=== PATIENT | male | born 1935 | race Caucasian/White ===

== ENCOUNTER 2021-03-11 19:52 | Inpatient (IN) ==
[2021-03-11] MEDS ORDERED: PANTOprazole 40 MG in SYRINGE 0 ML IV ONE (20:22)
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
[2021-03-11] MEDS ORDERED: FAMOTIDINE 20 MG in SYRINGE 3 ML IV SCH (20:30)
[2021-03-11] MEDS ORDERED: SODIUM CHLORIDE 0.9% 1000ML 500 ML IV ONE (20:49)
[2021-03-11] MEDS ORDERED: SODIUM CHLORIDE 0.9% 250 ML IV PRN (20:49)
[2021-03-11 20:50] LABS: iSTAT Creatinine 1.9 mg/dl (0.6-1.3); iSTAT Hemoglobin 7.8 g/dl (14.0-18.0); iSTAT Ionized Calcium 1.19 mmol/l (1.12-1.32)
[2021-03-11 21:02] LABS: Basophils # (auto) 0.02 K/uL (0-0.2); Basophils % (auto) 0.1 %; Eosinophils # (auto) 0.01 K/uL (0-0.5); Eosinophils % (auto) 0.1 %; Hematocrit (blood only) 25.6 % (42-52); Hemoglobin 8.1 g/dL (14.0-18.0); Immature Granulocytes # (auto) 0.07 K/uL (0.00-0.02); Immature Granulocytes % (auto) 0.4 %; Lymphocytes # (auto) 0.71 K/uL (1.2-3.4); Lymphocytes % (auto) 3.6 %; Mean Corpuscular Hemoglobin 28.3 pg (25-34); Mean Corpuscular Hgb Conc 31.6 g/dL (32-36); Mean Corpuscular Volume 89.5 fL (80-100); Mean Platelet Volume 10.4 fL (7.4-10.4); Monocytes # (auto) 1.06 K/uL (0.11-0.59); Monocytes % (auto) 5.4 %; Neutrophils # (auto) 17.73 K/uL (1.4-6.5); Neutrophils % (auto) 90.4 %; Platelet Count 233 K/uL (130-400); RDW Coefficient of Variation 15.3 % (11.5-14.5); RDW Standard Deviation 49.6 fL (36.4-46.3); Red Blood Count 2.86 M/uL (4.7-6.1)
[2021-03-11 21:09] LABS: Partial Thromboplastin Ratio 0.9; Prothrombin Time 9.9 Seconds (9.0-12.0)
[2021-03-11 21:17] LABS: Alanine Aminotransferase 19 (12-78); Albumin Level 2.9 gm/dl (3.4-5.0); Aspartate Aminotransferase 19 U/L (15-37); Blood Urea Nitrogen 63 mg/dl (7-18); Calcium 8.6 mg/dl (8.5-10.1); Carbon Dioxide 24 mmol/L (21-32); Chloride 106 mmol/L (98-107); Creatinine Clr Calc Pharmacy 51.8 ml/min; Est GFR (African American) 35.1 ml/min; Est GFR (Non-African American) 30.3 ml/min; Glucose 189 mg/dl (70-99); Lipase 238 U/L (73-393); Sodium 137 mmol/L (136-145)
[2021-03-11] MEDS ORDERED: FAMOTIDINE 20MG/5ML IV PUSH IV ONE (21:17)
[2021-03-11 21:32] LABS: Albumin Globulin Ratio 0.8 (0.9-2); Alkaline Phosphatase 71 U/L (45-117); Globulin 3.5 gm/dl (2.5-4.0); Total Protein 6.4 gm/dl (6.4-8.2); Troponin I < 0.015 ng/ml (0-0.045)
--- NOTE | 2021-03-11 21:32 | XRay Report ---
XR chest 1V portable CLINICAL HISTORY: Chest Pain. COMPARISON STUDY: 03/08/2021 TECHNIQUE: 1 view of the chest FINDINGS: Single frontal view of the chest demonstrates the cardiomediastinal silhouette to be within normal li mits. There is again a decreased inspiratory effort with elevation of the hemidiaphragms and crowding of the bronchovascular markings at the lung bases and centrally. The lungs are clear of alveolar opa cities. There is no evidence for pleural effusion. There is no evidence for vascular congestion. Ther e is no acute osseous pathology. A mechanical device is now superimposed over the left lateral rib ca ge IMPRESSION: There is again a decreased inspiratory effort with otherwise no acute chest disease. ACT 112: Negative or not required by law. Electronically signed by: Eugene Wolf M.D. 03/11/2021 9:30 PM
[2021-03-11 22:21] LABS: Bilirubin,Total 0.3 mg/dl (0.2-1)
[2021-03-12] MEDS ORDERED: ONDANSETRON INJ 2 MG/ML 2 ML VIAL IV PRN (00:04)
[2021-03-12] MEDS ORDERED: ACETAMINOPHEN 325 MG TAB PO PRN (00:04)
[2021-03-12] MEDS ORDERED: NITROGLYCERIN SL 0.4 MG/TAB TAB SL PRN (00:04)
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
[2021-03-12] MEDS: PANTOprazole 40 MG in DEXTROSE 5% 100 ML IV SCH ×3 (01:28→11:15)
[2021-03-12] MEDS: SODIUM CHLORIDE 0.9% 1000ML 1,000 ML IV SCH ×2 (03:04→16:03)
[2021-03-12] MEDS: LEVOTHYROXINE SODIUM 137 MCG TABLET PO SCH (05:50)
[2021-03-12 07:58] LABS: Basophils # (auto) 0.01 K/uL (0-0.2); Basophils % (auto) 0.1 %; Eosinophils # (auto) 0.01 K/uL (0-0.5); Eosinophils % (auto) 0.1 %; Hematocrit (blood only) 25.5 % (42-52); Hemoglobin 8.6 g/dL (14.0-18.0); Immature Granulocytes # (auto) 0.04 K/uL (0.00-0.02); Immature Granulocytes % (auto) 0.3 %; Lymphocytes # (auto) 1.15 K/uL (1.2-3.4); Mean Corpuscular Hemoglobin 29.4 pg (25-34); Mean Corpuscular Hgb Conc 33.7 g/dL (32-36); Mean Platelet Volume 9.9 fL (7.4-10.4); Monocytes # (auto) 1.16 K/uL (0.11-0.59); Monocytes % (auto) 9.1 %; Neutrophils % (auto) 81.4 %; Platelet Count 174 K/uL (130-400); RDW Coefficient of Variation 15.2 % (11.5-14.5); RDW Standard Deviation 47.5 fL (36.4-46.3); Red Blood Count 2.93 M/uL (4.7-6.1); White Blood Count 12.77 K/uL (4.8-10.8)
[2021-03-12] MEDS ORDERED: PNEUMOCOCCAL Polysaccharide Vaccine 25mcg/0.5mL vial/Syr IM ONE (08:00)
[2021-03-12 08:33] LABS: BUN Creatinine Ratio 40.8 (10-20); Est GFR (African American) 46.2 ml/min; Est GFR (Non-African American) 39.9 ml/min; Magnesium 2.1 mg/dl (1.8-2.4); Potassium 4.6 mmol/L (3.5-5.1)
[2021-03-12] MEDS: lisinopril 10 MG TAB PO SCH (08:35)
[2021-03-12] MEDS: MULTIVITAMIN TAB PO SCH (08:38)
[2021-03-12] MEDS ORDERED: PANTOprazole 40 MG TAB PO SCH (09:00)
[2021-03-12 11:50] LABS: Hematocrit (blood only) 24.8 % (42-52); Hemoglobin 8.3 g/dL (14.0-18.0)
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
[2021-03-12] MEDS ORDERED: PROPOFOL IV EMULSION 10 MG/ML 20 ML VIAL IV ONE (14:35)
[2021-03-12] MEDS ORDERED: LIDOCAINE 2% 2 ML VIAL/AMP(20MG/ML) INFIL ONE (14:35)
[2021-03-12] MEDS ORDERED: PHENYLEPHRINE 100MCG/ML 5ML SYR ONE (14:35)
--- NOTE | 2021-03-12 15:26 | Anesthesiology Progress Note ---
Date of Service March 12, 2021 Anesthesia Post Procedure Vital Signs Vital Signs: Temp Pulse Pulse Pulse Resp BP BP 03/12/21 15:24 94 H 18 101/60 03/12/21 15:09 96 H 18 111/60 03/12/21 14:13 83 16 130/55 L 03/12/21 11:19 37.0 C 76 19 130/54 L 03/12/21 07:45 36.9 C 88 20 127/56 L 03/12/21 06:53 37.1 C 72 15 130/53 L 03/12/21 06:30 72 03/12/21 05:44 36.2 C L 73 15 116/52 L 03/12/21 04:37 36.8 C 69 14 115/52 L 03/12/21 04:06 36.7 C 71 14 112/47 L 03/12/21 03:51 36.8 C 73 18 117/49 L 03/12/21 02:45 36.7 C 78 15 120/47 L 03/12/21 01:45 36.7 C 81 15 117/45 L 03/12/21 01:15 36.8 C 75 15 115/53 L 03/12/21 01:00 36.8 C 72 15 119/53 L 03/12/21 00:52 36.6 C 72 15 109/47 L 03/12/21 00:44 36.8 C 72 18 109/47 L 03/12/21 00:04 36.8 C 72 15 119/53 L 03/11/21 21:46 83 18 139/54 L 03/11/21 20:21 81 18 03/11/21 20:20 81 18 115/52 L 03/11/21 19:55 36.7 C 81 20 115/52 L Pulse Ox 03/12/21 15:24 97 03/12/21 15:09 100 03/12/21 14:13 97 03/12/21 11:19 97 03/12/21 07:45 98 03/12/21 06:53 98 03/12/21 06:30 03/12/21 05:44 93 03/12/21 04:37 95 03/12/21 04:06 95 03/12/21 03:51 97 03/12/21 02:45 95 03/12/21 01:45 98 03/12/21 01:15 98 03/12/21 01:00 97 03/12/21 00:52 97 03/12/21 00:44 97 03/12/21 00:04 98 03/11/21 21:46 97 03/11/21 20:21 99 03/11/21 20:20 99 03/11/21 19:55 98 Transfer of Care Handoff Completed per policy Notes Mental Status: alert / awake / arousable and participated in evaluation Patient Amnestic to Procedure: Yes Nausea / Vomiting: adequately controlled Pain: adequately controlled Airway Patency, RR, SpO2: stable & adequate BP & HR: stable & adequate Hydration State: stable & adequate Anesthetic Complications: no major complications apparent and Pt Satisfied with anesthetic care
--- NOTE | 2021-03-12 15:36 | GI REPORT ---
Patient Name: Lamberto Chandler Procedure Date: 03/12/2021 2:29 PM Date of : 1935 Admit Type: Inpatient Age: 85 Gender: Male Attending MD: Buffy Infante MD Procedure: Upper GI endoscopy/small bowel enteroscopy Providers: Buffy Infante MD Referring MD: Referred Self Indications: Melena Medicines: See the Anesthesia note for documentation of the administered medications Complications: No immediate complications. Estimated Blood Loss: Estimated blood loss: none. Procedure: Pre-Anesthesia Assessment: - ASA Grade Assessment: III - A patient with severe systemic disease. After obtaining informed consent, the endoscope was passed under direct vision. Throughout the procedure, the patient's blood pressure, pulse, and oxygen saturations were monitored continuously. The Endoscope was introduced through the mouth, and advanced to the proximal jejunum. The upper GI endoscopy was accomplished without difficulty. The patient tolerated the procedure well. Findings: The examined esophagus was normal. Two small erosions in the pre-pyloric antrum. The stomach was otherwise normal. There was mild patchy erythema in the duodenal bulb. A single erosion was seen. The remainder of the duodenum, as well as the jejunum were normal. There was bilious fluid throughout the small intestine, and no evidence of ongoing active bleeding. Impression: Mild gastritis and duodenitis. No source of UGIB or small bowel bleeding. 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 Recommendation: - Discharge patient to floor. - Begin clear liquids. - Follow hgb q 12 hours and transfuse for hgb < 7. - D/c PPI gtt. - If pt has gross hematochezia, would consider CTA. Buffy Infante M.D. Buffy Infante MD 03/12/2021 3:35:58 PM This report has been signed electronically. Note Initiated On: 03/12/2021 2:29 PM Number of Addenda: 0 I attest to the content of the Intraoperative Record and orders documented therein, exceptions below {[id number]}
--- NOTE | 2021-03-12 16:09 | Hospitalist Progress Note ---
Date of Service March 12, 2021 Assessment & Plan (1) Acute blood loss anemia: Plan: Patient presented with acute melena and a 3.5 g hemoglobin drop over the last 3 days. He received 2 units of blood overnight and H&H stayed approximately the same, 8.1/25 and after 2 units 8.3/25. Underwent EGD with enteroscopy today showing gastritis but no evidence of acute bleed. 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 Has no history of colonoscopy. We will continue to trend H&H every 12, stop Protonix drip at this time and continue him on a clear diet. With persistent melenotic BM this evening and persistent orthostasis, will cont with Protonix IV BID for now. If he rebleeds will consider CTA of the abdomen. Appreciate GI following his progress. (2) Melena: Plan: Persistent, Plan as above. (3) Syncope: Plan: Syncope likely secondary to acute blood loss anemia. (4) COVID-19 virus infection: Plan: No acute chest disease seen and patient is not hypoxic. No Covid directed therapies are recommended. Likely caught this from his son at home. Continue Covid isolation. (5) HTN (hypertension): Plan: Chronic, stable, hold lisinopril out of concern for active bleeding given ongoing melena and orthostasis without a clear source. (6) Hypothyroidism: Plan: Chronic, stable, continue Synthroid per home dosing (7) DVT prophylaxis: Plan: SCDs, chemoprophylaxis contraindicated in setting of acute blood loss anemia Full code Disposition-pending rebleed and future stabilization of H&H. Continue to monitor in PCU setting. At the patient's request I contacted . Ami Linares and updated her on the situation. All questions were answered for her. She is pushing for him to have a colonoscopy, which I explained will be up to the GI provider. She verbalized understanding of this. Zina Richter DO [facility] Hospitalist Admission and Anticipated Discharge Date Admission Date: March 11, 2021 Subjective 85-year-old man with a history of aortic stenosis status post TAVR presented with syncope. Patient is very active walking 3 to 4 miles a day and reports 2 syncopal episodes prior to arrival. He reports having black stools for 3 to 4 days including 1 episode of dark tarry stool this morning. He reports feeling dizzy and weak and hemoglobin was notably 3 g lower than 1 week ago on work-up. He was admitted to the hospital service and today has undergone an EGD. This revealed 2 small erosions in the prepyloric antrum and mild patchy erythema in the duodenal bulb with a single erosion seen. There was no evidence of ongoing active bleeding. He was returned to the floor and started back on clear liquids. Protonix drip was discontinued per GI recommendations if patient has gross hematochezia will consider a CTA. We will continue to trend hemoglobin. Orthostatics checked this evening were positive: (lying) 114/51 (sit) 125/49 110 (stand-had to sit down 2/2 lightheadedness) 82/54 110 Pt was served clears tray but has no appetite. Had another blackish stool this evening. Denies abdominal pain, nausea. Reports never having a colonoscopy and is interested in pursuing this to further ID the source of bleeding. Review of Systems Review of Systems: All systems were reviewed and negative except as indicated above. Physical Exam Physical Exam: CONSTITUTIONAL: WNWD, vitals as above, generally ill- appearing, NAD EYES: normal conjunctivae, no scleral icterus ENT: external ear and nose normal, MMM NECK: trachea midline RESPIRATORY: clear to auscultation bilaterally, no crackles, rales or wheezes, normal respiratory effort CARDIOVASCULAR: regular rate and rhythm, S1 and 2 heard without murmurs, gallops or rubs, no JVD, no peripheral edema GASTROINTESTINAL: soft, nontender, ND, no guarding. MUSCULOSKELETAL: strength 5/5 throughout, head is normocephalic and atraumatic SKIN: warm and dry NEUROLOGIC: CN 2-12 grossly intact, no sensory deficit, normal cognition, normal speech, no tremor. No gross focal deficits. PSYCHIATRIC: alert cooperative and oriented to person, place and time. Euthymic mood, makes good eye contact, language grossly intact, recent and remote memory grossly intact. Results & Data Results & Data ([facility]) Vital Signs (Past 12 Hours) Vital Signs Temp Pulse Pulse Pulse Resp BP BP 03/12/21 15:40 85 18 115/58 L 03/12/21 15:24 94 H 18 101/60 03/12/21 15:09 96 H 18 111/60 03/12/21 14:13 83 16 130/55 L 03/12/21 11:19 37.0 C 76 19 130/54 L 03/12/21 07:45 36.9 C 88 20 127/56 L 03/12/21 06:53 37.1 C 72 15 130/53 L 03/12/21 06:30 72 03/12/21 05:44 36.2 C L 73 15 116/52 L 03/12/21 04:37 36.8 C 69 14 115/52 L 03/12/21 04:06 36.7 C 71 14 112/47 L Pulse Ox 03/12/21 15:40 98 03/12/21 15:24 97 03/12/21 15:09 100 03/12/21 14:13 97 03/12/21 11:19 97 03/12/21 07:45 98 03/12/21 06:53 98 03/12/21 06:30 03/12/21 05:44 93 03/12/21 04:37 95 03/12/21 04:06 95 Laboratory Results Short CBC 03/11/21 03/12/21 03/12/21 Range/Units 20:53 07:12 10:58 WBC 19.60 H 12.77 H (4.8-10.8) K/uL Hgb 8.1 L 8.6 L 8.3 L (14.0-18.0) g/dL Hct 25.6 L 25.5 L 24.8 L (42-52) % Plt Count 233 174 (130-400) K/uL BMP 03/11/21 03/12/21 20:32 07:12 Sodium 137 139 Potassium 5.0 4.6 Chloride 106 109 H Carbon Dioxide 24 26 BUN 63 H 64 H Creatinine 1.97 H 1.57 H D Glucose 189 H 118 H Calcium 8.6 8.0 L Cardiac Enzymes 03/11/21 Range/Units 20:32 Troponin I < 0.015 (0-0.045) ng/ml Liver Function 03/11/21 Range/Units 20:32 Total Bilirubin 0.3 (0.2-1) mg/dl AST 19 (15-37) U/L ALT 19 (12-78) Alkaline Phosphatase 71 (45-117) U/L Albumin 2.9 L (3.4-5.0) gm/dl Medications Administered Current Inpatient Medications Acetaminophen (Acetaminophen 325 Mg Tab) 650 mg PO Q4H PRN PRN Reason: Pain or Fever Stop: 04/11/21 00:03 Sodium Chloride (Nss 1000ml) 1,000 mls @ 80 mls/hr IV .[id number] [facility] Stop: 04/11/21 00:03 Last Infusion: 03/12/21 15:34 Dose: Infused Documented by: Pantoprazole Sodium 40 mg/ (Dextrose) 100 mls @ 20 mls/hr IV Q5H [facility] Stop: 04/11/21 00:59 Last Admin: 03/12/21 11:15 Dose: 8 mg/hr, 20 mls/hr Documented by: Levothyroxine Sodium (Levothyroxine Sodium 137 Mcg Tablet) 137 mcg PO DAILYBB [facility] Stop: 04/11/21 06:29 Last Admin: 03/12/21 05:50 Dose: 137 mcg Documented by: Lisinopril (Lisinopril 10 Mg Tab) 10 mg PO DAILY [facility] Stop: 04/11/21 08:59 Last Admin: 03/12/21 08:35 Dose: 10 mg Documented by: Multivitamins (Multivitamin Tab) 1 tab PO QAM [facility] Stop: 04/11/21 08:59 Last Admin: 03/12/21 08:38 Dose: 1 tab Documented by: Nitroglycerin (Nitroglycerin Sl 0.4 Mg/Tab Tab) 0.4 mg SL UD PRN PRN Reason: Chest Pain Stop: 04/11/21 00:03 Ondansetron HCl (Ondansetron Inj 2 Mg/Ml 2 Ml Vial) 4 mg IV Q6H PRN PRN Reason: Nausea Stop: 04/11/21 00:03
--- NOTE | 2021-03-12 18:16 | Electrocardiogram Report ---
Test Reason : Blood Pressure : / mmHG Vent. Rate : 074 BPM Atrial Rate : 074 BPM P-R Int : 182 ms QRS Dur : 088 ms QT Int : 366 ms P-R-T Axes : 066 044 038 degrees QTc Int : 406 ms Normal sinus rhythm Normal ECG When compared with ECG of 08-MAR-2021 13:20, No significant change was found Confirmed by Alvaro Foster ([id number]) on 03/12/2021 6:15:57 PM Referred By: REFERRED SELF Confirmed By:Roly Foster
--- NOTE | 2021-03-12 18:18 | Electrocardiogram Report ---
Test Reason : Blood Pressure : / mmHG Vent. Rate : 073 BPM Atrial Rate : 073 BPM P-R Int : 188 ms QRS Dur : 094 ms QT Int : 376 ms P-R-T Axes : 065 041 025 degrees QTc Int : 414 ms Normal sinus rhythm Normal ECG When compared with ECG of 11-MAR-2021 20:03, (unconfirmed) No significant change was found Confirmed by Alvaro Foster ([id number]) on 03/12/2021 6:18:13 PM Referred By: REFERRED SELF Confirmed By:Roly Foster
[2021-03-12] MEDS ORDERED: SODIUM CHLORIDE 0.9% 1000ML 500 ML IV ONE (18:46)
[2021-03-12 19:20] LABS: Hematocrit (blood only) 24.9 % (42-52); Hemoglobin 8.2 g/dL (14.0-18.0)
[2021-03-12] MEDS: PANTOprazole 40 MG in SYRINGE 0 ML IV SCH (20:45)
[2021-03-13] MEDS: SODIUM CHLORIDE 0.9% 1000ML 1,000 ML IV SCH ×2 (04:36→16:17)
[2021-03-13] MEDS: LEVOTHYROXINE SODIUM 137 MCG TABLET PO SCH (06:08)
[2021-03-13] MEDS: PANTOprazole 40 MG in DEXTROSE 5% 100 ML IV SCH (07:04)
--- NOTE | 2021-03-13 07:31 | Hospitalist Progress Note ---
Date of Service March 13, 2021 Assessment & Plan (1) Acute blood loss anemia: Plan: Patient presented with acute melena and a 3.5 g hemoglobin drop over the last 3 days. He received 2 units of blood overnight and H&H stayed approximately the same, 8.1/25 and after 2 units 8.3/25. Underwent EGD (03/12/2021) with enteroscopy showing gastritis but no evidence of acute bleed. 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 Has no history of colonoscopy. This AM (03/13) pt had a bloody stool. Also later episode of vasovagal syncope. Hemoglobin 7.2 this morning (03/13), 2 units of PRBCs ordered. CT abdomen pelvis obtained, does not show active bleeding. GI aware, recommend continue to monitor IMPRESSION: 1. No CTA evidence for active bleeding. 2. Diverticulosis without evidence for diverticulitis. 3. Cholelithiasis with no CT evidence for acute cholecystitis. 4. Additional nonacute findings are delineated above. Continue to trend H&H q6h (2) Melena: Plan: and BRBPR Persistent, Plan as above. (3) Syncope: Plan: Syncope likely secondary to acute blood loss anemia. Patient had a vasovagal episode again at the bedside commode (03/13) (4) COVID-19 virus infection: Plan: No acute chest disease seen and patient is not hypoxic. No Covid directed therapies are recommended. Likely caught this from his son at home. Continue Covid isolation. (5) HTN (hypertension): Plan: Chronic, stable, hold lisinopril out of concern for active bleeding given ongoing melena and orthostasis without a clear source. (6) Hypothyroidism: Plan: Chronic, stable, continue Synthroid per home dosing (7) DVT prophylaxis: Plan: SCDs, chemoprophylaxis contraindicated in setting of acute blood loss anemia Full code Disposition-pending rebleed and future stabilization of H&H. Continue to monitor in PCU setting. Ms. Ami Linares updated yesterday by Dr. Richter. Per previous note - she would like for him to have a colonoscopy, it was explained that it will be up to the GI provider. She verbalized understanding of this. Admission and Anticipated Discharge Date Admission Date: March 11, 2021 Subjective Patient had another bloody bowel movement this morning around 630. Hgb 7.2. 2 units of pRBC ordered CT abdomen pelvis with contrast ordered -does not show any active bleeding Discussed with Dr. Steele (GI) this morning, recommends to observe Patient also had vasovagal episode on bedside commode (code purple was called). Denies abdominal pain, nausea vomiting, chest pain or shortness of breath. Feels weak. Underwent EGD yesterday. This revealed 2 small erosions in the prepyloric an trum and mild patchy erythema in the duodenal bulb with a single erosion seen. There was no evidence of ongoing active bleeding. He was returned to the floor and started back on clear liquids. Protonix drip was discontinued per GI recommendations. 85 yo M w/ hx of s/p TAVR presented with syncope. Patient is very active walking 3 to 4 miles a day and reports 2 syncopal episodes prior to arrival. He reports having black stools for 3 to 4 days including 1 episode of dark tarry stool this morning. He reports feeling dizzy and weak and hemoglobin was notably 3 g lower than 1 week ago on work-up. Orthostatics checked last evening were positive: (lying) 114/51 (sit) 125/49 110 (stand-had to sit down 2/2 lightheadedness) 82/54 110 Pt had another blackish stool last evening. Denies abdominal pain, nausea. Reports never having a colonoscopy and is interested in pursuing this to further ID the source of bleeding. Review of Systems Review of Systems: All systems reviewed & are unremarkable except as noted in Subjective Physical Exam Physical Exam: CONSTITUTIONAL: WN/WD, vitals as above, generally ill-appearing, NAD EYES: EOMI, PERRL, normal conjunctivae, no scleral icterus ENT: external ear and nose normal, MMM NECK: supple RESPIRATORY: clear to auscultation bilaterally, no crackles, rales or wheezes, normal respiratory effort CARDIOVASCULAR: regular rate and rhythm, S1 and 2 heard without murmurs, gallops or rubs, no JVD, no peripheral edema GASTROINTESTINAL: soft, nontender, ND, no guarding. MUSCULOSKELETAL: strength 5/5 throughout, head is normocephalic and atraumatic SKIN: warm and dry NEUROLOGIC:Awake and alert, able to answer questions appropriately. Previously had vasovagal episode. Currently moving extremities, no facial symmetry, speech fluent PSYCHIATRIC: Euthymic mood Results & Data Results & Data ([facility]) Vital Signs (Past 12 Hours) Vital Signs Temp Pulse Pulse Pulse Resp BP BP 03/13/21 07:16 83 03/13/21 07:14 36.9 C 84 18 116/53 L 03/13/21 04:20 37.0 C 88 20 118/57 L 03/13/21 01:00 82 03/13/21 00:52 85 03/13/21 00:26 102 H 101/55 L 03/13/21 00:22 36.9 C 89 18 111/52 L 03/13/21 00:04 03/12/21 19:59 85 121/56 L Pulse Ox 03/13/21 07:16 03/13/21 07:14 95 03/13/21 04:20 96 03/13/21 01:00 03/13/21 00:52 03/13/21 00:26 95 03/13/21 00:22 94 03/13/21 00:04 95 03/12/21 19:59 95 Laboratory Results 03/13/21 03/13/21 03/12/21 Range/Units 07:15 07:15 19:06 WBC 10.93 H (4.8-10.8) K/uL RBC 2.46 L (4.7-6.1) M/uL Hgb 7.2 L 8.2 L (14.0-18.0) g/dL Hct 21.9 L 24.9 L (42-52) % MCV 89.0 (80-100) fL MCH 29.3 (25-34) pg MCHC 32.9 (32-36) g/dL RDW Std Deviation 51.1 H (36.4-46.3) fL RDW Coeff of Suzie 16.1 H (11.5-14.5) % Plt Count 160 (130-400) K/uL MPV 10.2 (7.4-10.4) fL Sodium 140 (136-145) mmol/L Potassium 4.0 (3.5-5.1) mmol/L Chloride 112 H (98-107) mmol/L Carbon Dioxide 23 (21-32) mmol/L Anion Gap 6.0 (3-11) BUN 46 H (7-18) mg/dl Creatinine 1.44 H (0.6-1.4) mg/dl Est Cr Clr Drug Dosing 41.4 ml/min Est GFR ( Amer) 51.3 ml/min Est GFR (Non-Af Amer) 44.3 ml/min BUN/Creatinine Ratio 31.9 H (10-20) Glucose 117 H (70-99) mg/dl Calcium 7.8 L (8.5-10.1) mg/dl Phosphorus 2.7 (2.5-4.9) mg/dl Magnesium 2.0 (1.8-2.4) mg/dl Blood Type Antibody Screen Crossmatch 03/11/21 Range/Units 20:53 WBC (4.8-10.8) K/uL RBC (4.7-6.1) M/uL Hgb (14.0-18.0) g/dL Hct (42-52) % MCV (80-100) fL MCH (25-34) pg MCHC (32-36) g/dL RDW Std Deviation (36.4-46.3) fL RDW Coeff of Suzie (11.5-14.5) % Plt Count (130-400) K/uL MPV (7.4-10.4) fL Sodium (136-145) mmol/L Potassium (3.5-5.1) mmol/L Chloride (98-107) mmol/L Carbon Dioxide (21-32) mmol/L Anion Gap (3-11) BUN (7-18) mg/dl Creatinine (0.6-1.4) mg/dl Est Cr Clr Drug Dosing ml/min Est GFR ( Amer) ml/min Est GFR (Non-Af Amer) ml/min BUN/Creatinine Ratio (10-20) Glucose (70-99) mg/dl Calcium (8.5-10.1) mg/dl Phosphorus (2.5-4.9) mg/dl Magnesium (1.8-2.4) mg/dl Blood Type B Negative Antibody Screen NEGATIVE Crossmatch See Detail Medications Administered Current Inpatient Medications Acetaminophen (Acetaminophen 325 Mg Tab) 650 mg PO Q4H PRN PRN Reason: Pain or Fever Stop: 04/11/21 00:03 Sodium Chloride (Nss 1000ml) 1,000 mls @ 80 mls/hr IV .[id number] [facility] Stop: 04/11/21 00:03 Last Admin: 03/13/21 04:36 Dose: 80 mls/hr Documented by: Pantoprazole Sodium 40 mg/ (Syringe) 10 mls @ 5 mls/min IV BID [facility] Stop: 04/11/21 20:59 Last Admin: 03/13/21 08:00 Dose: 5 mls/min Documented by: Sodium Chloride (Nss) 250 mls @ 15 mls/hr IV .[id number] PRN PRN Reason: For Transfusion Stop: 03/13/21 18:34 Sodium Chloride (Nss) 250 mls @ 15 mls/hr IV .[id number] PRN PRN Reason: For Transfusion Stop: 03/13/21 19:45 Levothyroxine Sodium (Levothyroxine Sodium 137 Mcg Tablet) 137 mcg PO DAILYBB [facility] Stop: 04/11/21 06:29 Last Admin: 03/13/21 06:08 Dose: 137 mcg Documented by: Lisinopril (Lisinopril 10 Mg Tab) 10 mg PO DAILY [facility] Stop: 04/11/21 08:59 Last Admin: 03/13/21 08:00 Dose: 10 mg Documented by: Multivitamins (Multivitamin Tab) 1 tab PO QAM [facility] Stop: 04/11/21 08:59 Last Admin: 03/13/21 08:00 Dose: 1 tab Documented by: Nitroglycerin (Nitroglycerin Sl 0.4 Mg/Tab Tab) 0.4 mg SL UD PRN PRN Reason: Chest Pain Stop: 04/11/21 00:03 Ondansetron HCl (Ondansetron Inj 2 Mg/Ml 2 Ml Vial) 4 mg IV Q6H PRN PRN Reason: Nausea Stop: 04/11/21 00:03
[2021-03-13] MEDS: MULTIVITAMIN TAB PO SCH (08:00)
[2021-03-13] MEDS: lisinopril 10 MG TAB PO SCH (08:00)
[2021-03-13] MEDS: PANTOprazole 40 MG in SYRINGE 0 ML IV SCH ×2 (08:00→19:57)
[2021-03-13 08:28] LABS: Hematocrit (blood only) 21.9 % (42-52); Hemoglobin 7.2 g/dL (14.0-18.0); Mean Corpuscular Hemoglobin 29.3 pg (25-34); Mean Corpuscular Hgb Conc 32.9 g/dL (32-36); Mean Platelet Volume 10.2 fL (7.4-10.4); Platelet Count 160 K/uL (130-400); RDW Coefficient of Variation 16.1 % (11.5-14.5); RDW Standard Deviation 51.1 fL (36.4-46.3); Red Blood Count 2.46 M/uL (4.7-6.1); White Blood Count 10.93 K/uL (4.8-10.8)
[2021-03-13] MEDS ORDERED: SODIUM CHLORIDE 0.9% 250 ML IV PRN ×3 (08:34→18:37)
[2021-03-13 08:54] LABS: BUN Creatinine Ratio 31.9 (10-20); Calcium 7.8 mg/dl (8.5-10.1); Creatinine Clr Calc Pharmacy 41.4 ml/min; Est GFR (African American) 51.3 ml/min; Est GFR (Non-African American) 44.3 ml/min
[2021-03-13 08:55] LABS: Phosphorus 2.7 mg/dl (2.5-4.9)
[2021-03-13] MEDS ORDERED: OPTIRAY 320 125ml IV ONE (09:37)
--- NOTE | 2021-03-13 10:00 | CT Scan Report ---
CT angio abdomen pelvis w con CLINICAL HISTORY: GI bleed COMPARISON STUDY: 05/29/2010 CT DOSE: 1000.08 mGycm TECHNIQUE: Standard CT Angiogram of the aorta was performed with IV contrast followed by image post processing with coronal, and sagittal MIP reformats... This CT exam was performed using one or more of the following dose reduction techniques: Automated ex posure control, adjustment of the mA and/or kV according to patient size, or use of iterative reconst ruction technique. CONTRAST: Optiray 320, 120 mL nonionic intravenous contrast. VASCULAR FINDINGS: There is no evidence for a contrast blush within the bowel with no CTA evidence fo r active bleeding. Abdominal aorta: patent without aneurysm or dissection. Minimal atherosclerotic calcification is pres ent. Celiac trunk: patent without stenosis. Mild atherosclerotic plaque is seen involving its branches. Superior mesenteric artery: patent without stenosis. Right renal artery: patent without stenosis. Left renal artery: patent without stenosis. Inferior mesenteric artery: patent without stenosis. Right common iliac artery: patent without stenosis. Mild atherosclerotic calcification is present. Right internal iliac artery: patent without stenosis. Mild atherosclerotic calcification is present. Right external iliac artery: patent without stenosis. Left common iliac artery: patent without stenosis. Mild atherosclerotic calcification is present. Left internal iliac artery: patent without stenosis. Mild atherosclerotic calcification is present. Left external iliac artery: patent without stenosis NONVASCULAR FINDINGS: Lung base: The lung bases are clear. There is evidence for an aortic graft in place. Abdominal cavity: There is no evidence for abdominal mass, adenopathy or ascites. There are small jose ateral inguinal hernias with peritoneal fat. No bowel loop herniation is seen. Liver: There is homogeneous in fatty attenuation of the liver parenchyma. There is no evidence for en hancing mass lesion. Spleen: There is homogeneous attenuation of the splenic parenchyma. There is no enhancing mass lesion . Pancreas: There is homogeneous attenuation of the pancreatic parenchyma. There is no evidence for mas s lesion or peripancreatic fluid collection. Gall Bladder: The gallbladder is well distended with cholelithiasis. There is no CT evidence for acut e cholecystitis. Adrenal glands: The adrenal glands are normal in size and attenuation. There is no evidence for enhan cing mass lesion. Kidneys: There is homogeneous attenuation of the renal parenchyma bilaterally. However, there is bila teral renal cortical atrophy. There is no evidence for renal calculus or hydronephrosis. There is no evidence for enhancing mass. Bowel: There is small hiatal hernia. The bowel loops are normally placed within the abdomen and pelvi s without evidence for dilatation or obstruction. There is diverticulosis of the distal descending an d sigmoid colon without evidence for diverticulitis. There are no inflammatory changes present. There is no evidence for free air. Surgical clips are present previous appendectomy. Bladder: The bladder is within normal limits with no evidence for focal mass, calculus or diverticulu m. : There is no evidence for pelvic mass or adenopathy. There is no evidence for pelvic ascites. The prostate is mildly enlarged. Osseous structures: There is no acute osseous pathology. Degenerative changes are present involving t he lumbar spine and right hip. There are also degenerative changes of the SI joints. IMPRESSION: 1. No CTA evidence for active bleeding. 2. Diverticulosis without evidence for diverticulitis. 3. Cholelithiasis with no CT evidence for acute cholecystitis. 4. Additional nonacute findings are delineated above. ACT 112: Negative or not required by law. Electronically signed by: Eugene Wolf M.D. 03/13/2021 9:59 AM
[2021-03-13 17:45] LABS: Hemoglobin 7.8 g/dL (14.0-18.0)
--- NOTE | 2021-03-13 19:42 | Communication Note ---
Date of Service: March 13, 2021 Called urgently to re-evaluate patient. He has had 2 episodes of stool with red blood. Had a vasovagal episode while on the commode. Hgb is 7.8. Received 2 units of blood earlier today. EGD was negative for a source of bleeding yesterday. CTA did not show active bleeding this AM. BUN 46 (down from 63). Advised to get a bleeding scan. Transfuse another unit of blood given the 2 episodes and vasovagal event. Pending the result of the bleeding scan, will decide whether to proceed with prep for colonoscopy tomorrow vs repeating an upper endoscopy vs transfer to tertiary care institution with IR capability. This was discussed with patient's POA, his ex- over the phone as well. The primary service will contact me with the bleeding scan results when available.
[2021-03-14 04:02] LABS: Hematocrit (blood only) 26.8 % (42-52); Hemoglobin 8.8 g/dL (14.0-18.0); Mean Corpuscular Hemoglobin 30.2 pg (25-34); Mean Corpuscular Hgb Conc 32.8 g/dL (32-36); Mean Corpuscular Volume 92.1 fL (80-100); Mean Platelet Volume 10.2 fL (7.4-10.4); Platelet Count 124 K/uL (130-400); RDW Coefficient of Variation 14.8 % (11.5-14.5); RDW Standard Deviation 49.6 fL (36.4-46.3); Red Blood Count 2.91 M/uL (4.7-6.1); White Blood Count 12.62 K/uL (4.8-10.8)
[2021-03-14 04:20] LABS: BUN Creatinine Ratio 32.7 (10-20); Calcium 7.2 mg/dl (8.5-10.1); Creatinine Clr Calc Pharmacy 47.7 ml/min; Est GFR (African American) 60.9 ml/min; Est GFR (Non-African American) 52.5 ml/min; Phosphorus 2.9 mg/dl (2.5-4.9)
[2021-03-14] MEDS: LEVOTHYROXINE SODIUM 137 MCG TABLET PO SCH (05:00)
--- NOTE | 2021-03-14 06:59 | Hospitalist Progress Note ---
Date of Service March 14, 2021 Assessment & Plan (1) Acute blood loss anemia: Plan: Patient presented with acute melena and a 3.5 g hemoglobin drop over the last 3 days. He received 2 units of blood on admission and H&H stayed approximately the same, 8.1/25 and after 2 units 8.3/25. Underwent EGD (03/12/2021) with enteroscopy showing gastritis but no evidence of acute bleed. 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 Has no history of colonoscopy. On (03/13) pt had a bloody stool. Also later episode of vasovagal syncope. Hemoglobin 7.2 in the morning (03/13), [address] units of PRBCs ordered. CT abdomen pelvis obtained, does not show active bleeding. GI aware, recommend continue to monitor IMPRESSION: 1. No CTA evidence for active bleeding. 2. Diverticulosis without evidence for diverticulitis. 3. Cholelithiasis with no CT evidence for acute cholecystitis. 4. Additional nonacute findings are delineated above. Patient then had more episodes of red bloody stools, and bleeding scan was recommended. Unfortunately contacted by radiology that we cannot obtain bleeding scan over the weekend, and the earliest would be Tuesday Therefore contacted tertiary care center, [facility], which accepted patient for further evaluation and treatment. However no beds available at the time. Patient's ex- Ami updated over the phone. 03/14/2020 -contacted by radiology that bleeding scan can actually be obtained today. Bleeding scan negative for active GI bleed. Patient feeling better today, and hemoglobin stable. He did have several bloody bowel movements, however per nursing staff this was dark blood/likely old blood. GI aware of negative bleeding scan, and plans for colonoscopy for Tuesday. Contacted by [facility], that bed is actually available now, and therefore discussed further plan with the patient and his family. They understand that we plan further evaluation as currently we do not have a source of bleed identified. They wish to proceed with the transfer to tertiary center for further evaluation and treatment. They are aware, that patient possibly may need more specialized care, and they wish no further delay. (2) Melena: Plan: and BRBPR Plan as above. (3) Syncope: Plan: Syncope likely secondary to acute blood loss anemia. Patient had a vasovagal episode again at the bedside commode (03/13) (4) COVID-19 virus infection: Plan: No acute chest disease seen and patient is not hypoxic. No Covid directed therapies are recommended. Continue Covid isolation. (5) HTN (hypertension): Plan: Chronic, stable, hold lisinopril for now. (6) Hypothyroidism: Plan: Chronic, stable, continue Synthroid per home dosing (7) DVT prophylaxis: Plan: SCDs, chemoprophylaxis contraindicated in setting of acute blood loss anemia Full code Disposition- plan to transfer to [facility] Admission and Anticipated Discharge Date Admission Date: March 11, 2021 Subjective Yesterday patient had multiple bloody bowel movements. In the morning his Hgb was 7.2. 2 units of pRBC ordered. CT abdomen pelvis with contrast obtained in the morning-did not show any active bleeding Patient also had vasovagal episode on bedside commode (code purple was called). Discussed further with GI, and bleeding scan was recommended. Unfortunately I was told by radiology that we would not be able to obtain the scan until Tuesday. Therefore contacted tertiary care center, [facility], which accepted patient for further evaluation and treatment. Patient's ex- Ami updated over the phone. Contacted by radiology this morning (03/14/2020), that they would be able to per form bleeding scan. This was done earlier today, and was negative for active GI bleed. Today patient is feeling much better, hemoglobin stable. He had several stools today, with dark red blood, per nursing staff looks like old blood. Patient hemodynamically stable. GI aware of negative bleeding scan, and plans for colonoscopy on Tuesday. Also contacted by [facility], that now bed is available for the patient. Discussed this in detail with patient and family, they understand that we plan further evaluation as currently we do not have a source of bleed identified. They wish to proceed with the transfer to tertiary center for further evaluation and treatment. They are aware, that patient possibly may need more specialized care, and they wish no further delay. Pt currently denies any abdominal pain, nausea vomiting, chest pain or shortness of breath. Review of Systems Review of Systems: All systems reviewed & are unremarkable except as noted in Subjective Physical Exam Physical Exam: CONSTITUTIONAL: WN/WD, M in NAD EYES: EOMI, PERRL, normal conjunctivae, no scleral icterus ENT: external ear and nose normal, MMM NECK: supple RESPIRATORY: clear to auscultation bilaterally, no crackles, rales or wheezes, normal respiratory effort CARDIOVASCULAR: regular rate and rhythm, S1 and 2 heard without murmurs, gallops or rubs, no JVD, no peripheral edema GASTROINTESTINAL: soft, nontender, ND, no guarding. MUSCULOSKELETAL: strength 5/5 throughout, head is normocephalic and atraumatic SKIN: warm and dry NEUROLOGIC:Awake and alert, able to answer questions appropriately. Speech fluent, no facial asymmetry. Moving extremities. PSYCHIATRIC: Euthymic mood Results & Data Results & Data ([facility]) Vital Signs (Past 12 Hours) Vital Signs Temp Pulse Pulse Resp BP BP BP 03/14/21 06:44 37.1 C 94 H 18 104/51 L 03/14/21 03:44 37.0 C 77 17 105/52 L 03/14/21 03:21 37.1 C 71 16 105/52 L 03/14/21 02:48 82 17 130/45 L 03/14/21 01:48 37.1 C 85 17 95/67 L 03/14/21 00:48 37.2 C 80 17 120/55 L 03/14/21 00:18 37.2 C 78 16 114/58 L 03/14/21 00:03 37.2 C 71 16 116/48 L 03/13/21 23:46 37.3 C 83 122/49 L 03/13/21 23:16 37.3 C 86 18 99/57 L 03/13/21 21:56 37.6 C H 73 17 111/52 L 03/13/21 20:56 37.2 C 67 18 113/52 L 03/13/21 20:26 37.2 C 77 17 110/50 L 03/13/21 20:11 37.1 C 75 18 108/46 L 03/13/21 19:46 37.2 C 79 18 114/42 L Pulse Ox 03/14/21 06:44 100 03/14/21 03:44 99 03/14/21 03:21 99 03/14/21 02:48 98 03/14/21 01:48 98 03/14/21 00:48 99 03/14/21 00:18 99 03/14/21 00:03 99 03/13/21 23:46 99 03/13/21 23:16 99 03/13/21 21:56 100 03/13/21 20:56 95 03/13/21 20:26 100 03/13/21 20:11 93 03/13/21 19:46 94 Laboratory Results 03/14/21 03/14/21 03/14/21 Range/Units 04:00 04:00 01:55 WBC 12.62 H (4.8-10.8) K/uL RBC 2.91 L (4.7-6.1) M/uL Hgb 8.8 L Cancelled (14.0-18.0) g/dL Hct 26.8 L Cancelled (42-52) % MCV 92.1 (80-100) fL MCH 30.2 (25-34) pg MCHC 32.8 (32-36) g/dL RDW Std Deviation 49.6 H (36.4-46.3) fL RDW Coeff of Suzie 14.8 H (11.5-14.5) % Plt Count 124 L (130-400) K/uL MPV 10.2 (7.4-10.4) fL Sodium 141 (136-145) mmol/L Potassium 4.0 (3.5-5.1) mmol/L Chloride 113 H (98-107) mmol/L Carbon Dioxide 24 (21-32) mmol/L Anion Gap 4.0 (3-11) BUN 41 H (7-18) mg/dl Creatinine 1.25 (0.6-1.4) mg/dl Est Cr Clr Drug Dosing 47.7 ml/min Est GFR ( Amer) 60.9 ml/min Est GFR (Non-Af Amer) 52.5 ml/min BUN/Creatinine Ratio 32.7 H (10-20) Glucose 123 H (70-99) mg/dl Calcium 7.2 L (8.5-10.1) mg/dl Phosphorus 2.9 (2.5-4.9) mg/dl Magnesium 2.0 (1.8-2.4) mg/dl Blood Type Antibody Screen Crossmatch 03/13/21 03/13/21 03/13/21 Range/Units 17:19 13:18 07:15 WBC (4.8-10.8) K/uL RBC (4.7-6.1) M/uL Hgb 7.8 L Cancelled (14.0-18.0) g/dL Hct 24.0 L Cancelled (42-52) % MCV (80-100) fL MCH (25-34) pg MCHC (32-36) g/dL RDW Std Deviation (36.4-46.3) fL RDW Coeff of Suzie (11.5-14.5) % Plt Count (130-400) K/uL MPV (7.4-10.4) fL Sodium 140 (136-145) mmol/L Potassium 4.0 (3.5-5.1) mmol/L Chloride 112 H (98-107) mmol/L Carbon Dioxide 23 (21-32) mmol/L Anion Gap 6.0 (3-11) BUN 46 H (7-18) mg/dl Creatinine 1.44 H (0.6-1.4) mg/dl Est Cr Clr Drug Dosing 41.4 ml/min Est GFR ( Amer) 51.3 ml/min Est GFR (Non-Af Amer) 44.3 ml/min BUN/Creatinine Ratio 31.9 H (10-20) Glucose 117 H (70-99) mg/dl Calcium 7.8 L (8.5-10.1) mg/dl Phosphorus 2.7 (2.5-4.9) mg/dl Magnesium 2.0 (1.8-2.4) mg/dl Blood Type Antibody Screen Crossmatch 03/13/21 03/11/21 Range/Units 07:15 20:53 WBC 10.93 H (4.8-10.8) K/uL RBC 2.46 L (4.7-6.1) M/uL Hgb 7.2 L (14.0-18.0) g/dL Hct 21.9 L (42-52) % MCV 89.0 (80-100) fL MCH 29.3 (25-34) pg MCHC 32.9 (32-36) g/dL RDW Std Deviation 51.1 H (36.4-46.3) fL RDW Coeff of Suzie 16.1 H (11.5-14.5) % Plt Count 160 (130-400) K/uL MPV 10.2 (7.4-10.4) fL Sodium (136-145) mmol/L Potassium (3.5-5.1) mmol/L Chloride (98-107) mmol/L Carbon Dioxide (21-32) mmol/L Anion Gap (3-11) BUN (7-18) mg/dl Creatinine (0.6-1.4) mg/dl Est Cr Clr Drug Dosing ml/min Est GFR ( Amer) ml/min Est GFR (Non-Af Amer) ml/min BUN/Creatinine Ratio (10-20) Glucose (70-99) mg/dl Calcium (8.5-10.1) mg/dl Phosphorus (2.5-4.9) mg/dl Magnesium (1.8-2.4) mg/dl Blood Type B Negative Antibody Screen NEGATIVE Crossmatch See Detail Medications Administered Current Inpatient Medications Acetaminophen (Acetaminophen 325 Mg Tab) 650 mg PO Q4H PRN PRN Reason: Pain or Fever Stop: 04/11/21 00:03 Sodium Chloride (Nss 1000ml) 1,000 mls @ 80 mls/hr IV .[id number] [facility] Stop: 04/11/21 00:03 Last Infusion: 03/14/21 03:23 Dose: 80 mls/hr Documented by: Pantoprazole Sodium 40 mg/ (Syringe) 10 mls @ 5 mls/min IV BID [facility] Stop: 04/11/21 20:59 Last Admin: 03/13/21 19:57 Dose: 5 mls/min Documented by: Levothyroxine Sodium (Levothyroxine Sodium 137 Mcg Tablet) 137 mcg PO DAILYBB [facility] Stop: 04/11/21 06:29 Last Admin: 03/14/21 05:00 Dose: 137 mcg Documented by: Lisinopril (Lisinopril 10 Mg Tab) 10 mg PO DAILY ROXANN Stop: 04/11/21 08:59 Last Admin: 03/13/21 08:00 Dose: 10 mg Documented by: Multivitamins (Multivitamin Tab) 1 tab PO QAM [facility] Stop: 04/11/21 08:59 Last Admin: 03/13/21 08:00 Dose: 1 tab Documented by: Nitroglycerin (Nitroglycerin Sl 0.4 Mg/Tab Tab) 0.4 mg SL UD PRN PRN Reason: Chest Pain Stop: 04/11/21 00:03 Ondansetron HCl (Ondansetron Inj 2 Mg/Ml 2 Ml Vial) 4 mg IV Q6H PRN PRN Reason: Nausea Stop: 04/11/21 00:03
[2021-03-14] MEDS: SODIUM CHLORIDE 0.9% 1000ML 1,000 ML IV SCH ×2 (07:18→14:05)
[2021-03-14] MEDS: PANTOprazole 40 MG in SYRINGE 0 ML IV SCH (09:09)
[2021-03-14] MEDS: MULTIVITAMIN TAB PO SCH (09:09)
[2021-03-14] MEDS ORDERED: SODIUM CHLORIDE 0.9% 250 ML IV PRN (12:03)
--- NOTE | 2021-03-14 12:46 | Nuclear Medicine Report ---
NM GI bleeding CLINICAL HISTORY: 85 years-old Male with GI bleed. Acute GI bleed TECHNIQUE: Following the intravenous administration of red cells labeled with 27.0 mCi of technetium -99m Ultratag, sequential abdominal images were obtained for minutes. COMPARISON: CTA had pelvis 03/13/2021 FINDINGS: There is no abnormal focus of labeled red cell accumulation or extravasation. Linear tracer uptake wi thin the mid pelvis is likely penile rather than rectal. A lateral view was obtained for confirmation which showed no abnormal uptake within the rectum. There is expected activity in the blood pool. IMPRESSION: No scintigraphic evidence for active gastro intestinal bleeding. ACT 112: Negative or not required by law. The above report was generated using voice recognition software. It may contain grammatical, syntax o r spelling errors. Electronically signed by: Adams Ro M.D. 03/14/2021 12:44 PM
[2021-03-14 13:25] LABS: Hematocrit (blood only) 28.3 % (42-52); Hemoglobin 9.4 g/dL (14.0-18.0)
--- NOTE | 2021-03-14 15:51 | Discharge Summary ---
Date of Service March 14, 2021 Admission HPI Per Admitting Provider This is an 85-year-old male with past medical history significant for hyperlipidemia, hypothyroidism, prediabetes, chronic rhinitis, hypertension, left ventricular hypertrophy, severe aortic valve stenosis, status post TAVR, left bundle-branch block, chronic kidney disease stage III, history of prostate cancer, who lives at his home, comes because of syncope. . The patient says he is walking 3-4 miles a day. Last Tuesday, he had a syncopal episode for a short period of time. His was behind holding him, so he just fell on the knees and slightly bumped his head. He came to the ER. At that time, workup wa s negative. His hemoglobin was 11.8. He was discharged home to follow up with PCP. He just saw cardiology yesterday when he was placed on Zio patch, but at that time it was thought mostly dehydration and was ordered labs, and Protonix. Having black stools for 3-4 days.Aspirin was not started, but today again he had another episode of near syncope, but noticed that when he would stand up, he was feeling dizzy and weak, so he came to the ER and his hemoglobin is 8.1, dropped from 11.8 on 03/08/2021, so we were called for admission. Currently, resting comfortably, hemodynamically stable. Denies any headache. No blurred visions. Has chronic runny nose and chronic cough from it, no sore throat, no earaches, no chest pain, no shortness of breath, no nausea, no abdominal pain. Normal bladder movements. No hematuria. Ambulating okay as mentioned above. Admission Exam Per Admitting Provider GENERAL: The patient is of moderate build, not in acute distress. VITAL SIGNS: Temperature 36.7, pulse 83, respiratory rate 18, blood pressure 139/54, oxygen 97% on room air. HEENT: Pupils equal, round and reactive to light. Oral mucosa moist. NECK: No JVD, no neck masses. CARDIOVASCULAR: S1 and S2 heard. Regular rate and rhythm. No murmur, no gallop. RESPIRATORY SYSTEM: Normal AP diameter. No accessory muscle use. No wheezing, no crackles. ABDOMEN: Soft. Bowel sounds present, nontender, no distention. CENTRAL NERVOUS SYSTEM: Cranial nerves II through XII are grossly intact, nonfocal. EXTREMITIES: Mild pedal edema present, no erythema seen. Principal Diagnosis Syncope GI bleed Acute blood loss anemia Positive for COVID-19 Discharge Exam CONSTITUTIONAL: WN/WD, M in NAD EYES: EOMI, PERRL, normal conjunctivae, no scleral icterus ENT: external ear and nose normal, MMM NECK: supple RESPIRATORY: clear to auscultation bilaterally, no crackles, rales or wheezes, normal respiratory effort CARDIOVASCULAR: regular rate and rhythm, S1 and 2 heard without murmurs, gallops or rubs, no JVD, no peripheral edema GASTROINTESTINAL: soft, nontender, ND, no guarding. MUSCULOSKELETAL: strength 5/5 throughout, head is normocephalic and atraumatic SKIN: warm and dry NEUROLOGIC:Awake and alert, able to answer questions appropriately. Speech fluent, no facial asymmetry. Moving extremities. PSYCHIATRIC: Euthymic mood Discharge Data Allergies Allergy/AdvReac Type Severity Reaction Status Date / Time No Known Allergies Allergy Mild Unverified 03/11/21 19:57 Consultations 03/12/21 08:00 Consult Cardiology Routine Consult Gastroenterology Routine 03/14/21 15:22 Burn CD for patient Stat Procedures Performed Operation Date: 03/12/21 11:00 Actual Procedures p Esophagogastroduodenoscopy - Buffy Infante MD Findings: The examined esophagus was normal. Two small erosions in the pre-pyloric antrum. The stomach was otherwise normal. There was mild patchy erythema in the duodenal bulb. A single erosion was seen. The remainder of the duodenum, as well as the jejunum were normal. There was bilious fluid throughout the small intestine, and no evidence of ongoing active bleeding. Impression: Mild gastritis and duodenitis. No source of UGIB or small bowel bleeding. 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 Recommendation: - Discharge patient to floor. - Begin clear liquids. - Follow hgb q 12 hours and transfuse for hgb < 7. - D/c PPI gtt. - If pt has gross hematochezia, would consider CTA. Ordered Studies 03/13/21 07:25 CT angio abdomen pelvis w con Urgent VASCULAR FINDINGS: There is no evidence for a contrast blush within the bowel with no CTA evidence for active bleeding. Abdominal aorta: patent without aneurysm or dissection. Minimal atherosclerotic calcification is present. Celiac trunk: patent without stenosis. Mild atherosclerotic plaque is seen involving its branches. Superior mesenteric artery: patent without stenosis. Right renal artery: patent without stenosis. Left renal artery: patent without stenosis. Inferior mesenteric artery: patent without stenosis. Right common iliac artery: patent without stenosis. Mild atherosclerotic calcification is present. Right internal iliac artery: patent without stenosis. Mild atherosclerotic calcification is present. Right external iliac artery: patent without stenosis. Left common iliac artery: patent without stenosis. Mild atherosclerotic calcification is present. Left internal iliac artery: patent without stenosis. Mild atherosclerotic ca lcification is present. Left external iliac artery: patent without stenosis NONVASCULAR FINDINGS: Lung base: The lung bases are clear. There is evidence for an aortic graft in place. Abdominal cavity: There is no evidence for abdominal mass, adenopathy or ascites. There are small bilateral inguinal hernias with peritoneal fat. No bowel loop herniation is seen. Liver: There is homogeneous in fatty attenuation of the liver parenchyma. There is no evidence for enhancing mass lesion. Spleen: There is homogeneous attenuation of the splenic parenchyma. There is no enhancing mass lesion. Pancreas: There is homogeneous attenuation of the pancreatic parenchyma. There is no evidence for mass lesion or peripancreatic fluid collection. Gall Bladder: The gallbladder is well distended with cholelithiasis. There is no CT evidence for acute cholecystitis. Adrenal glands: The adrenal glands are normal in size and attenuation. There is no evidence for enhancing mass lesion. Kidneys: There is homogeneous attenuation of the renal parenchyma bilaterally. However, there is bilateral renal cortical atrophy. There is no evidence for renal calculus or hydronephrosis. There is no evidence for enhancing mass. Bowel: There is small hiatal hernia. The bowel loops are normally placed within the abdomen and pelvis without evidence for dilatation or obstruction. There is diverticulosis of the distal descending and sigmoid colon without evidence for diverticulitis. There are no inflammatory changes present. There is no evidence for free air. Surgical clips are present previous appendectomy. Bladder: The bladder is within normal limits with no evidence for focal mass, calculus or diverticulum. : There is no evidence for pelvic mass or adenopathy. There is no evidence for pelvic ascites. The prostate is mildly enlarged. Osseous structures: There is no acute osseous pathology. Degenerative changes are present involving the lumbar spine and right hip. There are also degenerative changes of the SI joints. IMPRESSION: 1. No CTA evidence for active bleeding. 2. Diverticulosis without evidence for diverticulitis. 3. Cholelithiasis with no CT evidence for acute cholecystitis. 4. Additional nonacute findings are delineated above. NM GI bleeding FINDINGS: There is no abnormal focus of labeled red cell accumulation or extravasation. Linear tracer uptake within the mid pelvis is likely penile rather than rectal. A lateral view was obtained for confirmation which showed no abnormal uptake within the rectum. There is expected activity in the blood pool. IMPRESSION: No scintigraphic evidence for active gastro intestinal bleeding. Hospital Course (1) Acute blood loss anemia: Patient presented with acute melena and a 3.5 g hemoglobin drop over the last 3 days. He received 2 units of blood on admission and H&H stayed approximately the same, 8.1/ and after 2 units 8.3/. Underwent EGD (03/12/2021) with enteroscopy showing gastritis but no evidence of acute bleed. 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 Has no history of colonoscopy. On (03/13) pt had a bloody stool. Also later episode of vasovagal syncope. Hemoglobin 7.2 in the morning (03/13), 2 units of PRBCs ordered. CT abdomen pelvis obtained, does not show active bleeding. GI aware, recommend continue to monitor IMPRESSION: 1. No CTA evidence for active bleeding. 2. Diverticulosis without evidence for diverticulitis. 3. Cholelithiasis with no CT evidence for acute cholecystitis. 4. Additional nonacute findings are delineated above. Patient then had more episodes of red bloody stools, and bleeding scan was recommended. Unfortunately contacted by radiology that we cannot obtain bleeding scan over the weekend, and the earliest would be Tuesday Therefore contacted tertiary care center, [facility], which accepted patient for further evaluation and treatment. However no beds available at the time. Patient's ex- Ami updated over the phone. 03/14/2020 -contacted by radiology that bleeding scan can actually be obtained today. Bleeding scan negative for active GI bleed. Patient feeling better today, and hemoglobin stable. He did have several bloody bowel movements, however per nursing staff this was dark blood/likely old blood. GI aware of negative bleeding scan, and plans for colonoscopy for Tuesday. Contacted by [facility], that bed is actually available now, and therefore discussed further plan with the patient and his family. They understand that we plan further evaluation as currently we do not have a source of bleed identifi ed. They wish to proceed with the transfer to tertiary center for further evaluation and treatment. They are aware, that patient possibly may need more specialized care, and they wish no further delay. (2) Melena: and BRBPR Plan as above. (3) Syncope: Syncope likely secondary to acute blood loss anemia. Patient had a vasovagal episode again at the bedside commode (03/13) (4) COVID-19 virus infection: No acute chest disease seen and patient is not hypoxic. No Covid directed therapies are recommended. Continue Covid isolation. (5) HTN (hypertension): Chronic, stable, hold lisinopril for now. (6) Hypothyroidism: Chronic, stable, continue Synthroid per home dosing (7) DVT prophylaxis: SCDs, chemoprophylaxis contraindicated in setting of acute blood loss anemia Full code Disposition- plan to transfer to [facility] Total Time Total Time Spent Total Time Spent (In Minutes): 40 Discharge Plan Discharge Items Patient Disposition: Transfer Acute Care Hospital Reason For Visit: SYNCOPE Discharge Diagnosis: Syncope GI bleed Acute blood loss anemia Positive for COVID-19 Activity: Per Instructions section Non-emergency contact: Hospitalist Call non-emergency contact if: you have any medication questions Follow-up/Referrals: Nazario Altamirano MD [Primary Care Provider] - Diet: Nothing by Mouth Addtl Attending Provider Instructions: Patient presents with acute blood loss anemia, and ongoing GI bleed. Bleeding scan recommended however not able to obtain over the weekend. Discussed case with GI, and patient's family, and recommended transfer to tertiary center for further evaluation and treatment. Contacted [facility] (03/13/2021) and discussed with Dr. Jeong, who accepted the patient to their care. Pending Studies at Discharge: No Stand-Alone Forms: My [facility] Skilled Items Patient informed of condition?: Yes DNR: No Discharge Level of Care: Other Communicable Disease: Yes Discharge Prognosis: Other Lines: Peripheral IV Urinary Catheter: No Medications and DC Order Prescriptions: Continued lisinopril 10 mg Tablet 10 mg PO DAILY Qty: 0 RF: 0 multivitamin [Multi-Vitamins] Tablet 1 tab PO DAILY Qty: 0 RF: 0 levothyroxine 137 mcg Tablet 137 mcg PO DAILY Qty: 0 RF: 0 pantoprazole 40 mg tablet,delayed release (DR/EC) 40 mg PO DAILY RF: 0 Discharge Orders: Discharge Order (Routine); Ordered 03/14/21 Ordered By: Harlan Will Admission Data Admit Date/Time: 03/11/21 22:18 Attending Provider: Harlan Will Admit Provider: Massimo Damon Primary Care Provider: Nazario Altamirano Other Providers: Camilo Cole ; Juarez White ; Mata Mancera ; Renard Macias ; Bruce Arellano ; Kt Rivera ; Margaret Mcclain ; Divine Horton ; Estephania Lucio ; Jasbir Hernandez ; Buffy Infante ; Zina Richter Other Interventions: Discharge Summary Assessment (RN) Last Done: 03/12/21 15:41
--- NOTE | 2021-03-14 19:55 | Electrocardiogram Report ---
Test Reason : Blood Pressure : / mmHG Vent. Rate : 082 BPM Atrial Rate : 082 BPM P-R Int : 182 ms QRS Dur : 108 ms QT Int : 370 ms P-R-T Axes : 073 048 025 degrees QTc Int : 432 ms Sinus rhythm with occasional Premature ventricular complexes Otherwise normal ECG When compared with ECG of 12-MAR-2021 05:06, Premature ventricular complexes are now Present Confirmed by Afshin Jackson ([id number]) on 03/14/2021 7:55:15 PM Referred By: REFERRED SELF Confirmed By:Afshin Jackson
--- NOTE | 2021-04-01 11:46 | Coding Query ---
CODING QUERY To promote full compliance with coding requirements relating to patient care, provider participation is requested in all cases of medical librarian uncertainty. Please assist us with the question(s) below: Please clarify the meaning of BEBE. BEBE is not a valid abbreviation. Thank you. ( x ) Acute Kidney Injury ( ) Acute Kidney Insufficiency ( ) Other (Specify): Principal Diagnosis: "that condition established after study, to be chiefly responsible for occasioning the admission of the patient to the hospital for care." Co-Existing Principal Diagnosis: "when two or more diagnoses equally meet the criteria for principal diagnosis as determined by the circumstances of admission, diagnostic work up, and/or therapy provided, and the Alphabetic Index, Tabular List, or another coding guideline does not provide sequencing direction, any one of the diagnoses may be sequenced first." "When the physician has documented what appears to be a current diagnosis in the body of the record, but has not included the diagnosis in the final diagnostic statement, the physician should be asked whether the diagnosis should be added." (Source Coding [facility] 2 QTR90. p3-4) ZAIN
== END 2021-03-14 19:45 | disposition short-term general hospital (02) | DRG 377 ==
LOC: ED 19:52 → 2S 22:18 → SUATTDRO 22:18 → 2S 23:07
DX: N17.9 Acute kidney failure, unspecified; U07.1 COVID-19; Z85.46 Personal history of malignant neoplasm of prostate; R55 Syncope and collapse; E86.0 Dehydration; D62 Acute posthemorrhagic anemia; Z95.2 Presence of prosthetic heart valve; Z87.442 Personal history of urinary calculi; Z79.890 Hormone replacement therapy; D72.829 Elevated white blood cell count, unspecified; I12.9 Hypertensive chronic kidney disease with stage 1 through stage 4 chronic kidney disease, or unspecified chronic kidney disease; R73.03 Prediabetes; E03.9 Hypothyroidism, unspecified; K31.811 Angiodysplasia of stomach and duodenum with bleeding; Z90.79 Acquired absence of other genital organ(s); Z79.899 Other long term (current) drug therapy; Z87.891 Personal history of nicotine dependence; N18.30 Chronic kidney disease, stage 3 unspecified; Z86.79 Personal history of other diseases of the circulatory system; Z87.448 Personal history of other diseases of urinary system

== ENCOUNTER 2023-08-06 15:23 | Inpatient (IN) ==
[2023-08-06] MEDS ORDERED: VANCOMYCIN CONSULT ACTIVE PRN (16:05)
[2023-08-06 16:32] LABS: Base Excess VBG 4.3 mEq/L; HCO3 VBG 30 mmol/L; Oxygen Saturation VBG < 60.0 %; PCO2 VBG 47 mmHg (38-50); PO2 VBG 24 mmHg; pH VBG 7.41 (7.36-7.41)
[2023-08-06] MEDS: cefTRIAXone SODIUM 2,000 MG/50 ML BAG IV STA (16:38)
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
[2023-08-06 17:13] LABS: Basophils # (auto) 0.05 K/uL (0.00-0.20); Basophils % (auto) 0.4 %; Eosinophils # (auto) 0.05 K/uL (0.00-0.50); Eosinophils % (auto) 0.4 %; Hematocrit (blood only) 36.4 % (42.0-52.0); Hemoglobin 11.7 g/dl (14.0-18.0); Immature Granulocytes # (auto) 0.12 K/uL (0.01-0.20); Immature Granulocytes % (auto) 0.9 %; Lymphocytes # (auto) 1.77 K/uL (1.20-3.40); Mean Corpuscular Hemoglobin 26.8 pg (25.0-34.0); Mean Corpuscular Hgb Conc 32.1 g/dL (32.0-36.0); Mean Corpuscular Volume 83.3 fL (80.0-100.0); Mean Platelet Volume 10.2 fL (9.4-12.4); Monocytes # (auto) 0.85 K/uL (0.11-0.59); Monocytes % (auto) 6.2 %; Neutrophils % (auto) 79.1 %; Platelet Count 436 K/uL (130-400); RDW Coefficient of Variation 16.1 % (11.5-14.5); RDW Standard Deviation 48.4 fL (36.4-46.3); Red Blood Count 4.37 M/uL (4.70-6.10); White Blood Count 13.64 K/ul (4.8-10.8)
[2023-08-06] MEDS: VANCOMYCIN HCL 1,750 MG in SODIUM CHLORIDE 0.9% 500 ML IV ONE (17:14)
[2023-08-06 17:15] LABS: Albumin Level 3.5 gm/dl (3.4-5.0); BUN Creatinine Ratio 14.8 (10-20); Bilirubin,Total 0.5 mg/dl (0.2-1.0); Calcium 9.1 mg/dl (8.6-10.3); Creatinine Clr Calc Pharmacy 47.9 ml/min; Est GFR (African American) 61.4 ml/min; Total Protein 7.3 gm/dl (6.0-8.3)
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
[2023-08-06 17:22] LABS: Troponin I High Sensitivity 11.7 pg/ml (0-20)
[2023-08-06 17:25] LABS: Partial Thromboplastin Ratio 1.1; Partial Thromboplastin Time 29 Seconds (21-31); Prothrombin Time 11.3 Seconds (9.0-12.0)
[2023-08-06 17:27] LABS: Appearance Urine Clear (Clear); Bacteria Urine Automated None Seen (None Seen); Bilirubin Urine Negative (Negative); Blood Urine 1+ (Negative); Cast Urine Automated 0-2 /lpf (0-2); Color Urine Yellow; Epithelial Cell Urine Auto 0-2 /hpf (0-2); Glucose Urine UA Negative (Negative); Ketones Urine Negative (Negative); Leukocyte Esterase Urine Negative (Negative); Nitrite Urine Negative (Negative); Protein Urine 1+ (Negative); Specific Gravity Urine 1.014 (1.000-1.030); Urobilinogen Urine Negative (Negative); WBC Urine Automated 0-5 /hpf (0-5)
[2023-08-06 17:30] LABS: Bilirubin Direct 0.1 mg/dl (0-0.2); Potassium 4.4 mmol/L (3.5-5.1)
--- NOTE | 2023-08-06 17:49 | XRay Report ---
XR chest 1V portable HISTORY: Sepsis COMPARISON: Chest 03/11/2021. FINDINGS: No pneumothorax. No pleural effusions. No focal lung consolidations to suggest pneumonia. N o evidence for pulmonary edema. The cardiac silhouette remains borderline enlarged. Aortic valve pros thesis is noted. No acute fractures. IMPRESSION: No significant change compared to the prior study. No acute process. ACT 112: Negative or not required by law. Electronically signed by: Jae Hurtado M.D. 08/06/2023 5:48 PM
[2023-08-06] MEDS ORDERED: POLYETHYLENE (MIRALAX) 17 GM PACK PO PRN (19:01)
[2023-08-06] MEDS ORDERED: ACETAMINOPHEN 325 MG TAB PO PRN (19:01)
--- OUTSIDE RECORDS SUMMARY | 2023-08-06 23:47 | External Medical Summary ---
Author Name Unknown Address Unknown Organization [id number]:[facility] - [address] [place] [id number] Laboratory Report Ordering Provider Test Date Status BILLY MERRITTMICAH 08/04/2023 11:30:52 Final Observation Date Value Abnormality Reference (Units) Status Bacteria identified in Specimen by Culture 08/04/2023 11:30:52 No significant growth Final Test: Culture, Urine, Quant itative
Specimen Source: Urine, Clean Catch
Specimen Type: Urine
Specimen Date: 08/04/2023 1130
Result Date: 08/05/2023 1634
Result Status: Final result
Resulting Lab: [facility]
[address]
[place] [id number]

CULTURE

No significant growth

null Performing Location [facility] - [address] [place] [address]
--- OUTSIDE RECORDS SUMMARY | 2023-08-06 23:47 | External Medical Summary | Summary of Care ---
Author Name Unknown Organization [facility] [address] [facility] [address] Phone [phone] Care Team Providers Care Database Designer Name Role Phone Maria Alejandra Mcginnis PA-C Primary Care Provider [phone] Encounter Details Date Type Department Care Team (Late st Contact Info) Description 07/12/2023 Orders Only PATIENT PORTAL DO NOT DELETE THIS DEPT USED BY [place] [id number] Allergies Active Allergy Reactions Criticality Noted Date Comments Pollen Other (Please comment) 09/03/2019 sneezing documented as of this encounter (statuses as of 07/12/2023) Medications Medication Sig Dispensed Refills Start Date End Date Status MULTI-VITAMIN/MINERAL S PO TABS ONE EACH DAY 0 10/05/2013 Active Amoxicillin 500 MG Oral Capsule (Amoxil) Take 4 tablets by mouth one hour prior to any dental procedure or cleaning 12 Capsule 3 09/02/2021 Active Zoster Vac Recomb Adjuvanted 50 MCG/0.5ML Intramuscular Suspension Reconstituted (Shingrix)Indications :Need for shingles vaccine Inject 0.5 mL into a large muscle now and repeat dose in 60 to 180 days 1 Each 1 12/27/2022 Active Levothyroxine Sodium 137 MCG Oral TabletIndications:Acq uired hypothyroidism TAKE 1 TABLET BY MOUTH ONCE DAILY AT LEAST 30 MINUTES PRIOR TO BREAKFAST OR OTHER MEDS 90 Tablet 3 02/10/2023 Active Tamsulosin HCl 0.4 MG Oral Capsule (Flomax) Take 1 Capsule by mouth in the morning. 90 Capsule 3 04/12/2023 Active Aspirin 81 MG Oral Tablet Delayed Release Take 1 Tablet by mouth in the morning. 0 06/07/2023 Active Metoprolol Succinate ER 25 MG Oral Tablet Extended Release 24 Hour (toPROL XL)Indications:PVC (premature ventricular contraction) TAKE 1/2 (ONE-HALF) TABLET BY MOUTH IN THE MORNING 45 Tablet 3 06/21/2023 Active predniSONE 10 MG Oral Tablet (Deltasone)Indication s:Night sweats,Elevated sed rate Take 5 tabs for 2 days, 4 tabs for 2 days, 3 tabs for 2 days, 2 tabs for 2 days 1 tab for 2 days 30 Tablet 0 07/07/2023 Active documented as of this encounter (statuses as of 07/12/2023) Active Problems Problem Noted Date Diagnosed Date Hx of nonmelanoma skin cancer 08/11/2022 Overview: squamous cell carcinoma (L dorsomedial hand 08/03, L medial cheek 08/03) PVC (premature ventricular contraction) 06/20/19 Ascending aortic aneurysm 06/19/2021 Sinus bradycardia 03/23/2021 Syncope 03/22/2021 History of renal calculi 03/22/2021 Heart murmur 03/22/2021 Anemia 03/22/2021 Chronic kidney disease, stage 3a 07/22/2020 Overview: Per CKD protocol LBBB (left bundle branch block) 07/11/2020 Severe aortic valve stenosis 07/10/2020 S/P TAVR (transcatheter aortic valve replacement ) 07/10/2020 Nonrheumatic aortic valve stenosis 06/30/2020 Hypertensive kidney disease with stage 3a chronic kidney disease 01/21/2020 Overview: Per CKD protocol Prediabetes 08/02/2017 Overview: Per Prediabetes protocol #1 Personal history of malignant neoplasm of prosta te 06/10/2016 Hypothyroidism 07/29/2011 LVH (left ventricular hypertrophy) 07/29/2011 Chronic rhinitis 07/29/2011 Dyslipidemia, goal LDL below 100 HTN, goal below 140/90 documented as of this encounter (statuses as of 07/12/2023) Resolved Problems Problem Noted Date Diagnosed Date Resolved Date Melena 03/22/2021 01/27/2022 Acute GI bleeding 03/15/2021 01/27/2022 Acute blood loss anemia 03/15/202101/12 COVID-19 virus infection 03/15/2021 Overview: Tested positive for COVID-19 on admission 03/11/2021. Has not required oxygen and did not receive any COVID-19 directed therapy. Hypertensive kidney disease with stage 3 chronic kidney disease 10/18/2018 01/24/2020 Overview: Per CKD protocol Body mass index (BMI) of 40. 0 to 44.9 in adult 12/13/2016 07/01/2017 Overview: Per Obesity protocol #1 Routine medical exam 06/10/2016 017 Adult BMI 40.0-44.9 kg/sq m 12/03/2014 06/10/2016 Overview: bmi= 40.51 12/03/14 Screen for colon cancer 10/05/201305/14 Prostate cancer 09/12/2012 06/10/2016 Severe obesity with body mas s index (BMI) of 35.0 to 39.9 with serious comorbidity 03/20/2012 Overview: bmi= 39.15 03/20/12 ICD-10 update of inactive diagnosis Cataract 03/20/2012 06/10/2016 Overview: right Preop examination 03/20/2012 06/10/2016 Screen for colon cancer 01/27/201205/14 Severe obesity with body mas s index (BMI) of 35.0 to 39.9 with serious comorbidity 07/29/2011 Overview: bmi= 38.47 07/29/11 ICD-10 update of inactive diagnosis Acute URI 07/29/2011 12/03/2014 Acute URI 12/24/2010 07/29/2011 OPEN WOUND, LOWER LEG 09/04/20102014 Cellulitis of leg 09/04/2010 07/29/2011 Elevated prostate specific antigen (PSA) 05/08/2010 09/12/2012 OBESITY, BMI= 39.14 02/03/10 02/03/2010 12/03/2014 Special screening for malign ant neoplasms, colon 02/03/2010 12/03/2014 OVERWEIGHT 10/02/2009 02/03/2010 Obesity, Class II, BMI 35-39 .9, isolated (see actual BMI) 06/09/2009 02/03/2010 Overview: Per Obesity Taxonomy Special screening for malign ant neoplasms, colon 01/23/2009 03/04/2009 Overview: Modified by Screening Dx Protocol #6. LVH (LEFT VENTRICULAR HYPERTROPHY) 12/15/2007 07/29/2011 HYPERGLYCEMIA 12/15/2007 01/27/2012 Elevated blood pressure, situational 12/15/2007 02/03/2010 Routine medical exam 12/15/2007 015 OBESITY, BMI= 35.72 12/15/07 12/15/2007 06/10/2016 Need for pneumococcal vaccination 12/15/2007 12/03/2014 Need for prophylactic vaccin ation with tetanus-diphtheria (Td) 12/15/2007 12/03/2014 Need for influenza vaccination 12/15/2007 12/03/2014 Need for prophylactic vaccin ation and inoculation against other viral diseases(V04.89) 12/15/2007 12/03/2014 SCLEROSIS AORTIC VALVE 12/15/200712/03 Hypothyroidism 11/07/2007 07/29/2011 Obesity, BMI not known 11/07/200706/09 Overview: Per Obesity Taxonomy 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/07/2007 12/03/2014 Allergic rhinitis 12/03/2014 Overview: goldenrod Calculus of gallbladder with out mention of cholecystitis or obstruction 12/03/2014 Unilateral inguinal hernia 0 06/10/2016 Overview: RIGHT Kidney disease, chronic, sta ge III (GFR 30-59 ml/min) 10/26/2018 documented as of this encounter (statuses as of 07/12/2023) Immunizations Name Administration Dates Next Due COVID-19 mRNA, LNP-s, No Pre serve, 2-Dose Series (Pfizer) 11/13/2020,06/03/2020,05/08/2020 Pneumococcal Polysaccharide PPV23 (Pneumovax) 12/15/2007 Season Influenza, Quad, PF, Adjuvanted, 65+ Yrs, IM (FLUAD) 01/02/2020 Seasonal Influenza, Quadriva lent Hd (Fluzone Hd) 12/27/2022,01/27/2022 Seasonal Influenza, Split, I IV3, With Preserve, Inj 11/13/2011,01/06/2010,01/10/2009,12/14 TD, Preservative Free 12/15/2007 TDAP (age 10 and older)(Boostrix) 07/06/2021 documented as of this encounter Social History Tobacco Use Types Packs/Day Years Used Date Smoking Tobacco: Former Passive Smoke Exposure: Past Smokeless Tobacco: Never 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 Never true 07/01/19 23 Within the past 12 months, t he food you bought just didn't last and you didn't have money to get more. Never true 06/30/2022 Sex and Gender Information Value Date Recorded Sex Assigned at Male 10/18/2018 2:43 PM EDT Gender Identity Male 10/18/2018 2:43 PM EDT Sexual Orientation Straight 10/18/2018 2: 43 PM EDT Job Start Date Occupation Industry Not on file Not on file Not on file documented as of this encounter Functional Status Functional Status Response Date of Assess ment Are you deaf or do you have serious difficulty h earing? No 07/10/2020 Are you blind or do you have serious difficulty seeing, even when wearing glasses? No 07/10/2020 Do you have serious difficul ty walking or climbing stairs? (5 years old or older) No 07/10/2020 Do you have difficulty dress ing or bathing? (5 years old or older) No 07/10/2020 Because of a physical, menta l, or emotional condition, do you have difficulty doing errands alone such as visiting a doctor s office or shopping? (15 years old or older) No 07/11/19 21 Cognitive Status Response Date of Assessm ent Because of a physical, menta l, or emotional condition, do you have serious difficulty concentrating, remembering, or making decisions? (5 years old or older) No 07/10/2020 documented as of this encounter Plan of Treatment Upcoming Encounters Date Type Department Care Team (Late st Contact Info) Description 08/29/2023 1:00 PM EDT Cardiac Studies Cardiac Studies, [facility] [address] [facility] [place] [address] 08/31/2023 11:40 AM EDT [facility] [place] [address] [facility] [address] Maria Alejandra Mcginnis PA-C [address] [facility] [place] [address] 10/10/2023 1:30 PM EDT Office Visit Cardiology, [facility] [address] [facility] [place] [address] Margaret Mcclain PA-C [address] [facility] [place] [address] 01/04/2024 11:00 AM EDT [facility] [place] [address] [facility] [address] Maria Alejandra Mcginnis PA-C [address] [facility] [place] [address] 01/10/2024 11:40 AM EDT Office Visit Dermatology, [place] [address] [address] [facility] [address] Toña Parra PA-C [address] [place] [address] [place] [id number] Health Maintenance Due Date Last Done Comments Zoster Vaccines (1 of 2) 1986 Pneumococcal Vaccine: 65+ Years (2 of 2 - PCV) 12/14/2008 12/15/2007 COVID-19 Vaccine ( season) 2022 11/13/2020, 06/03/2020, 05/08/2020 Depression Screening 07/01/2023 06/30/2022, 06/10/2016 (Discussed) Albumin/Creatinine Ratio 12/28/2023 023, 01/25/2022, 06/07/2016, Additional history exists CKD PHOS USE SMARTSET 41301 12/28/202312/12, 03/26/2021, 03/25/2021, Additional history exists HbA1c 12/28/2023 12/27/2022, 01/12, 01/16/2020, Additional history exists TSH 06/06/2024 06/07/2023, 12/12, 03/23/2021, Additional history exists CKD HGB USE SMARTSET 48550 06/28/202406/28, 06/29/2023, 06/07/2023, Additional history exists DTaP,Tdap,and Td Vaccines (2 - Td or Tdap) 07/07/2031 07/06/2021, 12/15/2007 Influenza Vaccine (FLU shot) Completed , 01/27/2022, 01/02/2020, Additional history exists GARDASIL-HPV IMMUNIZATION SERIES Aged Out No longer eligible based on patient's age to complete this topic Hepatitis B Aged Out No longer eligi ble based on patient's age to complete this topic MENINGOCOCCAL (MENACTRA/MENVEO) Aged Out No longer eligible based on patient's age to complete this topic documented as of this encounter Medical Devices Implanted Type Area Sales Coordinator Device Identifier Shelf Expiration Date Model / Serial / Lot Proglide Perclose 18363-25 X10 - [id number] Implanted:Qty: 1 on 07/10/2020 by Renard Galan DO at [facility] [id number] 12/11/2021 25980-02 / / [id number] Proglide Perclose 64685-79 X10 - [id number] Implanted:Qty: 1 on 07/10/2020 by Renard Galan, DO at [facility] [id number] 12/11/2021 32697-21 / / [id number] Balloon Cath Pacing [id number] - [id number] Implanted:Qty: 1 on 07/10/2020 by Renard Galan, DO at [facility] : MEDICAL [id number] 05/11/2022 520 007P / / [id number] Valve Aort Evolut Proplus 29mm - [id number] Implanted:Qty: 1 on 07/10/2020 by Renard Galan, DO at [facility] [employer] : CARDIAC SURGERY 11/08/2021 EVPROPLUS- 29US / [id number] / [id number] Balloon Cath Pacing [id number] - [id number] Implanted:Qty: 1 on 07/10/2020 by Renard Galan, DO at [facility] : MEDICAL [id number] 05/11/2022 520 007P / / [id number] Coil Fibered 2 10mm [id number] - [id number] Implanted:Qty: 1 on 03/18/2021 at [facility] : NEURO INTR [id number] 06/18/2023 [id number] Coil Fibered 2 10mm [id number] - [id number] Implanted:Qty: 1 on 03/18/2021 at [facility] : NEURO INTR [id number] 06/18/2023 [id number] Coil Emboli Tornado 3x2 - [id number] Implanted:Qty: 1 on 03/18/2021 at [facility] [employer] [id number] 09/04/2025 [id number] / / [id number] Coil Emboli Tornado 3x2 - [id number] Implanted:Qty: 1 on 03/18/2021 at [facility] [id number] 12/25/2025 [id number] / / [id number] Sureclip 16mm 235cm - [id number] Implanted:Qty: 1 on 07/31/2021 by Reji Milian MD at [facility] Colon MICRO TECH ENDOSCOPY 09/22/2023 [id number] / / [id number] documented as of this encounter Advance Directives Documents on File Type Date Recorded Patient Custom Seamstress Expl anation Advance Directives and Living Will 02/24/2023 ADVANCE DIRECTIVE / LIVING WILL Power of Cake Former 02/24/2023 POWER OF A TTORNEY Latest Code Status on File Code Status Date Activated Date Inactivated Comments Full Code 03/15/2021 12:36 AM 03/26/2021 8:36 PM This order reflects the patients wishes and were consensually agreed upon. Question Answer Comments Discussion of Advance Directives occurred with: Patient Does the patient have a Living Will? No Does the patient have Health Care Power of Cake Former? No Code Status History Code Status Date Activated Date Inactivated Comments Full Code 07/10/2020 3:27 PM 07/12/2020 3:38 PM This o rder reflects the patients wishes and were consensually agreed upon. Question Answer Comments Discussion of Advance Directives occurred with: Patient Does the patient have a Living Will? No Does the patient have Health Care Power of Cake Former? No Care Teams Database Designer Relationship Specialty Start Date End Date Maria Alejandra Mcginnis PA-C [address] [facility] [address] PCP - General Physician Behavioral Health Director 07/31/21 documented as of this encounter
--- OUTSIDE RECORDS SUMMARY | 2023-08-06 23:47 | External Medical Summary | Summary of Care ---
Author Name Unknown Organization [facility] Address [address] [place] [address] Phone [phone] Care Team Providers Care Jd Edwards Name Role Phone Elba Macias DO Primary Care Provider + [phone] Reason for Visit * Reason Onset Date Comments Encounter Created in Error 08/06/2023 Encounter Details Date Type Department Care Team (Late st Contact Info) Description 08/06/2023 Telephone [facility] [address] [place] [address] Elba Macias DO [address] [place] [address] Encounter Created in Error Allergies Active Allergy Reactions Criticality Noted Date Comments Pollen Other (Please comment) 09/03/2019 sneezing documented as of this encounter (statuses as of 08/06/2023) Medications Medication Sig Dispensed Refills Start Date End Date Status MULTI-VITAMIN/MINERAL S PO TABS ONE EACH DAY 0 10/05/2013 Active Amoxicillin 500 MG Oral Capsule (Amoxil) Take 4 tablets by mouth one hour prior to any dental procedure or cleaning 12 Capsule 03 09/02/2021 Active Zoster Vac Recomb Adjuvanted 50 [...] 1 Tablet by mouth in the morning. 06/07/2023 Active Metoprolol Succinate ER 25 MG [...] 1 tab for 2 days 30 Tablet 07/07/2023 Active Doxycycline Hyclate 100 MG Oral CapsuleIndications:El evated platelet count Take 1 Capsule by mouth in the morning and 1 Capsule before bedtime. Do all this for 10 days. Until gone.. 20 Capsule 08/01/2023 08/11/2023 Active documented as of this encounter (statuses as of 08/06/2023) Active Problems Problem Noted Date Diagnosed Date Hx of nonmelanoma skin cancer 08/11/2022 Overview: squamous cell carcinoma (L dorsomedial hand 08/03, L medial cheek 08/03) PVC (premature ventricular contraction) 06/20/19 22 Ascending aortic aneurysm 06/19/2021 Sinus bradycardia 03/23/2021 [...] as of this encounter (statuses as of 08/06/2023) Resolved Problems Problem Noted Date Diagnosed Date [...] as of this encounter (statuses as of 08/06/2023) Immunizations Name Administration Dates Next Due COVID-19 [...] the money to buy more. Never true 08/01/19 24 Within the past 12 months, t he food you bought just didn't last and you didn't have money to get more. Never true 08/01/2023 Sex and Gender Information Value Date Recorded [...] (15 years old or older) No 07/11/19 Cognitive Status Response Date of Assessm ent Because of a physical, menta l, or emotional condition, do you have serious difficulty concentrating, remembering, or making decisions? (5 years old or older) No 07/10/2020 documented as of this encounter Miscellaneous Notes * Telephone Encounter - Julita Hunter OSA - 08/06/2023 12:06 PM EDT erre documented in this encounter Plan of Treatment Upcoming Encounters Date Type Department Care Team (Late st Contact Info) Description 08/10/2023 12:15 PM EDT Imaging Radiology [address] [place] [address] 08/25/2023 11:15 AM EDT Imaging Radiology [address] [place] [address] 08/29/2023 1:00 PM EDT Cardiac Studies Cardiac Studies, [facility] [address] [place] [address] 08/30/2023 9:45 AM EDT Office Visit [facility]ology[facility] [address] [facility] [address] [place] [phone] Arias Sanchez MD [address] [facility] [place] [address] 08/31/2023 11:40 AM EDT Office Visit Family [facility], [place] [address] [facility], [place] [phone] Maria Alejandra Mcginnis PA-C [address] [facility] [place] [address] 10/10/2023 1:30 PM EDT Office Visit Cardiology, [facility] [address] [place] [address] Margaret Mcclain PA-C [address] [place] [address] 01/04/2024 11:00 AM EDT Office Visit Family [facility], [place] [address] [facility], [place] [phone] Maria Alejandra Mcginnis PA-C [address] [facility] [place] [address] 01/10/2024 11:40 AM EDT Office Visit Dermatology, [place] [address] [facility], [place] [address] Toña Parra PA-C [address] [place] [address] [place] [address] Health Maintenance Due Date Last Done Comments Zoster Vaccines (1 of 2) 1986 Pneumococcal Vaccine: 65+ Years (2 of 2 - PCV) 12/14/2008 12/15/2007 COVID-19 Vaccine (2022- season) 2022 11/13/2020, 06/03/2020, 05/08/2020 Depression Screening 07/01/2023 06/30/2022, 06/10/2016 (Discussed) Albumin/Creatinine Ratio 12/28/2023 023, 01/25/2022, 06/07/2016, Additional history exists CKD PHOS USE SMARTSET 92171 12/28/202312/12, 03/26/2021, 03/25/2021, Additional history exists HbA1c 12/28/2023 12/27/2022, 01/12, 01/16/2020, Additional history exists TSH 06/06/2024 06/07/2023, 12/12, 03/23/2021, Additional history exists CKD HGB USE SMARTSET 62476 07/31/202407/31, 08/01/2023, 06/29/2023, Additional history exists DTaP,Tdap,and Td Vaccines (2 [...] this encounter Medical Devices Implanted Type Area Laborer Shipyard Device Identifier Shelf Expiration Date Model / Serial / Lot Proglide Perclose 69127-82 X10 - [id number] Implanted:Qty: 1 on 07/10/2020 by Renard Galan, DO at [facility] [id number] 12/11/2021 14470-55 / / [id number] Proglide Perclose 69945-91 X10 - [id number] Implanted:Qty: 1 on 07/10/2020 by Renard Galan, DO at [facility] [id number] 12/11/2021 39815-47 / / [id number] Balloon Cath Pacing [id number] - [id number] Implanted:Qty: 1 on 07/10/2020 by Renard Galan, DO at [facility] : MEDICAL [id number] 05/11/2022 520 007P / / [id number] Valve Aort Evolut Proplus 29mm - [id number] Implanted:Qty: 1 on 07/10/2020 by Renard Galan DO at [facility] [employer] : CARDIAC SURGERY 11/08/2021 EVPROPLUS- 29US / [id number] / [id number] Balloon Cath Pacing [id number] - [id number] Implanted:Qty: 1 on 07/10/2020 by Renard Galan DO at [facility] [place] : MEDICAL [id number] 05/11/2022 520 007P / / [id number] Coil Fibered 2 10mm [id number] - [id number] Implanted:Qty: 1 on 03/18/2021 at [facility] [employer] : NEURO INTR [id number] 06/18/2023 [id number] / [id number] Coil Fibered 2 10mm 092365 - [id number] Implanted:Qty: 1 on 03/18/2021 at [facility] [employer] : NEURO INTR [id number] 06/18/2023 [id number] Coil Emboli Tornado 3x2 - [id number] Implanted:Qty: 1 on 03/18/2021 at [facility] [employer] [id number] 09/04/2025 [id number] / / [id number] Coil Emboli Tornado 3x2 - [id number] Implanted:Qty: 1 on 03/18/2021 at [facility] [id number] 12/25/2025 [id number] / / [id number] Sureclip 16mm 235cm - [id number] Implanted:Qty: 1 on 07/31/2021 by Reji Milian MD at [facility] Colon MICRO TECH ENDOSCOPY 09/22/2023 [id number] / / [id number] documented as of this encounter Advance Directives Documents on File Type Date Recorded Patient Case Filler Expl anation Advance Directives and Living Will 02/24/2023 ADVANCE DIRECTIVE / LIVING WILL Power of Rand Butter 02/24/2023 POWER OF A TTORNEY * Full Code (Latest Code Status on File) Date Activated Date Inactivated Comments 03/15/2021 12:36 AM 03/26/2021 8:36 PM This order r eflects the patients wishes and were consensually agreed upon. Question Answer Comments Discussion of Advance Directives occurred with: Patient Does the patient have a Living Will? No Does the patient have Health Care Power of Attor reba? No * Full Code Date Activated Date Inactivated Comments 07/10/2020 3:27 PM 07/12/2020 3:38 PM This order re flects the patients wishes and were consensually agreed upon. Question Answer Comments Discussion of Advance Directives occurred with: Patient Does the patient have a Living Will? No Does the patient have Health Care Power of Attor reba? No Care Teams Jd Edwards Relationship Specialty Start Date End Date Elba Macias DO [address] [place] [address] PCP - General Family Medicine 08/03/23 documented as of this encounter
--- OUTSIDE RECORDS SUMMARY | 2023-08-06 23:47 | External Medical Summary | Summary of Care ---
Author Name Unknown Organization [facility] Address [address] [place] [address] Phone [phone] Care Team Providers Care First Assistant Manager Name Role Phone Elba Macias DO Primary Care Provider + [phone] Reason for Visit * Reason Comments Outpatient Testing Encounter Details Date Type Department Care Team (Late st Contact Info) Description 08/04/2023 11:20 AM EDT Laboratory Laboratory, [place] [address] [place] [phone] [place], Laboratory [address], [place] [phone] Eosinophilia, unspecified type Allergies Active Allergy Reactions Criticality Noted Date Comments Pollen Other (Please comment) 09/03/2019 sneezing documented as of this encounter (statuses as of 08/04/2023) Medications Medication Sig Dispensed Refills Start Date [...] as of this encounter (statuses as of 08/04/2023) Active Problems Problem Noted Date Diagnosed Date [...] as of this encounter (statuses as of 08/04/2023) Resolved Problems Problem Noted Date Diagnosed Date [...] as of this encounter (statuses as of 08/04/2023) Immunizations Name Administration Dates Next Due COVID-19 [...] Description 08/10/2023 12:15 PM EDT Imaging Radiology [address] [place] [address] 08/25/2023 11:15 AM EDT Imaging Radiology [address] [place] [address] 08/29/2023 1:00 PM EDT Cardiac Studies Cardiac Studies, [facility] [place] [address] 08/30/2023 9:45 AM EDT Office Visit Hematology/Oncology [address] [place] [address] [place] [phone] Arias Sanchez MD [address] [place] [address] 08/31/2023 11:40 AM EDT [address] [phone] Maria Alejandra Mcginnis PA-C [address] [facility] [place] [address] 10/10/2023 1:30 PM EDT Office Visit Cardiology, [facility] [address] [place] [address] Margaret Mcclain PA-C [address] [place] [address] 01/04/2024 11:00 AM EDT Office Visit [facility] [place] [address] [facility] [phone] Maria Alejandra [facility]innis [facility] [address] [facility] [address] 01/10/2024 11:40 AM EDT Office [facility] Dermat[facility], [place] [address] [facility] [address] Toña Parra PA-C [address] [place] [address] [place] [address] Pending Results Name Type Priority Associated Diagnoses Date /Time CULTURE, BLOOD Lab Routine Eosinophilia, unspecified type 08/04/2023 11:27 AM EDT Health Maintenance Due Date Last Done Comments Zoster Vaccines (1 of 2) 1985 Pneumococcal Vaccine: 65+ Years (2 of 2 - PCV) 12/14/2008 12/15/2007 COVID-19 Vaccine ( season) 2022 11/13/2020, 06/03/2020, 05/08/2020 Depression Screening 07/01/2023 06/30/2022, 06/10/2016 (Discussed) Albumin/Creatinine Ratio 12/28/2023 023, 01/25/2022, 06/07/2016, Additional history exists CKD PHOS USE SMARTSET 58345 12/28/202312/12, 03/26/2021, 03/25/2021, Additional history exists HbA1c 12/28/2023 12/27/2022, 01/12, 01/16/2020, Additional history exists TSH 06/06/2024 06/07/2023, 12/12, 03/23/2021, Additional history exists CKD HGB USE SMARTSET 02046 07/31/202407/31, 08/01/2023, 06/29/2023, Additional history exists DTaP,Tdap,and [...] this encounter Medical Devices Implanted Type Area Guide Visitor Device Identifier Shelf Expiration Date Model / Serial / Lot Proglide Perclose 47185-94 X10 - [id number] Implanted:Qty: 1 on 07/10/2020 by Renard Galan, DO at [facility] VASCULAR DEVICES [id number] 12/11/2021 10121-63 / / [id number] Proglide Perclose 82220-20 X10 - [id number] Implanted:Qty: 1 on 07/10/2020 by Renard Galan, DO at [facility] VASCULAR DEVICES [id number] 12/11/2021 90739-07 / / [id number] Balloon Cath Pacing [id number] - [id number] Implanted:Qty: 1 on 07/10/2020 by Renard Galan, DO at [facility] : MEDICAL [id number] 05/11/2022 520 007P / / [id number] Valve Aort Evolut Proplus 29mm - [id number] Implanted:Qty: 1 on 07/10/2020 by Renard Galan, DO at [facility] [employer] : CARDIAC SURGERY 11/08/2021 EVPROPLUS- 29US / [id number] / [id number] Balloon Cath Pacing [id number] - [id number] Implanted:Qty: 1 on 07/10/2020 by Renard Galan, DO at [facility] : MEDICAL [id number] 05/11/2022 520 007P / / [id number] Coil Fibered 2 10mm [id number] - [id number] Implanted:Qty: 1 on 03/18/2021 at [facility] : NEURO INTR [id number] 06/18/2023 [id number] Coil Fibered 2 10mm [id number] - [id number] Implanted:Qty: 1 on 03/18/2021 at [facility] : NEURO INTR [id number] 06/18/2023 [id number] Coil Emboli Tornado 3x2 - [id number] Implanted:Qty: 1 on 03/18/2021 at [facility] [employer] [id number] 09/04/2025 [id number] / / [id number] Coil Emboli Tornado 3x2 - [id number] Implanted:Qty: 1 on 03/18/2021 at [facility] [employer] [id number] 12/25/2025 [id number] / / [id number] Sureclip 16mm 235cm - [id number] Implanted:Qty: 1 on 07/31/2021 by Reji Milian MD at [facility] Colon MICRO TECH ENDOSCOPY 09/22/2023 [id number] / / [id number] documented as of this encounter Visit Diagnoses Diagnosis Eosinophilia, unspecified type documented in this encounter Advance Directives Documents on File Type Date Recorded Patient Mobility Specialist Expl anation Advance Directives and Living Will 02/24/2023 ADVANCE DIRECTIVE / LIVING WILL Power of Reel Cart Operator 02/24/2023 POWER OF A TTORNEY * Full [...] Power of Attor reba? No Care Teams First Assistant Manager Relationship Specialty Start Date End Date Elba Macias DO [address] [place] [address] PCP - General Family Medicine 08/03/23 documented as of this encounter
--- OUTSIDE RECORDS SUMMARY | 2023-08-06 23:47 | External Medical Summary ---
Author Name Unknown Address Unknown Organization [id number]:LABORATORY [facility] - [address] [place] [address] Laboratory Report Ordering Provider Test Date Status SHAINADIDIER 08/01/2023 13:13:09 Final Observation Date Value Abnormality Reference (Units ) Status Borrelia burgdorferi IgG and IgM [Interpretation] in Serum by Immunoassay 08/01/2023 13:13:09 Positive Abnormal Negative Final Result is preliminary and no t diagnostic. Second-tier testing will be reflexively performed to confirm preliminary antibody screen result and reported separately.

Test result reported to [facility]. Performing Location LABORATORY [facility] - [address] [place] [address]
--- OUTSIDE RECORDS SUMMARY | 2023-08-06 23:47 | External Medical Summary ---
Author Name Unknown Address Unknown Organization [id number]:[facility]ATORY [facility] - [address] [facility] [address] [place] [address] Laboratory Report Ordering Provider Test Date Status VINAY AG 08/01/2023 12:05:17 Final Observation Date Value Abnormality Reference (Units ) Status BUN 08/01/2023 12:05:17 18 6-20 (mg/dL) Final Creatinine 08/01/2023 12:05:17 1.3 Above high normal 0.6-1.2 (mg/dL) Final Glomerular filtration rate/1.73 sq M.predicted [Volume Rate/Area] in Serum, Plasma or Blood by Creatinine-based formula (CKD-EPI) 08/01/2023 12:05:17 51 Below low normal >=60 (mL/min) Final eGFR is calculated based on the CKD-EPI 2020 equation Sodium 08/01/2023 12:05:17 131 Below low normal 135 -146 (mmol/L) Final Potassium 08/01/2023 12:05:17 4.5 3.5-5.1 (m mol/L) Final Cl 08/01/2023 12:05:17 95 Below low normal 98- 107 (mmol/L) Final CO2 08/01/2023 12:05:17 25 22-32 (mmo l/L) Final Anion gap 08/01/2023 12:05:17 11 7-15 (mmol /L) Final Glucose 08/01/2023 12:05:17 159 Above high normal 70 -120 (mg/dL) Final Albumin 08/01/2023 12:05:17 3.5 Below low normal 3.8 -5.0 (g/dL) Final AST (Aspartate aminotransferase) 08/01/2023 12:05:17 22 10-50 (U/L) Fin al Alk Phos 08/01/2023 12:05:17 108 35-130 (U/ L) Final Bilirubin, Total 08/01/2023 12:05:17 0.5 <=1 .2 (mg/dL) Final Calcium 08/01/2023 12:05:17 8.6 8.4-10.2 ( mg/dL) Final Protein 08/01/2023 12:05:17 6.5 6.0-8.3 (g /dL) Final ALT (Alanine aminotransferase) 08/01/2023 12:05:17 15 10-50 (U/L) Armond rodarte Performing Location LABORATORY [facility] - [address] [facility] [address]
--- OUTSIDE RECORDS SUMMARY | 2023-08-06 23:47 | External Medical Summary ---
Author Name Unknown Address Unknown Organization [id number]:LABORATORY [facility] - [address] 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 IgG-class antibodies may remain detectable for months to years following resolution of infection. Results should NOT be used to monitor or establish adequate response to therapy. Response to therapy is confirmed through resolution of clinical symptoms; additional laboratory testing should not be performed.

Test results reported to [facility]. Performing Location LABORATORY [facility] - [address] [facility] [address]
--- OUTSIDE RECORDS SUMMARY | 2023-08-06 23:47 | External Medical Summary ---
Author Name Unknown Address Unknown Organization K01:[facility]ATORY [facility] - [address] [place] [address] Laboratory Report Ordering Provider Test Date Status VINAY AG 08/01/2023 12:05:17 Final Observation Date Value Abnormality Reference (Units ) Status CRP, low-sensitivity 08/01/2023 12:05:17 79 Above high normal <=5 (mg/L) Final Performing Location LABORATORY [facility] - [address] [place] [address]
--- OUTSIDE RECORDS SUMMARY | 2023-08-06 23:47 | External Medical Summary | Summary of Care ---
Author Name Unknown Organization [facility] Address [address] [place] [address] Phone [phone] Care Team Providers Care Outside Machinist Helper Name Role Phone Maria Alejandra Mcginnis PA-C Primary Care Provider [phone] Reason for Referral * Precert (Within 10 days (routine)) - Authorized Specialty Diagnoses / Procedures Referred By Contac t Referred To Contact Radiology Diagnoses Loss of weight Procedures CT ABD/PELVIS W IV AND W ORAL CONTRAST Elba Macias DO [address] [place] [address] Referral ID Status Reason Start Date Expiration Date V isits Requested Visits Authorized [id number] Authorized 08/01/2023 999 999 * Precert (Within 10 days (routine)) - Authorized Specialty Diagnoses / Procedures Referred By Contac t Referred To Contact Radiology Diagnoses Dizziness Procedures MRI BRAIN W WO CONTRAST Elba Macias DO [address] [place] [address] Referral ID Status Reason Start Date Expiration Date V isits Requested Visits Authorized [id number] Authorized 08/01/2023 999 999 Reason for Visit * Reason Comments Acute Lightheaded, poor ap petite; did have blood work done as wellAffects his vision L and R eye will have black spot on the bottom of his eye and is not drinking fluids Was walking moreSciatica and is in therapy for itDid loss a brother recentlyWhen he stopped taking Advil would get hot flashes Encounter Details Date Type Department Care Team (Late st Contact Info) Description 08/01/2023 12:30 PM EDT [facility] [address] [facility] [address] Elba Macias, DO [address] [facility] [place] [id number] Dyslipidemia, goal LDL below 100*; Aneurysm of ascending aorta without rupture (HCC); HTN, goal below 140/90; Other specified hypothyroidism; Chronic kidney disease, stage 3a (HCC); Dizziness; Loss of weight; Elevated platelet count Allergies Active Allergy Reactions Criticality Noted Date Comments Pollen Other (Please comment) 09/03/2019 sneezing documented as of this encounter (statuses as of 08/01/2023) Medications Medication Sig Dispensed Refills Start Date [...] as of this encounter (statuses as of 08/01/2023) Active Problems Problem Noted Date Diagnosed Date [...] as of this encounter (statuses as of 08/01/2023) Resolved Problems Problem Noted Date Diagnosed Date [...] as of this encounter (statuses as of 08/01/2023) Immunizations Name Administration Dates Next Due COVID-19 [...] Passive Smoke Exposure: Past Smokeless Tobacco: Never Tobacco Cessation:Counseling Given: Not Answered Comments:1-2 years in college Alcohol Use Standard Drinks/Week Comments Yes 0 [...] on file documented as of this encounter Last Filed Vital Signs Vital Sign Reading Time Taken Comments Blood Pressure 120/66 08/01/2023 12:19 PM EDT Pulse 92 08/01/2023 12:19 PM EDT Temperature 36.6 C (97.8 F) 08/01/2023 12:19 PM E DT Respiratory Rate 17 08/01/2023 12:19 PM EDT Oxygen Saturation 99% 08/01/2023 12:19 PM EDT Inhaled Oxygen Concentration - - Weight 89 kg (196 lb 4.8 oz) 08/01/2023 12:19 PM EDT Height 172.7 cm (5' 8") 08/01/2023 12:19 PM EDT Body Mass Index 29.85 08/01/2023 12:19 PM EDT documented in this encounter Functional Status Functional Status Response [...] No 07/10/2020 documented as of this encounter Progress Notes * Elba Macias, - 08/01/2023 12:39 PM EDT Subjective: Lamberto Chandler is a 88 year old male. Chief Complaint Patient presents with Acute Lightheaded, poor appetite; did have blood work done as well Affects his vision L and R eye will have black spot on the bottom of his eye and is not drinking fluids Was walking more Sciatica and is in therapy for it Did loss a brother recently When he stopped taking Advil would get hot flashes HPI: 88 year old male presents for ongoing illness since Mar , presents with his ex . Main complaint is dizziness, vertigo, generalized weakness and unable to be as active as he was. Has seen Maria Alejandra and Dr Bernabe and their notes were reviewed. Lab were reviewed. He did see cardiology for the dizziness. And any cardiac arrthymias were ruled out. He had a ZIO, and they suggested metoprolol on going 1/2 per day. He had seen gisele for same thing the dizziness and his platelets were elevated and wbc ct was elevated , in fact they were repeat again today + visual changes, as well. He carries extensive cardiac hx to include bicuspid aortic valve and had TAVR in June of 2020. Hx of aortic aneursym, and has repeat echo arranged for next month. Last September he was 245 lbs and today his weight down to 196 lbs No appetite. + night sweats. Feels feverish at times. He has no burning with urination. ' TSH is up to date. PHM: Patient Active Problem List Diagnosis Dyslipidemia, goal LDL below 100 HTN, goal below 140/90 Hypothyroidism LVH (left ventricular hypertrophy) Chronic rhinitis Personal history of malignant neoplasm of prostate Prediabetes Hypertensive kidney disease with stage 3a chronic kidney disease (HCC) Nonrheumatic aortic valve stenosis Severe aortic valve stenosis S/P TAVR (transcatheter aortic valve replacement) LBBB (left bundle branch block) Chronic kidney disease, stage 3a (HCC) Syncope History of renal calculi Heart murmur Anemia Sinus bradycardia PVC (premature ventricular contraction) Ascending aortic aneurysm (HCC) Hx of nonmelanoma skin cancer Current Outpatient Medications Medication Sig Dispense Refill MULTI-VITAMIN/MINERALS PO TABS ONE EACH DAY 0 Amoxicillin 500 MG Oral Capsule (Amoxil) Take 4 tablets by mouth one hour prior to any dental procedure or cleaning 12 Capsule 03 Levothyroxine Sodium 137 MCG Oral Tablet TAKE 1 TABLET BY MOUTH ONCE DAILY AT LEAST 30 MINUTES PRIOR TO BREAKFAST OR OTHER MEDS 90 Tablet 3 Tamsulosin HCl 0.4 MG Oral Capsule (Flomax) Take 1 Capsule by mouth in the morning. 90 Capsule 3 Aspirin 81 MG Oral Tablet Delayed Release Take 1 Tablet by mouth in the morning. Metoprolol Succinate ER 25 MG Oral Tablet Extended Release 24 Hour (toPROL XL) TAKE 1/2 (ONE-HALF) TABLET BY MOUTH IN THE MORNING 45 Tablet 3 predniSONE 10 MG Oral Tablet (Deltasone) Take 5 tabs for 2 days, 4 tabs for 2 days, 3 tabs for 2 days, 2 tabs for 2 days 1 tab for 2 days 30 Tablet 0 Zoster Vac Recomb Adjuvanted 50 MCG/0.5ML Intramuscular Suspension Reconstituted (Shingrix) Inject 0.5 mL into a large muscle now and repeat dose in 60 to 180 days 1 Each 1 No current facility-administered medications for this visit. Review of patient's allergies indicates: Allergen Reactions Pollen Other (Please comment) sneezing Objective: BP 120/66 | Pulse 92 | Temp 36.6 C (97.8 F) | Resp 17 | Ht 1.727 m (5' 8") | Wt 89 kg (196 lb 4.8 oz) | SpO2 99% | BMI 29.85 kg/m | BSA 2.07 m Physical Exam: General: alert, healthy, and no distress Neck: supple, no adenopathy Heart: regular rate & rhythm, no murmur, and no gallops Lungs: chest symmetric with normal AP diameter, no chest deformities noted, no chest wall tenderness, lungs clear to auscultation Abdomen: abdomen soft, non-tender, normal bowel sounds, and left lower quadrant, palpable enlargement in that area. I did not feel a mass, but this could be an abdominal wall weakness too. Extremities: no edema ASSESSMENT/PLAN: Concern for his CBC one 1 month ago. This repeat is pending. Could be tick borne illness with high white count and platelet count. LFTs were not checked. These are pending. Will check for anaplasmosis and lyme. To start doxy. He was placed on prednisone taper last month. Due to elevated inflammatory markers. This made him feel worse. Given the dizziness and visual changes will check MRI of his brain. For his weight loss and abnormality in the LLQ will check CT scan. If above is non diagnostic and still with elevated WBC ct should see Hematology. Follow-up pending results. Dyslipidemia, goal LDL below 100 (Primary) Aneurysm of ascending aorta without rupture (HCC) HTN, goal below 140/90 Other specified hypothyroidism Chronic kidney disease, stage 3a (HCC) Dizziness - ANAPLASMA PHAGOCYTOPHILUM DNA, QL REAL-TIME PCR; Future; Expected date: 08/01/2023 - LYME DISEASE ANTIBODY SCREEN WITH REFLEX TO CONFIRMATION; Future; Expected date: 08/01/2023 - MRI BRAIN W WO CONTRAST; Future; Expected date: 08/01/2023 Loss of weight - CT ABD/PELVIS W IV AND W ORAL CONTRAST Elevated platelet count - Doxycycline Hyclate 100 MG Oral Capsule; Take 1 Capsule by mouth in the morning and 1 Capsule before bedtime. Do all this for 10 days. Until gone.. Elba Macias DO documented in this encounter Nursing Notes * Laurel Sauceda LPN - 08/01/2023 12:27 PM EDT The patient has been properly identified by confirmation of name and date of . Chief Complaint Patient presents with Acute Lightheaded, poor appetite; did have blood work done as well Affects his vision L and R eye will have black spot on the bottom of his eye and is not drinking fluids Was walking more Sciatica and is in therapy for it Did loss a brother recently When he stopped taking Advil would get hot flashes documented in this encounter Plan of Treatment Upcoming Encounters Date Type Department Care Team (Late st Contact Info) Description 08/10/2023 12:15 PM EDT Imaging Radiology [address] [place] [address] 08/25/2023 11:15 AM EDT Imaging Radiology [address] [facility] [place] [address] 08/29/2023 1:00 PM EDT Cardiac Studies Cardiac Studies, [facility] [address] [facility] [place] [address] 08/31/2023 11:40 AM EDT Office Visit [facility] [address] [place] [phone] Maria Alejandra Mcginnis PA-C [address] [place] [address] 10/10/2023 1:30 PM EDT Office Visit Cardiology, [facility] [address] [facility] [place] [address] Margaret Mcclain PA-C [address] [facility] [place] [address] 01/04/2024 11:00 AM EDT Office Visit [facility], [place] [address] [facility], [place] [phone] Maria Alejandra Mcginnis PA-C [address] [place] [address] 01/10/2024 11:40 AM EDT Office Visit Dermatology, [place] [address] [place] [facility] [place] [address] Toña aPrra PA-C [address] [place] [address] [place] [address] Pending Results Name Type Priority Associated Diagnoses Date /Time ANAPLASMA PHAGOCYTOPHILUM DNA, QL REAL-TIME PCR Lab Routine Dizziness 08/01/2023 1:13 PM EDT LYME DISEASE ANTIBODY SCREEN WITH REFLEX TO CONFIRMATION Lab Routine Dizziness 08/01/2023 1:13 PM EDT Scheduled Orders Name Type Priority Associated Diagnoses Order Schedule ANAPLASMA PHAGOCYTOPHILUM DNA, QL REAL-TIME PCR Lab Routine Dizziness Expected: 08/01/2023, Expires: 07/31/2024 LYME DISEASE ANTIBODY SCREEN WITH REFLEX TO CONFIRMATION Lab Routine Dizziness Expected: 08/01/2023, Expires: 07/31/2024 MRI BRAIN W WO CONTRAST Medical Imaging Routine Dizziness Expected: 08/01/2023, Expires: 08/31/2024 CT ABD/PELVIS W IV AND W ORAL CONTRAST Medical Imaging Routine Loss of weight Ordered: 08/01/2023 Health Maintenance Due Date Last Done Comments Zoster Vaccines (1 of 2) 1985 Pneumococcal Vaccine: 65+ Years (2 of 2 - PCV) 12/14/2008 12/15/2007 COVID-19 Vaccine ( season) 2022 11/13/2020, 06/03/2020, 05/08/2020 Depression Screening 07/01/2023 06/30/2022, 06/10/2016 (Discussed) Albumin/Creatinine Ratio 12/28/202312/27/2 023, 01/25/2022, 06/07/2016, Additional history exists CKD PHOS USE SMARTSET 92110 12/28/202312/12, 03/26/2021, 03/25/2021, Additional history exists HbA1c 12/28/2023 12/27/2022, 01/12, 01/16/2020, Additional history exists TSH 06/06/2024 06/07/2023, 12/12, 03/23/2021, Additional history exists CKD HGB USE SMARTSET 42726 06/28/202406/28, 06/29/2023, 06/07/2023, Additional history exists DTaP,Tdap,and [...] this encounter Medical Devices Implanted Type Area Fish Conservationist Device Identifier Shelf Expiration Date Model / Serial / Lot Proglide Perclose 11457-16 X10 - [id number] Implanted:Qty: 1 on 07/10/2020 by Renard Galan DO at [facility] : VASCULAR DEVICES [id number] 12/11/2021 01723-14 / / [id number] Proglide Perclose 19187-15 X10 - [id number] Implanted:Qty: 1 on 07/10/2020 by Renard Galan DO at [facility] : VASCULAR DEVICES [id number] 12/11/2021 00800-23 / / [id number] Balloon Cath Pacing [id number] - [id number] Implanted:Qty: 1 on 07/10/2020 by Renard Galan DO at [facility] : MEDICAL [id number] 05/11/2022 520 007P / / [id number] Valve Aort Evolut Proplus 29mm - [id number] Implanted:Qty: 1 on 07/10/2020 by Adama, Renard D, DO at [facility] [employer] : CARDIAC SURGERY 11/08/2021 EVPROPLUS- 29US / [id number] / [id number] Balloon Cath Pacing [id number] - [id number] Implanted:Qty: 1 on 07/10/2020 by Renard Galan, DO at [facility] : MEDICAL [id number] 05/11/2022 520 007P / / [id number] Coil Fibered 2 10mm [id number] - [id number] Implanted:Qty: 1 on 03/18/2021 at [facility] [employer] : NEURO INTR [id number] 06/18/2023 [id number] Coil Fibered 2 10mm [id number] - [id number] Implanted:Qty: 1 on 03/18/2021 at [facility] [employer] : NEURO INTR [id number] 06/18/2023 [id number] Coil Emboli Tornado 3x2 - [id number] Implanted:Qty: 1 on 03/18/2021 at [facility] [employer] [id number] 09/04/2025 [id number] / / [id number] Coil Emboli Tornado 3x2 - [id number] Implanted:Qty: 1 on 03/18/2021 at [facility] [employer] [id number] 12/25/2025 [id number] / / [id number] Sureclip 16mm 235cm - [id number] Implanted:Qty: 1 on 07/31/2021 by Reji Milian MD at [facility]OSCOPY [facility] Colon MICRO TECH ENDOSCOPY 09/22/2023 [id number] / / [id number] documented as of this encounter Visit Diagnoses Diagnosis Dyslipidemia, goal LDL below 100- Primary Other and unspecified hyperlipidemia Aneurysm of ascending aorta without rupture (HCC) HTN, goal below 140/90 Unspecified essential hypertension Other specified hypothyroidism Chronic kidney disease, stage 3a (HCC) Dizziness Dizziness and giddiness Loss of weight Elevated platelet count Essential thrombocythemia documented in this encounter Advance Directives Documents on File Type Date Recorded Patient Front Desk Admin Expl anation Advance Directives and Living Will 02/24/2023 ADVANCE DIRECTIVE / LIVING WILL Power of Loom Fixer Apprentice 02/24/2023 POWER OF A TTORNEY * Full [...] Power of Attor reba? No Care Teams Outside Machinist Helper Relationship Specialty Start Date End Date Maria Alejandra Mcginnis PA-C [address] [facility] [place] [address] PCP - General Physician Slag Motor Operator 07/31/21 documented as of this encounter
--- OUTSIDE RECORDS SUMMARY | 2023-08-06 23:47 | External Medical Summary ---
Author Name Unknown Address Unknown Organization : Laboratory Report Ordering Provider Test Date Status DIDIER MERRITT 08/01/2023 13:13:09 Final Observation Date Value Abnormality Reference (Units ) Status Anaplasma phagocytophilum DNA [Presence] in Blood by LUIS M with probe detection 08/01/2023 13:13:09 Not Detected Not Detected Final This test was developed and its analytical performance
characteristics have been determined by [employer]
[place] It has
not been cleared or approved by the U.S. Food and Drug
Administration. This assay has been validated pursuant
to the CLIA regulations and is used for clinical
purposes.

Test Performed at:
[facility]
[address] [facility] [place] [address]
Jae Puckett M.D., Ph.D.,Director of Laboratories Performing Location
--- OUTSIDE RECORDS SUMMARY | 2023-08-06 23:47 | External Medical Summary ---
Author Name Unknown Address Unknown Organization [id number]:LABORATORY [facility] - [facility] [place] [address] [facility] [address] [facility] [address] Laboratory Report Ordering Provider Test Date Status DIDIER MERRITT 08/04/2023 11:27:33 Final Observation Date Value Abnormality Reference (Units) Status Streptococcus sp DNA [Presence] by LUIS M with probe detection in Positive blood culture 08/04/2023 11:27:33 Positive Very abnormal Negative Final Blood pathogens panel by LUIS M with non-probe detection in Positive blood culture 08/04/2023 11:27:33 Negative for all other bacterial targets and resistance genes. Final This assay detects: Enteroco ccus faecalis,Enterococcus faecium, Listeria monocytogenes,Staphylococcus,Staphylococcus aureus,Staphylococcus epidermidis,Staphylococcus lugdunensis, Streptococcus,Streptococcus agalactiae, Streptococcus pneumoniae,Streptococcus pyogenes, Acinetobacter calcoaceticus-baumannii complex,Bacteriodes fragilis,Stenotrophomonas maltophilia,Enterobacterales,Enterobacter cloacae complex,Escherichia coli, Klebsiella oxytoca,Klebsiella pneumoniae,Klebsiella aerogenes,Proteus, Serratia marcescens,Salmonella spp.,Haemophilus influenzae, Neisseria meningitidis, Pseudomonas aeruginosa,Alesia albicans,Alesia auris,Alesia glabrata,Alesia krusei,Alesia parapsilosis,Alesia tropicalis,Cryptococcus neoformans/emily, KPC carbapenem resistance gene, mecA/C resistance gene,mecA/C MREJ (MRSA)resistance gene,Linn/B vancomycin resistance gene,VIM resistance gene, OXA-48-like resistance gene, NDM resistance gene,MCR-1 resistance gene, IMP resistance gene and CTX-M resistance gene. Performing Location LABORATORY [facility] - [facility] [place] [address] [facility] [address] [facility] [address]
--- OUTSIDE RECORDS SUMMARY | 2023-08-06 23:47 | External Medical Summary | Summary of Care ---
Author Name Unknown Organization [facility] Address [address] [place] [address] Phone [phone] Care Team Providers Care County Sheriff Name Role Phone Elba Macias DO Primary Care Provider + [phone] Reason for Visit * Reason Onset Date Comments Test Results 08/06/2023 Encounter Details Date Type Department Care Team (Late st Contact Info) Description 08/06/[address] [facility] [address] [facility] [place] [address] Fátima Barcenas MD [address] [place] [address] Test Results Allergies Active Allergy Reactions Criticality Noted Date [...] encounter Miscellaneous Notes * Telephone Encounter - Ema Garay LPN - 08/06/2023 1:56 PM EDT Patient is aware and will comply. Thank you * Telephone Encounter - Fátima Barcenas MD - 08/06/2023 12:33 PM EDT Time of call : 08/06/2023 at 12:20 via TT Person calling : lab Reason for call : blood culture +ve of Aerobic bottle Gram +ve bottle in chains [facility], medication office note reviewed Since he has elevated WBC count and not doing well from previous messages, age and h/o valve replacement suggest to go to ER for further evaluation of course of infection fay to r/o infective endocarditis and treatment documented in this encounter Plan of Treatment Upcoming Encounters Date Type Department Care Team (Late st Contact Info) Description 08/10/2023 12:15 PM EDT Imaging Radiology [address] [place] [address] 08/25/2023 11:15 AM EDT Imaging Radiology [facility] [address] [facility] [address] [facility] [address] [address] 08/29/2023 1:00 PM EDT Cardiac Studies Cardiac Studies, [facility] [address] [facility] [place] [address] 08/30/2023 9:45 AM EDT Office Visit Hematology/Oncology [facility] [address] [place] [address] Arias Sanchez MD [address] [facility] [place] [address] 08/31/2023 11:40 AM EDT Office Visit [facility] [place] [address] [address] [facility] [phone] Maria Alejandra Mcginnis PA-C [address] [facility] [place] [address] 10/10/2023 1:30 PM EDT Office Visit Cardiology, [facility] 132 [facility] [place] [address] Margaret Mcclain PA-C 132 [facility] [place] [address] 01/04/2024 11:00 AM EDT Office Visit [facility] [place] [address] [address] [facility] [phone] Maria Alejandra Mcginnis PA-C [address] [facility] [place] [address] 01/10/2024 11:40 AM EDT Office Visit Dermatology, [place] [address] [address] [facility], [place] [address] Toña Parra PA-C [address] [place] [address] [place] [address] Health Maintenance Due Date Last Done Comments Zoster Vaccines (1 of 2) 1986 Pneumococcal Vaccine: 65+ Years (2 of 2 - PCV) 12/14/2008 12/15/2007 COVID-19 Vaccine ( season) 2022 11/13/2020, 06/03/2020, 05/08/2020 Depression Screening 07/01/2023 06/30/2022, 06/10/2016 (Discussed) Albumin/Creatinine Ratio 12/28/2023 023, 01/25/2022, 06/07/2016, Additional history exists CKD PHOS USE SMARTSET 95949 12/28/202312/12, 03/26/2021, 03/25/2021, Additional history exists HbA1c 12/28/2023 12/27/2022, 01/12, 01/16/2020, Additional history exists TSH 06/06/2024 06/07/2023, 12/12, 03/23/2021, Additional history exists CKD HGB USE SMARTSET 48303 07/31/202407/31, 08/01/2023, 06/29/2023, Additional history exists DTaP,Tdap,and [...] this encounter Medical Devices Implanted Type Area Golf Ball Winder Device Identifier Shelf Expiration Date Model / Serial / Lot Proglide Chrissylose 95194-29 X10 - [id number] Implanted:Qty: 1 on 07/10/2020 by Renard Galan DO at [facility] : VASCULAR DEVICES [id number] 12/11/2021 82030-18 / / [id number] Proglide Perclose 54041-59 X10 - [id number] Implanted:Qty: 1 on 07/10/2020 by Renard Galan, DO at [facility] : VASCULAR DEVICES [id number] 12/11/2021 90956-21 / / [id number] Balloon Cath Pacing [id number] - [id number] Implanted:Qty: 1 on 07/10/2020 by Renard Galan, DO at [facility] : MEDICAL [id number] 05/11/2022 520 007P / / [id number] Valve Aort Evolut Proplus 29mm - [id number] Implanted:Qty: 1 on 07/10/2020 by Renard Galan, DO at [facility] [employer] : CARDIAC SURGERY 11/08/2021 EVPROPLUS- 29US / [id number] / [id number] Balloon Cath Pacing [id number] - [id number] Implanted:Qty: 1 on 07/10/2020 by Renard Galan, DO at [facility] : MEDICAL [id number] 05/11/2022 520 007P / / [id number] Coil Fibered 2 10mm [id number] - [id number] Implanted:Qty: 1 on 03/18/2021 at [facility] [employer] : NEURO INTR [id number] 06/18/2023 [id number] Coil Fibered 2 10mm 640393 - [id number] Implanted:Qty: 1 on 03/18/2021 at [facility] [employer] : NEURO INTR [id number] 06/18/2023 [id number] Coil Emboli Tornado 3x2 - [id number] Implanted:Qty: 1 on 03/18/2021 at [facility] [id number] 09/04/2025 [id number] / / [id number] Coil Emboli Tornado 3x2 - [id number] Implanted:Qty: 1 on 03/18/2021 at [facility] [id number] 12/25/2025 [id number] / / [id number] Sureclip 16mm 235cm - [id number] Implanted:Qty: 1 on 07/31/2021 by Reji Milian MD at ENDOSCOPY [facility] Colon MICRO TECH ENDOSCOPY 09/22/2023 [id number] / / [id number] documented as of this encounter Advance Directives Documents on File Type Date Recorded Patient Filter Tank Tender Helper Expl anation Advance Directives and Living Will 02/24/2023 ADVANCE DIRECTIVE / LIVING WILL Power of Telecommunications Field Engineer 02/24/2023 POWER OF A TTORNEY * Full [...] Power of Attor reba? No Care Teams County Sheriff Relationship Specialty Start Date End Date Elba Macias DO [address] [place] [address] PCP - General Family Medicine 08/03/23 documented as of this encounter
--- OUTSIDE RECORDS SUMMARY | 2023-08-06 23:47 | External Medical Summary | Summary of Care ---
Author Name Unknown Organization [facility] Address [address] [place] [address] Phone [phone] Care Team Providers Care Director Card Name Role Phone Maria Alejandra Mcginnsi PA-C Primary Care Provider [phone] Reason for Visit * Reason Comments Outpatient Testing Encounter Details Date Type Department Care Team (Late st Contact Info) Description 08/01/2023 12:00 PM EDT Laboratory Laboratory, [place] [address] [place] [phone] [place], Laboratory [address], [place] [phone] Night sweats; Elevated sed rate; Dizziness Allergies Active Allergy Reactions Criticality Noted Date [...] for 2 days 30 Tablet 07/07/2023 Active documented as of this encounter [...] PM EDT Cardiac Studies Cardiac Studies, [facility] [address] [facility] [place] [address] 08/31/2023 11:40 AM EDT [address] [phone] Maria Alejandra Mcginnis PA-C [address] [place] [address] 10/10/2023 1:30 PM EDT Office Visit Cardiology, [facility] [address] [facility] [place] [address] Margaret Mcclain PA-C [address] [facility] [place] [address] 01/04/2024 11:00 AM EDT [address] [phone] Maria Alejandra [facility]innis [facility] [address] [facility] [address] 01/10/2024 11:40 AM EDT [place] [address] [facility] [place] [address] Toña Parra PA-C [address] [place] [address] [place] [address] Pending Results Name Type Priority Associated Diagnoses Date /Time CBC WITH WBC DIFFERENTIAL Lab Routine Night sweats Elevated sed rate 08/01/2023 12:05 PM EDT ERYTHROCYTE SEDIMENTATION RATE (ESR) Lab Routine Night sweats Elevated sed rate 08/01/2023 12:05 PM EDT CRP (INFLAMMATORY MARKER) Lab Routine Night sweats Elevated sed rate 08/01/2023 12:05 PM EDT COMPREHENSIVE METABOLIC PANEL Lab Routine Night sweats Elevated sed rate 08/01/2023 12:05 PM EDT CBC Lab Routine Night sweats Elevated sed rate 08/01/2023 12:05 PM EDT DIFFERENTIAL, AUTOMATED Lab Routine Night sweats Elevated sed rate 08/01/2023 12:05 PM EDT ANAPLASMA PHAGOCYTOPHILUM DNA, QL REAL-TIME PCR Lab Routine Dizziness 08/01/2023 1:13 PM EDT LYME DISEASE ANTIBODY SCREEN WITH REFLEX TO CONFIRMATION Lab Routine Dizziness 08/01/2023 1:13 PM EDT LYME DISEASE ANTIBODY SCREEN Lab Routine Dizziness 08/01/2023 1:13 PM EDT Health Maintenance Due Date Last Done Comments Zoster Vaccines (1 of 2) 1986 Pneumococcal Vaccine: 65+ Years (2 of 2 - PCV) 12/14/2008 12/15/2007 COVID-19 Vaccine ( season) 2022 11/13/2020, 06/03/2020, 05/08/2020 Depression Screening 07/01/2023 06/30/2022, 06/10/2016 (Discussed) Albumin/Creatinine Ratio 12/28/202312/27/2 023, 01/25/2022, 06/07/2016, Additional history exists CKD PHOS USE SMARTSET 71249 12/28/202312/12, 03/26/2021, 03/25/2021, Additional history exists HbA1c 12/28/2023 12/27/2022, 01/12, 01/16/2020, Additional history exists TSH 06/06/2024 06/07/2023, 12/12, 03/23/2021, Additional history exists CKD HGB USE SMARTSET 09721 06/28/202406/28, 06/29/2023, 06/07/2023, Additional history exists DTaP,Tdap,and [...] this encounter Medical Devices Implanted Type Area Solder Leveler Printed Circuit Boards Device Identifier Shelf Expiration Date Model / Serial / Lot Proglide Perclose 10124-88 X10 - [id number] Implanted:Qty: 1 on 07/10/2020 by Renard Galan, DO at [facility] VASCULAR DEVICES [id number] 12/11/2021 57525-58 / / [id number] Proglide Perclose 67731-80 X10 - [id number] Implanted:Qty: 1 on 07/10/2020 by Renard Galan, DO at [facility]ASCULAR DEVICES [id number] 12/11/2021 76953-34 / / [id number] Balloon Cath Pacing [id number] - [id number] Implanted:Qty: 1 on 07/10/2020 by Renard Galan, DO at [facility] : MEDICAL [id number] 05/11/2022 520 007P / / [id number] Valve Aort Evolut Proplus 29mm - [id number] Implanted:Qty: 1 on 07/10/2020 by Renard Galan, DO at [facility] [employer] : CARDIAC SURGERY 11/08/2021 EVPROPLUS- 29US / [id number] / [id number] Balloon Cath Pacing [id number] - [id number] Implanted:Qty: 1 on 07/10/2020 by Renard Galan DO at [facility] : MEDICAL [id number] 05/11/2022 520 007P / / [id number] Coil Fibered 2 10mm 022487 - [id number] Implanted:Qty: 1 on 03/18/2021 at [facility] [employer] : NEURO INTR [id number] 06/18/2023 [id number] Coil Fibered 2 10mm 063045 - [id number] Implanted:Qty: 1 on 03/18/2021 at [facility] [employer] : NEURO INTR [id number] 06/18/2023 [id number] Coil Emboli Tornado 3x2 - [id number] Implanted:Qty: 1 on 03/18/2021 at [facility] [employer] [id number] 09/04/2025 [id number] / / [id number] Coil Emboli Tornado 3x2 - [id number] Implanted:Qty: 1 on 03/18/2021 at [facility] [employer] [id number] 12/25/2025 [id number] / / [id number] Sureclip 16mm 235cm - [id number] Implanted:Qty: 1 on 07/31/2021 by Reji Milian MD at [facility] Colon MICRO TECH ENDOSCOPY 09/22/2023 [id number] / / [id number] documented as of this encounter Visit Diagnoses Diagnosis Night sweats Generalized hyperhidrosis Elevated sed rate Elevated sedimentation rate Dizziness Dizziness and giddiness documented in this encounter Advance Directives Documents on File Type Date Recorded Patient Tactical Air Control Party Manager Expl anation Advance Directives and Living Will 02/24/2023 ADVANCE DIRECTIVE / LIVING WILL Power of Insurance Manager 02/24/2023 POWER OF A TTORNEY * Full [...] Power of Attor reba? No Care Teams Director Card Relationship Specialty Start Date End Date Maria Alejandra Mcginnis PA-C [address] [facility] [place] [address] PCP - General Physician Data Analysis Assistant 07/31/21 documented as of this encounter
--- OUTSIDE RECORDS SUMMARY | 2023-08-06 23:47 | External Medical Summary | Summary of Care ---
Author Name Unknown Organization [facility] Address [address] [place] [address] Phone [phone] Care Team Providers Care Residential Sales Consultant Name Role Phone Maria Alejandra Mcginnis PA-C Primary Care Provider [phone] Reason for Visit * Reason Comments Outpatient Testing Encounter Details Date Type Department Care Team (Late st Contact Info) Description 08/01/2023 12:00 PM EDT Laboratory Laboratory, [place] [address] [place] [phone] [place] [address] [place], [place] [phone] Night sweats; Elevated sed rate Allergies Active Allergy Reactions Criticality Noted Date [...] 2:43 PM EDT Sexual Orientation Straight 10/18/2018 2 :43 PM EDT Job Start Date Occupation Industry [...] Description 08/01/2023 12:30 PM EDT Office Visit [facility] [address] [place] [facility] [place] [phone] Elba Macias DO [address] [place] [address] Arrived 08/29/2023 1:00 PM EDT Cardiac Studies [facility] [address] [facility] [address] 08/31/2023 11:40 AM EDT Office Visit [facility] [address] [place] [facility] [place] [phone] Maria Alejandra Mcginnis PA-C [address] [place] [address] 10/10/2023 1:30 PM EDT Office Visit [facility]iology, [facility] [address] [facility] [address] Margaret Mcclain PA-C [address] [facility] [place] [address] 01/04/2024 11:00 AM EDT Office Visit [facility], [place] [address] [facility], [place] [phone] Maria Alej[facility]innis [facility] [address] [facility] [address] 01/10/2024 11:40 AM EDT Office Visit Dermatology, [place] [address] [facility], [place] [address] Toña Parra PA-C [address] [place] [address] [place] [address] Pending Results Name Type Priority Associated Diagnoses [...] Elevated sed rate 08/01/2023 12:05 PM EDT Health Maintenance Due Date Last Done Comments Zoster Vaccines (1 of 2) 1985 Pneumococcal Vaccine: 65+ Years (2 of 2 - PCV) 12/14/2008 12/15/2007 COVID-19 Vaccine ( season) 2022 11/13/2020, 06/03/2020, 05/08/2020 Depression Screening 07/01/2023 06/30/2022, 06/10/2016 (Discussed) Albumin/Creatinine Ratio 12/28/202312/27/ 023, 01/25/2022, 06/07/2016, Additional history exists CKD PHOS USE SMARTSET 71515 12/28/202312/12, 03/26/2021, 03/25/2021, Additional history exists HbA1c 12/28/2023 12/27/2022, 01/12, 01/16/2020, Additional history exists TSH 06/06/2024 06/07/2023, 12/12, 03/23/2021, Additional history exists CKD HGB USE SMARTSET 27987 06/28/202406/28, 06/29/2023, 06/07/2023, Additional history exists DTaP,Tdap,and [...] this encounter Medical Devices Implanted Type Area Lead Python Developer Device Identifier Shelf Expiration Date Model / Serial / Lot Proglide Perclose 36696-21 X10 - [id number] Implanted:Qty: 1 on 07/10/2020 by Renard Galan, DO at [facility] DEVICES [id number] 12/11/2021 70621-52 / / [id number] Proglide Perclose 22121-76 X10 - [id number] Implanted:Qty: 1 on 07/10/2020 by Renard Galan, DO at [facility] [id number] 12/11/2021 52536-77 / / [id number] Balloon Cath Pacing [id number] - [id number] Implanted:Qty: 1 on 07/10/2020 by Renard Galan, DO at [facility] : MEDICAL [id number] 05/11/2022 520 007P / / [id number] Valve Aort Evolut Proplus 29mm - [id number] Implanted:Qty: 1 on 07/10/2020 by Renard Galan, DO at [facility] [employer] : CARDIAC SURGERY 11/08/2021 EVPROPLUS- 29US / [id number] / [id number] Balloon Cath Pacing [id number] - [id number] Implanted:Qty: 1 on 07/10/2020 by Renard Galan DO at [facility] : MEDICAL [id number] 05/11/2022 520 007P / / [id number] Coil Fibered 2 10mm [id number] - [id number] Implanted:Qty: 1 on 03/18/2021 at [facility] [employer] : NEURO INTR [id number] 06/18/2023 [id number] Coil Fibered 2 10mm [id number] - [id number] Implanted:Qty: 1 on 03/18/2021 at [facility] [employer] : NEURO INTR [id number] 06/18/2023 [id number] Coil Emboli Tornado 3x2 - [id number] Implanted:Qty: 1 on 03/18/2021 at [facility] [employer] [id number] 09/04/2025 [id number] / / [id number] Coil Emboli Tornado 3x2 - [id number] Implanted:Qty: 1 on 03/18/2021 at [facility] [id number] 12/25/2025 [id number] / / [id number] Sureclip 16mm 235cm - [id number] Implanted:Qty: 1 on 07/31/2021 by Reji Milian MD at [facility] Colon MICRO TECH ENDOSCOPY 09/22/2023 [id number] / / [id number] documented as of this encounter Visit Diagnoses Diagnosis Night sweats Generalized hyperhidrosis Elevated sed rate Elevated sedimentation rate documented in this encounter Advance Directives Documents on File Type Date Recorded Patient Senior Project Leader/Team Lead Expl anation Advance Directives and Living Will 02/24/2023 ADVANCE DIRECTIVE / LIVING WILL Power of Snow Technician 02/24/2023 POWER OF A TTORNEY * Full [...] Power of Attor reba? No Care Teams Residential Sales Consultant Relationship Specialty Start Date End Date Maria Alejandra Mcginnis PA-C [address] [facility] [place] [address] PCP - General Physician Floor Clerk 07/31/21 documented as of this encounter
--- OUTSIDE RECORDS SUMMARY | 2023-08-06 23:47 | External Medical Summary | Summary of Care ---
Author Name Unknown Organization [facility] Address [address] [place] [address] Phone [phone] Care Team Providers Care Quality Specialist Name Role Phone Maria Alejandra Mcginnis PA-C Primary Care Provider [phone] Reason for Visit * Reason Comments Outpatient Testing Encounter Details Date Type Department Care Team (Late st Contact Info) Description 08/01/2023 12:00 PM EDT Laboratory Laboratory, [place] [address] [place] [phone] [place], Laboratory [address] [place], [place] [phone] Night sweats; Elevated sed rate; Dizziness Allergies [...] Description 08/10/2023 12:15 PM EDT Imaging Radiology [address] [address] 08/25/2023 11:15 AM EDT Imaging Radiology [address] [place] [address] 08/29/2023 1:00 PM EDT Cardiac Studies Cardiac Studies [address] [place] [address] 08/30/2023 9:45 AM EDT Office Visit Hematology/Oncology [facility] [address] [place] [phone] Arias Sanchez MD [address] [facility] [place] [address] 08/31/2023 11:40 AM EDT Office [facility] [address] [facility] [phone] Maria Alejandra Mcginnis PA-C [address] [place] [address] 10/10/2023 1:30 PM EDT Office Visit Cardiology, [facility] [address] [place] [address] Margaret Mcclain PA-C [address] [place] [address] 01/04/2024 11:00 AM EDT Office Visit Family Practice, [place] [address] [facility], [place] [phone] Maria Alejandra Mcginnis PA-C [address] [facility] [place] [address] 01/10/2024 11:40 AM EDT Office Visit Dermatology, [place] [address] [facility], [place] [address] Toña Parra PA-C [address] [place] [address] [place] [address] Health Maintenance Due Date Last Done Comments Zoster Vaccines (1 of 2) 1985 Pneumococcal Vaccine: 65+ Years (2 of 2 - PCV) 12/14/2008 12/15/2007 COVID-19 Vaccine ( season) 2022 11/13/2020, 06/03/2020, 05/08/2020 Depression Screening 07/01/2023 06/30/2022, 06/10/2016 (Discussed) Albumin/Creatinine Ratio 12/28/202312/27/2 023, 01/25/2022, 06/07/2016, Additional history exists CKD PHOS USE SMARTSET 10725 12/28/202312/12, 03/26/2021, 03/25/2021, Additional history exists HbA1c 12/28/2023 12/27/2022, 01/12, 01/16/2020, Additional history exists TSH 06/06/2024 06/07/2023, 12/12, 03/23/2021, Additional history exists CKD HGB USE SMARTSET 91192 07/31/202407/31, 08/01/2023, 06/29/2023, Additional history exists DTaP,Tdap,and [...] this encounter Medical Devices Implanted Type Area Mangle Catcher Device Identifier Shelf Expiration Date Model / Serial / Lot Proglide Perclose 53363-02 X10 - [id number] Implanted:Qty: 1 on 07/10/2020 by Renard Galan, DO at [facility] : VASCULAR DEVICES [id number] 12/11/2021 61847-83 / / [id number] Proglide Perclose 24600-74 X10 - [id number] Implanted:Qty: 1 on 07/10/2020 by Renard Galan, DO at [facility] : VASCULAR DEVICES [id number] 12/11/2021 53578-86 / / [id number] Balloon Cath Pacing [id number] - [id number] Implanted:Qty: 1 on 07/10/2020 by Renard Galan, DO at [facility] : MEDICAL [id number] 05/11/2022 520 007P / / [id number] Valve Aort Evolut Proplus 29mm - [id number] Implanted:Qty: 1 on 07/10/2020 by Renard Galan, DO at [facility] [employer] : CARDIAC SURGERY 11/08/2021 EVPROPLUS- 29US / [id number] / [id number] Balloon Cath Pacing [id number] - [id number] Implanted:Qty: 1 on 07/10/2020 by Renard Galan, DO at [facility] : MEDICAL [id number] 05/11/2022 520 007P / / [id number] Coil Fibered 2 10mm [id number] - [id number] Implanted:Qty: 1 on 03/18/2021 at [facility] [employer] : NEURO INTR [id number] 06/18/2023 [id number] Coil Fibered 2 10mm [id number] - [id number] Implanted:Qty: 1 on 03/18/2021 at [facility] [employer] : NEURO INTR [id number] 06/18/2023 [id number] Coil Emboli Tornado 3x2 - [id number] Implanted:Qty: 1 on 03/18/2021 at [facility] [id number] 09/04/2025 [id number] / / [id number] Coil Emboli Tornado 3x2 - [id number] Implanted:Qty: 1 on 03/18/2021 at [facility] [id number] 12/25/2025 [id number] / / [id number] Sureclip 16mm 235cm - [id number] Implanted:Qty: 1 on 07/31/2021 by Reji Milian MD at [facility] Colon MICRO TECH ENDOSCOPY 09/22/2023 [id number] / / [id number] documented as of this encounter Procedures Procedure Name Priority Date/Time Associated Diagnosis Comments LYME DISEASE IGM/IGG CONFIRMATION Routine 08/01/2023 1:13 PM EDT Dizziness LYME DISEASE ANTIBODY SCREEN Routine 08/01/2023 1:13 PM EDT Dizziness ANAPLASMA PHAGOCYTOPHILUM DNA, QL REAL-TIME PCR Routine 08/01/2023 1:13 PM EDT Dizziness LYME DISEASE ANTIBODY SCREEN WITH REFLEX TO CONFIRMATION Routine 08/01/2023 1:13 PM EDT Dizziness DIFFERENTIAL, AUTOMATED Routine 08/01/19 12:05 PM EDT Night sweats Elevated sed rate CRP (INFLAMMATORY MARKER) Routine 08/01/2023 12:05 PM EDT Night sweats Elevated sed rate COMPREHENSIVE METABOLIC PANEL Routine 08/01/2023 12:05 PM EDT Night sweats Elevated sed rate CBC Routine 08/01/2023 12:05 PM EDT Night sweats Elevated sed rate ERYTHROCYTE SEDIMENTATION RATE (ESR) Routine 08/01/2023 12:05 PM EDT Night sweats Elevated sed rate CBC Routine 08/01/2023 12:05 PM EDT Night sweats Elevated sed rate documented in this encounter Results * (ABNORMAL) LYME DISEASE IGM/IGG CONFIRMATION (08/01/2023 1:13 PM EDT) Pathologist [facility] Lyme IgM Confirmation Negative Negative 08/02/2023 10:22 AM EDT LABORATORY [facility] Lyme IgG Confirmation Positive(A) Negative 08/02/2023 10:22 AM EDT LABORATORY [facility] Interpretation 08/02/2023 10:22 AM EDT LABORATORY [facility] Comment: 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 IgG-class antibodies may remain detectable for months to years following resolution of infection. Results should NOT be used to monitor or establish adequate response to therapy. Response to therapy is confirmed through resolution of clinical symptoms; additional laboratory testing should not be performed. Test results reported to [facility]. Blood Venous blood specimen / Unknown Venipuncture / Unknown 08/01/2023 1:13 PM EDT 08/01/2023 1:13 PM EDT Elba Macias DO LAB BLOOD ORDERABLES LABORATORY [facility] [address] [place] [address] * (ABNORMAL) LYME DISEASE ANTIBODY SCREEN (08/01/2023 1:13 PM EDT) Pathologist [facility] Lyme Disease Antibody Screen Positive( A) Negative 08/02/2023 8:55 AM EDT LABORATORY [facility] Comment: Result is preliminary and not diagnostic. Second-tier testing will be reflexively performed to confirm preliminary antibody screen result and reported separately. Test result reported to [facility]. Blood Venous blood specimen / Unknown Venipuncture / Unknown 08/01/2023 1:13 PM EDT 08/01/2023 1:13 PM EDT Elba Macias DO LAB BLOOD ORDERABLES LAB[facility]ATORY [facility] [address] [place] [address] * ANAPLASMA PHAGOCYTOPHILUM DNA, QL REAL-TIME PCR (08/01/2023 1:13 PM EDT) A.Phagocytophil um, DNA, PCR Not Detected Not Detected 08/04/2023 9:50 AM EDT [facility] Comment: This test was developed and its analytical performance characteristics have been determined by boarding pass [place], [place]. It has not been cleared or approved by the U.S. Food and Drug Administration. This assay has been validated pursuant to the CLIA regulations and is used for clinical purposes. Test Performed at: boarding pass [address] [phone] Jae Puckett M.D., Ph.D.,Director of Laboratories Blood Venous blood specimen / Unknown Venipuncture / Unknown 08/01/2023 1:13 PM EDT 08/01/2023 1:13 PM EDT [facility] BLOOD ORDERABLES Performing Organization Address City/[facility]/ZIP Co de Phone Number [facility] [address] [place] [address] * (ABNORMAL) DIFFERENTIAL, AUTOMATED (08/01/2023 12:05 PM EDT) WBC 16.07(H) 4.00 - 10.80 K/uL 08/01/2023 11:18 PM EDT LABORATORY [facility] Neutrophils % 86.8(H) 40.0 - 75.0 % 08/01/2023 11:18 PM EDT LAB[facility]ATORY [facility] Lymphocytes % 6.9(L) 18.0 - 42.0 % 08/01/2023 11:18 PM EDT LAB[facility]ORY [facility] Monocytes % 5.2 1.0 - 11.0 % 08/01/2023 11:18 PM EDT LAB[facility] Eosinophils % 0.1 0.0 - 6.0 % 08/01/2023 11:18 PM EDT LAB[facility] Basophils % 0.3 0.0 - 2.0 % 08/01/2023 11:18 PM EDT [facility] Immature Granulocytes % 0.7 0.0 - 2.0 % 08/01/2023 11:18 PM EDT LAB[facility] Absolute Neutrophils 13.96(H) 1.80 - 7.70 K/uL 08/01/2023 11:18 PM EDT LAB[facility] Absolute Lymphocytes 1.11 1.00 - 4.80 K/ul 08/01/2023 11:18 PM EDT LAB[facility] Absolute Monocytes 0.83 0.00 - 1.10 K/uL 08/01/2023 11:18 PM EDT LAB[facility] Absolute Eosinophils 0.01 0.00 - 0.70 K/uL 08/01/2023 11:18 PM EDT LAB[facility] Absolute Basophils 0.05 0.00 - 0.20 K/uL 08/01/2023 11:18 PM EDT LAB[facility] Absolute Immature Granulocytes 0.11 0.00 - 0.20 K/uL 08/01/2023 11:18 PM EDT LAB[facility] Blood Venous blood specimen / Unknown Venipuncture / Unknown 08/01/2023 12:05 PM EDT 08/01/2023 12:05 PM EDT Maria Alejandra Mcginnis PA-C LAB BLOOD ORDERAB LES [facility] [address] [facility] [address] * (ABNORMAL) CBC (08/01/2023 12:05 PM EDT) WBC 16.07(H) 4.00 - 10.80 K/uL 08/01/2023 11:18 PM EDT [facility] RBC 4.23 4.50 - 5.25 M/uL 08/01/2023 11:18 PM EDT LAB[facility]ORY [facility] HGB 11.6(L) 14.0 - 16.8 g/dL 08/01/2023 11:18 PM EDT LAB[facility] HCT 37.7(L) 40.0 - 48.4 % 08/01/2023 11:18 PM EDT LAB[facility]ORY [facility] MCV 89.1 82.0 - 99.5 fL 08/01/2023 11:18 PM EDT LAB[facility] MCH 27.4 27.0 - 34.0 pg 08/01/2023 11:18 PM EDT LAB[facility] MCHC 30.8 32.0 - 36.0 g/dL 08/01/2023 11:18 PM EDT LAB[facility] RDW 16.3 11.5 - 15.5 % 08/01/2023 11:18 PM EDT LAB[facility] PLT 393 140 - 400 K/uL 08/01/2023 11:18 PM EDT LAB[facility] MPV 10.4 6.6 - 11.1 fL 08/01/2023 11:18 PM EDT LAB[facility] nRBCs 0 <=0 /100 WBCs 08/01/2023 11:18 PM EDT LABORATORY [facility] Blood Venous blood specimen / Unknown Venipuncture / Unknown 08/01/2023 12:05 PM EDT 08/01/2023 12:05 PM EDT Maria Alejandra Mcginnis PA-C LAB BLOOD ORDERAB LES Performing Organization Address City/State/[facility] Co de Phone Number LABORATORY [facility] [address] [place] [address] * (ABNORMAL) COMPREHENSIVE METABOLIC PANEL (08/01/2023 12:05 PM EDT) BUN 18 6 - 20 mg/dL 08/02/2023 12:29 AM EDT [facility] Creatinine 1.3(H) 0.6 - 1.2 mg/dL 08/02/2023 12:29 AM EDT LAB[facility]ORY [facility] Estimated Glomerular Filtration Rate 51(L) >=60 mL/min 08/02/2023 12:29 AM EDT LAB[facility]ATORY [facility] Comment:eGFR is calculated b ased on the CKD-EPI 2020 equation Sodium 131(L) 135 - 146 mmol/L 08/02/2023 12:29 AM EDT [facility] Potassium 4.5 3.5 - 5.1 mmol/L 08/02/2023 12:29 AM EDT LAB[facility] Chloride 95(L) 98 - 107 mmol/L 08/02/2023 12:29 AM EDT [facility] CO2 25 22 - 32 mmol/L 08/02/2023 12:29 AM EDT [facility] Anion Gap 11 7 - 15 mmol/L 08/02/2023 12:29 AM EDT [facility] Glucose 159(H) 70 - 120 mg/dL 08/02/2023 12:29 AM EDT LAB[facility] Albumin 3.5(L) 3.8 - 5.0 g/dL 08/02/2023 12:29 AM EDT LAB[facility] AST 22 10 - 50 U/L 08/02/2023 12:29 AM EDT LAB[facility] Alkaline Phosphatase 108 35 - 130 U/L 08/02/2023 12:29 AM EDT LAB[facility] Bilirubin, Total 0.5 <=1.2 mg/dL 08/02/2023 12:29 AM EDT [facility] Calcium 8.6 8.4 - 10.2 mg/dL 08/02/2023 12:29 AM EDT [facility] Protein 6.5 6.0 - 8.3 g/dL 08/02/2023 12:29 AM EDT [facility] ALT 15 10 - 50 U/L 08/02/2023 12:29 AM EDT LAB[facility]ORY [facility] Blood Venous blood specimen / Unknown Venipuncture / Unknown 08/01/2023 12:05 PM EDT 08/01/2023 12:05 PM EDT Maria Alejandra Mcginnis PA-C LAB BLOOD ORDERAB LES [facility] [address], [place] [phone] * (ABNORMAL) CRP (INFLAMMATORY MARKER) (08/01/2023 12:05 PM EDT) Pathologist [facility] CRP (Inflammatory Marker) 79(H) <=5 mg/L 08/02/2023 12:29 AM EDT LAB[facility]ATORY [facility] Blood Venous blood specimen / Unknown Venipuncture / Unknown 08/01/2023 12:05 PM EDT 08/01/2023 12:05 PM EDT Maria Alejandra A Mingear PA-C LAB BLOOD ORDERAB LES Performing Organization Address [facility] Co de Phone Number LABORATORY [facility] [address] [place] [address] * (ABNORMAL) ERYTHROCYTE SEDIMENTATION RATE (ESR) (08/01/2023 12:05 PM EDT) [facility] ESR 54(H) <20 mm/hour 08/01/2023 11:18 PM EDT LABORATORY [facility] Blood Venous blood specimen / Unknown Venipuncture / Unknown 08/01/2023 12:05 PM EDT 08/01/2023 12:05 PM EDT Maria Alejandra A Atterocorgear PA-C LAB BLOOD ORDERAB LES Performing Organization Address [facility] de Phone Number LABORATORY [address] [address] documented in this encounter Visit Diagnoses Diagnosis Night sweats Generalized hyperhidrosis Elevated sed rate Elevated sedimentation rate Dizziness Dizziness and giddiness documented in this encounter Advance Directives Documents on File Type Date Recorded Patient Auto Specialty Services Manager Expl anation Advance Directives and Living Will 02/24/2023 ADVANCE DIRECTIVE / LIVING WILL Power of Dental Assistant Teacher 02/24/2023 POWER OF A TTORNEY * Full [...] Power of Attor reba? No Care Teams Quality Specialist Relationship Specialty Start Date End Date Maria Alejandra Mcginnis PA-C [address] [place] [address] PCP - General Physician Psychologists 07/31/21 08/02/23 documented as of this encounter
--- OUTSIDE RECORDS SUMMARY | 2023-08-06 23:47 | External Medical Summary ---
Author Name Unknown Address Unknown Organization [id number]:LABORATORY [facility] - [address] [place] [address] Laboratory Report Ordering Provider Test Date Status DIDIER MERRITT 08/04/2023 11:27:33 Preliminary Observation Date Value Abnormality Reference (Units) Status Bacteria identified in Specimen by Culture 08/04/2023 11:27:33 Pending Preliminary Gram Stain 08/04/2023 11:27:33 Aerobic bottle Gram positive cocci in chains Very abnormal Preliminary This is an appended report. These results have been appended to a previously preliminary verified report.
Test: Culture, Blood
Specimen Source: Blood, Venous
Specimen Type: Blood
Specimen Date: 08/04/20231126
Result Date: 08/06/2023 115
Result Status: Preliminary result
Abnormal: Yes
Resulting Lab: LABORATORY [facility]
[address]
[facility] [address]

CULTURE

Pending

STAIN

Aerobic bottle Gram positive cocci in chains

This is an appended report. These results have been appended to a
previously preliminary verified report.

null Performing Location LABORATORY [facility] - [address] [facility] [place] [phone]
--- OUTSIDE RECORDS SUMMARY | 2023-08-06 23:47 | External Medical Summary ---
Author Name Unknown Address Unknown Organization [id number]:LABORATORY [facility] - [facility] [address] [facility] [address] Laboratory Report Ordering Provider Test Date Status VINAY AG 08/01/2023 12:05:17 Final Observation Date Value Abnormality Reference (Units ) Status WBC, Total 08/01/2023 12:05:17 16.07 Above high normal 4.00-10.80 (K/uL) Final RBC 08/01/2023 12:05:17 4.23 4.50-5.25 (M/uL) Final Hemoglobin 08/01/2023 12:05:17 11.6 Below low normal 14.0-16.8 (g/dL) Final HCT 08/01/2023 12:05:17 37.7 Below low normal 40.0-48.4 (%) Final MCV 08/01/2023 12:05:17 89.1 82.0-99.5 (fL) Final MCH 08/01/2023 12:05:17 27.4 27.0-34.0 (pg) Final MCHC 08/01/2023 12:05:17 30.8 32.0-36.0 (g/dL) Final RDW 08/01/2023 12:05:17 16.3 11.5-15.5 (%) Final Platelets 08/01/2023 12:05:17 393 140-400 (K/uL) Final MPV 08/01/2023 12:05:17 10.4 6.6-11.1 (fL) Final Nucleated erythrocytes/100 leukocytes [Ratio] in Blood by Automated count 08/01/2023 12:05:17 0 <=0 (/100 WBCs) Final Performing Location LABORATORY [facility] - [address] [place] [address]
--- OUTSIDE RECORDS SUMMARY | 2023-08-06 23:47 | External Medical Summary ---
Author Name Unknown Address Unknown Organization [id number]:LABORATORY [facility] - [address] [place] [address] Laboratory Report Ordering Provider Test Date Status VINAY AG 08/01/2023 12:05:17 Final Observation Date Value Abnormality Reference (Units ) Status Erythrocyte sedimentation rate by Photometric method 08/01/2023 12:05:17 54 Above high normal <20 (mm/hour) Final Performing Location LABORATORY [facility] - [address] [place] [address]
--- OUTSIDE RECORDS SUMMARY | 2023-08-06 23:48 | External Medical Summary | Summary of Care ---
Author Name Unknown Organization [facility] Address [address] [place] [address] Phone [phone] Care Team Providers Care Supply Chain Generalist Name Role Phone Maria Alejandra Mcginnis PA-C Primary Care Provider [phone] Reason for Visit * Reason Comments Follow Up 6 months for AKs, di d not use Efudex- no concerns Encounter Details Date Type Department Care Team (Late st Contact Info) Description 06/23/2023 1:20 PM EDT Office Visit Dermatology[address] [address] Toña Parra PA-C [address] [place] [address] [place] [address] Actinic keratosis* Allergies Active Allergy Reactions Criticality Noted Date Comments Pollen Other (Please comment) 09/03/2019 sneezing documented as of this encounter (statuses as of 06/24/2023) Medications Medication Sig Dispensed Refills Start Date End Date Status MULTI-VITAMIN/MINERA LS PO TABS ONE EACH DAY 0 10/05/2013 Active Amoxicillin 500 MG Oral Capsule (Amoxil) Take 4 tablets by mouth one hour prior to any dental procedure or cleaning 12 Capsule 3 09/02/2021 Active Zoster Vac Recomb Adjuvanted 50 MCG/0.5ML Intramuscular Suspension Reconstituted (Shingrix)Indication s:Need for shingles vaccine Inject 0.5 mL into a large muscle now and repeat dose in 60 to 180 days 1 Each 1 12/27/2022 Active Levothyroxine Sodium 137 MCG Oral TabletIndications:Ac quired hypothyroidism TAKE 1 TABLET BY MOUTH ONCE DAILY AT LEAST 30 MINUTES PRIOR TO BREAKFAST OR OTHER MEDS 90 Tablet 3 02/10/2023 Active Fluticasone Propionate 50 MCG/ACT Nasal Suspension (Flonase) Administer 2 Sprays into each nostril in the morning. 16 g 5 04/12/2023 Active Additional Information Patient not taking.Reported on 06/07/2023 Tamsulosin HCl 0.4 MG Oral Capsule (Flomax) [...] THE MORNING 45 Tablet 3 06/21/2023 Active documented as of this encounter (statuses as of 06/24/2023) Active Problems Problem Noted Date Diagnosed Date [...] as of this encounter (statuses as of 06/24/2023) Resolved Problems Problem Noted Date Diagnosed Date [...] as of this encounter (statuses as of 06/24/2023) Immunizations Name Administration Dates Next Due COVID-19 [...] No 07/10/2020 documented as of this encounter Patient Instructions * Patient Instructions* Toña Parra PA-C - 06/23/2023 1:23 PM EDT Skin Cryosurgery (FREEZING) Instructions Most areas treated by freezing will need very little care. You may wash normally with soap and water and leave any small crusts in place. Vaseline to treated areas 2-3 times per day is a good idea, you do not need to keep them covered with bandages. If a large blister forms and breaks, you will want to apply a light dressing to the area. CHANGE DRESSING ONCE DAILY 1. Wash hands and remove the original dressing(s) in 12-24 hours. 2. Gently clean wound(s) with soap and water. Rinse with water and pat the wound dry. 3. Apply a thin layer of Vaseline ointment with a Q-tip. 4. Cover with a bandage if area(s) is not on the face or scalp. A dressing is not required on the face or scalp. Use non-adherent dressing and paper tape if you are sensitive to band-aid adhesive sensitive. 5. If you have any concerns about the healing wound, please either or our main Dermatology office in [place] at [phone]. If an emergency, please go to your nearest Emergency Department. ----- SUNSCREEN USE AND SUN PROTECTION: 1. The best protection is sun avoidance. Seek shade if you can, especially between 10am to 4pm (peak sun hours). 2. Use sunscreen with an SPF (Sun Protection Factor - the number on most sunscreen bottles) of 30 or more that protects from Ultraviolet A (UVA) and Ultraviolet B (UVB) wavelength light (strongly recommend SPF 50). This is referred to as broad spectrum sun protection because it protects from most wa velengths in both spectrums of UVA and UVB light. Unfortunately, even though the protection is broad it is not complete, therefore making sun avoidance the best protection. UVB and UVA have both beenimplicated in causing skin cancers. Older sunscreens only protected from UVB and sunscreens with added UVA protection should contain Titanium dioxide, Zinc oxide, or Avobenzone. Other oil free, non-comedogenic lotion with SPF 30 or greater is fine. 3. Use sun protection if outside for 15 minutes or more. Apply 20-30 minutes before going out and reapply every 1-2 hours. No sunscreen is truly water ''proof'' and it will wash away with sweat, swimming and rubbing. 4. Wear tightly woven, loose fitting (cooler) long sleeved clothing, UV-blocking sun glasses (eyes need protection as well) and wide-brimmed hatwear (no straw hats with holes because light still getsthrough). Strongly recommended *Neutrogena Pure and Free Baby SPF 60 (have separate face and body lotions) orCeraVe AM facial lotion (with SPF 30). If looking for non toxic alternatives-look for non-johnny particle zinc. Product examples; Think sport, Think baby, [employer]el, [employer], inEarth, [place] baby. "Baby" products can be used for all ages. documented in this encounter Progress Notes * Guzman Seals MD - 06/24/2023 7:59 AM EDT I have seen and examined the patient via teledermatology review of chart note and photos with Toña Parra PA-C. I have reviewed and agree with the assessment and plan. * Toña Parra PA-C - 06/23/2023 1:19 PM EDT SUBJECTIVE: History of Present Illness: Lamberto Chandler is a 88 year old male seen today for follow up of AKs. Previous appointment date: 12/21/2022 Last attempted treatments include: did not use Efudex medication Full skin exam 01/03 No new or changing lesions, per pt. REVIEW OF SYSTEMS: SKIN: No other new or changing moles. HEME/LYMPH: No new or enlarging lumps or bumps. CONSTITUTIONAL: No nausea, vomiting, fevers, chills, diarrhea. No recent unintended weight loss, night sweats, appetite or malaise. 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 MEDICA TIONS: Current Outpatient Medications Medication Sig Dispense Refill MULTI-VITAMIN/MINERALS PO TABS ONE EACH DAY 0 Amoxicillin 500 MG Oral Capsule (Amoxil) Take 4 tablets by mouth one hour prior to any dental procedure or cleaning 12 Capsule 03 Zoster Vac Recomb Adjuvanted 50 MCG/0.5ML Intramuscular Suspension Reconstituted (Shingrix) Inject 0.5 mL into a large muscle now and repeat dose in 60 to 180 days 1 Each 1 Levothyroxine Sodium 137 MCG Oral Tablet TAKE 1 TABLET BY MOUTH ONCE DAILY AT LEAST 30 MINUTES PRIOR TO BREAKFAST OR OTHER MEDS 90 Tablet 3 Fluticasone Propionate 50 MCG/ACT Nasal Suspension (Flonase) Administer 2 Sprays into each nostril in the morning. (Patient not taking: Reported on 06/07/2023) 16 g 5 Tamsulosin HCl 0.4 MG Oral Capsule (Flomax) Take 1 Capsule by mouth in the morning. 90 Capsule 3 Aspirin 81 MG Oral Tablet Delayed Release Take 1 Tablet by mouth in the morning. Metoprolol Succinate ER 25 MG Oral Tablet Extended Release 24 Hour (toPROL XL) TAKE 1/2 (ONE-HALF) TABLET BY MOUTH IN THE MORNING 45 Tablet 3 No current facility-administered medications for this visit. ALLERG IES: Pollen OBJECT GARRISON: GEN: alert, no distress, appears oriented, pleasant, and cooperative. SKIN: Detailed exam of hair, face including lids and lips, neck, bilateral upper ext. (arm, hand, fingers), palpation of scalp, and fingernails completed: 1. Vertex of scalp/face/forearms/dorsal hands-Many (x26 treated) ill defined pink and hyperkeratotic scaly papules and plaques. ASSESS MENT/PLAN: 1. Actinic keratoses on vertex of scalp/face/forearms/dorsal hands-Cryosurgery (x26) explained to the patient. Discussed risk of blistering, crusting, infection, scarring, reoccurrence of lesions, hypopigmentation, post inflammatory hyperpigmentation with pt prior to procedure. Verbal consent obtain ed. Time out called immediately prior to procedure and patient identification and site verified. Cryo therapy performed with Liquid Nitrogen via cryo spray unit to lesion (s) noted above. Location noted in physical exam. Post op course explained. Patient alone today. Photo(s) of #1 taken, pt verbally consented to having photo(s) taken. Follow-up: 01/03 for full skin exam/AKs Applicable photos (if any) and chart reviewed by Dr. Guzman Seals. Presumed diagnoses, expected natural histories, and management options discussed with the patient at length. Questions were addressed and anticipatory guidance provided. They were instructed to contact me if additional questions, concerns, or problems develop in the interim. -There were no barriers to learning and no other pain was related to today's visit. The patient and/or person accompanying patient demonstrates understanding of the visit and treatment. Toña Parra PA-C 06/23/2023 1:20 PM Ref: SELF[[id number]] NO STREET ADDRESS AVAILABLE None (office) None (fax) PCP: MARIA ALEJANDRA MCGINNIS [address] [facility] [facility] [address] [phone] documented in this encounter Nursing Notes * Valery Linares LPN - 06/23/2023 1:07 PM EDT Patient identified by full name and date of . Chief Complaint Patient presents with Follow Up 6 months for AKs, did not use Efudex- no concerns documented in this encounter Plan of Treatment Upcoming Encounters Date Type Department Care Team (Late st Contact Info) Description 06/29/2023 11:00 AM EDT [facility] [place] [address] [facility] [id number] Maria Alejandra Mcginnis PA-C [address] [facility] [address] 07/13/2023 1:00 PM EDT Nurse Only Ancillary Department, [place] [address] [facility] [address] [place], Nurse Annual Wellness [address] [facility] [address] 08/29/2023 1:00 PM EDT Cardiac Studies [facility] [address] [facility] [place] [address] 10/10/2023 1:30 PM EDT Office Visit Cardiology, [facility] [address] [place] [address] Margaret Mcclain PA-C [address] [place] [address] Health Maintenance Due Date Last Done Comments Zoster Vaccines (1 of 2) 1986 Pneumococcal Vaccine: 65+ Years (2 of 2 - PCV) 12/14/2008 12/15/2007 COVID-19 Vaccine ( season) 2022 11/13/2020, 06/03/2020, 05/08/2020 Depression Screening 07/01/2023 06/30/2022, 06/10/2016 (Discussed) Albumin/Creatinine Ratio 12/28/2023 023, 01/25/2022, 06/07/2016, Additional history exists CKD PHOS USE SMARTSET 50207 12/28/202312/12, 03/26/2021, 03/25/2021, Additional history exists HbA1c 12/28/2023 12/27/2022, 01/12, 01/16/2020, Additional history exists CKD HGB USE SMARTSET 66565 06/06/202406/06, 06/07/2023, 12/27/2022, Additional history exists TSH 06/06/2024 06/07/2023, 12/12, 03/23/2021, Additional history exists DTaP,Tdap,and Td Vaccines (2 [...] this encounter Medical Devices Implanted Type Area Machine Tank Operator Device Identifier Shelf Expiration Date Model / Serial / Lot Proglide Perclose 24685-90 X10 - [id number] Implanted:Qty: 1 on 07/10/2020 by Renard Galan DO at [facility] : VASCULAR DEVICES [id number] 12/11/2021 48096-20 / / [id number] Proglide Perclose 62492-78 X10 - [id number] Implanted:Qty: 1 on 07/10/2020 by Renard Galan, DO at [facility] : VASCULAR DEVICES [id number] 12/11/2021 43940-01 / / [id number] Balloon Cath Pacing [id number] - [id number] Implanted:Qty: 1 on 07/10/2020 by Renard Galan, DO at [facility] : MEDICAL [id number] 05/11/2022 520 007P / / [id number] Valve Aort Evolut Proplus 29mm - [id number] Implanted:Qty: 1 on 07/10/2020 by Renard Galan, DO at [facility] [employer] : CARDIAC SURGERY 11/08/2021 EVPROPLUS- 29US / [id number] / [id number] Balloon Cath Pacing [id number] - [id number] Implanted:Qty: 1 on 07/10/2020 by Renard Galan, DO at [facility] : MEDICAL [id number] 05/11/2022 520 007P / / [id number] Coil Fibered 2 10mm [id number] - [id number] Implanted:Qty: 1 on 03/18/2021 at [facility] : NEURO INTR [id number] 06/18/2023 [id number] Coil Fibered 2 10mm [id number] - [id number] Implanted:Qty: 1 on 03/18/2021 at [facility] : NEURO INTR [id number] 06/18/2023 [id number] Coil Emboli Tornado 3x2 - [id number] Implanted:Qty: 1 on 03/18/2021 at [facility] [id number] 09/04/2025 [id number] / / [id number] Coil Emboli Tornado 3x2 - [id number] Implanted:Qty: 1 on 03/18/2021 at [facility] [id number] 12/25/2025 [id number] / / [id number] Sureclip 16mm 235cm - [id number] Implanted:Qty: 1 on 07/31/2021 by Reji Milian MD at [facility] Colon MICRO TECH ENDOSCOPY 09/22/2023 [id number] / / [id number] documented as of this encounter Procedures Procedure Name Priority Date/Time Associated Diagnosis Comments DERM EXAM - DERM (IMAGES ONLY, NO REPORT) Routine 06/23/2023 1:22 PM EDT Actinic keratosis DERM IMAGE (SITE) Routine 06/23/2023 Actinic keratosis documented in this encounter Results * DERM EXAM - DERM (IMAGES ONLY, NO REPORT) (06/23/2023 1:22 PM EDT) Narrative Scheduling, Silent - 06/23/2023 1:22 PM EDT This is an imaging study not interpreted or resulted by a [facility] radiologist. 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 Question Answer Comments Discussion of Advance Directives occurred with: Patient Does the patient have a Living Will? No Does the patient have Health Care Power of Leadite Man? No Code Status History Code Status Date Activated Date Inactivated Comments Full Code 07/10/2020 3:27 PM 07/12/2020 3:38 PM This o rder reflects the patients wishes and were consensually agreed upon. Question Answer Comments Discussion of Advance Directives occurred with: Patient Does the patient have a Living Will? No Does the patient have Health Care Power of Leadite Man? No Care Teams Supply Chain Generalist Relationship Specialty Start Date End Date Maria Alejnadra Mcginnis PA-C [address] [place] [address] PCP - General Physician Senior Staff Consultant 07/31/21 documented as of this encounter
--- OUTSIDE RECORDS SUMMARY | 2023-08-06 23:48 | External Medical Summary | Summary of Care ---
Author Name Unknown Organization [facility] Address [address] [place] [address] Phone [phone] Care Team Providers Care Cone Winder Name Role Phone Maria Alejandra Mcginnis PA-C Primary Care Provider [phone] Reason for Visit * Reason Comments Outpatient Testing Encounter Details Date Type Department Care Team (Late st Contact Info) Description 06/30/2023 11:50 AM EDT Laboratory Laboratory, [address] [address] [address], Specimen Drop Off [address] [address] Abnormal CBC measurement; Night sweats; Early satiety Allergies Active Allergy Reactions Criticality Noted Date Comments Pollen Other (Please comment) 09/03/2019 sneezing documented as of this encounter (statuses as of 06/30/2023) Medications Medication Sig Dispensed Refills Start Date [...] as of this encounter (statuses as of 06/30/2023) Active Problems Problem Noted Date Diagnosed Date [...] as of this encounter (statuses as of 06/30/2023) Resolved Problems Problem Noted Date Diagnosed Date [...] as of this encounter (statuses as of 06/30/2023) Immunizations Name Administration Dates Next Due COVID-19 [...] Care Team (Late st Contact Info) Description 07/13/2023 1:00 PM EDT Nurse Only Ancillary Department, [place] [address] [address] [place], Nurse Annual Wellness [address] [address] 08/29/2023 1:00 PM EDT Cardiac Studies Cardiac Studies, [facility] [address] [facility] [place] [address] 08/31/2023 11:40 AM EDT [address] [address] Maria Alejandra Mcginnis PA-C [address] [facility] [address] 10/10/2023 1:30 PM EDT Office Visit Cardiology, [facility] [address] [facility] [place] [address] Margaret Mcclain PA-C [address] [facility] [place] [address] 01/04/2024 11:00 AM EDT Office Visit [facility], [place] [address] [address] Maria Alejandra Mcginnis PA-C [address] [facility] [address] 01/10/2024 11:40 AM EDT Office Visit Dermatology, [place] [address] [facility] [place] [place] [address] Toña Parra PA-C [address] [place] [address] [place] [address] Pending Results Name Type Priority Associated Diagnoses Date /Time CULTURE, URINE, QUANTITATIVE Lab Routine Abnormal CBC measurement Night sweats Early satiety 06/30/2023 11:49 AM EDT Health Maintenance Due Date Last Done Comments Zoster Vaccines (1 of 2) 1985 Pneumococcal Vaccine: 65+ Years (2 of 2 - PCV) 12/14/2008 12/15/2007 COVID-19 Vaccine ( season) 2022 11/13/2020, 06/03/2020, 05/08/2020 Depression Screening 07/01/2023 06/30/2022, 06/10/2016 (Discussed) Albumin/Creatinine Ratio 12/28/202312/27/ 023, 01/25/2022, 06/07/2016, Additional history exists CKD PHOS USE SMARTSET 31786 12/28/202312/12, 03/26/2021, 03/25/2021, Additional history exists HbA1c 12/28/2023 12/27/2022, 01/12, 01/16/2020, Additional history exists TSH 06/06/2024 06/07/2023, 12/12, 03/23/2021, Additional history exists CKD HGB USE SMARTSET 36340 06/28/202406/28, 06/29/2023, 06/07/2023, Additional history exists DTaP,Tdap,and [...] this encounter Medical Devices Implanted Type Area Telesales Advisor Device Identifier Shelf Expiration Date Model / Serial / Lot Proglide Perclose 96985-19 X10 - [id number] Implanted:Qty: 1 on 07/10/2020 by Renard Galan, DO at [facility] : VASCULAR DEVICES [id number] 12/11/2021 17615-61 / / [id number] Proglide Perclose 78241-65 X10 - [id number] Implanted:Qty: 1 on 07/10/2020 by Renard Galan, DO at [facility] : VASCULAR DEVICES [id number] 12/11/2021 86397-33 / / [id number] Balloon Cath Pacing [id number] - [id number] Implanted:Qty: 1 on 07/10/2020 by Renard Galan, DO at [facility] : MEDICAL [id number] 05/11/2022 520 007P / / [id number] Valve Aort Evolut Proplus 29mm - [id number] Implanted:Qty: 1 on 07/10/2020 by Renard Galan, DO at [facility] [employer] : CARDIAC SURGERY 11/08/2021 EVPROPLUS- 29US / [id number] / [id number] Balloon Cath Pacing [id number] - [id number] Implanted:Qty: 1 on 07/10/2020 by Renard Galan, DO at [facility] : MEDICAL [id number] 05/11/2022 520 007P / / [id number] Coil Fibered 2 10mm [id number] - [id number] Implanted:Qty: 1 on 03/18/2021 at [facility] [employer] : NEURO INTR [id number] 06/18/2023 [id number] Coil Fibered 2 10mm [id number] - [id number] Implanted:Qty: 1 on 03/18/2021 [facility] : NEURO INTR [id number] 06/18/2023 [id number] Coil Emboli Tornado 3x2 - [id number] Implanted:Qty: 1 on 03/18/2021 at [facility] [id number] 09/04/2025 [id number] / / [id number] Coil Emboli Tornado 3x2 - [id number] Implanted:Qty: 1 on 03/18/2021 at [facility] [id number] 12/25/2025 [id number] / / [id number] Sureclip 16mm 235cm - [id number] Implanted:Qty: 1 on 07/31/2021 by Reji Milian MD at [facility] Colon MICRO TECH ENDOSCOPY 09/22/2023 [id number] / / [id number] documented as of this encounter Visit Diagnoses Diagnosis Abnormal CBC measurement Other abnormal blood chemistry Night sweats Generalized hyperhidrosis Early satiety documented in this encounter Advance Directives Documents on File Type Date Recorded Patient Printing Machine Mechanic Expl anation Advance Directives and Living Will 02/24/2023 ADVANCE DIRECTIVE / LIVING WILL Power of Area Operations Manager 02/24/2023 POWER OF A TTORNEY Latest Code Status on File Code Status Date Activated Date Inactivated Comments Full Code 03/15/2021 12:36 AM 03/26/2021 8:36 PM This order reflects the patients wishes and were consensually agreed upon. Question Answer Comments Discussion of Advance Directives occurred with: Patient Does the patient have a Living Will? No Does the patient have Health Care Power of Area Operations Manager? No Code Status History Code Status Date Activated Date Inactivated Comments Full Code 07/10/2020 3:27 PM 07/12/2020 3:38 PM This o rder reflects the patients wishes and were consensually agreed upon. Question Answer Comments Discussion of Advance Directives occurred with: Patient Does the patient have a Living Will? No Does the patient have Health Care Power of Area Operations Manager? No Care Teams Cone Winder Relationship Specialty Start Date End Date Maria Alejandra Mcginnis PA-C [address] [facility] [place] [place] [address] PCP - General Physician Wildlife Conservationist 07/31/21 documented as of this encounter
--- OUTSIDE RECORDS SUMMARY | 2023-08-06 23:48 | External Medical Summary ---
Author Name Unknown Address Unknown Organization K01:LABORATORY [facility] - [address] [place] [place] [id number] Laboratory Report Ordering Provider Test Date Status VINAY AG 06/30/2023 11:49:52 Final Observation Date Value Abnormality Reference (Units) Status Bacteria identified in Specimen by Culture 06/30/2023 11:49:52 No significant growth Final Test: Culture, Urine, Quant itative
Specimen Source: Urine, Clean Catch
Specimen Type: Urine
Specimen Date: 06/30/2023 11:49 AM
Result Date: 07/01/2023 5:31 PM
Result Status: Final result
Resulting Lab: LAB[facility]ATORY [facility]
[address]
[place] [address]

CULTURE

No significant growth

null Performing Location LABORATORY [facility] - [address] [facility] [address]
--- OUTSIDE RECORDS SUMMARY | 2023-08-06 23:48 | External Medical Summary ---
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70 (K/uL) Final Lymphs, absolute 06/29/2023 12:01:54 1.14 1.00-4.80 (K/ul) Final Monos, Abs 06/29/2023 12:01:54 0.97 0.00-1.10 (K/uL) Final Eos, Abs 06/29/2023 12:01:54 0.14 0.00-0.70 (K/uL) Final Basos, Abs 06/29/2023 12:01:54 0.05 0.00-0.20 (K/uL) Final Immature Granulocytes, Number 06/29/2023 12:01:54 0.10 0.00-0.20 (K/uL) Final Performing Location [facility]ATORY [facility] - [facility] [address] [facility] [address]
--- OUTSIDE RECORDS SUMMARY | 2023-08-06 23:48 | External Medical Summary | Summary of Care ---
Author Name Unknown Organization [facility] Address [address] [address] Phone [phone] Care Team Providers Care Sales Development Coordinator Name Role Phone Maria Alejandra Mcginnis PA-C Primary Care Provider [phone] Reason for Visit * Reason Comments eRx-Medication Refill Encounter Details Date Type Department Care Team (Late st Contact Info) Description 06/21/2023 Refill Cardiology, [facility] [address] [place] [address] Cynthia Erwin PA-C [address] [place] [address] PVC (premature ventricular contraction) Allergies Active Allergy Reactions Criticality Noted Date Comments Pollen Other (Please comment) 09/03/2019 sneezing documented as of this encounter (statuses as of 06/21/2023) Medications Medication Sig Dispensed Refills Start Date End Date Status 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 PO TABS ONE EACH DAY 0 4 Active Amoxicillin 500 MG Oral Capsule (Amoxil) Take 4 tablets by mouth one hour prior to any dental procedure or cleaning 12 Capsule 3 2 Active Zoster Vac Recomb Adjuvanted 50 MCG/0.5ML Intramuscular Suspension Reconstituted (Shingrix)Indicatio ns:Need for shingles vaccine Inject 0.5 mL into a large muscle now and repeat dose in 60 to 180 days 1 Each 1 3 Active Levothyroxine Sodium 137 MCG Oral TabletIndications:A cquired hypothyroidism TAKE 1 TABLET BY MOUTH ONCE DAILY AT LEAST 30 MINUTES PRIOR TO BREAKFAST OR OTHER MEDS 90 Tablet 3 3 Active Fluticasone Propionate 50 MCG/ACT Nasal Suspension (Flonase) Administer 2 Sprays into each nostril in the morning. 16 g 5 4 Active Additional Information Patient not taking.Reported on 06/07/2023 Tamsulosin HCl 0.4 MG Oral Capsule (Flomax) Take 1 Capsule by mouth in the morning. 90 Capsule 3 4 Active Aspirin 81 MG Oral Tablet Delayed Release Take 1 Tablet by mouth in the morning. 0 4 Active Metoprolol Succinate ER 25 MG Oral Tablet Extended Release 24 Hour (toPROL XL)Indications:PVC (premature ventricular contraction) TAKE 1/2 (ONE-HALF) TABLET BY MOUTH IN THE MORNING 45 Tablet 3 4 Active Metoprolol Succinate ER 25 MG Oral Tablet Extended Release 24 Hour (toPROL XL)Indications:PVC (premature ventricular contraction) take 1/2 tablet by mouth every morning 45 Tablet 3 3 06/21/19 24 Discontinued documented as of this encounter (statuses as of 06/21/2023) Active Problems Problem Noted Date Diagnosed Date [...] as of this encounter (statuses as of 06/21/2023) Resolved Problems Problem Noted Date Diagnosed Date [...] as of this encounter (statuses as of 06/21/2023) Immunizations Name Administration Dates Next Due COVID-19 [...] encounter Miscellaneous Notes * Telephone Encounter - Cynthia Erwin PA-C - 06/21/2023 2:27 PM EDT Signed Prescriptions: Disp Refills Metoprolol Succinate ER 25 MG Oral Tablet *45 Tab*3 Sig: TAKE 1/2 (ONE-HALF) TABLET BY MOUTH IN THE MORNING Authorizing Provider: CYNTHIA ERWIN * Telephone Encounter - April Hanna CMA - 06/21/2023 12:54 PM EDTPending Prescriptions: Disp Refills Metoprolol Succinate ER 25 MG Oral Tablet *45 Tab*3 Sig: TAKE 1/2 (ONE-HALF) TABLET BY MOUTH IN THE MORNING * Telephone Encounter - April Hanna CMA - 06/21/2023 12:54 PM EDT Did you pend patient's preferred pharmacy and medication before forwarding?yes Pharmacy: [facility] [id number] [address] [place] Pending Prescriptions: Disp Refills Metoprolol Succinate ER 25 MG Oral Tablet*45 Tab*3 Sig: TAKE 1/2 (ONE-HALF) TABLET BY MOUTH IN THE MORNING Last Visit: 06/07/2023 (in office), Visit date not found (telemedicine) Next Visit: 10/10/2023 If no future appointments scheduled, and last appointment is greater than a year ago, please schedule patient for a follow-up appointment Last date the medication was ordered: 04-30-2022 Is this request for a controlled substance?No Urine Drug Screen:No results found for this or any previous visit. Patient Phone Numbers Labs: Lab Results Component Value Date/Time CREAT 1.3 (H) 06/07/2023 02:22 PM CREAT 1.25 03/14/2021 12:00 AM CREAT 1.2 01/16/2020 08:56 AM POTASSIUM 4.8 06/07/2023 02:22 PM POTASSIUM 4.0 03/14/2021 12:00 AM POTASSIUM 4.7 01/16/2020 08:56 AM TSH 0.79 06/07/2023 02:22 PM TSH 0.69 01/16/2020 08:56 AM LDLCALC 91 12/27/2022 09:46 AM LDLCALC 122 01/16/2020 08:56 AM LDLDIRECT 81 06/07/2023 02:22 PM LDLDIRECT NOT APPLICABLE 01/16/2020 08:56 AM ALT 13 06/07/2023 02:22 PM ALT 23 10/18/2018 03:14 PM HGBA1C 5.8 (H) 12/27/2022 09:46 AM HGBA1C 5.5 01/16/2020 08:56 AM documented in this encounter Plan of Treatment Upcoming Encounters Date Type Department Care Team (Late st Contact Info) Description 06/23/2023 1:20 PM EDT Office Visit Dermatology, [place] [address] [address] [facility], [place] [address] Toña Parra PA-C [address] [place] [address] [place] [address] 06/29/2023 11:00 AM EDT Office Visit Family Practice, [place] [address] [address] [facility], [place] [phone] Maria Alejandra Mcginnis PA-C [address] [place] [address] 07/13/2023 1:00 PM EDT Nurse Only Ancillary Department, [place] [address] [address] [facility], [place] [address] [place], Nurse Annual Wellness [address] [place] [address] 08/29/2023 1:00 PM EDT Cardiac Studies Cardiac Studies, [facility] [address] [place] [address] 10/10/2023 1:30 PM EDT Office Visit Cardiology, [facility] [address] [facility] [place] [address] Cynthia Erwin PA-C [address] [place] [address] Health Maintenance Due Date Last Done Comments Zoster Vaccines (1 of 2) 1986 Pneumococcal Vaccine: 65+ Years (2 of 2 - PCV) 12/14/2008 12/15/2007 COVID-19 Vaccine (2022-24 season) 2022 11/13/2020, 06/03/2020, 05/08/2020 Depression Screening 07/01/2023 06/30/2022, 06/10/2016 (Discussed) Albumin/Creatinine Ratio 12/28/2023 023, 01/25/2022, 06/07/2016, Additional history exists CKD PHOS USE SMARTSET 02456 12/28/202312/12, 03/26/2021, 03/25/2021, Additional history exists HbA1c 12/28/2023 12/27/2022, 01/12, 01/16/2020, Additional history exists CKD HGB USE SMARTSET 56332 06/06/202406/06, 06/07/2023, 12/27/2022, Additional history exists TSH [...] this encounter Medical Devices Implanted Type Area Otolaryngology Teacher Device Identifier Shelf Expiration Date Model / Serial / Lot Proglide Perclose 77956-07 X10 - [id number] Implanted:Qty: 1 on 07/10/2020 by Renard Galan, DO at [facility] VASCULAR DEVICES [id number] 12/11/2021 75724-66 / / [id number] Proglide Perclose 90307-84 X10 - [id number] Implanted:Qty: 1 on 07/10/2020 by Renard Galan, DO at [facility] : VASCULAR DEVICES [id number] 12/11/2021 88695-00 / / [id number] Balloon Cath Pacing [id number] - [id number] Implanted:Qty: 1 on 07/10/2020 by Renard Galan, DO at [facility] [employer] : MEDICAL [id number] 05/11/2022 520 007P / / [id number] Valve Aort Evolut Proplus 29mm - [id number] Implanted:Qty: 1 on 07/10/2020 by Renard Galan, DO at [facility] [employer] : CARDIAC SURGERY 11/08/2021 EVPROPLUS- 29US / [id number] / [id number] Balloon Cath Pacing [id number] - [id number] Implanted:Qty: 1 on 07/10/2020 by Renard Galan, DO at [facility] [employer] : MEDICAL [id number] 05/11/2022 520 007P / / [id number] Coil Fibered 2 10mm [id number] - [id number] Implanted:Qty: 1 on 03/18/2021 at [facility] [employer] : NEURO INTR [id number] 06/18/2023 [id number] Coil Fibered 2 10mm [id number] - [id number] Implanted:Qty: 1 on 03/18/2021 at [facility] [employer] : NEURO INTR [id number] 06/18/2023 [id number] Coil Emboli Tornado 3x2 - [id number] Implanted:Qty: 1 on 03/18/2021 at [facility] [employer] [id number] 09/04/2025 [id number] / / [id number] Coil Emboli Tornado 3x2 - [id number] Implanted:Qty: 1 on 03/18/2021 at [facility] [employer] [id number] 12/25/2025 [id number] / / [id number] Sureclip 16mm 235cm - [id number] Implanted:Qty: 1 on 07/31/2021 by Reji Milian MD at [facility] Colon MICRO TECH ENDOSCOPY 09/22/2023 [id number] / / [id number] documented as of this encounter Visit Diagnoses Diagnosis PVC (premature ventricular contraction) Other premature beats documented in this encounter Advance Directives Documents on File Type Date Recorded Patient Silk Spooler Expl anation Advance Directives and Living Will 02/24/2023 ADVANCE DIRECTIVE / LIVING WILL Power of Marketing Database Consultant 02/24/2023 POWER OF A TTORNEY Latest Code Status on File Code Status Date Activated Date Inactivated Comments Full Code 03/15/2021 12:36 AM 03/26/2021 8:36 PM This order reflects the patients wishes and were consensually agreed upon. Question Answer Comments Discussion of Advance Directives occurred with: Patient Does the patient have a Living Will? No Does the patient have Health Care Power of Marketing Database Consultant? No Code Status History Code Status Date Activated Date Inactivated Comments Full Code 07/10/2020 3:27 PM 07/12/2020 3:38 PM This o rder reflects the patients wishes and were consensually agreed upon. Question Answer Comments Discussion of Advance Directives occurred with: Patient Does the patient have a Living Will? No Does the patient have Health Care Power of Marketing Database Consultant? No Care Teams Sales Development Coordinator Relationship Specialty Start Date End Date Maria Alejandra Mcginnis PA-C [address] [facility] [place] [address] PCP - General Physician Business Banking Sales Assistant 07/31/21 documented as of this encounter
--- OUTSIDE RECORDS SUMMARY | 2023-08-06 23:48 | External Medical Summary | Summary of Care ---
Author Name Unknown Organization [facility] Address [address] [place] [address] Phone [phone] Care Team Providers Care Adjunct Faculty Instructor Name Role Phone Maria Alejandra Mcginnis PA-C Primary Care Provider [phone] Reason for Visit * Reason Comments Outpatient Testing Encounter Details Date Type Department Care Team (Late st Contact Info) Description 06/07/2023 2:40 PM EDT Laboratory Laboratory, [facility] [address] [facility] [place] [phone] [facility] [address] [facility] [address] HTN, goal below 140/90; S/P TAVR (transcatheter aortic valve replacement); Dizziness; Visual changes; Bilateral carotid bruits Allergies Active Allergy Reactions Criticality Noted Date Comments Pollen Other (Please comment) 09/03/2019 sneezing documented as of this encounter (statuses as of 06/07/2023) Medications Medication Sig Dispensed Refills Start Date End Date Status MULTI-VITAMIN/MINERA LS PO TABS ONE EACH DAY 0 10/05/2013 Active Amoxicillin 500 MG Oral Capsule (Amoxil) Take 4 tablets by mouth one hour prior to any dental procedure or cleaning 12 Capsule 3 09/02/2021 Active Metoprolol Succinate ER 25 MG Oral Tablet Extended Release 24 Hour (toPROL XL)Indications:PVC (premature ventricular contraction) take 1/2 tablet by mouth every morning 45 Tablet 3 04/30/2022 Active Zoster Vac Recomb Adjuvanted 50 MCG/0.5ML [...] mouth in the morning. 0 06/07/2023 Active documented as of this encounter (statuses as of 06/07/2023) Active Problems Problem Noted Date Diagnosed Date [...] as of this encounter (statuses as of 06/07/2023) Resolved Problems Problem Noted Date Diagnosed Date [...] as of this encounter (statuses as of 06/07/2023) Immunizations Name Administration Dates Next Due COVID-19 [...] Care Team (Late st Contact Info) Description 06/09/2023 2:00 PM EDT Imaging Vascular Lab, [facility] [address] [place] [address] 06/23/2023 1:20 PM EDT Office Visit Dermatology, [place] [address] [address] [facility] [place] [address] Toña Parra PA-C [address] [place] [address] [place] [address] 06/29/2023 11:00 AM EDT Office Visit Family Practice, [place] [address] [facility] [place] [phone] Maria Alejandra Mcginnis PA-C [address] [facility] [place] [address] 07/13/2023 1:00 PM EDT Nurse Only Ancillary Department, [place] [address] [facility] [place] [address] John Nurse Annual Wellness [address] [facility] [place] [address] 08/29/2023 1:00 PM EDT Cardiac Studies Cardiac Studies, [facility] [address] [place] [address] 10/10/2023 1:30 PM EDT Office Visit Cardiology, [facility] [address] [place] [address] Margaret Mcclain PA-C [address] [place] [address] Pending Results Name Type Priority Associated Diagnoses Date /Time COMPREHENSIVE METABOLIC PANEL Lab Routine HTN, goal below 140/90 S/P TAVR (transcatheter aortic valve replacement) Dizziness Visual changes 06/07/2023 2:22 PM EDT MAGNESIUM Lab Routine HTN, goal below 140/90 S/P TAVR (transcatheter aortic valve replacement) Dizziness Visual changes 06/07/2023 2:22 PM EDT TSH WITH FREE T4 IF INDICATED Lab Routine HTN, goal below 140/90 S/P TAVR (transcatheter aortic valve replacement) Dizziness Visual changes 06/07/2023 2:22 PM EDT CBC WITH WBC DIFFERENTIAL Lab Routine HTN, goal below 140/90 S/P TAVR (transcatheter aortic valve replacement) Dizziness Visual changes 06/07/2023 2:22 PM EDT LDL CHOLESTEROL (DIRECT MEASURE) Lab Routine HTN, goal below 140/90 S/P TAVR (transcatheter aortic valve replacement) Dizziness Visual changes Bilateral carotid bruits 06/07/2023 2:22 PM EDT CBC Lab Routine HTN, goal below 140/90 S/P TAVR (transcatheter aortic valve replacement) Dizziness Visual changes 06/07/2023 2:22 PM EDT DIFFERENTIAL, AUTOMATED Lab Routine HTN, goal below 140/90 S/P TAVR (transcatheter aortic valve replacement) Dizziness Visual changes 06/07/2023 2:22 PM EDT Health Maintenance Due Date Last Done Comments Zoster Vaccines (1 of 2) 1985 Pneumococcal Vaccine: 65+ Years (2 of 2 - PCV) 12/14/2008 12/15/2007 COVID-19 Vaccine ( season) 2022 11/13/2020, 06/03/2020, 05/08/2020 Depression Screening 07/01/2023 06/30/2022, 06/10/2016 (Discussed) Albumin/Creatinine Ratio 12/28/2023 023, 01/25/2022, 06/07/2016, Additional history exists CKD HGB USE SMARTSET 43640 12/28/202312/27, 01/21/2022, 06/24/2021, Additional history exists CKD PHOS USE SMARTSET 84558 12/28/202312/12, 03/26/2021, 03/25/2021, Additional history exists HbA1c 12/28/2023 12/27/2022, 01/12, 01/16/2020, Additional history exists TSH 12/28/2023 12/27/2022, 03/14, 01/20/2021, Additional history exists DTaP,Tdap,and Td Vaccines (2 [...] this encounter Medical Devices Implanted Type Area Automation Sales Manager Device Identifier Shelf Expiration Date Model / Serial / Lot Proglide Perclose 57729-81 X10 - [id number] Implanted:Qty: 1 on 07/10/2020 by Renard Galan, DO at [facility] DEVICES [id number] 12/11/2021 04024-18 / / [id number] Proglide Perclose 64206-20 X10 - [id number] Implanted:Qty: 1 on 07/10/2020 by Renard Galan, DO at [facility]ASCULAR DEVICES [id number] 12/11/2021 91416-10 / / [id number] Balloon Cath Pacing [id number] - [id number] Implanted:Qty: 1 on 07/10/2020 by Renard Galan, DO at [facility] : MEDICAL [id number] 05/11/2022 520 007P / / [id number] Valve Aort Evolut Proplus 29mm - [id number] Implanted:Qty: 1 on 07/10/2020 by Renard Galan, DO at [facility] [employer] : CARDIAC SURGERY 11/08/2021 EVPROPLUS- 29US / [id number] / [id number] Balloon Cath Pacing [id number] - [id number] Implanted:Qty: 1 on 07/10/2020 by Renard Galan, DO at [facility] : MEDICAL [id number] 05/11/2022 520 007P / / [id number] Coil Fibered 2 10mm [id number] - [id number] Implanted:Qty: 1 on 03/18/2021 at [facility] [employer] : NEURO INTR [id number] 06/18/2023 [id number] Coil Fibered 2 10mm 828323 - [id number] Implanted:Qty: 1 on 03/18/2021 at [facility] [employer] : NEURO INTR [id number] 06/18/2023 [id number] Coil Emboli Tornado 3x2 - [id number] Implanted:Qty: 1 on 03/18/2021 at [facility] [employer] [id number] 09/04/2025 [id number] / / [id number] Coil Emboli Tornado 3x2 - [id number] Implanted:Qty: 1 on 03/18/2021 at [facility] [employer] [id number] 12/25/2025 [id number] / / [id number] Sureclip 16mm 235cm - [id number] Implanted:Qty: 1 on 07/31/2021 by Reji Milian MD at [facility] Colon MICRO TECH ENDOSCOPY 09/22/2023 [id number] / / [id number] documented as of this encounter Visit Diagnoses Diagnosis HTN, goal below 140/90 Unspecified essential hypertension S/P TAVR (transcatheter aortic valve replacement) Heart valve replaced by other means Dizziness Dizziness and giddiness Visual changes Unspecified visual disturbance Bilateral carotid bruits documented in this encounter Advance Directives Documents on File Type Date Recorded Patient Manufacturing Machine Operator Expl anation Advance Directives and Living Will 02/24/2023 ADVANCE DIRECTIVE / LIVING WILL Power of Agricultural Plow Operator 02/24/2023 POWER OF A TTORNEY Latest Code Status on File Code Status Date Activated Date Inactivated Comments Full Code 03/15/2021 12:36 AM 03/26/2021 8:36 PM This order reflects the patients wishes and were consensually agreed upon. Question Answer Comments Discussion of Advance Directives occurred with: Patient Does the patient have a Living Will? No Does the patient have Health Care Power of Agricultural Plow Operator? No Code Status History Code Status Date Activated Date Inactivated Comments Full Code 07/10/2020 3:27 PM 07/12/2020 3:38 PM This o rder reflects the patients wishes and were consensually agreed upon. Question Answer Comments Discussion of Advance Directives occurred with: Patient Does the patient have a Living Will? No Does the patient have Health Care Power of Agricultural Plow Operator? No Care Teams Adjunct Faculty Instructor Relationship Specialty Start Date End Date Maria Alejandra Mcginnis PA-C [address] [facility] [place] [address] PCP - General Physician History Card Clerk 07/31/21 documented as of this encounter
--- OUTSIDE RECORDS SUMMARY | 2023-08-06 23:48 | External Medical Summary ---
Author Name Unknown Address Unknown Organization K01:[facility] - [address] [place] [address] Laboratory Report Ordering Provider Test Date Status VINAY AG 06/29/2023 12:01:54 Final Observation Date Value Abnormality Reference (Units ) Status PSA 06/29/2023 12:01:54 <0.02 <4.10 (ng/ mL) Final Performing Location [facility] - [address] [place] [address]
--- OUTSIDE RECORDS SUMMARY | 2023-08-06 23:48 | External Medical Summary | Summary of Care ---
Author Name Unknown Organization [facility] Address [address] [place] [address] Phone [phone] Care Team Providers Care Inspector Dials Name Role Phone Maria Alejandra Mcginnis PA-C Primary Care Provider +1 [phone] Reason for Visit * Reason Comments Follow Up 6 months for AKs, di d not use Efudex- no concerns Encounter Details Date Type Department Care Team (Late st Contact Info) Description 06/23/2023 1:20 PM EDT Office Visit Dermatology[address] [address] Toña Parra PA-C [address] [place] [address] [place] [address] Actinic keratosis* Allergies Active Allergy Reactions Criticality Noted Date Comments Pollen Other (Please comment) 09/03/2019 sneezing documented as of this encounter (statuses as of 06/23/2023) Medications Medication Sig Dispensed Refills Start Date [...] as of this encounter (statuses as of 06/23/2023) Active Problems Problem Noted Date Diagnosed Date [...] as of this encounter (statuses as of 06/23/2023) Resolved Problems Problem Noted Date Diagnosed Date [...] as of this encounter (statuses as of 06/23/2023) Immunizations Name Administration Dates Next Due COVID-19 [...] either or our main Dermatology office in [place] at [phone]. If an emergency, please go to your [...] zinc. Product examples; Think sport, Think baby, [place], NeedFeed botCoinSeed, MeroArte, [place] baby. "Baby" products can be used for all ages. documented in this encounter Progress Notes * Toña Parra PA-C - 06/23/2023 1:19 [...] Toña Parra PA-C 06/23/2023 1:20 PM Ref: SELF[[id number]] NO STREET ADDRESS AVAILABLE None (office) None (fax) PCP: MARIA ALEJANDRA MCGINNIS [address] [place] [address] documented in this encounter Nursing Notes * [...] Description 06/29/2023 11:00 AM EDT Office Visit [facility] [place] [address] [phone] Maria Alejandra Mcginnis PA-C [address] [place] [address] 07/13/2023 1:00 PM EDT Nurse Only Ancillary Department, [place] [address] [facility] [address] [place], Nurse Annual Wellness [address] [place] [address] 08/29/2023 1:00 PM EDT Cardiac Studies Cardiac Studies, [facility] [address] [facility] [place] [address] 10/10/2023 1:30 PM EDT Office Visit Cardiology, [facility] [address] [facility] [place] [address] Margaret Mcclain PA-C [address] [facility] [place] [address] Health Maintenance Due Date Last Done Comments Zoster Vaccines (1 of 2) 1986 Pneumococcal Vaccine: 65+ Years (2 of 2 - PCV) 12/14/2008 12/15/2007 COVID-19 Vaccine (2022- season) 2022 11/13/2020, 06/03/2020, 05/08/2020 Depression Screening 07/01/2023 06/30/2022, 06/10/2016 (Discussed) Albumin/Creatinine Ratio 12/28/202312/27/ 023, 01/25/2022, 06/07/2016, Additional history exists CKD PHOS USE SMARTSET 90543 12/28/202312/12, 03/26/2021, 03/25/2021, Additional history exists HbA1c 12/28/2023 12/27/2022, 01/12, 01/16/2020, Additional history exists CKD HGB USE SMARTSET 79426 06/06/202406/06, 06/07/2023, 12/27/2022, Additional history exists TSH [...] this encounter Medical Devices Implanted Type Area Real Time Trader Device Identifier Shelf Expiration Date Model / Serial / Lot Proglide Perclose 19028-95 X10 - [id number] Implanted:Qty: 1 on 07/10/2020 by Renard Galan, DO at [facility] [id number] 12/11/2021 09652-81 / / [id number] Proglide Perclose 98192-10 X10 - [id number] Implanted:Qty: 1 on 07/10/2020 by Renard Galan, DO at [facility] [id number] 12/11/2021 67229-50 / / [id number] Balloon Cath Pacing [id number] - [id number] Implanted:Qty: 1 on 07/10/2020 by Renard Galan, DO at [facility] : MEDICAL [id number] 05/11/2022 520 007P / / [id number] Valve Aort Evolut Proplus 29mm - [id number] Implanted:Qty: 1 on 07/10/2020 by Renard Galan, DO at [facility] [employer] : CARDIAC SURGERY 11/08/2021 EVPROPLUS- 29US / [id number] / [id number] Balloon Cath Pacing [id number] - [id number] Implanted:Qty: 1 on 07/10/2020 by Renard Galan, DO at [facility] : MEDICAL [id number] 05/11/2022 520 007P / / [id number] Coil Fibered 2 10mm [id number] - [id number] Implanted:Qty: 1 on 03/18/2021 at [facility] [employer] : NEURO INTR [id number] 06/18/2023 [id number] Coil Fibered 2 10mm [id number] - [id number] Implanted:Qty: 1 on 03/18/2021 at [facility] [employer] : NEURO INTR [id number] 06/18/2023 [id number] Coil Emboli Tornado 3x2 - [id number] Implanted:Qty: 1 on 03/18/2021 at [facility] [employer] [id number] 09/04/2025 [id number] / / [id number] Coil Emboli Tornado 3x2 - [id number] Implanted:Qty: 1 on 03/18/2021 at [facility] [employer] [id number] 12/25/2025 [id number] / / [id number] Sureclip 16mm 235cm - [id number] Implanted:Qty: 1 on 07/31/2021 by Reji Milian MD at ENDOSCOPY [facility] Colon MICRO TECH ENDOSCOPY 09/22/2023 [id number] / / [id number] documented as of this encounter Procedures Procedure [...] interpreted or resulted by a [facility] or [facility] contracted radiologist. Toña Parra PA-C RADIOLOGY ([facility]) * DERM IMAGE (SITE) (06/23/2023) 06/23/2023 Toña Parra PA-C DIGITAL PHOTOG [place] documented in this encounter Visit Diagnoses Diagnosis Actinic keratosis- Primary documented in this encounter Advance Directives Documents on File Type Date Recorded Patient Case Specialist Expl anation Advance Directives and Living Will 02/24/2023 ADVANCE DIRECTIVE / LIVING WILL Power of [place] Redevelopment Specialist 02/24/2023 POWER OF A TTORNEY Latest Code Status on File Code Status Date Activated Date Inactivated Comments Full Code 03/15/2021 12:36 AM 03/26/2021 8:36 PM This order reflects the patients wishes and were consensually agreed upon. Question Answer Comments Discussion of Advance Directives occurred with: Patient Does the patient have a Living Will? No Does the patient have Health Care Power of Brownfield Redevelopment Specialist? No Code Status History Code Status Date Activated Date Inactivated Comments Full Code 07/10/2020 3:27 PM 07/12/2020 3:38 PM This o rder reflects the patients wishes and were consensually agreed upon. Question Answer Comments Discussion of Advance Directives occurred with: Patient Does the patient have a Living Will? No Does the patient have Health Care Power of Brown[place] Redevelopment Specialist? No Care Teams Inspector Dials Relationship Specialty Start Date End Date Maria Alejandra Mcginnis PA-C [address] [place] [address] PCP - General Physician Cleaner Touch Up Worker 07/31/21 documented as of this encounter
--- OUTSIDE RECORDS SUMMARY | 2023-08-06 23:48 | External Medical Summary ---
Author Name Unknown Address Unknown Organization K01:[facility] [address] [place] [address] Laboratory Report Ordering Provider Test Date Status VINAY AG 06/29/2023 12:01:54 Final Observation Date Value Abnormality Reference (Units ) Status CRP, low-sensitivity 06/29/2023 12:01:54 120 Above high normal <=5 (mg/L) Final Performing Location [facility] [address] [place] [address]
--- OUTSIDE RECORDS SUMMARY | 2023-08-06 23:48 | External Medical Summary | Summary of Care ---
Author Name Unknown Organization [facility] Address [address] [facility] [place] [address] Phone [phone] Care Team Providers Care Margin Trimmer Name Role Phone Maria Alejandra Mcginnis PA-C Primary Care Provider +1 [phone] Reason for Visit * Reason Comments Follow Up 6 month return Encounter Details Date Type Department Care Team (Late st Contact Info) Description 06/29/2023 11:00 AM EDT Office Visit [facility] [address] [place] [phone] Maria Alejandra Mcginnis PA-C [address] [place] [address] FH: leukemia*; Abnormal CBC measurement; Night sweats; Early satiety; Nocturia Allergies Active Allergy Reactions Criticality Noted Date Comments Pollen Other (Please comment) 09/03/2019 sneezing documented as of this encounter (statuses as of 06/29/2023) Medications Medication Sig Dispensed Refills Start Date End Date Status 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 16 g 5 4 06/29/19 24 Discontinued documented as of this encounter (statuses as of 06/29/2023) Active Problems Problem Noted Date Diagnosed Date [...] as of this encounter (statuses as of 06/29/2023) Resolved Problems Problem Noted Date Diagnosed Date [...] as of this encounter (statuses as of 06/29/2023) Immunizations Name Administration Dates Next Due COVID-19 [...] Sign Reading Time Taken Comments Blood Pressure 118/64 06/29/2023 10:56 AM EDT Pulse 74 06/29/2023 10:56 AM EDT Temperature 36.3 C (97.3 F) 06/29/2023 10:56 AM E DT Respiratory Rate 16 06/29/2023 10:56 AM EDT Oxygen Saturation 94% 06/29/2023 10:56 AM EDT Inhaled Oxygen Concentration - - Weight 93.9 kg (207 lb) 06/29/2023 10:56 AM EDT Height 172.7 cm (5' 8") 06/29/2023 10:56 AM EDT Body Mass Index 31.47 06/29/2023 10:56 AM EDT documented in this encounter Functional Status [...] as of this encounter Progress Notes * Maria Alejandra Mcginnis PA-C - 06/29/2023 11:17 AM EDT Images from the original note were not included. History of Present Illness Lamberto Chandler is a 88 year old male that presents for Follow Up (6 month return ) Here for reg return Right after his birthday he noted that things have changed Had sciatica - did pt at [facility]. They took care of this but now he has it on the other side Taking advil for this. Wants to discuss this. Pt is now working on the other side. A few months ago, was a little dizzy. He never did drink enough water Since he started drinking the water, he is not noting the dizziness any more Current with cardiology. Did lab work Brother has leukemia (younger) Has had some night sweats the last few months Up every 3 hours to use the toilet Past Medical History: Diagnosis Date Allergic rhinitis goldenrod Calculus of gallbladder without mention of cholecystitis or obstruction Cataract 03/20/2012 right Dyslipidemia, goal LDL below 100 HTN, goal below 140/90 Hypothyroidism Impotence of organic origin Kidney disease, chronic, stage III (GFR 30-59 ml/min) ([facility]) 2018 LVH (left ventricular hypertrophy) 07/29/2011 Obesity, BMI not known Prostate cancer ([facility]) Unilateral inguinal hernia RIGHT Metoprolol Succinate ER 25 MG Oral Tablet Extended Release 24 Hour (toPROL XL) Aspirin 81 MG Oral Tablet Delayed Release Tamsulosin HCl 0.4 MG Oral Capsule (Flomax) Levothyroxine Sodium 137 MCG Oral Tablet Zoster Vac Recomb Adjuvanted 50 MCG/0.5ML Intramuscular Suspension Reconstituted (Shingrix) Amoxicillin 500 MG Oral Capsule (Amoxil) MULTI-VITAMIN/MINERALS PO TABS Extensive ROS Constitutional (f/c/wt/vision/hearing): Negative Resp (cough/sob/marin): Negative CV (cp/palp/fluttering/diaphoresis/marin/pnd):Negative GI (n/v/d/hrtburn): Negative Endo (hair/cold or heat intol/ 3 p's): Negative Neuro (shaking/weak/fatigu/parasthesi/): Negative Skin (rash/easy bruis/xerosis): Negative Psy (si/hi/halluc/): Negative (nocturia/hesit/drib/sexual review): see above hpi Lymph (swollen glands/b sx's/: Negative Physical Exam Vitals: 06/29/23 1056 Temp: 36.3 C (97.3 F) Pulse: 74 Resp: 16 SpO2: 94% BP: 118/64 BMI: 31.48 BP Readings from Last 3 Encounters: 06/29/23 118/64 06/07/23 136/64 04/12/23 130/72 Wt Readings from Last 3 Encounters: 06/29/23 93.9 kg (207 lb) 06/07/23 93.4 kg (206 lb) 04/12/23 94.2 kg (207 lb 9.6 oz) BMI Readings from Last 3 Encounters: 06/29/23 31.47 kg/m 06/07/23 31.32 kg/m 04/12/23 31.57 kg/m Ht Readings from Last 3 Encounters: 06/29/23 1.727 m (5' 8") 06/30/22 1.727 m (5' 8") 02/03/22 1.727 m (5' 8") General: alert, healthy, and no distress Head: Normocephalic, No masses, lesions, tenderness or abnormalities Eye Exam: PERRLA, extraocular movements intact, conjunctiva are pink and non- injected, sclera clear Ears: External ears normal, Canals clear, TM's Normal Nose: no mucosal erythema, no mucosal edema, no purulent discharge Oropharynx: no exudate, no erythema, lips, buccal mucosa, and tongue normal, and mucous membranes are moist Neck: supple, no adenopathy, no bruits, thyroid normal size, non-tender, without nodularity Heart: regular rate & rhythm, no gallops, S-1 normal, and S-2 normal Lungs: chest symmetric with normal AP diameter, no chest deformities noted, no chest wall tenderness, lungs clear to auscultation Abdomen: abdomen soft, non-tender, normal bowel sounds, and no masses or organomegaly Back: back symmetric, no curvature, no costovertebral angle tenderness, range of motion is normal Extremities: less than 2 second capillary refill, no joint deformities, effusion, or inflammation Skin: skin color, texture, turgor are normal, no rashes or significant lesions Assessment and Plan FH: leukemia (Primary) - CBC WITH WBC DIFFERENTIAL; Future; Expected date: 06/29/2023 - ERYTHROCYTE SEDIMENTATION RATE (ESR); Future; Expected date: 06/29/2023 Abnormal CBC measurement - CBC WITH WBC DIFFERENTIAL; Future; Expected date: 06/29/2023 - ERYTHROCYTE SEDIMENTATION RATE (ESR); Future; Expected date: 06/29/2023 - CRP (INFLAMMATORY MARKER); Future; Expected date: 06/29/2023 - CULTURE, URINE, QUANTITATIVE; Future; Expected date: 06/29/2023 - PSA; Future; Expected date: 06/29/2023 Night sweats - CRP (INFLAMMATORY MARKER); Future; Expected date: 06/29/2023 - CULTURE, URINE, QUANTITATIVE; Future; Expected date: 06/29/2023 - PSA; Future; Expected date: 06/29/2023 Early satiety - CULTURE, URINE, QUANTITATIVE; Future; Expected date: 06/29/2023 - PSA; Future; Expected date: 06/29/2023 Nocturia - PSA; Future; Expected date: 06/29/2023 Tylenol is safer Lab work - repeat cbc Look for causes of abnormal cbc Rev Johny labs Wrap-Up Time: I spent a total of 30-39 minutes (exact time 38 mins) on the date of service in preparation, delivery, and documentation of the care provided to Lamberto Chandler excluding any time spent in the performance of separately billed services. Maria Alejandra Mcginnis PA-C 06/29/2023 11:38 AM documented in this encounter Nursing Notes * Deanna Caraballo LPN - 06/29/2023 10:55 AM EDT Lamberto Chandler is a 88 year old male who presents today for Chief Complaint Patient presents with Follow Up 6 month return documented in this encounter Plan of Treatment Upcoming Encounters Date Type Department Care Team (Late st Contact Info) Description 07/13/2023 1:00 PM EDT Nurse Only Ancillary Department, [place] [address] [facility] [address] [place], Nurse Annual Wellness [address] [facility] [address] 08/29/2023 1:00 PM EDT Cardiac Studies Cardiac Studies, [facility] [address] [facility] [place] [address] 08/31/2023 11:40 AM EDT Office Visit [facility], [place] [address] [facility] [phone] Maria Alejandra Mcginnis PA-C [address] [facility] [address] 10/10/2023 1:30 PM EDT Office Visit Cardiology, [facility] [address] [place] [address] Margaret Mcclain PA-C [address] [place] [address] 01/04/2024 11:00 AM EDT Office Visit Family Practice, [place] [address] [facility] [phone] Maria Alejandra Mcginnis PA-C [address] [facility] [place] [address] 01/10/2024 11:40 AM EDT Office Visit Dermatology, [place] [address] [facility], [place] [address] Toña Parra PA-C [address] [place] [address] [place] [address] Scheduled Orders Name Type Priority Associated Diagnoses Orde r Schedule CBC WITH WBC DIFFERENTIAL Lab Routine FH: leukemia Abnormal CBC measurement Expected: 06/29/2023 (Approximate), Expires: 06/28/2024 ERYTHROCYTE SEDIMENTATION RATE (ESR) Lab Routine FH: leukemia Abnormal CBC measurement Expected: 06/29/2023 (Approximate), Expires: 06/28/2024 CRP (INFLAMMATORY MARKER) Lab Routine Abnormal CBC measurement Night sweats Expected: 06/29/2023 (Approximate), Expires: 06/28/2024 CULTURE, URINE, QUANTITATIVE Lab Routine Abnormal CBC measurement Night sweats Early satiety Expected: 06/29/2023, Expires: 06/28/2024 PSA Lab Routine Abnormal CBC measurement Night sweats Early satiety Nocturia Expected: 06/29/2023 (Approximate), Expires: 06/28/2024 Health Maintenance Due Date Last Done Comments Zoster Vaccines (1 of 2) 1985 Pneumococcal Vaccine: 65+ Years (2 of 2 - PCV) 12/14/2008 12/15/2007 COVID-19 Vaccine ( season) 2022 11/13/2020, 06/03/2020, 05/08/2020 Depression Screening 07/01/2023 06/30/2022, 06/10/2016 (Discussed) Albumin/Creatinine Ratio 12/28/2023 023, 01/25/2022, 06/07/2016, Additional history exists CKD PHOS USE SMARTSET 62578 12/28/202312/12, 03/26/2021, 03/25/2021, Additional history exists HbA1c 12/28/2023 12/27/2022, 01/12, 01/16/2020, Additional history exists CKD HGB USE SMARTSET 46011 06/06/202406/06, 06/07/2023, 12/27/2022, Additional history exists TSH [...] this encounter Medical Devices Implanted Type Area Customer Service Security Officer Device Identifier Shelf Expiration Date Model / Serial / Lot Proglide Perclose 55323-33 X10 - [id number] Implanted:Qty: 1 on 07/10/2020 by Renard Galan DO at [facility] [id number] 12/11/2021 23259-68 / / [id number] Proglide Perclose 46500-50 X10 - [id number] Implanted:Qty: 1 on 07/10/2020 by Renard Galan, DO at [facility]ULAR DEVICES [id number] 12/11/2021 23716-14 / / [id number] Balloon Cath Pacing [id number] - [id number] Implanted:Qty: 1 on 07/10/2020 by Renard Galan, DO at [facility] [employer] : MEDICAL [id number] 05/11/2022 520 007P / / [id number] Valve Aort Evolut Proplus 29mm - [id number] Implanted:Qty: 1 on 07/10/2020 by Renard Galan, DO at [facility] [place] [employer] : CARDIAC SURGERY 11/08/2021 EVPROPLUS- 29US / [id number] / [id number] Balloon Cath Pacing [id number] - [id number] Implanted:Qty: 1 on 07/10/2020 by Renard Galan, DO at [facility] [employer] : MEDICAL [id number] 05/11/2022 520 007P / / [id number] Coil Fibered 2 10mm [id number] - [id number] Implanted:Qty: 1 on 03/18/2021 at [facility] [employer] : NEURO INTR [id number] 06/18/2023 [id number] Coil Fibered 2 10mm [id number] - [id number] Implanted:Qty: 1 on 03/18/2021 at [facility] [employer] : NEURO INTR [id number] 06/18/2023 [id number] Coil Emboli Tornado 3x2 - [id number] Implanted:Qty: 1 on 03/18/2021 at [facility] [employer] [id number] 09/04/2025 [id number] / / [id number] Coil Emboli Tornado 3x2 - [id number] Implanted:Qty: 1 on 03/18/2021 at [facility] [employer] [id number] 12/25/2025 [id number] / / [id number] Sureclip 16mm 235cm - [id number] Implanted:Qty: 1 on 07/31/2021 by Reji Milian MD at ENDOSCOPY [facility] Colon MICRO TECH ENDOSCOPY 09/22/2023 [id number] / / [id number] documented as of this encounter Visit Diagnoses Diagnosis FH: leukemia- Primary Family history of leukemia Abnormal CBC measurement Other abnormal blood chemistry Night sweats Generalized hyperhidrosis Early satiety Nocturia documented in this encounter Advance Directives Documents on File Type Date Recorded Patient Onion Farmer Expl anation Advance Directives and Living Will 02/24/2023 ADVANCE DIRECTIVE / LIVING WILL Power of Wood Milling Machine Tender 02/24/2023 POWER OF A TTORNEY Latest Code Status on File Code Status Date Activated Date Inactivated Comments Full Code 03/15/2021 12:36 AM 03/26/2021 8:36 PM This order reflects the patients wishes and were consensually agreed upon. Question Answer Comments Discussion of Advance Directives occurred with: Patient Does the patient have a Living Will? No Does the patient have Health Care Power of Wood Milling Machine Tender? No Code Status History Code Status Date Activated Date Inactivated Comments Full Code 07/10/2020 3:27 PM 07/12/2020 3:38 PM This o rder reflects the patients wishes and were consensually agreed upon. Question Answer Comments Discussion of Advance Directives occurred with: Patient Does the patient have a Living Will? No Does the patient have Health Care Power of Wood Milling Machine Tender? No Care Teams Margin Trimmer Relationship Specialty Start Date End Date Maria Alejandra Mcginnis PA-C [address] [facility] [address] PCP - General Physician Spa Assistant Manager 07/31/21 documented as of this encounter
--- OUTSIDE RECORDS SUMMARY | 2023-08-06 23:48 | External Medical Summary ---
Author Name Unknown Address Unknown Organization K01[facility] [address] [place] [address] Laboratory Report Ordering Provider Test Date Status VINAY AG 06/29/2023 12:01:54 Final P smear if abnormal - brothe r has leukemia Observation Date Value Abnormality Reference (Units ) Status WBC, Total 06/29/2023 12:01:54 14.11 Above high normal 4.00-10.80 (K/uL) Final RBC 06/29/2023 12:01:54 4.64 4.50-5.25 (M/uL) Final Hemoglobin 06/29/2023 12:01:54 12.8 Below low normal 14.0-16.8 (g/dL) Final HCT 06/29/2023 12:01:54 44.5 40.0-48.4 (%) Final MCV 06/29/2023 12:01:54 95.9 82.0-99.5 (fL) Final MCH 06/29/2023 12:01:54 27.6 27.0-34.0 (pg) Final MCHC 06/29/2023 12:01:54 28.8 32.0-36.0 (g/dL) Final RDW 06/29/2023 12:01:54 15.6 11.5-15.5 (%) Final Platelets 06/29/2023 12:01:54 654 Above high normal 140-400 (K/uL) Final MPV 06/29/2023 12:01:54 10.4 6.6-11.1 (fL) Final Nucleated erythrocytes/100 leukocytes [Ratio] in Blood by Automated count 06/29/2023 12:01:54 0 <=0 (/100 WBCs) Final Performing Location [facility] [address] [place] [address]
--- OUTSIDE RECORDS SUMMARY | 2023-08-06 23:48 | External Medical Summary | Summary of Care ---
Author Name Unknown Organization [facility] Address [address] [facility] [place] [address] Phone [phone] Care Team Providers Care Principal Quality Engineer Name Role Phone Maria Alejandra Mcginnis PA-C Primary Care Provider [phone] Reason for Visit * Reason Onset Date Comments Test Results 06/30/2023 Encounter Details Date Type Department Care Team (Late st Contact Info) Description 06/30/2023 Telephone Cardiology, [facility] [address] [place] [address] Margaret Mcclain PA-C [address] [place] [address] Test Results Allergies Active Allergy Reactions Criticality [...] encounter Miscellaneous Notes * Telephone Encounter - Analy Aponte CMA - 06/30/2023 3:08 PM EDT My g sent. * Telephone Encounter - Analy Aponte CMA - 06/30/2023 3:07 PM EDT ----- Message from Margaret Mcclain PA-C sent at 06/29/2023 3:39 PM EDT ----- ZIO results reviewed Normal sinus rhythm with average HR in the 70's. No significant bradycardia or pauses that would correlate with his dizziness. He had several episodes of SVT. One episode reported as VT appears to be atrial tach. No symptoms reported. No concerning findings. Would continue metoprolol 25 mg - 1/2 tab daily documented in this encounter Plan of Treatment Upcoming Encounters Date Type Department Care Team (Late st Contact Info) Description 07/13/2023 1:00 PM EDT Nurse Only Ancillary Department, [place] [address] [facility] [place] [address] [place] Nurse Annual Wellness [address] [facility] [place] [address] 08/29/2023 1:00 PM EDT Cardiac Studies Cardiac Studies, [facility] [address] [facility] [place] [address] 08/31/2023 11:40 AM EDT Office Visit [facility], [place] [address] [facility], [place] [phone] Maria Alejandra Mcginnis PA-C [address] [facility] [place] [address] 10/10/2023 1:30 PM EDT Office Visit Cardiology, [facility] [address] [place] [address] Margaret Mcclain PA-C [address] [place] [address] 01/04/2024 11:00 AM EDT Office Visit [facility], [place] [address] [facility], [place] [phone] Maria Alejandra Mcginnis PA-C [address] [facility], [place] [address] 01/10/2024 11:40 AM EDT Office Visit Dermatology, [place] [address] [facility], [place] [phone] Toña Parra PA-C [address] [place] [address] [place] [address] Health Maintenance Due Date Last Done Comments Zoster Vaccines (1 of 2) 1986 Pneumococcal Vaccine: 65+ Years (2 of 2 - PCV) 12/14/2008 12/15/2007 COVID-19 Vaccine ( season) 2022 11/13/2020, 06/03/2020, 05/08/2020 Depression Screening 07/01/2023 06/30/2022, 06/10/2016 (Discussed) Albumin/Creatinine Ratio 12/28/202312/27/ 023, 01/25/2022, 06/07/2016, Additional history exists CKD PHOS USE SMARTSET 69394 12/28/202312/12, 03/26/2021, 03/25/2021, Additional history exists HbA1c 12/28/2023 12/27/2022, 01/12, 01/16/2020, Additional history exists TSH 06/06/2024 06/07/2023, 12/12, 03/23/2021, Additional history exists CKD HGB USE SMARTSET 74819 06/28/202406/28, 06/29/2023, 06/07/2023, Additional history exists DTaP,Tdap,and [...] this encounter Medical Devices Implanted Type Area Pneumatic Jack Operator Device Identifier Shelf Expiration Date Model / Serial / Lot Proglide Perclose 21856-07 X10 - [id number] Implanted:Qty: 1 on 07/10/2020 by Renard Galan, DO at [facility] : VASCULAR DEVICES [id number] 12/11/2021 68881-59 / / [id number] Proglide Perclose 18896-22 X10 - [id number] Implanted:Qty: 1 on 07/10/2020 by Renard Galan, DO at [facility] : VASCULAR DEVICES [id number] 12/11/2021 44699-50 / / [id number] Balloon Cath Pacing [id number] - [id number] Implanted:Qty: 1 on 07/10/2020 by Renard Galan, DO at [facility] : MEDICAL [id number] 05/11/2022 520 007P / / [id number] Valve Aort Evolut Proplus 29mm - [id number] Implanted:Qty: 1 on 07/10/2020 by Renard Galan, DO at [facility] [employer] : CARDIAC SURGERY 11/08/2021 EVPROPLUS- 29US / [id number] / [id number] Balloon Cath Pacing [id number] - [id number] Implanted:Qty: 1 on 07/10/2020 by Renard Glaan, DO at [facility] : MEDICAL [id number] 05/11/2022 520 007P / / [id number] Coil Fibered 2 10mm [id number] - [id number] Implanted:Qty: 1 on 03/18/2021 at [facility] [employer] : NEURO INTR [id number] 06/18/2023 [id number] Coil Fibered 2 10mm 133617 - [id number] Implanted:Qty: 1 on 03/18/2021 at [facility] [employer] : NEURO INTR [id number] 06/18/2023 [id number] Coil Emboli Tornado 3x2 - [id number] Implanted:Qty: 1 on 03/18/2021 at [facility] [employer] [id number] 09/04/2025 [id number] / / [id number] Coil Emboli Tornado 3x2 - [id number] Implanted:Qty: 1 on 03/18/2021 at [facility] [employer] [id number] 12/25/2025 [id number] / / [id number] Sureclip 16mm 235cm - [id number] Implanted:Qty: 1 on 07/31/2021 by Reji Milian MD at [facility]OSCOPY [facility] Colon MICRO TECH ENDOSCOPY 09/22/2023 [id number] / / [id number] documented as of this encounter Advance Directives Documents on File Type Date Recorded Patient Forensic Examiner Expl anation Advance Directives and Living Will 02/24/2023 ADVANCE DIRECTIVE / LIVING WILL Power of Oil Field Operator 02/24/2023 POWER OF A TTORNEY Latest Code Status on File Code Status Date Activated Date Inactivated Comments Full Code 03/15/2021 12:36 AM 03/26/2021 8:36 PM This order reflects the patients wishes and were consensually agreed upon. Question Answer Comments Discussion of Advance Directives occurred with: Patient Does the patient have a Living Will? No Does the patient have Health Care Power of Oil Field Operator? No Code Status History Code Status Date Activated Date Inactivated Comments Full Code 07/10/2020 3:27 PM 07/12/2020 3:38 PM This o rder reflects the patients wishes and were consensually agreed upon. Question Answer Comments Discussion of Advance Directives occurred with: Patient Does the patient have a Living Will? No Does the patient have Health Care Power of Oil Field Operator? No Care Teams Principal Quality Engineer Relationship Specialty Start Date End Date Maria Alejandra Mcginnis PA-C [address] [place] [address] PCP - General Physician Nursing Assistant 07/31/21 documented as of this encounter
--- OUTSIDE RECORDS SUMMARY | 2023-08-06 23:48 | External Medical Summary | Summary of Care ---
Author Name Unknown Organization [facility] Address [address] [place] [address] Phone [phone] Care Team Providers Care Business Office Associate Name Role Phone Maria Alejandra Mcginnis PA-C Primary Care Provider [phone] Encounter Details Date Type Department Care Team (Late st Contact Info) Description 07/06/2023 Telephone [facility] [address] [place] [address] Maria Alejandra Mcginnis PA-C [address] [place] [address] Allergies Active Allergy Reactions Criticality Noted Date Comments Pollen Other (Please comment) 09/03/2019 sneezing documented as of this encounter (statuses as of 07/07/2023) Medications Medication Sig Dispensed Refills Start Date [...] as of this encounter (statuses as of 07/07/2023) Active Problems Problem Noted Date Diagnosed Date [...] as of this encounter (statuses as of 07/07/2023) Resolved Problems Problem Noted Date Diagnosed Date [...] as of this encounter (statuses as of 07/07/2023) Immunizations Name Administration Dates Next Due COVID-19 [...] encounter Miscellaneous Notes * Telephone Encounter - Deanna Caraballo LPN - 07/07/2023 11:56 AM EDT Called patient he is aware, and verbalizes an understanding. Pt states that he is okay with taking a course of steroids. * Telephone Encounter - Maria Alejandra Mcginnis PA-C - 07/06/2023 4:29 PM EDT Inflammatory markers are very high We need to look for the source Is he willing to take a course of steroids and repeat with further lab work? Maria Alejandra Mcginnis PA-C documented in this encounter Plan of Treatment Upcoming Encounters Date Type Department Care Team (Late st Contact Info) Description 08/29/2023 1:00 PM EDT Cardiac Studies Cardiac Studies, [facility] [address] [facility] [place] [address] 08/31/2023 11:40 AM EDT Office Visit [facility] [address] [place] [facility] [place] [phone] Maria Alejandra [facility]innis [facility] [address] [facility] [address] 10/10/2023 1:30 PM EDT Office Visit Cardiology, [facility] [address] [place] [address] Margaret Mcclain PA-C [address] [place] [address] 01/04/2024 11:00 AM EDT Office Visit Family Practice, [place] [address] [facility], [place] [phone] Maria Alejandra Mcginnis PA-C [address] [facility] [place] [address] 01/10/2024 11:40 AM EDT Office Visit Dermatology, [place] [address] [facility] [place] [address] Toña Parra PA-C [address] [place] [address] [place] [address] Scheduled Orders Name Type Priority Associated Diagnoses Orde r Schedule CBC WITH WBC DIFFERENTIAL Lab Routine Night sweats Elevated sed rate Expected: 07/07/2023 (Approximate), Expires: 07/06/2024 ERYTHROCYTE SEDIMENTATION RATE (ESR) Lab Routine Night sweats Elevated sed rate Expected: 07/07/2023 (Approximate), Expires: 07/06/2024 CRP (INFLAMMATORY MARKER) Lab Routine Night sweats Elevated sed rate Expected: 07/07/2023 (Approximate), Expires: 07/06/2024 COMPREHENSIVE METABOLIC PANEL Lab Routine Night sweats Elevated sed rate Expected: 07/07/2023 (Approximate), Expires: 07/06/2024 Health Maintenance Due Date Last Done Comments Zoster Vaccines (1 of 2) 1986 Pneumococcal Vaccine: 65+ Years (2 of 2 - PCV) 12/14/2008 12/15/2007 COVID-19 Vaccine ( season) 2022 11/13/2020, 06/03/2020, 05/08/2020 Depression Screening 07/01/2023 06/30/2022, 06/10/2016 (Discussed) Albumin/Creatinine Ratio 12/28/2023 023, 01/25/2022, 06/07/2016, Additional history exists CKD PHOS USE SMARTSET 90092 12/28/202312/12, 03/26/2021, 03/25/2021, Additional history exists HbA1c 12/28/2023 12/27/2022, 01/12, 01/16/2020, Additional history exists TSH 06/06/2024 06/07/2023, 12/12, 03/23/2021, Additional history exists CKD HGB USE SMARTSET 09054 06/28/202406/28, 06/29/2023, 06/07/2023, Additional history exists DTaP,Tdap,and [...] this encounter Medical Devices Implanted Type Area Special Education Administrator Device Identifier Shelf Expiration Date Model / Serial / Lot Proglide Perclose 50260-56 X10 - [id number] Implanted:Qty: 1 on 07/10/2020 by Renard Galan, DO at [facility] : VASCULAR DEVICES [id number] 12/11/2021 00502-24 / / [id number] Proglide Perclose 22598-81 X10 - [id number] Implanted:Qty: 1 on 07/10/2020 by Renard Galan, DO at [facility] : VASCULAR DEVICES [id number] 12/11/2021 20329-73 / / [id number] Balloon Cath Pacing [id number] - [id number] Implanted:Qty: 1 on 07/10/2020 by Renard Galan, DO at [facility] : MEDICAL [id number] 05/11/2022 520 007P / / [id number] Valve Aort Evolut Proplus 29mm - [id number] Implanted:Qty: 1 on 07/10/2020 by Renard Galan, DO at [facility] [employer] : CARDIAC SURGERY 11/08/2021 EVPROPLUS- 29US / [id number] / [id number] Balloon Cath Pacing [id number] - [id number] Implanted:Qty: 1 on 07/10/2020 by Renard Galan, DO at [facility] : MEDICAL [id number] 05/11/2022 520 007P / / [id number] Coil Fibered 2 10mm 944555 - [id number] Implanted:Qty: 1 on 03/18/2021 at [facility] [employer] : NEURO INTR [id number] 06/18/2023 [id number] Coil Fibered 2 10mm 321093 - [id number] Implanted:Qty: 1 on 03/18/2021 at [facility] [employer] : NEURO INTR [id number] 06/18/2023 [id number] / [id number] Coil Emboli Tornado 3x2 - [id number] Implanted:Qty: 1 on 03/18/2021 at [facility] [employer] [id number] 09/04/2025 [id number] / / [id number] Coil Emboli Tornado 3x2 - [id number] Implanted:Qty: 1 on 03/18/2021 at [facility] [employer] [id number] 12/25/2025 [id number] / / [id number] Sureclip 16mm 235cm - [id number] Implanted:Qty: 1 on 07/31/2021 by Reji Milian MD at ENDOSCOPY [facility] Colon MICRO TECH ENDOSCOPY 09/22/2023 [id number] / / [id number] documented as of this encounter Visit Diagnoses Diagnosis Night sweats- Primary Generalized hyperhidrosis Elevated sed rate Elevated sedimentation rate documented in this encounter Advance Directives Documents on File Type Date Recorded Patient Garden Center Manager Expl anation Advance Directives and Living Will 02/24/2023 ADVANCE DIRECTIVE / LIVING WILL Power of Asset Management Analyst 02/24/2023 POWER OF A TTORNEY Latest Code Status on File Code Status Date Activated Date Inactivated Comments Full Code 03/15/2021 12:36 AM 03/26/2021 8:36 PM This order reflects the patients wishes and were consensually agreed upon. Question Answer Comments Discussion of Advance Directives occurred with: Patient Does the patient have a Living Will? No Does the patient have Health Care Power of Asset Management Analyst? No Code Status History Code Status Date Activated Date Inactivated Comments Full Code 07/10/2020 3:27 PM 07/12/2020 3:38 PM This o rder reflects the patients wishes and were consensually agreed upon. Question Answer Comments Discussion of Advance Directives occurred with: Patient Does the patient have a Living Will? No Does the patient have Health Care Power of Asset Management Analyst? No Care Teams Business Office Associate Relationship Specialty Start Date End Date Maria Alejandra Mcginnis PA-C [address] [facility] [place] [address] PCP - General Physician Wet Roaster 07/31/21 documented as of this encounter
--- OUTSIDE RECORDS SUMMARY | 2023-08-06 23:48 | External Medical Summary | Summary of Care ---
Author Name Unknown Organization [facility] Address [address] [place] [address] Phone [phone] Care Team Providers Care Toll Settlement Clerk Name Role Phone Maria Alejandra Mcginnis PA-C Primary Care Provider [phone] Encounter Details Date Type Department Care Team (Latest Contact Info) Description 06/23/2023 1:22 PM EDT - 06/23/2023 11:59 PM EDT Hospital Encounter Radiology Film File [address] [place] [address] Arrived Discharge Disposition: Home - Self Care Allergies Active Allergy Reactions Criticality Noted Date [...] Description 06/29/2023 11:00 AM EDT Office Visit [facility] [place] [address] [facility] [phone] Maria Alejandra Mc[facility]innis [facility]C [address] [facility] [address] 07/13/2023 1:00 PM EDT Nurse Only Ancillary Department, [place] [address] [facility] [address] [place], Nurse [facility] Well[facility] [address] [facility] [address] 08/29/2023 1:00 PM EDT Cardiac Studies Cardiac Studies, [facility] [address] [place] [address] 10/10/2023 1:30 PM EDT Office Visit Cardiology, [facility] [address] [place] [address] Margaret Mcclain PA-C [address] [place] [address] Health Maintenance Due Date Last Done Comments Zoster Vaccines (1 of 2) 1986 Pneumococcal Vaccine: 65+ Years (2 of 2 - PCV) 12/14/2008 12/15/2007 COVID-19 Vaccine ( season) 2022 11/13/2020, 06/03/2020, 05/08/2020 Depression Screening 07/01/2023 06/30/2022, 06/10/2016 (Discussed) Albumin/Creatinine Ratio 12/28/202312/27/ 023, 01/25/2022, 06/07/2016, Additional history exists CKD PHOS USE SMARTSET 36717 12/28/202312/12, 03/26/2021, 03/25/2021, Additional history exists HbA1c 12/28/2023 12/27/2022, 01/12, 01/16/2020, Additional history exists CKD HGB USE SMARTSET 64380 06/06/202406/06, 06/07/2023, 12/27/2022, Additional history exists TSH [...] this encounter Medical Devices Implanted Type Area Staff Assistant Device Identifier Shelf Expiration Date Model / Serial / Lot Proglide Perclose 47720-33 X10 - [id number] Implanted:Qty: 1 on 07/10/2020 by Renard Galan DO at [facility] : VASCULAR DEVICES [id number] 12/11/2021 98649-28 / / [id number] Proglide Perclose 73055-52 X10 - [id number] Implanted:Qty: 1 on 07/10/2020 by Renard Galan, DO at [facility] : VASCULAR DEVICES [id number] 12/11/2021 30967-61 / / [id number] Balloon Cath Pacing [id number] - [id number] Implanted:Qty: 1 on 07/10/2020 by Renard Galan, DO at [facility] : MEDICAL [id number] 05/11/2022 520 007P / / [id number] Valve Aort Evolut Proplus 29mm - [id number] Implanted:Qty: 1 on 07/10/2020 by Renard Galan, DO at [facility] [employer] : CARDIAC SURGERY 11/08/2021 EVPROPLUS- 29US / [id number] / [id number] Balloon Cath Pacing [id number] - [id number] Implanted:Qty: 1 on 07/10/2020 by Renard Galan, DO at [facility] : MEDICAL [id number] 05/11/2022 520 007P / / [id number] Coil Fibered 2 10mm 085382 - [id number] Implanted:Qty: 1 on 03/18/2021 at [facility] : NEURO INTR [id number] 06/18/2023 [id number] Coil Fibered 2 10mm 864642 - [id number] Implanted:Qty: 1 on 03/18/2021 at [facility] [employer] : NEURO INTR [id number] 06/18/2023 [id number] Coil Emboli Tornado 3x2 - [id number] Implanted:Qty: 1 on 03/18/2021 at [facility] [employer] [id number] 09/04/2025 [id number] / / [id number] Coil Emboli Tornado 3x2 - [id number] Implanted:Qty: 1 on 03/18/2021 at [facility] [employer] [id number] 12/25/2025 [id number] / / [id number] Sureclip 16mm 235cm - [id number] Implanted:Qty: 1 on 07/31/2021 by Reji Milian MD at ENDOSCOPY [facility] Colon MICRO TECH ENDOSCOPY 09/22/2023 [id number] / / [id number] documented as of this encounter Procedures Procedure Name Priority Date/Time Associated Diagnosis Comments DERM EXAM - DERM (IMAGES ONLY, NO REPORT) Routine 06/23/2023 1:22 PM EDT Actinic keratosis documented in this encounter Results * DERM EXAM - DERM (IMAGES ONLY, NO REPORT) (06/23/2023 1:22 PM EDT) Narrative Scheduling, Silent - 06/23/2023 1:22 PM EDT This is an imaging study not interpreted or resulted by a [facility] or [employer] contracted radiologist. Toña Parra PA-C RADIOLOGY ([facility]) documented in this encounter Advance Directives Documents on File Type Date Recorded Patient Community Relations Rep Expl anation Advance Directives and Living Will 02/24/2023 ADVANCE DIRECTIVE / LIVING WILL Power of Equipment Services Associate 02/24/2023 POWER OF A TTORNEY Latest Code Status on File Code Status Date Activated Date Inactivated Comments Full Code 03/15/2021 12:36 AM 03/26/2021 8:36 PM This order reflects the patients wishes and were consensually agreed upon. Question Answer Comments Discussion of Advance Directives occurred with: Patient Does the patient have a Living Will? No Does the patient have Health Care Power of Equipment Services Associate? No Code Status History Code Status Date Activated Date Inactivated Comments Full Code 07/10/2020 3:27 PM 07/12/2020 3:38 PM This o rder reflects the patients wishes and were consensually agreed upon. Question Answer Comments Discussion of Advance Directives occurred with: Patient Does the patient have a Living Will? No Does the patient have Health Care Power of Equipment Services Associate? No Care Teams Toll Settlement Clerk Relationship Specialty Start Date End Date Maria Alejandra Mcginnis PA-C [address] [facility] [address] PCP - General Physician Operator Supply 07/31/21 documented as of this encounter
--- OUTSIDE RECORDS SUMMARY | 2023-08-06 23:48 | External Medical Summary | Summary of Care ---
Author Name Unknown Organization [facility] Address [address] [place] [address] Phone [phone] Care Team Providers Care Electron Beam Welding Machine Operator Name Role Phone Maria Alejandra Mcginnis PA-C Primary Care Provider +1 -[phone] Reason for Visit * Reason Comments Outpatient Testing Encounter Details Date Type Department Care Team (Late st Contact Info) Description 06/29/2023 11:50 AM EDT Laboratory Laboratory, [place] [address] [place] [phone] [place], Laboratory [address] [place], [place] [id number] [employer] Other*[id number]; FH: leukemia; Abnormal CBC measurement; Night sweats; Early satiety; [...] 1:00 PM EDT Nurse Only Ancillary Department, [address] [address] [place], Nurse [facility] [address] [facility] [address] 08/29/2023 1:00 PM EDT Cardiac Studies Cardiac Studies, [facility] [place] [address] 08/31/2023 11:40 AM EDT Office [address] [phone] Maria Alejandra Mcginnis PA-C [address] [facility] [address] 10/10/2023 1:30 PM EDT Office Visit Cardiology, [facility] [address] [facility] [place] [address] Margaret Mcclain PA-C [address] [place] [address] 01/04/2024 11:00 AM EDT Office Visit [facility], [address] [phone] Mari aAlejandra Mcginnis PA-C [address] [place] [address] 01/10/2024 11:40 AM EDT Office Visit Dermatology, [place] [address] [place] [address] Toña Parra PA-C [address] [place] [address] [place] [address] Pending Results Name Type Priority Associated Diagnoses Date /Time CBC WITH WBC DIFFERENTIAL Lab Routine FH: leukemia Abnormal CBC measurement 06/29/2023 12:01 PM EDT ERYTHROCYTE SEDIMENTATION RATE (ESR) Lab Routine FH: leukemia Abnormal CBC measurement 06/29/2023 12:01 PM EDT CRP (INFLAMMATORY MARKER) Lab Routine Abnormal CBC measurement Night sweats 06/29/2023 12:01 PM EDT PSA Lab Routine Abnormal CBC measurement Night sweats Early satiety Nocturia 06/29/2023 12:01 PM EDT CBC Lab Routine FH: leukemia Abnormal CBC measurement 06/29/2023 12:01 PM EDT DIFFERENTIAL, AUTOMATED Lab Routine FH: leukemia Abnormal CBC measurement 06/29/2023 12:01 PM EDT Scheduled Orders Name Type Priority Associated Diagnoses Orde r Schedule MYCODE SST1 Lab Routine [employer] Other*[id number] Ordered: 06/29/2023 MYCODE SST2 Lab Routine [employer] Other*[id number] Ordered: 06/29/2023 Health Maintenance Due Date Last Done Comments Zoster Vaccines (1 of 2) 1986 Pneumococcal Vaccine: 65+ Years (2 of 2 - PCV) 12/14/2008 12/15/2007 COVID-19 Vaccine ( season) 2022 11/13/2020, 06/03/2020, 05/08/2020 Depression Screening 07/01/2023 06/30/2022, 06/10/2016 (Discussed) Albumin/Creatinine Ratio 12/28/2023 023, 01/25/2022, 06/07/2016, Additional history exists CKD PHOS USE SMARTSET 44991 12/28/202312/12, 03/26/2021, 03/25/2021, Additional history exists HbA1c 12/28/2023 12/27/2022, 01/12, 01/16/2020, Additional history exists CKD HGB USE SMARTSET 41643 06/06/202406/06, 06/07/2023, 12/27/2022, Additional history exists TSH [...] encounter Medical Devices Implanted Type Area Machine Marker Device Identifier Shelf Expiration Date Model / Serial / Lot Proglide Perclose 21286-96 X10 - [id number] Implanted:Qty: 1 on 07/10/2020 by Renard Galan DO at [facility] : VASCULAR DEVICES [id number] 12/11/2021 24873-37 / / [id number] Proglide Perclose 31991-75 X10 - [id number] Implanted:Qty: 1 on 07/10/2020 by Renard Galan, DO at [facility] : VASCULAR DEVICES [id number] 12/11/2021 98182-32 / / [id number] Balloon Cath Pacing [id number] - [id number] Implanted:Qty: 1 on 07/10/2020 by Renard Galan DO at [facility] : MEDICAL [id number] 05/11/2022 520 007P / / [id number] Valve Aort Evolut Proplus 29mm - [id number] Implanted:Qty: 1 on 07/10/2020 by Renard Galan, DO at [facility] [employer] : CARDIAC SURGERY 11/08/2021 EVPROPLUS- 29US / [id number] / [id number] Balloon Cath Pacing [id number] - [id number] Implanted:Qty: 1 on 07/10/2020 by Renard Galan DO at [facility] : MEDICAL [id number] 05/11/2022 520 007P / / [id number] Coil Fibered 2 10mm [id number] - [id number] Implanted:Qty: 1 on 03/18/2021 at [facility] : NEURO INTR [id number] 06/18/2023 [id number] Coil Fibered 2 10mm [id number] - [id number] Implanted:Qty: 1 on 03/18/2021 at [facility] : NEURO INTR [id number] 06/18/2023 [id number] Coil Emboli Tornado 3x2 - [id number] Implanted:Qty: 1 on 03/18/2021 at [facility] [id number] 09/04/2025 [id number] / / [id number] Coil Emboli Tornado 3x2 - [id number] Implanted:Qty: 1 on 03/18/2021 at [facility] [id number] 12/25/2025 [id number] / / [id number] Sureclip 16mm 235cm - [id number] Implanted:Qty: 1 on 07/31/2021 by Reji Milian MD at [facility]COPY [facility] Colon MICRO TECH ENDOSCOPY 09/22/2023 [id number] / / [id number] documented as of this encounter Visit Diagnoses Diagnosis [employer] Other*[id number] FH: leukemia Family history of leukemia Abnormal CBC measurement Other abnormal blood chemistry Night sweats Generalized hyperhidrosis Early satiety Nocturia documented in this encounter Advance Directives Documents on File Type Date Recorded Patient Relocation Coordinator Expl anation Advance Directives and Living Will 02/24/2023 ADVANCE DIRECTIVE / LIVING WILL Power of Park Services Specialist 02/24/2023 POWER OF A TTORNEY Latest Code Status on File Code Status Date Activated Date Inactivated Comments Full Code 03/15/2021 12:36 AM 03/26/2021 8:36 PM This order reflects the patients wishes and were consensually agreed upon. Question Answer Comments Discussion of Advance Directives occurred with: Patient Does the patient have a Living Will? No Does the patient have Health Care Power of Park Services Specialist? No Code Status History Code Status Date Activated Date Inactivated Comments Full Code 07/10/2020 3:27 PM 07/12/2020 3:38 PM This o rder reflects the patients wishes and were consensually agreed upon. Question Answer Comments Discussion of Advance Directives occurred with: Patient Does the patient have a Living Will? No Does the patient have Health Care Power of Park Services Specialist? No Care Teams Electron Beam Welding Machine Operator Relationship Specialty Start Date End Date Maria Alejandra Mcginnis PA-C [address] [place] [address] PCP - General Physician Head And Neck Surgeon 07/31/21 documented as of this encounter
--- OUTSIDE RECORDS SUMMARY | 2023-08-06 23:48 | External Medical Summary ---
Author Name Unknown Address Unknown Organization K01:[facility] [address] [place] [address] Laboratory Report Ordering Provider Test Date Status VINAY AG 06/29/2023 12:01:54 Final Observation Date Value Abnormality Reference (Units ) Status Erythrocyte sedimentation rate by Photometric method 06/29/2023 12:01:54 78 Above high normal <20 (mm/hour) Final Performing Location [facility] [place] [address] [place] [address]
--- OUTSIDE RECORDS SUMMARY | 2023-08-06 23:48 | External Medical Summary | Summary of Care ---
Author Name Unknown Organization [facility] Address [address] [facility] [address] Phone [phone] Care Team Providers Care Barrel Raiser Name Role Phone Maria Alejandra Mcginnis PA-C Primary Care Provider +1 -[phone] Reason for Visit * Reason Onset Date Comments Test Results 06/13/2023 Encounter Details Date Type Department Care Team (Late st Contact Info) Description 06/13/2023 Telephone Cardiology, [facility] [address] [place] [address] Margaret Mcclain PA-C [address] [place] [address] Test Results Allergies Active Allergy Reactions Criticality Noted Date Comments Pollen Other (Please comment) 09/03/2019 sneezing documented as of this encounter (statuses as of 06/13/2023) Medications Medication Sig Dispensed Refills Start Date [...] as of this encounter (statuses as of 06/13/2023) Active Problems Problem Noted Date Diagnosed Date [...] as of this encounter (statuses as of 06/13/2023) Resolved Problems Problem Noted Date Diagnosed Date [...] as of this encounter (statuses as of 06/13/2023) Immunizations Name Administration Dates Next Due COVID-19 [...] Telephone Encounter - Analy Aponte CMA - 06/13/2023 3:27 PM EDT My g sent. * Telephone Encounter - Analy Aponte CMA - 06/13/2023 3:26 PM EDT ----- Message from Margaret Mcclain PA-C sent at 06/10/2023 4:58 PM EDT ----- No significant carotid stenosis noted. Good documented in this encounter Plan of Treatment Upcoming Encounters Date Type Department Care Team (Late st Contact Info) Description 06/23/2023 1:20 PM EDT Office Visit Dermatology, [place] [address] [facility] [address] Toña Parra PA-C [address] [place] [address] [place] [address] 06/29/2023 11:00 AM EDT Office Visit Family [facility], [place] [address] [facility] [phone] Maria Alejandra Mcginnis PA-C [address] [facility] [place] [address] 07/13/2023 1:00 PM EDT Nurse Only Ancillary Department, [place] [address] [place] [address] [place], Nurse Annual Wellness [address] [facility] [place] [address] 08/29/2023 1:00 PM EDT Cardiac Studies Cardiac Studies, [facility] [address] [facility] [place] [address] 10/10/2023 1:30 PM EDT Office Visit Cardiology, [facility] [address] [place] [address] Margaret Mcclain, [place]EM[place] [address] [place] [address] Health Maintenance Due Date Last Done Comments Zoster Vaccines (1 of 2) 1986 Pneumococcal Vaccine: 65+ Years (2 of 2 - PCV) 12/14/2008 12/15/2007 COVID-19 Vaccine ( season) 2022 11/13/2020, 06/03/2020, 05/08/2020 Depression Screening 07/01/2023 06/30/2022, 06/10/2016 (Discussed) Albumin/Creatinine Ratio 12/28/202312/27/2 023, 01/25/2022, 06/07/2016, Additional history exists CKD PHOS USE SMARTSET 64691 12/28/202312/12, 03/26/2021, 03/25/2021, Additional history exists HbA1c 12/28/2023 12/27/2022, 01/12, 01/16/2020, Additional history exists CKD HGB USE SMARTSET 39748 06/06/202406/06, 06/07/2023, 12/27/2022, Additional history exists TSH [...] this encounter Medical Devices Implanted Type Area Flight Manager Device Identifier Shelf Expiration Date Model / Serial / Lot Proglide Perclose 49494-42 X10 - [id number] Implanted:Qty: 1 on 07/10/2020 by Renard Galan, DO at [facility] : VASCULAR DEVICES [id number] 12/11/2021 55361-63 / / [id number] Proglide Perclose 88371-61 X10 - [id number] Implanted:Qty: 1 on 07/10/2020 by Renard Galan, DO at [facility] : VASCULAR DEVICES [id number] 12/11/2021 67168-07 / / [id number] Balloon Cath Pacing [id number] - [id number] Implanted:Qty: 1 on 07/10/2020 by Renard Galan, DO at [facility] : MEDICAL [id number] 05/11/2022 520 007P / / [id number] Valve Aort Evolut Proplus 29mm - [id number] Implanted:Qty: 1 on 07/10/2020 by Renard Galan, DO at [facility] [employer] : CARDIAC SURGERY 11/08/2021 EVPROPLUS- 29US / [id number] / [id number] Balloon Cath Pacing [id number] - [id number] Implanted:Qty: 1 on 07/10/2020 by Renard Galan, DO at [facility] : MEDICAL [id number] 05/11/2022 520 007P / / [id number] Coil Fibered 2 10mm 204960 - [id number] Implanted:Qty: 1 on 03/18/2021 at [facility] : NEURO INTR [id number] 06/18/2023 [id number] Coil Fibered 2 10mm 092337 - [id number] Implanted:Qty: 1 on 03/18/2021 at [facility] : NEURO INTR [id number] 06/18/2023 [id number] Coil Emboli Tornado 3x2 - [id number] Implanted:Qty: 1 on 03/18/2021 at [facility] [id number] 09/04/2025 [id number] / / [id number] Coil Emboli Tornado 3x2 - [id number] Implanted:Qty: 1 on 03/18/2021 at [facility] [id number] 12/25/2025 [id number] / / [id number] Sureclip 16mm 235cm - [id number] Implanted:Qty: 1 on 07/31/2021 by Reji Milian MD at [facility] Colon MICRO TECH ENDOSCOPY 09/22/2023 [id number] / / [id number] documented as of this encounter Advance Directives Documents on File Type Date 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 Question Answer Comments Discussion of Advance Directives occurred with: Patient Does the patient have a Living Will? No Does the patient have Health Care Power of Radio Script Writer? No Code Status History Code Status Date Activated Date Inactivated Comments Full Code 07/10/2020 3:27 PM 07/12/2020 3:38 PM This o rder reflects the patients wishes and were consensually agreed upon. Question Answer Comments Discussion of Advance Directives occurred with: Patient Does the patient have a Living Will? No Does the patient have Health Care Power of Radio Script Writer? No Care Teams Barrel Raiser Relationship Specialty Start Date End Date Maria Alejandra Mcginnis PA-C [address] [place] [address] PCP - General Physician Arborer 07/31/21 documented as of this encounter
--- OUTSIDE RECORDS SUMMARY | 2023-08-06 23:49 | External Medical Summary ---
Author Name Unknown Address Unknown Organization K01:[facility] - [address] [place] [address] Laboratory Report Ordering Provider Test Date Status RIP MARIE 06/07/2023 14:22:06 Final Observation Date Value Abnormality Reference (Units ) Status Magnesium 06/07/2023 14:22:06 2.4 1.5-2.6 (m g/dL) Final Performing Location [facility] - [address] [place] [address]
--- OUTSIDE RECORDS SUMMARY | 2023-08-06 23:49 | External Medical Summary | Summary of Care ---
Author Name Unknown Organization [facility] Address [address] [place] [address] Phone [phone] Care Team Providers Care Cutting And Splicing Supervisor Name Role Phone Maria Alejandra Mcginnis PA-C Primary Care Provider +1 -[phone] Reason for Referral * Evaluate & Treat - Unlimited Visits (Within 10 days (routine)) - Authorized Specialty Diagnoses / Procedures Referred By Tremayne t Referred To Contact Physical Therapy / Physical Medicine And Rehab Diagnoses Lower extremity pain, posterior, unspecified laterality Maria Alejandra Mcginnis PA-C [address] [place] [address] Referral ID Status Reason Start Date Expiration Date Visits Requested Visits Authorized [id number] Authorized Specialty Services Required 05/30/2023 999 999 Question Answer Referral Priority Within 10 days (routine) Where should this appointment be scheduled? External Reason for Visit * Reason Onset Date Comments Order Request 05/30/2023 Encounter Details Date Type Department Care Team (Late st Contact Info) Description 05/30/2023 Telephone [facility] [address] [place] [address] Maria Alejandra Mcginnis PA-C [address] [place] [address] Order Request Allergies Active Allergy Reactions Criticality Noted Date Comments Pollen Other (Please comment) 09/03/2019 sneezing documented as of this encounter (statuses as of 05/31/2023) Medications Medication Sig Dispensed Refills Start Date End Date Status MULTI-VITAMIN/MINERA LS PO TABS ONE EACH DAY 0 10/05/2013 Active Amoxicillin 500 MG Oral Capsule (Amoxil) Take 4 tablets by mouth one hour prior to any dental procedure or cleaning 12 Capsule 3 09/02/2021 Active Additional Information Patient not taking.Reported on 12/27/2022 Metoprolol Succinate ER 25 MG Oral Tablet Extended Release 24 Hour (toPROL XL)Indications:PVC (premature ventricular contraction) take 1/2 tablet by mouth every morning 45 Tablet 3 04/30/2022 Active Ferrous Sulfate 324 MG Oral Tablet Delayed Release Take by mouth. 0 Activ e Zoster Vac Recomb Adjuvanted 50 MCG/0.5ML Intramuscular [...] the morning. 16 g 5 04/12/2023 Active Tamsulosin HCl 0.4 MG Oral Capsule (Flomax) Take 1 Capsule by mouth in the morning. 90 Capsule 3 04/12/2023 Active documented as of this encounter (statuses as of 05/31/2023) Active Problems Problem Noted Date Diagnosed Date [...] as of this encounter (statuses as of 05/31/2023) Resolved Problems Problem Noted Date Diagnosed Date [...] as of this encounter (statuses as of 05/31/2023) Immunizations Name Administration Dates Next Due COVID-19 [...] encounter Miscellaneous Notes * Telephone Encounter - Rebecca Castillo LPN - 05/31/2023 8:58 AM EDT Patient calling. Carlos has not received the fax. Informed it was just sent at 8:30 a.m. he will call and check with them again. * Telephone Encounter - Toña Galvan OSA - 05/31/2023 8:29 AM EDT Faxed. 05/31/2023 * Telephone Encounter - Maria Alejandra Mcginnis PA-C - 05/30/2023 4:25 PM EDT Lower extremity pain, posterior, unspecified laterality (Primary) - PHYSICAL THERAPY REFERRAL OP Maria Alejandra Mcginnis PA-C 05/30/2023 4:25 PM * Telephone Encounter - Heather Charles LPN - 05/30/2023 1:48 PM EDT Pt is calling. Reports that his left leg is really painful to the back of his hamstring and up toward his buttocksa little bit. Also reports that he had a hard time walking yesterday. Prior to Tuesday, the pt was walking 3 miles every day. Is requesting a referral to [facility] in [place] as he has seen them in the past for this. Their fax # is [phone]. Referral pended. Please advise. documented in this encounter Plan of Treatment Upcoming Encounters Date Type Department Care Team (Late st Contact Info) Description 06/07/2023 1:30 PM EDT Office Visit Cardiology, [facility] [address] [facility] [place] [address] Margaret Mcclain PA-C [address] [facility] [place] [address] 06/23/2023 1:20 PM EDT Office Visit Dermatology, [place] [address] [facility] [place] [address] Toña Parra PA-C [address] [place] [address] [place] [address] 06/29/2023 11:00 AM EDT Office Visit Family [facility], [place] [address] [facility] [address] Maria Alejandra Mcginnis PA-C [address] [facility] [address] 07/13/2023 1:00 PM EDT Nurse Only Ancillary Department, [place] [address] [place] [address] [place], Nurse Annual Wellness [address] [facility] [place] [address] 08/29/2023 1:00 PM EDT Cardiac Studies Cardiac Studies, [facility] [address] [place] [address] Scheduled Referrals Name Type Priority Associated Diagnoses Orde r Schedule PHYSICAL THERAPY REFERRAL OP Referral Within 10 days (routine) Lower extremity pain, posterior, unspecified laterality Ordered: 05/30/2023 Health Maintenance Due Date Last Done Comments Zoster Vaccines (1 of 2) 1986 Pneumococcal Vaccine: 65+ Years (2 of 2 - PCV) 12/14/2008 12/15/2007 COVID-19 Vaccine ( season) 2022 11/13/2020, 06/03/2020, 05/08/2020 Depression Screening 07/01/2023 06/30/2022, 06/10/2016 (Discussed) Albumin/Creatinine Ratio 12/28/2023 023, 01/25/2022, 06/07/2016, Additional history exists CKD HGB USE SMARTSET 47551 12/28/202312/27, 01/21/2022, 06/24/2021, Additional history exists CKD PHOS USE SMARTSET 76077 12/28/202312/12, 03/26/2021, 03/25/2021, Additional history exists HbA1c [...] this encounter Medical Devices Implanted Type Area Loft Worker Device Identifier Shelf Expiration Date Model / Serial / Lot Proglide Perclose 86416-19 X10 - [id number] Implanted:Qty: 1 on 07/10/2020 by Renard Galan, DO at [facility] VASCULAR DEVICES [id number] 12/11/2021 13771-25 / / [id number] Proglide Perclose 33317-85 X10 - [id number] Implanted:Qty: 1 on 07/10/2020 by Renard Galan, DO at [facility] : VASCULAR DEVICES [id number] 12/11/2021 84813-91 / / [id number] Balloon Cath Pacing [id number] - [id number] Implanted:Qty: 1 on 07/10/2020 by Renard Galan, DO at [facility] LABS [facility] : MEDICAL [id number] 05/11/2022 520 007P / / [id number] Valve Aort Evolut Proplus 29mm - [id number] Implanted:Qty: 1 on 07/10/2020 by Renard Galan, DO at [facility] [employer] : CARDIAC SURGERY 11/08/2021 EVPROPLUS- 29US / [id number] / [id number] Balloon Cath Pacing [id number] - [id number] Implanted:Qty: 1 on 07/10/2020 by Renard Galan, DO at [facility] : MEDICAL [id number] 05/11/2022 520 007P / / [id number] Coil Fibered 2 10mm 484322 - [id number] Implanted:Qty: 1 on 03/18/2021 at [facility] : NEURO INTR [id number] 06/18/2023 [id number] Coil Fibered 2 10mm 229020 - [id number] Implanted:Qty: 1 on 03/18/2021 at [facility] : NEURO INTR [id number] 06/18/2023 [id number] Coil Emboli Tornado 3x2 - [id number] Implanted:Qty: 1 on 03/18/2021 at [facility] [id number] 09/04/2025 [id number] / / [id number] Coil Emboli Tornado 3x2 - [id number] Implanted:Qty: 1 on 03/18/2021 at [facility] [id number] 12/25/2025 [id number] / / [id number] Sureclip 16mm 235cm - [id number] Implanted:Qty: 1 on 07/31/2021 by Reji Milian MD at ENDOSCOPY [facility] Colon MICRO TECH ENDOSCOPY 09/22/2023 [id number] / / [id number] documented as of this encounter Visit Diagnoses Diagnosis Lower extremity pain, posterior, unspecified laterality- Primary documented in this encounter Advance Directives Documents on File Type Date Recorded 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 Question Answer Comments Discussion of Advance Directives occurred with: Patient Does the patient have a Living Will? No Does the patient have Health Care Power of Tongue And Groove Machine Setter? No Code Status History Code Status Date Activated Date Inactivated Comments Full Code 07/10/2020 3:27 PM 07/12/2020 3:38 PM This o rder reflects the patients wishes and were consensually agreed upon. Question Answer Comments Discussion of Advance Directives occurred with: Patient Does the patient have a Living Will? No Does the patient have Health Care Power of Tongue And Groove Machine Setter? No Care Teams Cutting And Splicing Supervisor Relationship Specialty Start Date End Date Maria Alejandra Mcginnis PA-C [address] [place] [address] PCP - General Physician Senior Sql Dba 07/31/21 documented as of this encounter
--- OUTSIDE RECORDS SUMMARY | 2023-08-06 23:49 | External Medical Summary ---
Author Name Unknown Address Unknown Organization K01:[facility] [address] [place] [address] Laboratory Report Ordering Provider Test Date Status RIP MARIE 06/07/2023 14:22:06 Final Observation Date Value Abnormality Reference (Units ) Status LDL, (direct) 06/07/2023 14:22:06 81 <=129 (mg/dL) Final LDL Cholesterol Reference Ra nges (mg/dL):
<70 Target level for high risk ASCVD patient
<100 Optimal for general population
100-129 Near optimal for general population
130-159 Borderline high
160-189 High
>=190 Very high Performing Location [facility] - [address] [place] [address]
--- OUTSIDE RECORDS SUMMARY | 2023-08-06 23:49 | External Medical Summary | Summary of Care ---
Author Name Unknown Organization [facility] Address [address] [place] [address] Phone [phone] Care Team Providers Care Delivery Room Supervisor Name Role Phone Maria Alejandra Mcginnis PA-C Primary Care Provider [phone] Reason for Visit * Reason Comments eRx-Medication Refill Encounter Details Date Type Department Care Team (Late st Contact Info) Description 02/10/2023 Refill [facility] [address] [place] [address] Maria Alejandra Mcginnis PA-C [address] [place] [address] Acquired hypothyroidism Allergies Active Allergy Reactions Criticality Noted Date Comments Pollen Other (Please comment) 09/03/2019 sneezing documented as of this encounter (statuses as of 02/10/2023) Medications Medication Sig Dispensed Refills Start Date End Date Status MULTI-VITAMIN/CAT SCAN TECHNOLOGIST ALS PO TABS ONE EACH DAY 0 4 Active Amoxicillin 500 MG Oral Capsule (Amoxil) Take 4 tablets by mouth one hour prior to any dental procedure or cleaning 12 Capsule 3 2 Active Additional Information Patient not taking.Reported on 12/27/2022 Metoprolol Succinate ER 25 MG Oral Tablet Extended Release 24 Hour (toPROL XL)Indications:PVC (premature ventricular contraction) take 1/2 tablet by mouth every morning 45 Tablet 3 3 Active Ferrous Sulfate 324 MG Oral Tablet [...] OTHER MEDS 90 Tablet 3 3 Active Levothyroxine Sodium 137 MCG Oral TabletIndications:A cquired hypothyroidism TAKE 1 TABLET BY MOUTH ONCE DAILY (AT LEAST 30 MIN PRIOR TO BREAKFAST OR OTHER MEDS) 90 Tablet 0 3 02/11/20 23 Discontinued documented as of this encounter (statuses as of 02/10/2023) Active Problems Problem Noted Date Diagnosed Date [...] as of this encounter (statuses as of 02/10/2023) Resolved Problems Problem Noted Date Diagnosed Date [...] as of this encounter (statuses as of 02/10/2023) Immunizations Name Administration Dates Next Due COVID-19 [...] Packs/Day Years Used Date Smoking Tobacco: Former Smokeless Tobacco: Never Comments:1-2 years in colleg [...] encounter Miscellaneous Notes * Telephone Encounter - Bandar Romero [facility] - 02/10/2023 11:38 AM EST Signed Prescriptions: Disp Refills Levothyroxine Sodium 137 MCG Oral Tablet 90 Tab*3 Sig: TAKE 1 TABLET BY MOUTH ONCE DAILY AT LEAST 30 MINUTES PRIOR TO BREAKFAST OR OTHER MEDSAuthorizing Provider: MARIA ALEJANDRA MCGINNIS User: BANDAR ROMERO documented in this encounter Plan of Treatment Upcoming Encounters Date Type Department Care Team (Late st Contact Info) Description 06/07/2023 1:30 PM EDT Office Visit Cardiology, [facility] [address] [place] [address] Margaret Mcclain PA-C [address] [place] [address] 06/23/2023 1:20 PM EDT Office [address] [phone] Toña Parra PA-C [address] [place] [address] [place] [phone] 06/29/2023 11:00 AM EDT Office Visit [facility], [place] [address] [facility] [phone] Maria Alejandra Mcginnis PA-C [address] [facility] [address] 07/13/2023 1:00 PM EDT Nurse Only Ancillary Department, [place] [address] [facility] [address] [place], Nurse [facility] [address] [facility] [place] [address] 08/29/2023 1:00 PM EDT Cardiac Studies Cardiac Studies, [facility] [address] [facility] [place] [address] Scheduled Procedures Name Priority Associated Diagnoses Date/Ti me COLONOSCOPY FLEXIBLE PROXIMAL DIAGNOSTIC Colorectal cancer (HCC) Health Maintenance Due Date Last Done Comments Zoster Vaccines (1 of 2) 1986 Pneumococcal Vaccine: 65+ Years (2 - PCV) 12/14/2008 12/15/2007 COVID-19 Vaccine ( season) 2022 11/13/2020, 06/03/2020, 05/08/2020 Depression Screening 07/01/2023 06/30/2022, 06/10/2016 (Discussed) Albumin/Creatinine Ratio 12/28/202312/27/2 023, 01/25/2022, 06/07/2016, Additional history exists CKD HGB USE SMARTSET 36659 12/28/202312/27, 01/21/2022, 06/24/2021, Additional history exists CKD PHOS USE SMARTSET 58187 12/28/202312/12, 03/26/2021, 03/25/2021, Additional history exists HbA1c [...] this encounter Medical Devices Implanted Type Area Advertising Account Executive Device Identifier Shelf Expiration Date Model / Serial / Lot Balloon Cath Pacing [id number] - [id number] Implanted:Qty: 1 on 07/10/2020 by Renard Galan DO at [facility]AC [facility]S [facility] : MEDICAL [id number] 05/11/2022 [id number] [id number] / / [id number] Coil Emboli Tornado 3x2 - [id number] Implanted:Qty: 1 on 03/18/2021 at [facility] [employer] [id number] 12/25/2025 [id number] / / [id number] Sureclip 16mm 235cm - [id number] Implanted:Qty: 1 on 07/31/2021 by Reji Milian MD at ENDOSCOPY [facility] Colon MICRO TECH ENDOSCOPY 09/22/2023 [id number] / / [id number] documented as of this encounter Visit Diagnoses Diagnosis Acquired hypothyroidism Unspecified hypothyroidism documented in this encounter Advance Directives Latest Code Status on File Code Status Date Activated Date Inactivated Comments Full Code 03/15/2021 12:36 AM 03/26/2021 8:36 PM This order reflects the patients wishes and were consensually agreed upon. Question Answer Comments Discussion of Advance Directives occurred with: Patient Does the patient have a Living Will? No Does the patient have Health Care Power of Surface Plate Inspector? No Code Status History Code Status Date Activated Date Inactivated Comments Full Code 07/10/2020 3:27 PM 07/12/2020 3:38 PM This o rder reflects the patients wishes and were consensually agreed upon. Question Answer Comments Discussion of Advance Directives occurred with: Patient Does the patient have a Living Will? No Does the patient have Health Care Power of Surface Plate Inspector? No Care Teams Delivery Room Supervisor Relationship Specialty Start Date End Date Maria Alejandra Mcginnis PA-C [address] [place] [address] PCP - General Physician Business Assistant 07/31/21 documented as of this encounter
--- OUTSIDE RECORDS SUMMARY | 2023-08-06 23:49 | External Medical Summary | Summary of Care ---
Author Name Unknown Organization [facility] Address [address] [place] [address] Phone [phone] Care Team Providers Care Osteopathy Doctor Name Role Phone Maria Alejandra Mcginnis PA-C Primary Care Provider [phone] Reason for Visit * Reason Onset Date Comments Health Maintenance 02/11/2023 Encounter Details Date Type Department Care Team (Late st Contact Info) Description 02/11/2023 Telephone [facility] [address] [place] [address] Maria Alejandra Mcginnis PA-C [address] [place] [address] Health Maintenance Allergies Active Allergy Reactions Criticality Noted Date Comments Pollen Other (Please comment) 09/03/2019 sneezing documented as of this encounter (statuses as of 02/11/2023) Medications Medication Sig Dispensed Refills Start Date [...] OTHER MEDS 90 Tablet 3 02/10/2023 Active documented as of this encounter (statuses as of 02/11/2023) Active Problems Problem Noted Date Diagnosed Date [...] as of this encounter (statuses as of 02/11/2023) Resolved Problems Problem Noted Date Diagnosed Date [...] as of this encounter (statuses as of 02/11/2023) Immunizations Name Administration Dates Next Due COVID-19 mRNA, LNP-s, No Pre serve, 2-Dose Series (Callystro) 11/13/2020,06/03/2020,05/08/2020 Pneumococcal Polysaccharide PPV23 (Pneumovax) 12/15/2007 Season [...] encounter Miscellaneous Notes * Telephone Encounter - Katie Dooley LPN - 02/11/2023 1:35 PM EST Care Gaps Comprehensive Care Outreach Last Office/Telemedicine Visit: 12/27/2022 (in office), Visit date not found (telemedicine) Next Office Visit: 06/29/2023 Hemoglobin AIC Results: Lab Results Component Value Date/Time HEMOGLOBIN A1C - [facility] 5.8 (H) 12/27/2022 09:46 AM HEMOGLOBIN A1C - [facility] 5.6 01/21/2022 08:03 AM HEMOGLOBIN A1C - [facility] 5.5 01/16/2020 08:56 AM HEMOGLOBIN A1C - [facility] 6.3 (H) 10/18/2018 03:14 PM HEMOGLOBIN A1C - [facility] 6.0 02/03/2010 10:42 AM Reviewed Health Maintenance below: Health Maintenance Topic Date Due Zoster Vaccines (1 of 2) Never done Pneumococcal Vaccine: 65+ Years (2 - PCV) 12/14/2008 COVID-19 Vaccine (4 - 2022- season) 2022 Depression Screening 07/01/2023 Care Gap Outreach Action Taken: Outreach not indicated documented in this encounter Plan of Treatment Upcoming Encounters Date Type Department Care Team (Late st Contact Info) Description 06/07/2023 1:30 PM EDT Office Visit Cardiology, [facility] [address] [place] [address] Margaret Mcclain PA-C [address] [place] [address] 06/23/2023 1:20 PM EDT Office Visit Dermatology [address] [place] [address] Toña Parra PA-C [address] [place] [address] [place] [address] 06/29/2023 11:00 AM EDT Office Visit [facility], [place] [address] [facility] [phone] Maria Alejandra Mcginnis PA-C [address] [facility] [place] [address] 07/13/2023 1:00 PM EDT Nurse Only Ancillary Department, [place] [address] [facility] [address] [place], Nurse Annual Wellness [address] [place] [place] [address] 08/29/2023 1:00 PM EDT Cardiac Studies Cardiac Studies, [facility] [address] [facility] [place] [address] Scheduled Procedures Name Priority Associated Diagnoses Date/Ti [...] Additional history exists CKD HGB USE SMARTSET 11414 12/28/202312/27, 01/21/2022, 06/24/2021, Additional history exists CKD PHOS USE SMARTSET 33899 12/28/202312/12, 03/26/2021, 03/25/2021, Additional history exists HbA1c [...] this encounter Medical Devices Implanted Type Area Polymerization Kettle Operator Device Identifier Shelf Expiration Date Model / Serial / Lot Balloon Cath Pacing [id number] - [id number] Implanted:Qty: 1 on 07/10/2020 by Renard Galan DO at [facility]ARD[facility]AC LABS [facility] : MEDICAL [id number] 05/11/2022 520 007P / / [id number] Coil Emboli Tornado 3x2 - [id number] Implanted:Qty: 1 on 03/18/2021 at [facility] [employer] [id number] 12/25/2025 [id number] / / [id number] Sureclip 16mm 235cm - [id number] Implanted:Qty: 1 on 07/31/2021 by Reji Milian MD at ENDOSCOPY [facility] Colon MICRO TECH ENDOSCOPY 09/22/2023 [id number] / / [id number] documented as of this encounter Advance Directives Latest Code Status on File Code Status Date Activated Date Inactivated Comments Full Code 03/15/2021 12:36 AM 03/26/2021 8:36 PM This order reflects the patients wishes and were consensually agreed upon. Question Answer Comments Discussion of Advance Directives occurred with: Patient Does the patient have a Living Will? No Does the patient have Health Care Power of Marriage Performer? No Code Status History Code Status Date Activated Date Inactivated Comments Full Code 07/10/2020 3:27 PM 07/12/2020 3:38 PM This o rder reflects the patients wishes and were consensually agreed upon. Question Answer Comments Discussion of Advance Directives occurred with: Patient Does the patient have a Living Will? No Does the patient have Health Care Power of Marriage Performer? No Care Teams Osteopathy Doctor Relationship Specialty Start Date End Date Maria Alejandra Mcginnis PA-C [address] [place] [address] PCP - General Physician Piece Hand 07/31/21 documented as of this encounter
--- OUTSIDE RECORDS SUMMARY | 2023-08-06 23:49 | External Medical Summary ---
Author Name Unknown Address Unknown Organization [id number]:[facility] [address] [place] [address] Laboratory Report Ordering Provider Test Date Status RIP MARIE 06/07/2023 14:22:06 Final Observation Date Value Abnormality Reference (Units ) Status TSH 06/07/2023 14:22:06 0.79 0.27-4.20 (uIU/mL) Final Performing Location LABORATORY C - [address] [place] [address]
--- OUTSIDE RECORDS SUMMARY | 2023-08-06 23:49 | External Medical Summary | Summary of Care ---
Author Name Unknown Organization [facility] Address [address] [place] [address] Phone [phone] Care Team Providers Care Commercial Airplane Pilot Name Role Phone Maria Alejandra Mcginnis PA-C Primary Care Provider [phone] Reason for Referral * Evaluate & Treat - Unlimited Visits (Within 10 days (routine)) - Authorized Specialty Diagnoses / Procedures Referred By Tremayne t Referred To Contact Physical Therapy / Physical Medicine And Rehab Diagnoses Lower extremity pain, posterior, unspecified laterality Maria Alejandra Mcginnis PA-C [address] [place] [address] Referral ID Status Reason Start Date Expiration Date Visits Requested Visits Authorized [id number] Authorized Specialty Services Required 05/30/2023 999 999 Question Answer Referral Priority Within 10 days (routine) Where should this appointment be scheduled? External Reason for Visit * Reason Onset Date Comments Order Request 05/30/2023 Encounter Details Date Type Department Care Team (Late st Contact Info) Description 05/30/2023 Telephone [facility] [address] [place] [address] Maria Alejandra Mcginnis PA-C [address] [place] [address] Order Request Allergies Active Allergy [...] encounter Miscellaneous Notes * Telephone Encounter - Toña Galvan OSA [...] every day. Is requesting a referral to [facility] in [place] as he has seen them in the past for this. Their fax # is [phone]. Referral pended. Please advise. documented in this encounter Plan of Treatment Upcoming Encounters Date Type Department Care Team (Late st Contact Info) Description 06/07/2023 1:30 PM EDT Office Visit Cardiology, [facility] [address] [place] [address] Margaret Mcclain PA-C [address] [place] [address] 06/23/2023 1:20 PM EDT Office Visit [address]atology, [address] [address] Toña Parra PA-C [address] [place] [address] [place] [address] 06/29/2023 11:00 AM EDT Office Visit Family Practice, [address] [phone] Maria Alejandra Mcginnis PA-C [address] [facility] [address] 07/13/2023 1:00 PM EDT Nurse Only Ancillary Department, [place] [address] [facility] [place] [address] John Nurse Annual Wellness [address] [facility] [address] 08/29/2023 1:00 PM EDT Cardiac Studies Cardiac Studies, [facility] [address] [facility] [place] [address] Scheduled Referrals Name Type Priority Associated Diagnoses [...] Additional history exists CKD HGB USE SMARTSET 26429 12/28/202312/27, 01/21/2022, 06/24/2021, Additional history exists CKD PHOS USE SMARTSET 62794 12/28/202312/12, 03/26/2021, 03/25/2021, Additional history exists HbA1c [...] this encounter Medical Devices Implanted Type Area International Exchange Coordinator Device Identifier Shelf Expiration Date Model / Serial / Lot Proglide Perclose [id number] X10 - [id number] Implanted:Qty: 1 on 07/10/2020 by Renard Galan, DO at [facility]AC [facility]ASCULAR DEVICES [id number] 12/11/2021 [id number] / / [id number] Proglide Perclose 78671-14 X10 - [id number] Implanted:Qty: 1 on 07/10/2020 by Renard Galan, DO at [facility] [id number] 12/11/2021 46192-20 / / [id number] Balloon Cath Pacing [id number] - [id number] Implanted:Qty: 1 on 07/10/2020 by Renard Galan, DO at [facility] [employer] : MEDICAL [id number] 05/11/2022 520 007P / / [id number] Valve Aort Evolut Proplus 29mm - [id number] Implanted:Qty: 1 on 07/10/2020 by Renard Galan, DO at [facility]AC [facility] [employer] : CARDIAC SURGERY 11/08/2021 EVPROPLUS- 29US / [id number] / [id number] Balloon Cath Pacing [id number] - [id number] Implanted:Qty: 1 on 07/10/2020 by Renard Galan, DO at [facility] : MEDICAL [id number] 05/11/2022 520 007P / / [id number] Coil Fibered 2 10mm [id number] - [id number] Implanted:Qty: 1 on 03/18/2021 at [facility] [employer] : NEURO INTR [id number] 06/18/2023 [id number] Coil Fibered 2 10mm [id number] - [id number] Implanted:Qty: 1 on 03/18/2021 at [facility] [employer] : NEURO INTR [id number] 06/18/2023 [id number] Coil Emboli Tornado 3x2 - [id number] Implanted:Qty: 1 on 03/18/2021 at [facility] [id number] 09/04/2025 [id number] / / [id number] Coil Emboli Tornado 3x2 - [id number] Implanted:Qty: 1 on 03/18/2021 at [facility] [id number] 12/25/2025 [id number] / / [id number] Sureclip 16mm 235cm - [id number] Implanted:Qty: 1 on 07/31/2021 by Reji Milian MD at [facility]OSCOPY [facility] Colon MICRO TECH ENDOSCOPY 09/22/2023 [id number] / / [id number] documented as of this encounter Visit Diagnoses Diagnosis Lower extremity pain, posterior, unspecified laterality- Primary documented in this encounter Advance Directives Documents on File Type Date Recorded 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 Question Answer Comments Discussion of Advance Directives occurred with: Patient Does the patient have a Living Will? No Does the patient have Health Care Power of Bean Sprout Laborer? No Code Status History Code Status Date Activated Date Inactivated Comments Full Code 07/10/2020 3:27 PM 07/12/2020 3:38 PM This o rder reflects the patients wishes and were consensually agreed upon. Question Answer Comments Discussion of Advance Directives occurred with: Patient Does the patient have a Living Will? No Does the patient have Health Care Power of Bean Sprout Laborer? No Care Teams Commercial Airplane Pilot Relationship Specialty Start Date End Date Maria Alejandra Mcginnis PA-C [address] [facility] [place] [address] PCP - General Physician Carpet Journeyman 07/31/21 documented as of this encounter
--- OUTSIDE RECORDS SUMMARY | 2023-08-06 23:49 | External Medical Summary ---
Author Name Unknown Address Unknown Organization [id number]:[facility] [address] - [address] [place] [address] Laboratory Report Ordering Provider Test Date Status RIP MARIE 06/07/2023 14:22:06 Final Observation Date Value Abnormality Reference (Units ) Status BUN 06/07/2023 14:22:06 22 Above high normal 6-20 (mg/dL) Final Creatinine 06/07/2023 14:22:06 1.3 Above high normal 0.6-1.2 (mg/dL) Final Glomerular filtration rate/1.73 sq M.predicted [Volume Rate/Area] in Serum, Plasma or Blood by Creatinine-based formula (CKD-EPI) 06/07/2023 14:22:06 51 Below low normal >=60 (mL/min) Final eGFR is calculated based on the CKD-EPI 2020 equation Sodium 06/07/2023 14:22:06 138 135-146 (m mol/L) Final Potassium 06/07/2023 14:22:06 4.8 3.5-5.1 (m mol/L) Final Cl 06/07/2023 14:22:06 99 98-107 (mm ol/L) Final CO2 06/07/2023 14:22:06 29 22-32 (mmo l/L) Final Anion gap 06/07/2023 14:22:06 10 7-15 (mmol /L) Final Glucose 06/07/2023 14:22:06 89 70-120 (mg /dL) Final Albumin 06/07/2023 14:22:06 4.1 3.8-5.0 (g /dL) Final AST (Aspartate aminotransferase) 06/07/2023 14:22:06 21 10-50 (U/L) Final Alk Phos 06/07/2023 14:22:06 106 35-130 (U/ L) Final Bilirubin, Total 06/07/2023 14:22:06 0.5 <=1 .2 (mg/dL) Final Calcium 06/07/2023 14:22:06 9.2 8.4-10.2 ( mg/dL) Final Protein 06/07/2023 14:22:06 7.3 6.0-8.3 (g /dL) Final ALT (Alanine aminotransferase) 06/07/2023 14:22:06 13 10-50 (U/L) Final Performing Location LABORATORY [place] [address] - [address] [facility] [address]
--- OUTSIDE RECORDS SUMMARY | 2023-08-06 23:49 | External Medical Summary ---
Author Name Unknown Address Unknown Organization [id number]:[facility]ATORY [place] [address] - [address] [place] [address] Laboratory Report Ordering Provider Test Date Status RIP MARIE 06/07/2023 14:22:06 Final Observation Date Value Abnormality Reference (Units ) Status WBC, Total 06/07/2023 14:22:06 16.17 Above high normal 4 .00-10.80 (K/uL) Final RBC 06/07/2023 14:22:06 5.00 4.50-5.25 (M/uL) Final Hemoglobin 06/07/2023 14:22:06 14.1 14.0-16.8 (g/dL) Final HCT 06/07/2023 14:22:06 43.6 40.0-48.4 (%) Final MCV 06/07/2023 14:22:06 87.2 82.0-99.5 (fL) Final MCH 06/07/2023 14:22:06 28.2 27.0-34.0 (pg) Final MCHC 06/07/2023 14:22:06 32.3 32.0-36.0 (g/dL) Final RDW 06/07/2023 14:22:06 15.3 11.5-15.5 (%) Final Platelets 06/07/2023 14:22:06 528 Above high normal 14 0-400 (K/uL) Final MPV 06/07/2023 14:22:06 10.0 6.6-11.1 ( fL) Final Performing [facility] - [address] [place] [address]
--- OUTSIDE RECORDS SUMMARY | 2023-08-06 23:49 | External Medical Summary ---
Author Name Unknown Address Unknown Organization K0G:LABORATORY [place] [address] - [address] [place] [address] Laboratory Report Ordering Provider Test Date Status RIP MARIE 06/07/2023 14:22:06 Final Observation Date Value Abnormality Reference (Units ) Status SYNC LEUKOCYTES IN BLOOD BY AUTOMATED COUNT 06/07/2023 14:22:06 16.17 Above high normal 4.00-10.80 (K/uL) Final Segs 06/07/2023 14:22:06 86.5 Above high normal 40.0-75.0 (%) Final Lymphs % 06/07/2023 14:22:06 6.4 Below low normal 18.0-42.0 (%) Final Monos 06/07/2023 14:22:06 6.6 1.0-11.0 (%) Final Eosinophils 06/07/2023 14:22:06 0.3 0.0-6.0 (%) Final Basos 06/07/2023 14:22:06 0.2 0.0-2.0 (%) Final Absolute Segs 06/07/2023 14:22:06 13.97 Above high normal 1.80-7.70 (K/uL) Final Lymphs, absolute 06/07/2023 14:22:06 1.04 1.00-4.80 (K/ul) Final Monos, Abs 06/07/2023 14:22:06 1.07 0.00-1.10 (K/uL) Final Eos, Abs 06/07/2023 14:22:06 0.05 0.00-0.70 (K/uL) Final Basos, Abs 06/07/2023 14:22:06 0.04 0.00-0.20 (K/uL) Final Performing Location LABORATORY [facility] [address] - [address] [place] [address]
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
--- OUTSIDE RECORDS SUMMARY | 2023-08-06 23:49 | External Medical Summary | Summary of Care ---
Author Name Unknown Organization [facility] Address [address] [facility] [place] [address] Phone [phone] Care Team Providers Care Screen Printing Press Operator Name Role Phone Maria Alejandra Mcginnis PA-C Primary Care Provider [phone] Reason for Visit * Reason Comments Follow Up Encounter Details Date Type Department Care Team (Late st Contact Info) Description 06/07/2023 1:30 PM EDT Office Visit Cardiology, [facility] [address] [place] [address] Margaret Mcclain PA-C [address] [place] [address] S/P TAVR (transcatheter aortic valve replacement)*; HTN, goal below 140/90; Dizziness; Visual changes; Bilateral carotid bruits; Aneurysm of ascending aorta without rupture (HCC) Allergies Active Allergy Reactions Criticality Noted Date Comments Pollen Other (Please comment) 09/03/2019 sneezing documented as of this encounter (statuses as of 06/07/2023) Medications Medication Sig Dispensed Refills Start Date End Date Status MULTI-VITAMIN/DEVICE SALES CONSULTANT ALS PO TABS ONE EACH DAY 0 10/05/2013 [...] 12/27/2022 Active Levothyroxine Sodium 137 MCG Oral TabletIndications:A [...] mouth in the morning. 0 06/07/2023 Active Ferrous Sulfate 324 MG Oral Tablet Delayed Release Take by mouth. 0 Discontinu ed(Patient preference /discontin uation) documented as of this encounter (statuses as [...] Sign Reading Time Taken Comments Blood Pressure 136/64 06/07/2023 1:20 PM EDT Pulse 60 06/07/2023 1:20 PM EDT Temperature - - Respiratory Rate 14 06/07/2023 1:20 PM EDT Oxygen Saturation - - Inhaled Oxygen Concentration - - Weight 93.4 kg (206 lb) 06/07/2023 1:20 PM EDT Height - - Body Mass Index 31.32 06/30/2022 9:31 AM EDT documented in this [...] this encounter Patient Instructions * Patient Instructions* Margaret Mcclain PA-C - 06/07/2023 2:05 PM EDT Restart Aspirin 81 mg - 1 tablet daily documented in this encounter Progress Notes * Margaret Mcclain PA-C - 06/07/2023 1:29 PM EDT 06/07/2023 Cardiology F/U: HPI: Patient is a 88-year-old male who presents today routine cardiology follow- up. Last clinic evaluation approximately 6 months ago undersigned. 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 Patient presents with several concerns. Patient reports ongoing weight loss and of appetite. Last visit he was "motivated" to lose weight. Now down 40 lbs and feels he "is not trying". No change in bowel habits. No melena or hematochezia. He also reports intermittent dizziness. Occurs with walking or standing. Hits suddenly. No palpitations. No syncope or near syncope. He has intermittent floaters/visual disturbances. No loss of vision. No chest pain or dyspnea. No orthopnea, PND or edema. His BP is controlled. Normal EKG today. No current symptoms in the office. Has PCP office visit in several weeks. Patient stopped ASA last year. He reports he saw where it was "bad for you". Review of Systems: See HPI for pertinent positives. All others negative, other than those noted in HPI. Cardiac studies/labs: EKG performed today and reviewed personally: Normal sinus rhythm Normal ECG When compared with ECG of 02-Sep-2021 13:08, Premature ventricular complexes are no longer Present Echo report reviewed from August 2022: Interpretation Summary The examination is adequate to evaluate the referral indication. The qualitative LV ejection fraction is 60-64% (normal). The patient is status post TAVR with Priti type prosthetic valve. The aortic valve prosthesis systolic gradients are normal for this type prosthesis. Mild paravalvular aortic valve prosthesis regurgitation is present. Mild tricuspid regurgitation is present. There is no evidence of pulmonary hypertension. The aortic root is mildly enlarged, 4.0 cm. The ascending aorta is moderately enlarged, 4.7 cm. Compared to last available study changes are noted as follows: Aortic root diameter has mildly increased, previously measuring 3.8 cm. EKG reviewed from August 2021: Sinus rhythm with frequent Premature ventricular complexes Otherwise normal ECG When compared with ECG of 23-MAR-2021 08:48, Premature ventricular complexes are now Present Echocardiogram report reviewed dated August 2021: Interpretation Summary The primary indication after review was deemed appropriate and the examination was performed. Compared to last available study, there has been no interval change. Normal LV chamber size and wall thickness. Normal LV systolic function without regional wall motion abnormality. Calculated LV ejection Fraction = 61% (bi-plane method of discs). Grade I diastolic dysfunction. The patient is status post TAVR with Priti type prosthetic valve. Aortic valve prosthesis stenosisis absent. Mild paravalvular aortic valve prosthesis regurgitation is present. The aortic root is normal sized. The proximal ascending thoracic aorta is moderately enlarged at 4.7 cm. Outpatient ZIO monitor report reviewed dated 03/08/21: Patient had a min HR of 42 bpm, max HR of 190 bpm, and avg HR of 76 bpm. Predominant underlying rhythm was Sinus Rhythm. 3 Ventricular Tachycardia runs occurred, the run with the fastest interval lasting 13 beats with a max rate of 190 bpm (avg 151 bpm); the run with the fastest interval was also the longest. 118 Supraventricular Tachycardia runs occurred, the run with the fastest interval lasting 7 beats with a max rate of 176 bpm, the longest lasting 15.3 secs with an avg rate of 94 bpm. Isolated SVEs were frequent (6.3%, 91807), SVE Couplets were rare (<1.0%, 285), and SVE Triplets were rare (<1.0%, 179). Isolated VEs were occasional (4.3%, 85409), VE Couplets were rare (<1.0%, 1441), and VE Triplets were rare (<1.0%, 4). Final Interpretation : Agree with findings listed above. Three symptomatic events correlated with sinus rhythm. EKG from Mar 2021: Normal sinus rhythm Normal ECG When compared with ECG of 14-AUG-2020 08:48, Premature ventricular complexes are no longer Present EKG performed at [facility] dated 03/08/21: NSR, normal EKG No change from previous 08/14/2020 Echocardiogram The qualitative LV ejection fraction is 55-59% (normal). The left ventricular wall motion is normalby limited analysis. All left ventricular segments are not visualized. The patient is status post TAVR with Priti type prosthetic valve. Aortic valve prosthesis stenosisis absent. Mild paravalvular aortic valve prosthesis regurgitation is present. 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 07/11/2020 Echocardiogram The qualitative LV ejection fraction is 65-69% (normal). The LV wall thickness is moderately increased (concentric). No LV segmental wall motion abnormalities. The patient is status post TAVR with Priti type prosthetic valve. Mild paravalvular aortic valve prosthesis regurgitation is present. 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 Aortic valve prosthesis stenosis is absent. The proximal ascending thoracic aorta is mildly enlarged. Patient Active Problem List Diagnosis Code Dyslipidemia, [...] I71.21 Hx of nonmelanoma skin cancer Z85.828 Review of patient's allergies indicates: Allergen Reactions Pollen Other (Please comment) sneezing Current Outpatient Medications Medication Sig Dispense Refill MULTI-VITAMIN/MINERALS PO TABS ONE EACH DAY 0 Amoxicillin 500 MG Oral Capsule (Amoxil) Take 4 tablets by mouth one hour prior to any dental procedure or cleaning 12 Capsule 03 Metoprolol Succinate ER 25 MG Oral Tablet [...] mouth in the morning. 90 Capsule 3 Zoster Vac Recomb Adjuvanted 50 MCG/0.5ML Intramuscular Suspension Reconstituted (Shingrix) Inject 0.5 mL into a large muscle now and repeat dose in 60 to 180 days 1 Each 1 Fluticasone Propionate 50 MCG/ACT Nasal Suspension (Flonase) Administer 2 Sprays into each nostril in the morning. (Patient not taking: Reported on 06/07/2023) 16 g 5 No current facility-administered medications for this visit. Physical Exam: BP 136/64 (BP Site: Left Arm, BP Position: Sitting, BP Cuff Size: Large) | Pulse 60 | Resp 14 | Wt 93.4 kg (206 lb) | BMI 31.32 kg/m | BSA 2.12 m Blood pressure my repeat 142/70 Wt Readings from Last 3 Encounters: 06/07/23 93.4 kg (206 lb) 04/12/23 94.2 kg (207 lb 9.6 oz) 12/27/22 96.7 kg (213 lb 3.2 oz) General: NAD. A+Ox3. HEENT: Normocephalic. Atraumatic. PERRL. EOMI. Conjunctiva and sclera clear. NECK: radiation of cardiac murmur vs B/L bruits. Heart: RRR. II/ systolic murmur LSB. PMI non displaced. Lungs: Clear to auscultation and percussion. No wheezes, rhonchi, rales. Abdomen: Normal bowelsounds. Soft. Nontender. No masses or organomegaly. No abdominal bruits. Extremities: No edema. No clubbing or cyanosis. Pulses: radial=2/4, posterior tibial=2/4, dorsalis pedis = 2/4. NEURO: No focal deficits. PSYCH: Normal. Latest Reference Range & Units 12/27/22 09:46 Triglycerides <=174 mg/dL 114 Cholesterol <200 mg/dL 156 Non-HDL Cholesterol <=159 mg/dL 114 HDL Cholesterol >39 mg/dL 42 LDL Cholesterol <=129 mg/dL 91 Latest Reference Range & Units 01/21/22 08:03 Sodium 135 - 146 mmol/L 140 Potassium 3.5 - 5.1 mmol/L 4.6 Chloride 98 - 107 mmol/L 106 CO2 22 - 32 mmol/L 27 BUN 6 - 20 mg/dL 23 (H) Creatinine 0.6 - 1.2 mg/dL 1.1 Estimated Glomerular Filtration Rate >=60 mL/min 63 Anion Gap 7 - 15 mmol/L 7 Glucose 70 - 120 mg/dL 101 Calcium 8.4 - 10.2 mg/dL 8.9 (H): Data is abnormally high Latest Reference Range & Units 12/27/22 09:46 HGB 14.0 - 16.8 g/dL 15.1 Impression and Plan: 88 year old male S/P TAVR - -stable gradients per echo in August 2021, August 2022 -repeat echo August 2023 -resume ASA 81 mg daily. Rational discussed with patient and agreeable 2. Hypertension - controlled -continue metoprolol 3. Mild non obstructive CAD -continue metoprolol. Resume ASA 81 mg daily 4. Ascending aortic aneurysm Ascending aorta 4.[address] scan and 4.7 by recent echo in August 2021, August 2022. Repeat in 1 year 5. PVC's -asymptomatic -continue metoprolol 6. Dizziness/visual changes -7 day ZIO to R/O tachybrady arrhythmias correlating with symptoms -carotid duplex. Radiation of cardiac murmur vs carotid bruit noted on exam? 7. Weight loss -labs requested. F/u with PCP in 2 weeks as scheduled Orders: Comprehensive metabolic panel Magnesium TSH with free T4 if indicated Cbc with wbc differential LDL cholesterol (direct measure) VASc duplex carotid bi lat EKG External EKG 2 to 7 days Patient Instructions Restart Aspirin 81 mg - 1 tablet daily Patient is being evaluated in the cardiology office for ongoing care/risk management for TAVR; ascending aortic aneurysm; HTN. I spent a total of 40 minutes on the date of service in preparation, delivery, and documentation ofthe care provided to Lamberto Chandler excluding any time spent in the performance of separately billed services. The patient agrees to the above plan and will call with additional questions or concerns. ER with all emergencies advised. Follow-up: Return in about 4 months (around 10/07/2023). | Check-out note: Blood work today 7 day ZIO done today Schedule carotid duplex Keep echo as scheduled 4 month f/u Margaret Mcclain PA-C Department of Cardiology This chart was completed in part utilizing [employer] Speech Voice Recognition Software. Grammatical errors, random word insertions, prounoun errors, and incomplete sentences are an occasional consequence of this system due to software limitations, ambient noise, and hardware issues. Any formal questions or concerns about the content, text, or information contained within the body of this dictation should be directly addressed to the provider for clarification. documented in this encounter Nursing Notes * Ene Galan CMA - 06/07/2023 1:18 PM EDT Examination Room: 1 Name: Lamberto Chandler Date of : (1935). Reason for Visit: 8M f/u Interim Hospitalization(s): none Problems/Concerns: Intermittent dizziness, no falls or syncope. Chest Pain/SOB: denies [facility] Discussed: Not applicable [facility] is a way you can talk to your provider online through e-mail. Would you like to sign up? I can activate it for you? ALREADY ACTIVE Patient was instructed to not get up on the exam table until directed and assisted by their provider; patient is to remain seated in the chair/ wheelchair/ exam table for fall prevention and safety reasons. Patient is aware to have assistance to step down off exam table with personnel. Patient voiced full comprehension of instructions. documented in this encounter Plan of Treatment Upcoming Encounters Date Type Department Care Team (Latest Contact Info) Description 06/07/2023 2:40 PM EDT Laboratory Laboratory, [facility] [address] [facility] [address] [facility] [place] [id number] [facility] [address] [address] HTN, goal below 140/90; S/P TAVR (transcatheter aortic valve replacement); Dizziness; Visual changes; Bilateral carotid bruits 06/09/2023 2:00 PM EDT Imaging Vascular Lab, [facility] II 2nd Floor, [place] [address] [facility] [place] [address] 06/23/2023 1:20 PM EDT Office [address] [address] Toña Parra PA-C [address] [place] [address] [place] [address] 06/29/2023 11:00 AM EDT Office Visit [facility], [place] [address] [facility], [place] [id number] Maria Alejandra Mcginnis PA-C [address] [facility] [place] [address] 07/13/2023 1:00 PM EDT Nurse Only Ancillary Department, [place] [address] [facility], [place] [address] [place], Nurse Annual Wellness [address] [facility] [place], [place] [address] 08/29/2023 1:00 PM EDT Cardiac Studies Cardiac Studies, [facility] [address] [place] [address] 10/10/2023 1:30 PM EDT Office Visit Cardiology, [facility] [address] [place] [address] Margaret Mcclain PA-C [address] [place] [address] Pending Results Name Type Priority Associated Diagnoses [...] Bilateral carotid bruits 06/07/2023 2:22 PM EDT Scheduled Orders Name Type Priority Associated Diagnoses Orde r Schedule COMPREHENSIVE METABOLIC PANEL Lab Routine HTN, goal below 140/90 S/P TAVR (transcatheter aortic valve replacement) Dizziness Visual changes Expected: 06/07/2023, Expires: 06/06/2024 MAGNESIUM Lab Routine HTN, goal below 140/90 S/P TAVR (transcatheter aortic valve replacement) Dizziness Visual changes Expected: 06/07/2023, Expires: 06/06/2024 TSH WITH FREE T4 IF INDICATED Lab Routine HTN, goal below 140/90 S/P TAVR (transcatheter aortic valve replacement) Dizziness Visual changes Expected: 06/07/2023, Expires: 06/06/2024 CBC WITH WBC DIFFERENTIAL Lab Routine HTN, goal below 140/90 S/P TAVR (transcatheter aortic valve replacement) Dizziness Visual changes Expected: 06/07/2023, Expires: 06/06/2024 EXTERNAL EKG 2 TO 7 DAYS Holter Routine HTN, goal below 140/90 S/P TAVR (transcatheter aortic valve replacement) Dizziness Visual changes Bilateral carotid bruits Expected: 06/07/2023 (Approximate), Expires: 06/06/2024 VASC DUPLEX CAROTID BILAT Medical Imaging Routine HTN, goal below 140/90 S/P TAVR (transcatheter aortic valve replacement) Dizziness Visual changes Bilateral carotid bruits Expected: 06/07/2023, Expires: 07/07/2024 LDL CHOLESTEROL (DIRECT MEASURE) Lab Routine HTN, goal below 140/90 S/P TAVR (transcatheter aortic valve replacement) Dizziness Visual changes Bilateral carotid bruits Expected: 06/07/2023, Expires: 06/06/2024 Health Maintenance Due Date Last Done Comments Zoster Vaccines (1 of 2) 1986 Pneumococcal Vaccine: 65+ Years (2 of 2 - PCV) 12/14/2008 12/15/2007 COVID-19 Vaccine ( season) 2022 11/13/2020, 06/03/2020, 05/08/2020 Depression Screening 07/01/2023 06/30/2022, 06/10/2016 (Discussed) Albumin/Creatinine Ratio 12/28/202312/27/ 023, 01/25/2022, 06/07/2016, Additional history exists CKD HGB USE SMARTSET 61624 12/28/202312/27, 01/21/2022, 06/24/2021, Additional history exists CKD PHOS USE SMARTSET 25229 12/28/202312/12, 03/26/2021, 03/25/2021, Additional history exists HbA1c [...] this encounter Medical Devices Implanted Type Area Reservations Sales Agent Device Identifier Shelf Expiration Date Model / Serial / Lot Proglide Perclose 67074-83 X10 - [id number] Implanted:Qty: 1 on 07/10/2020 by Renard Galan, DO at [facility] : VASCULAR DEVICES [id number] 12/11/2021 53755-80 / / [id number] Proglide Perclose 68531-04 X10 - [id number] Implanted:Qty: 1 on 07/10/2020 by Renard Galan, DO at [facility] : VASCULAR DEVICES [id number] 12/11/2021 [id number] / / [id number] Balloon Cath Pacing [id number] - [id number] Implanted:Qty: 1 on 07/10/2020 by Renard Galan, DO at [facility] : MEDICAL [id number] 05/11/2022 520 007P / / [id number] Valve Aort Evolut Proplus 29mm - [id number] Implanted:Qty: 1 on 07/10/2020 by Renard Galan DO at [facility] [employer] : CARDIAC SURGERY 11/08/2021 EVPROPLUS- 29US / [id number] / [id number] Balloon Cath Pacing [id number] - [id number] Implanted:Qty: 1 on 07/10/2020 by Renard Galan DO at [facility] : MEDICAL [id number] 05/11/2022 520 [id number] / / [id number] Coil Fibered 2 10mm [id number] - [id number] Implanted:Qty: 1 on 03/18/2021 at [facility] : NEURO INTR [id number] 06/18/2023 [id number] Coil Fibered 2 10mm [id number] - [id number] Implanted:Qty: 1 on 03/18/2021 at [facility] : NEURO INTR [id number] 06/18/2023 [id number] Coil Emboli Tornado 3x2 - [id number] Implanted:Qty: 1 on 03/18/2021 at [facility] [id number] 09/04/2025 [id number] / / [id number] Coil Emboli Tornado 3x2 - [id number] Implanted:Qty: 1 on 03/18/2021 at [facility] [id number] 12/25/2025 [id number] / / [id number] Sureclip 16mm 235cm - [id number] Implanted:Qty: 1 on 07/31/2021 by Reji Milian MD at [facility] Colon MICRO TECH ENDOSCOPY 09/22/2023 [id number] / / [id number] documented as of this encounter Results * EKG (06/07/2023 1:26 PM EDT) 06/07/2023 1:26 PM EDT Narrative Procedure Note Renard Macias DO - 06/07/2023 1:26 PM EDT REASON FOR STUDY: yearly recheck, dizziness;yearly recheck, d CONCLUSIONS: Normal sinus rhythm Normal ECG When compared with ECG of 02-Sep-2021 13:08, Premature ventricular complexes are no longer Present Ventricular Rate: 72 Atrial Rate: 72 MN Interval: 182 QRS Duration: 92 QT/QTc: 360/394 ms P-R-T [place]: 60 : 56 : 38 degrees Margaret Mcclain PA-C EKG [facility] documented in this encounter Visit Diagnoses Diagnosis S/P TAVR (transcatheter aortic valve replacement)- Primary Heart valve replaced by other means HTN, goal below 140/90 Unspecified essential hypertension Dizziness Dizziness and giddiness Visual changes Unspecified visual disturbance Bilateral carotid bruits Aneurysm of ascending aorta without rupture (HCC) HTN, goal below 140/90 Unspecified essential hypertension S/P TAVR (transcatheter aortic valve replacement) Heart valve replaced by other means HTN, goal below 140/90 Unspecified essential hypertension S/P TAVR (transcatheter aortic valve replacement) Heart valve replaced by other means Dizziness Dizziness and giddiness Visual changes Unspecified visual disturbance Bilateral carotid bruits documented in this encounter Advance Directives Documents on File Type Date Recorded Patient Supervisor Sterile Processing Expl anation Advance Directives and Living Will 02/24/2023 ADVANCE DIRECTIVE / LIVING WILL Power of Casting Coordinator 02/24/2023 POWER OF A TTORNEY Latest Code Status on File Code Status Date Activated Date Inactivated Comments Full Code 03/15/2021 12:36 AM 03/26/2021 8:36 PM This order reflects the patients wishes and were consensually agreed upon. Question Answer Comments Discussion of Advance Directives occurred with: Patient Does the patient have a Living Will? No Does the patient have Health Care Power of Casting Coordinator? No Code Status History Code Status Date Activated Date Inactivated Comments Full Code 07/10/2020 3:27 PM 07/12/2020 3:38 PM This o rder reflects the patients wishes and were consensually agreed upon. Question Answer Comments Discussion of Advance Directives occurred with: Patient Does the patient have a Living Will? No Does the patient have Health Care Power of Casting Coordinator? No Care Teams Screen Printing Press Operator Relationship Specialty Start Date End Date Maria Alejandra Mcginnis PA-C [address] [facility] [place] [address] PCP - General Physician Preventive Medicine Specialist 07/31/21 documented as of this encounter
[2023-08-07] MEDS: VANCOMYCIN HCL 1,250 MG in SODIUM CHLORIDE 0.9% 250 ML IV SCH (05:06)
[2023-08-07] MEDS: LEVOTHYROXINE SODIUM 137 MCG TABLET PO SCH (05:08)
[2023-08-07 06:34] LABS: Hemoglobin 10.2 g/dl (14.0-18.0); Mean Corpuscular Hemoglobin 26.6 pg (25.0-34.0); Mean Corpuscular Hgb Conc 31.9 g/dL (32.0-36.0); Mean Corpuscular Volume 83.3 fL (80.0-100.0); Mean Platelet Volume 9.9 fL (9.4-12.4); Platelet Count 384 K/uL (130-400); RDW Coefficient of Variation 16.1 % (11.5-14.5); Red Blood Count 3.84 M/uL (4.70-6.10); White Blood Count 11.74 K/ul (4.8-10.8)
[2023-08-07 07:07] LABS: BUN Creatinine Ratio 12.3 (10-20); Calcium 8.3 mg/dl (8.6-10.3); Creatinine Clr Calc Pharmacy 50.1 ml/min; Est GFR (African American) 66.6 ml/min; Est GFR (Non-African American) 57.5 ml/min; Magnesium 1.8 mg/dl (1.7-2.4); Potassium 3.9 mmol/L (3.5-5.1)
[2023-08-07] MEDS: TAMSULOSIN HCL 0.4 MG CAP PO SCH (09:50)
[2023-08-07] MEDS: ASPIRIN 81 MG ECTAB PO SCH (09:50)
[2023-08-07] MEDS: HEPARIN SOD 5,000 UNIT/0.5 ML VIAL SQ SCH (09:51)
[2023-08-07] MEDS: METOPROLOL SUCC 25MG EXT REL TAB PO SCH (09:51)
[2023-08-07] MEDS: MULTIVITAMIN TAB PO SCH (09:51)
[2023-08-07] MEDS: cefTRIAXone SODIUM 2,000 MG/50 ML BAG IV SCH (09:51)
--- NOTE | 2023-08-07 10:03 | Pharmacy Report ---
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 * PMH: TAVR, AAA, CKD III * Pertinent microbiologic data includes * outpatient blood culture(s) positive for Strep species via PCR per H&P. * Inpatient blood cultures 08/05 pending * Outpatient Lyme positive for IgG and negative for IgM per H&P. Consistent with history of infection. Unlikely acute infection with IgM negative. * SCr stable and at/near baseline Plan Vancomycin * Loading dose: 1750 mg IV x 1 administered in ED yesterday * Maintenance dose: 1250 mg IV every 24 hours * Regimen is predicted to achieve target AUC/ASHLEIGH of 400-600 mg/L.hr * Random level ordered for [facility] Pharmacy will continue to follow and will adjust dose/frequency as necessary. Thank you. Pharmacy has transitioned to AUC monitoring for vancomycin. AUC/ASHLEIGH is the preferred PK/PD target and is associated with decreased risk of nephrotoxicity compared to traditional trough targets.
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
--- NOTE | 2023-08-07 15:06 | Hospitalist Progress Note ---
Date of Service August 07, 2023 Assessment & Plan (1) Bacteremia: Plan: This is an 88yo M with a PMH of nonrheumatic aortic valve stenosis status post TAVR, HTN, HLD, LBBB, CKD 3, hypothyroidism, prediabetes, history of ascending aortic aneurysm and other medical problems listed below who presents after being called with the preliminary result of positive blood cultures. Endorses feeling ill x 2 months with lightheadedness, poor PO intake, weight loss (245 -> 196 since Mar per Epic review), night sweats Recently started on 10d Doxy course for + lyme antibody screen, + IgG, - IgM (would complete course 08/10) Anaplasma DNA negative Directed to ED today when outpatient preliminary positive blood cultures resulted today, growing Streptococcus species DNA by PCR, sensitivities pending Repeat blood cultures ordered in ED Started on IV vancomycin and Rocephin 2D echo showed: EF 55 to 60%, status post TAVR with sapient type prosthetic valve, mild paravalvular aortic valve prosthesis regurgitation, aortic valve prosthesis systolic gradient or elevated for this prosthesis, proximal phthisis leaflets are not well-visualized, there is an area of echolucency surrounding the anterior portion of the valve prosthesis on the short axis view from 1212 to 3 o'clock position Will go for a RENÉ on Tuesday Appreciate cardiology input and recommendation Will continue current (2) Lightheadedness: Plan: Predominant symptom over the past few months Seen by cardiology for lightheadedness earlier this month -> ZIO patch rule out any concerning cardiac arrhythmias, carotid duplex from 07/05 with <50% stenosis R ICA, normal L ICA Outpatient brain MRI scheduled for 08/24 - consider obtaining while inpatient if symptoms persist Orthostatics Will monitor (3) Nonrheumatic aortic (valve) stenosis: (4) S/P TAVR (transcatheter aortic valve replacement): Plan: S/p TAVR 07/10/20 at [facility] (5) Weight loss: Plan: Weight loss noted over past few months along with night sweats and poor PO intake Denies any abdominal pain Outpatient CT abd/pelvis scheduled for 08/09 - plan to obtain during admission (6) Hypothyroidism: Plan: Continue levothyroxine (7) HTN (hypertension): Plan: Continue Toprol (8) Ascending aortic aneurysm: Plan: Follows with cardiology. Ascending aorta 4.[address] scan and 4.7 by recent echo in August 2021, August 2022. Repeat in 1 year (9) CKD (chronic kidney disease), stage III: Plan: Cr 1.22 (baseline ~1.2-1.3). Monitor with daily BMP DVT Ppx: SQ heparin Code status: FULL PCP: Gilberto Dispo: Admitted to PCU Admission and Anticipated Discharge Date Admission Date: August 06, 2023 Subjective 08/07/2023 The patient was seen and examined in telemetry unit he has been feeling much better and denies any significant symptoms no more night sweats and no fever and or chills Review of Systems Review of Systems: all systems reviewed and are unremarkable except as noted below Physical Exam Physical Exam: lying in bed without any acute distress Constitutional: well developed and well nourished; not ill appearing Eyes: PERRL, conjunctivae normal, anicteric sclerae ENMT: external ear and nose normal, oropharynx normal Neck: trachea midline, no thyromegaly Respiratory: no respiratory distress Auscultation: lungs clear to auscultation bilaterally; no crackles Cardiovascular: Rate/Rhythm: regular rate and regular rhythm; not tachycardic Heart Sounds: normal S1, normal S2 and + murmur Extremities: + edema ( trace edema bilaterally) Gastrointestinal (Abdomen): Inspection/Auscultation: normal bowel sounds; abdomen not distended Percussion/Palpation: abdomen soft; abdomen nontender Neurologic: normal touch/pain/proprioception and moves all extremities; no focal motor deficits Psychiatric: A+Ox3, euthymic affect Lymphatic: no cervical or axillary lymphadenopathy Results & Data Results & Data Vital Signs (Past 12 Hours) Vital Signs Temp Pulse Pulse Resp BP Pulse Ox O2 Del Method 08/07/23 11:22 37.5 C 70 18 144/79 H 95 Room Air 08/07/23 07:40 37.1 C 71 18 126/70 95 Room Air 08/07/23 06:00 71 08/07/23 04:00 37.2 C 72 18 139/72 97 Room Air Laboratory Results Short CBC 08/06/23 08/07/23 Range/Units 16:15 05:50 WBC 13.64 H 11.74 H (4.8-10.8) K/ul Hgb 11.7 L 10.2 L (14.0-18.0) g/dl Hct 36.4 L 32.0 L (42.0-52.0) % Plt Count 436 H 384 (130-400) K/uL BMP 08/06/23 08/07/23 16:15 05:50 Sodium 133 L 137 Potassium 4.4 3.9 Chloride 100 104 Carbon Dioxide 27 28 BUN 18 14 Creatinine 1.22 1.14 Glucose 110 H 105 H Calcium 9.1 8.3 L Liver Function 08/06/23 Range/Units 16:15 Total Bilirubin 0.5 (0.2-1.0) mg/dl Direct Bilirubin 0.1 (0-0.2) mg/dl AST 31 (13-39) U/L ALT 12 (7-52) U/L Alkaline Phosphatase 90 (34-104) U/L Albumin 3.5 (3.4-5.0) gm/dl Urine 08/06/23 Range/Units 16:33 Urine Color Yellow Urine Appearance Clear (Clear) Urine pH 6.0 (4.5-7.5) Ur Specific [place] 1.014 (1.000-1.030) Urine Protein 1+ H (Negative) Urine Glucose (UA) Negative (Negative) Medications Administered Current Inpatient Medications Acetaminophen (Acetaminophen 325 Mg Tab) 650 mg PO Q4H PRN PRN Reason: Pain or Fever Stop: 09/05/23 19:00 Aspirin (Aspirin 81 Mg Ectab) 81 mg PO DAILY ROXANN Stop: 09/06/23 08:59 Last Admin: 08/07/23 09:50 Dose: 81 mg Heparin Sodium (Porcine) (Heparin Sod 5,000 Unit/0.5 Ml Vial) 5,000 units SQ Q8 ROXANN Stop: 09/06/23 08:59 Last Admin: 08/07/23 14:38 Dose: 5,000 units Ceftriaxone Sodium (Rocephin) 2,000 mg in 50 mls @ 100 mls/hr IV Q24H ROXANN Stop: 08/21/23 08:59 Last Infusion: 08/07/23 11:06 Dose: Infused Vancomycin HCl 1,250 mg/ (Sodium Chloride) 275 mls @ 200 mls/hr IV Q24H ROXANN Stop: 08/21/23 03:59 Last Infusion: 08/07/23 06:43 Dose: Infused Levothyroxine Sodium (Levothyroxine Sodium 137 Mcg Tablet) 137 mcg PO DAILYBB ROXANN Stop: 09/06/23 06:29 Last Admin: 08/07/23 05:08 Dose: 137 mcg Metoprolol Succinate (Metoprolol Succ 25mg Ext Rel Tab) 12.5 mg PO QAM [facility] Stop: 09/06/23 08:59 Last Admin: 08/07/23 09:51 Dose: 12.5 mg Miscellaneous Information (Vancomycin Consult Active) 1 each N/A UD PRN PRN Reason: Consult Stop: 09/05/23 16:04 Multivitamins (Multivitamin Tab) [facility] Stop: 09/06/23 08:59 Last Admin: 08/07/23 09:51 Dose: 1 tab Ondansetron HCl (Ondansetron Inj 2 Mg/Ml 2 Ml Vial) 4 mg IV Q6H PRN PRN Reason: Nausea Stop: 09/05/23 19:00 Polyethylene Glycol (Polyethylene (Miralax) 17 Gm Pack) 17 gm PO DAILY PRN PRN Reason: Constipation Stop: 09/05/23 19:00 Tamsulosin HCl (Tamsulosin Hcl 0.4 Mg Cap) 0.4 mg [facility] Stop: 09/06/23 08:59 Last Admin: 08/07/23 09:50 Dose: 0.4 mg
--- NOTE | 2023-08-07 21:12 | Electrocardiogram Report ---
Test Reason : Blood Pressure : / mmHG Vent. Rate : 076 BPM Atrial Rate : 076 BPM P-R Int : 158 ms QRS Dur : 096 ms QT Int : 370 ms P-R-T Axes : 037 044 031 degrees QTc Int : 416 ms Sinus rhythm with Premature atrial complexes Otherwise normal ECG When compared with ECG of 13-MAR-2021 05:59, Premature ventricular complexes are no longer Present Premature atrial complexes are now Present Confirmed by Afshin Jackson ([id number]) on 08/07/2023 9:12:26 PM Referred By: REFERRED SELF Confirmed By:Afshin Jackson
[2023-08-07 23:27] LABS: A calco-baum cmplx NotReported Not Detected (NotDetected); Bact fragilis Not Reported Not Detected (NotDetected); Blood Culture Id Panel See PCR Comment (NotDetected); C auris Not Reported Not Detected (NotDetected); Calbicans Not Reported Not Detected (NotDetected); Candida glabrata Not Reported Not Detected (NotDetected); Candida krusei Not Reported Not Detected (NotDetected); Cneoformans/gatti Not Reported Not Detected (NotDetected); Cparapsilosis Not Reported Not Detected (NotDetected); E cloacae compx Not Reported Not Detected (NotDetected); Efaecalis Not Reported Not Detected (NotDetected); Efaecium Not Reported Not Detected (NotDetected); Enterobacterales Not Reported Not Detected (NotDetected); Escherichia coli Not Reported Not Detected (NotDetected); H influenzae Not Reported Not Detected (NotDetected); K aerogenes Not Reported Not Detected (NotDetected); Koxytoca Not Reported Not Detected (NotDetected); Kpneumoniae grp Not Reported Not Detected (NotDetected); Lmonocyt Not Reported Not Detected (NotDetected); N meningitidis Not Reported Not Detected (NotDetected); P aeruginosa Not Reported Not Detected (NotDetected); Proteus spp Not Reported Not Detected (NotDetected); Salmonella spp Not Reported Not Detected (NotDetected); Smarcescens Not Reported Not Detected (NotDetected); Staph lugdunensis Not Reported Not Detected (NotDetected); Staph spp. Not Reported Not Detected (NotDetected); Staphaureus Not Reported Not Detected (NotDetected); Staphepi Not Reported Not Detected (NotDetected); Stenmaltophilia Not Reported Not Detected (NotDetected); Strep agal(GrpB) Not Reported Not Detected (NotDetected); Strep pneum Not Reported Not Detected (NotDetected); Strep pyog (GrpA) Not Reported Not Detected (NotDetected); Strep spp Not Reported DETECTED (NotDetected)
[2023-08-07 23:31] LABS: Streptococcus spp DETECTED (NotDetected)
[2023-08-08] MEDS: CETIRIZINE HCL 10 MG TABLET PO ONE (00:17)
[2023-08-08 04:54] LABS: Basophils # (auto) 0.05 K/uL (0.00-0.20); Basophils % (auto) 0.5 %; Eosinophils # (auto) 0.11 K/uL (0.00-0.50); Hemoglobin 9.8 g/dl (14.0-18.0); Immature Granulocytes # (auto) 0.08 K/uL (0.01-0.20); Immature Granulocytes % (auto) 0.8 %; Lymphocytes # (auto) 1.53 K/uL (1.20-3.40); Lymphocytes % (auto) 14.4 %; Mean Corpuscular Hemoglobin 26.3 pg (25.0-34.0); Mean Corpuscular Hgb Conc 31.6 g/dL (32.0-36.0); Mean Corpuscular Volume 83.3 fL (80.0-100.0); Mean Platelet Volume 9.7 fL (9.4-12.4); Monocytes # (auto) 0.75 K/uL (0.11-0.59); Monocytes % (auto) 7.1 %; Neutrophils # (auto) 8.11 K/uL (1.40-6.50); Neutrophils % (auto) 76.2 %; Platelet Count 381 K/uL (130-400); RDW Coefficient of Variation 16.1 % (11.5-14.5); RDW Standard Deviation 48.7 fL (36.4-46.3); Red Blood Count 3.72 M/uL (4.70-6.10); White Blood Count 10.63 K/ul (4.8-10.8)
[2023-08-08 05:09] LABS: Calcium 8.2 mg/dl (8.6-10.3); Creatinine Clr Calc Pharmacy 45.7 ml/min; Est GFR (African American) 59.6 ml/min; Est GFR (Non-African American) 51.4 ml/min; Magnesium 1.8 mg/dl (1.7-2.4); Phosphorus 3.3 mg/dl (2.5-4.9); Potassium 3.7 mmol/L (3.5-5.1)
--- NOTE | 2023-08-08 12:33 | Cardiology Progress Note ---
Date of Service August 08, 2023 Assessment & Plan (1) Bacteremia: (2) S/P TAVR (transcatheter aortic valve replacement): (3) Weight loss: Plan: 88-year-old male with past medical history of transcatheter aortic valve replacement performed in the setting of aortic stenosis, possible bicuspid aortic valve in 2000 presents with 2 to 3 months of generalized easy fatigability, unintentional 40 pound weight loss, and now 6 weeks of night sweats. He has had a persistent mild leukocytosis. Outpatient blood cultures have yielded Streptococcus species, most recent identification consistent with Streptococcus mitis. Repeat cultures performed in the emergency department prior to the administration of antibiotics negative thus far. Patient also had a positive Lyme screen, IgG was positive but not the IgM. A transthoracic echocardiogram was performed 08/07/2023 with a noted echolucent space anterior to the prosthetic valve on the aortic valve short axis images. Although this area is concerning for possible abscess, it does not look too much different than the previous study performed as an outpatient in August, for direct comparison. It is noted that there has been interval increase in the velocities across the prosthetic aortic valve with maximum continuous-wave Doppler velocity of 2.4 m/s and August, and now 3.5 to 3.6 m/s on the present study and therefore the current velocities are felt to be indeterminate for possible prosthetic obstruction. Repeat cultures were performed on arrival to the emergency room on 08/06/2023 and by PCR are growing Streptococcus species, likely the same culprit as noted on his prehospital cultures. A repeat set of cultures was obtained this morning at 915 on 08/08/2023 to reassess response to antibiotics. Continue Rocephin 2 g every 24 hours intravenously. N.p.o. after midnight for planned transesophageal echocardiogram 08/09/[address] Mancera. Johanne White, DO Admission and Anticipated Discharge Date Admission Date: August 06, 2023 Subjective Patient without acute complaints. He notes that he would like to walk more in the unit, but feels dizzy. Blood pressure stable. Afebrile, telemetry reveals sinus rhythm in the 60s to 70s. Physical Exam Physical Exam: Temp Pulse Resp BP Pulse Ox O2 Del Method 36.7 C 64 16 127/73 95 Room Air 08/08/23 11:08 08/08/23 11:08 08/08/23 11:08 08/08/23 11:08 08/08/23 11:08 08/08/23 11:08 General: no acute distress and stated age Mouth: Patient does have some dentures, and need teeth that are in poor repair Eyes: conjunctiva are pink and non-injected, sclera clear Neck: normal jugular venous pulse, no hepatojugular reflux Chest: normal shape and normal respiratory effort Lungs: clear to auscultation and percussion Cardiac Exam: -Regular rhythm, 1/6 systolic murmur rubs, or gallops, no jugular venous distention Abdomen: abdomen soft, non-tender, no abnormal masses and no hepatosplenomegaly Musculoskeletal: no gait disturbance, no weakness Extremities: no edema and no cyanosis Skin: No rashes, lesions, or skin breakdown Neuro:awake, conversant, follows commands, no focal motor deficits Psych: appropriate affect and insight. Results & Data Vital Signs (Past 12 Hours) Vital Signs Temp Pulse Resp BP BP Pulse Ox O2 Del Method 08/08/23 11:08 36.7 C 64 16 127/73 95 Room Air 08/08/23 07:39 36.3 C L 80 16 136/78 97 Room Air 08/08/23 04:00 36.7 C 65 18 137/64 96 Room Air Laboratory Results CBC 08/08/23 Range/Units 04:36 WBC 10.63 (4.8-10.8) K/ul RBC 3.72 L (4.70-6.10) M/uL Hgb 9.8 L (14.0-18.0) g/dl Hct 31.0 L (42.0-52.0) % Plt Count 381 (130-400) K/uL Neut # (Auto) 8.11 H (1.40-6.50) K/uL Lymph # (Auto) 1.53 (1.20-3.40) K/uL [place] # (Auto) 0.75 H (0.11-0.59) K/uL Eos # (Auto) 0.11 (0.00-0.50) K/uL Baso # (Auto) 0.05 (0.00-0.20) K/uL Comprehensive Metabolic Panel 08/08/23 Range/Units 04:36 Sodium 134 L (136-145) mmol/L Potassium 3.7 (3.5-5.1) mmol/L Chloride 103 (98-107) mmol/L Carbon Dioxide 25 (21-32) mmol/L BUN 15 (6-23) mg/dl Creatinine 1.25 (0.6-1.4) mg/dl Glucose 99 (70-99(Fasting)) mg/dl Calcium 8.2 L (8.6-10.3) mg/dl Intake and Output 08/07/23 08/08/23 08/08/23 22:59 06:59 14:59 Intake Total 375 / 1190 525 / 1190 50 / 50 Balance 375 / 1190 525 / 1190 50 / 50 Intake: IV 275 / 325 50 / 50 Vancomycin HCl 1,250 mg In 275 / 275 Sodium Chloride 0.9% 250 ml @ 200 mls/hr IV Q24H ROXANN Rx#: [id number] cefTRIAXone SODIUM 2,000 mg In 50 / 50 50 ml @ 100 mls/hr IV Q24H ROXANN Rx#:[id number] Oral 375 / 865 250 / 865 Other: # Unmeasured Voids 2 Weight 87.5 kg Weight Measurement Method Built in [facility]
--- NOTE | 2023-08-08 14:05 | Pharmacy Report ---
Pharmacy PK ABX Note - Date of Service August 08, 2023 - Assessment and Plan Assessment 08/07: * Day 3 of Vancomycin therapy. * Blood cultures from 08/05 growing G+ cocci in chains. Awaiting ID and sensitivities. * Random level obtained yesterday at 20:14 was 13.4 mcg/ml. 08/07/23: * 88 year old M receiving ceftriaxone and vancomycin for treatment of Strep bacteremia and possible endocarditis. * PMH: TAVR, AAA, CKD III * Pertinent microbiologic data includes * outpatient blood culture(s) positive for Strep species via PCR per H&P. * Inpatient blood cultures 08/05 pending * Outpatient Lyme positive for IgG and negative for IgM per H&P. Consistent with history of infection. Unlikely acute infection with IgM negative. * SCr stable and at/near baseline Plan Vancomycin * Current regimen: 1250 mg IV every 24 hours * Random level obtained 08/06 @ 20:14 resulted as 13.4 mcg/mL. This is predicted to achieve target AUC/ASHLEIGH of 400-600 mg/L.hr * Predicted AUC at steady state: 526 mg/L.hr * Continue Vancomycin 1250 mg IV every 24 hours * Will repeat level in the next 48-72 hours if therapy is continued and/or change in patient clinical status Pharmacy will continue to follow and will adjust dose/frequency as necessary. Thank you. Pharmacy has transitioned to AUC monitoring for vancomycin. AUC/ASHLEIGH is the preferred PK/PD target and is associated with decreased risk of nephrotoxicity compared to traditional trough targets.
--- NOTE | 2023-08-08 14:41 | Hospitalist Progress Note ---
Date of Service August 08, 2023 Assessment & Plan (1) Bacteremia: Plan: This is an 88yo M with a PMH of nonrheumatic aortic valve stenosis status post TAVR, HTN, HLD, LBBB, CKD 3, hypothyroidism, prediabetes, history of ascending aortic aneurysm and other medical problems listed below who presents after being called with the preliminary result of positive blood cultures. Endorses feeling ill x 2 months with lightheadedness, poor PO intake, weight loss (245 -> 196 since Mar per Epic review), night sweats Recently started on 10d Doxy course for + lyme antibody screen, + IgG, - IgM (would complete course 08/10) Anaplasma DNA negative Directed to ED today when outpatient preliminary positive blood cultures resulted today, growing Streptococcus species DNA by PCR, sensitivities pending Repeat blood cultures ordered in ED Started on IV vancomycin and Rocephin 2D echo showed: EF 55 to 60%, status post TAVR with sapient type prosthetic valve, mild paravalvular aortic valve prosthesis regurgitation, aortic valve prosthesis systolic gradient or elevated for this prosthesis, proximal phthisis leaflets are not well-visualized, there is an area of echolucency surrounding the anterior portion of the valve prosthesis on the short axis view from 1212 to 3 o'clock position Will go for a RENÉ on Tuesday Appreciate cardiology input and recommendation Blood culture grew gram-positive cocci in chains-further identification is pen elizabeth Will obtain RENÉ tomorrow Repeat blood cultures have been taken He remains hemodynamically stable without any symptoms at rest (2) Lightheadedness: Plan: Predominant symptom over the past few months Seen by cardiology for lightheadedness earlier this month -> ZIO patch rule out any concerning cardiac arrhythmias, carotid duplex from 07/05 with <50% stenosis R ICA, normal L ICA Outpatient brain MRI scheduled for 08/24 - consider obtaining while inpatient if symptoms persist Orthostatics Will monitor (3) Nonrheumatic aortic (valve) stenosis: (4) S/P TAVR (transcatheter aortic valve replacement): Plan: S/p TAVR 07/10/20 at [facility] [place] RENÉ tomorrow (5) Weight loss: Plan: Weight loss noted over past few months along with night sweats and poor PO intake Denies any abdominal pain Outpatient CT abd/pelvis scheduled for 08/09 - plan to obtain during admission (6) Hypothyroidism: Plan: Continue levothyroxine (7) HTN (hypertension): Plan: Continue Toprol (8) Ascending aortic aneurysm: Plan: Follows with cardiology. Ascending aorta 4.[address] scan and 4.7 by recent echo in August 2021, August 2022. Repeat in 1 year (9) CKD (chronic kidney disease), stage III: Plan: Cr 1.22 (baseline ~1.2-1.3). Monitor with daily BMP DVT Ppx: SQ heparin Code status: FULL PCP: Gilberto Dispo: Admitted to PCU Admission and Anticipated Discharge Date Admission Date: August 06, 2023 Subjective 08/07/2023 The patient was seen and examined in telemetry unit he has been feeling much better and denies any significant symptoms no more night sweats and no fever and or chills 08/08/2023 The patient was seen and examined in telemetry unit He has been stable without any fever and no chills or sweating No chest pain or palpitation Review of Systems Review of Systems: all systems reviewed and are unremarkable except as noted below Physical Exam Physical Exam: lying in bed without any acute distress Constitutional: well developed and well nourished; not ill appearing Eyes: PERRL, conjunctivae normal, anicteric sclerae ENMT: external ear and nose normal, oropharynx normal Neck: trachea midline, no thyromegaly Respiratory: no respiratory distress Auscultation: lungs clear to auscultation bilaterally; no crackles Cardiovascular: Rate/Rhythm: regular rate and regular rhythm; not tachycardic Heart Sounds: normal S1, normal S2 and + murmur Extremities: + edema ( trace edema bilaterally) Gastrointestinal (Abdomen): Inspection/Auscultation: normal bowel sounds; abdomen not distended Percussion/Palpation: abdomen soft; abdomen nontender Neurologic: normal touch/pain/proprioception and moves all extremities; no focal motor deficits Psychiatric: A+Ox3, euthymic affect Lymphatic: no cervical or axillary lymphadenopathy Results & Data Results & Data Vital Signs (Past 12 Hours) Vital Signs Temp Pulse Resp BP BP Pulse Ox O2 Del Method 08/08/23 11:08 36.7 C 64 16 127/73 95 Room Air 08/08/23 07:39 36.3 C L 80 16 136/78 97 Room Air 08/08/23 04:00 36.7 C 65 18 137/64 96 Room Air Laboratory Results Short CBC 05/27/24 Range/Units 04:36 WBC 10.63 (4.8-10.8) K/ul Hgb 9.8 L (14.0-18.0) g/dl Hct 31.0 L (42.0-52.0) % Plt Count 381 (130-400) K/uL BMP 08/08/23 04:36 Sodium 134 L Potassium 3.7 Chloride 103 Carbon Dioxide 25 BUN 15 Creatinine 1.25 Glucose 99 Calcium 8.2 L Medications Administered Current Inpatient Medications Acetaminophen (Acetaminophen 325 Mg Tab) 650 mg PO Q4H PRN PRN Reason: Pain or Fever Stop: 09/05/23 19:00 Aspirin (Aspirin 81 Mg Ectab) 81 mg PO DAILY ROXANN Stop: 09/06/23 08:59 Last Admin: 08/08/23 09:44 Dose: 81 mg Cetirizine HCl (Cetirizine Hcl 10 Mg Tablet) 10 mg PO HS ROXANN Stop: 09/07/23 20:59 Heparin Sodium (Porcine) (Heparin Sod 5,000 Unit/0.5 Ml Vial) 5,000 units SQ Q8 ROXANN Stop: 09/06/23 08:59 Last Admin: 08/08/23 06:07 Dose: 5,000 units Ceftriaxone Sodium (Rocephin) 2,000 mg in 50 mls @ 100 mls/hr IV Q24H ROXANN Stop: 08/21/23 08:59 Last Infusion: 08/08/23 10:13 Dose: Infused Vancomycin HCl 1,250 mg/ (Sodium Chloride) 275 mls @ 200 mls/hr IV Q24H ROXANN Stop: 08/21/23 03:59 Last Infusion: 08/08/23 05:50 Dose: Infused Levothyroxine Sodium (Levothyroxine Sodium 137 Mcg Tablet) 137 mcg PO DAILYBB ROXANN Stop: 09/06/23 06:29 Last Admin: 08/08/23 06:07 Dose: 137 mcg Metoprolol Succinate (Metoprolol Succ 25mg Ext Rel Tab) 12.5 mg PO QAM ROXANN Stop: 09/06/23 08:59 Last Admin: 08/08/23 09:44 Dose: 12.5 mg Miscellaneous Information (Vancomycin Consult Active) 1 each N/A UD PRN PRN Reason: Consult Stop: 09/05/23 16:04 [facility]ivit[facility] ([facility]amin Tab) [facility] [place] Stop: 09/06/23 08:59 Last Admin: 08/08/23 09:44 Dose: 1 tab Ondansetron HCl (Ondansetron Inj 2 Mg/Ml 2 Ml Vial) 4 mg IV Q6H PRN PRN Reason: Nausea Stop: 09/05/23 19:00 Polyethylene Glycol (Polyethylene (Miralax) 17 Gm Pack) 17 gm PO DAILY PRN PRN Reason: Constipation Stop: 09/05/23 19:00 Tamsulosin HCl (Tamsulosin Hcl 0.4 Mg Cap) [facility] [place] Stop: 09/06/23 08:59 Last Admin: 08/08/23 09:44 Dose: 0.4 mg
[2023-08-08] MEDS: CETIRIZINE HCL 10 MG TABLET PO SCH (21:36)
[2023-08-09 06:33] LABS: Basophils # (auto) 0.05 K/uL (0.00-0.20); Basophils % (auto) 0.4 %; Eosinophils # (auto) 0.14 K/uL (0.00-0.50); Eosinophils % (auto) 1.2 %; Hematocrit (blood only) 34.3 % (42.0-52.0); Immature Granulocytes # (auto) 0.09 K/uL (0.01-0.20); Immature Granulocytes % (auto) 0.8 %; Lymphocytes # (auto) 1.78 K/uL (1.20-3.40); Lymphocytes % (auto) 14.9 %; Mean Corpuscular Hemoglobin 26.5 pg (25.0-34.0); Mean Corpuscular Hgb Conc 32.1 g/dL (32.0-36.0); Mean Corpuscular Volume 82.7 fL (80.0-100.0); Mean Platelet Volume 9.8 fL (9.4-12.4); Monocytes # (auto) 0.82 K/uL (0.11-0.59); Monocytes % (auto) 6.9 %; Neutrophils # (auto) 9.06 K/uL (1.40-6.50); Neutrophils % (auto) 75.8 %; Platelet Count 420 K/uL (130-400); RDW Coefficient of Variation 16.1 % (11.5-14.5); RDW Standard Deviation 48.3 fL (36.4-46.3); Red Blood Count 4.15 M/uL (4.70-6.10); White Blood Count 11.94 K/ul (4.8-10.8)
[2023-08-09 06:47] LABS: Calcium 8.6 mg/dl (8.6-10.3); Creatinine Clr Calc Pharmacy 50.7 ml/min; Est GFR (African American) 68.1 ml/min; Est GFR (Non-African American) 58.7 ml/min; Potassium 3.9 mmol/L (3.5-5.1)
[2023-08-09] MEDS ORDERED: PROPOFOL IV EMULSION 10 MG/ML 20 ML VIAL IV ONE (07:59)
[2023-08-09] MEDS ORDERED: LIDOCAINE 2% 2 ML VIAL/AMP(20MG/ML) INFIL ONE (07:59)
[2023-08-09] MEDS: BENZOCAINE/TETRACAIN/BUTAM 50 APPLN/5 GM CAN EXT ONE (08:37)
--- NOTE | 2023-08-09 08:39 | Anesthesiology Progress Note ---
Date of Service August 09, 2023 Anesthesia Post Procedure Vital Signs Vital Signs: Temp Pulse Pulse Resp BP BP Pulse Ox 08/09/23 08:07 37.1 C 69 16 117/69 97 08/09/23 08:00 73 08/09/23 07:52 37.1 C 75 14 116/63 97 08/09/23 07:26 37.3 C 77 18 162/73 H 97 08/09/23 03:30 36.6 C 65 18 136/74 96 08/08/23 23:29 36.6 C 68 18 126/65 96 08/08/23 23:24 69 08/08/23 19:38 36.8 C 80 18 168/77 H 96 08/08/23 16:25 67 08/08/23 14:41 36.8 C 66 16 118/54 L 97 08/08/23 11:08 36.7 C 64 16 127/73 95 O2 Del Method 08/09/23 08:07 Room Air 08/09/23 08:00 08/09/23 07:52 Room Air 08/09/23 07:26 Room Air 08/09/23 03:30 Room Air 08/08/23 23:29 Room Air 08/08/23 23:24 08/08/23 19:38 Room Air 08/08/23 16:25 08/08/23 14:41 Room Air 08/08/23 11:08 Room Air Transfer of Care Handoff Completed per policy Notes Mental Status: alert / awake / arousable Patient Amnestic to Procedure: Yes Nausea / Vomiting: adequately controlled Pain: adequately controlled Airway Patency, RR, SpO2: stable & adequate BP & HR: stable & adequate Hydration State: stable & adequate Anesthetic Complications: no major complications apparent and Pt Satisfied with anesthetic care
--- NOTE | 2023-08-09 13:28 | Pharmacy Report ---
Pharmacy PK ABX Note - Date of Service August 09, 2023 - Assessment and Plan Assessment 08/08: * Day 4 of vancomycin therapy. * Vanc level obtained today (18.3 mcg/mL), indicating that current regimen targeting low end of goal AUC/ASHLEIGH range. Dose increased slightly in an effort to target upper end of goal range until endocarditis ruled out. RENÉ pending for today. * BCx sensitivities still pending 08/07: * Day 3 of Vancomycin therapy. * Blood cultures from 08/05 growing G+ cocci in chains. Awaiting ID and sensitivities. * Random level obtained yesterday at 20:14 was 13.4 mcg/ml. 08/06: * 88 year old M receiving ceftriaxone and vancomycin for treatment of Strep bacteremia and possible endocarditis. * PMH: TAVR, AAA, CKD III * Pertinent microbiologic data includes * outpatient blood culture(s) positive for Strep species via PCR per H&P. * Inpatient blood cultures 08/05 pending * Outpatient Lyme positive for IgG and negative for IgM per H&P. Consistent with history of infection. Unlikely acute infection with IgM negative. * SCr stable and at/near baseline Plan Vancomycin * Current regimen: 1250 mg IV every 24 hours * Random level obtained today resulted as 18.3 mcg/mL. * Increase to vanc 1500mg IV q24h * This is predicted to achieve target AUC/ASHLEIGH of 400-600 mg/L.hr * Will repeat level in the next 48-72 hours if therapy is continued and/or change in patient clinical status Pharmacy will continue to follow and will adjust dose/frequency as necessary. Thank you. Pharmacy has transitioned to AUC monitoring for vancomycin. AUC/ASHLEIGH is the preferred PK/PD target and is associated with decreased risk of nephrotoxicity compared to traditional trough targets.
--- NOTE | 2023-08-09 16:06 | Cardiology Progress Note ---
Date of Service August 09, 2023 Assessment & Plan (1) Bacteremia: (2) S/P TAVR (transcatheter aortic valve replacement): (3) Weight loss: Plan: 88-year-old male with past medical history of transcatheter aortic valve replacement performed in the setting of aortic stenosis, possible bicuspid aortic valve in 2000 presents with 2 to 3 months of generalized easy fatigability, unintentional 40 pound weight loss, and now 6 weeks of night sweats. He has had a persistent mild leukocytosis. Outpatient blood cultures have yielded Streptococcus species, most recent identification consistent with Streptococcus mitis. Repeat cultures performed in the emergency department prior to the administration of antibiotics negative thus far. Patient also had a positive Lyme screen, IgG was positive but not the IgM. A transthoracic echocardiogram was performed 08/07/2023 with a noted echolucent space anterior to the prosthetic valve on the aortic valve short axis images. Although this area is concerning for possible abscess, it does not look too much different than the previous study performed as an outpatient in August, for direct comparison. It is noted that there has been interval increase in the velocities across the prosthetic aortic valve with maximum continuous-wave Doppler velocity of 2.4 m/s and August, and now 3.5 to 3.6 m/s on the present study and therefore the current velocities are felt to be indeterminate for possible prosthetic obstruction. Repeat cultures were performed on arrival to the emergency room on 08/06/2023 and by PCR are growing Streptococcus species, likely the same culprit as noted on his prehospital cultures. A repeat set of cultures was obtained this morning at 915 on 08/08/2023 to reassess response to antibiotics. Continue Rocephin 2 g every 24 hours intravenously. N.p.o. after midnight for planned transesophageal echocardiogram 08/09/[address] Mancera. Johanne White, DO Plan 08/09/2023 Hemodynamically stable 1. 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 Status post TAVR June 2020 Transesophageal echocardiography similar to transthoracic studies earlier with perivalvular lucency possible underexpansion TAVR versus abscess. Lobular thickening of the prosthetic leaflet. Valve function intact without perivalvular insufficiency, or fistula Plan conservative medical therapy antibiotics. Maintain telemetry at least additional 48 hours Will consider repeat imaging Discussed with patient operative intervention with significant morbidity. Recommend ID consultation Admission and Anticipated Discharge Date Admission Date: August 06, 2023 Subjective Patient seen and personally pre and post transesophageal echocardiogram. No arrhythmias on telemetry Currently hemodynamically stable tolerating IV antibiotic therapy RENÉ performed this morning demonstrates perivalvular lucency without flow or fistula. Aortic valve prosthesis opens and close well though with nodular thickening of the leaflet suggestive of vegetation. Physical Exam Physical Exam: General: no acute distress and stated age Mouth: Patient does have some dentures, and need teeth that are in poor repair Eyes: conjunctiva are pink and non-injected, sclera clear Neck: normal jugular venous pulse, no hepatojugular reflux Chest: normal shape and normal respiratory effort Lungs: clear to auscultation and percussion Cardiac Exam: -Regular rhythm, 1/6 systolic murmur rubs, or gallops, no jugular venous distention Abdomen: abdomen soft, non-tender, no abnormal masses and no hepatosplenomegaly Musculoskeletal: no gait disturbance, no weakness Extremities: no edema and no cyanosis Skin: No rashes, lesions, or skin breakdown Neuro:awake, conversant, follows commands, no focal motor deficits Psych: appropriate affect and insight. Results & Data Vital Signs (Past 12 Hours) Vital Signs Temp Pulse Pulse Resp BP BP Pulse Ox 08/09/23 15:35 37.1 C 79 18 157/80 H 95 08/09/23 10:49 36.6 C 76 16 161/69 H 97 08/09/23 08:55 36.8 C 76 16 154/81 H 97 08/09/23 08:25 37.0 C 72 16 161/75 H 96 08/09/23 08:07 37.1 C 69 16 117/69 97 08/09/23 08:00 73 08/09/23 07:52 37.1 C 75 14 116/63 97 08/09/23 07:26 37.3 C 77 18 162/73 H 97 O2 Del Method 08/09/23 15:35 Room Air 08/09/23 10:49 Room Air 08/09/23 08:55 Room Air 08/09/23 08:25 Room Air 08/09/23 08:07 Room Air 08/09/23 08:00 08/09/23 07:52 Room Air 08/09/23 07:26 Room Air Laboratory Results Laboratory Results - last 24 hr 05/28/24 05/28/24 06:00 12:02 WBC 11.94 H RBC 4.15 L Hgb 11.0 L Hct 34.3 L MCV 82.7 MCH 26.5 MCHC 32.1 RDW Std Deviation 48.3 H RDW Coeff of Suzie 16.1 H Plt Count 420 H MPV 9.8 Immature Gran % (Auto) 0.8 Neut % (Auto) 75.8 Lymph % (Auto) 14.9 [place] % (Auto) 6.9 Eos % (Auto) 1.2 Baso % (Auto) 0.4 Neut # (Auto) 9.06 H Lymph # (Auto) 1.78 [place] # (Auto) 0.82 H Eos # (Auto) 0.14 Baso # (Auto) 0.05 Immature Gran # (Auto) 0.09 Sodium 135 L Potassium 3.9 Chloride 102 Carbon Dioxide 26 Anion Gap 7 BUN 19 Creatinine 1.12 Est Cr Clr Drug Dosing 50.7 Est GFR ( Amer) 68.1 Est GFR (Non-Af Amer) 58.7 BUN/Creatinine Ratio 17.0 Glucose 112 H Calcium 8.6 Random Vancomycin 18.3
--- NOTE | 2023-08-09 16:11 | Hospitalist Progress Note ---
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 Endorses feeling ill x 2 months with lightheadedness, poor PO intake, weight loss (245 -> 196 since Mar per Epic review), night sweats Recently started on 10d Doxy course for + lyme antibody screen, + IgG, - IgM (would complete course 08/10) Anaplasma DNA negative Directed to ED today when outpatient preliminary positive blood cultures resulted today, growing Streptococcus species DNA by PCR, sensitivities pending Repeat blood cultures ordered in ED Started on IV vancomycin and Rocephin 2D echo showed: EF 55 to 60%, status post TAVR with sapient type prosthetic valve, mild paravalvular aortic valve prosthesis regurgitation, aortic valve prosthesis systolic gradient or elevated for this prosthesis, proximal phthisis leaflets are not well-visualized, there is an area of echolucency surrounding the anterior portion of the valve prosthesis on the short axis view from 1212 to 3 o'clock position Will go for a RENÉ on Tuesday Appreciate cardiology input and recommendation Blood culture grew gram-positive cocci in chains-further identification is pen ding Blood culture is growing alpha strep to not sensitive to pneumoniae/Enterococcus-sensitivity has been pending Repeat blood cultures x 2 okay bottles-negative so far Status post RENÉ which showed abscess in TAVR Likely to need transfer if accepted in [place] Will get ID recommendation (2) Lightheadedness: Plan: Predominant symptom over the past few months Seen by cardiology for lightheadedness earlier this month -> ZIO patch rule out any concerning cardiac arrhythmias, carotid duplex from 07/05 with <50% stenosis R ICA, normal L ICA Outpatient brain MRI scheduled for 08/24 - consider obtaining while inpatient if symptoms persist Orthostatics No more lightheadedness (3) Nonrheumatic aortic (valve) stenosis: (4) S/P TAVR (transcatheter aortic valve replacement): Plan: S/p TAVR 07/10/20 [place] [facility] [place] (5) Weight loss: Plan: Weight loss noted over past few months along with night sweats and poor PO intake Denies any abdominal pain Outpatient CT abd/pelvis scheduled for 08/09 - plan to obtain during admission Weight loss is secondary to endocarditis Has been eating and drinking reasonably (6) Hypothyroidism: Plan: Continue levothyroxine (7) HTN (hypertension): Plan: Continue Toprol (8) Ascending aortic aneurysm: Plan: Follows with cardiology. Ascending aorta 4.[address] scan and 4.7 by recent echo in August 2021, August 2022. Repeat in 1 year (9) CKD (chronic kidney disease), stage III: Plan: Cr 1.22 (baseline ~1.2-1.3). Monitor with daily BMP DVT Ppx: SQ heparin Code status: FULL PCP: Gilberto Dispo: Admitted to PCU Admission and Anticipated Discharge Date Admission Date: August 06, 2023 Subjective 08/07/2023 The patient was seen and examined in telemetry unit he has been feeling much better and denies any significant symptoms no more night sweats and no fever and or chills 08/08/2023 The patient was seen and examined in telemetry unit He has been stable without any fever and no chills or sweating No chest pain or palpitation 08/09/2023 The patient was seen and examined in telemetry unit He is a status post RENÉ which showed an abscess in the TAVR Denies any symptoms No fever and or chills Review of Systems Review of Systems: all systems reviewed and are unremarkable except as noted below Physical Exam Physical Exam: lying in bed without any acute distress Constitutional: well developed and well nourished; not ill appearing Eyes: PERRL, conjunctivae normal, anicteric sclerae ENMT: external ear and nose normal, oropharynx normal Neck: trachea midline, no thyromegaly Respiratory: no respiratory distress Auscultation: lungs clear to auscultation bilaterally; no crackles Cardiovascular: Rate/Rhythm: regular rate and regular rhythm; not tachycardic Heart Sounds: normal S1, normal S2 and + murmur Extremities: + edema ( trace edema bilaterally) Gastrointestinal (Abdomen): Inspection/Auscultation: normal bowel sounds; abdomen not distended Percussion/Palpation: abdomen soft; abdomen nontender Neurologic: normal touch/pain/proprioception and moves all extremities; no focal motor deficits Psychiatric: A+Ox3, euthymic affect Lymphatic: no cervical or axillary lymphadenopathy Results & Data Results & Data Vital Signs (Past 12 Hours) Vital Signs Temp Pulse Pulse Resp BP BP Pulse Ox 08/09/23 15:35 37.1 C 79 18 157/80 H 95 08/09/23 10:49 36.6 C 76 16 161/69 H 97 08/09/23 08:55 36.8 C 76 16 154/81 H 97 08/09/23 08:25 37.0 C 72 16 161/75 H 96 08/09/23 08:07 37.1 C 69 16 117/69 97 08/09/23 08:00 73 08/09/23 07:52 37.1 C 75 14 116/63 97 08/09/23 07:26 37.3 C 77 18 162/73 H 97 O2 Del Method 08/09/23 15:35 Room Air 08/09/23 10:49 Room Air 08/09/23 08:55 Room Air 08/09/23 08:25 Room Air 08/09/23 08:07 Room Air 08/09/23 08:00 08/09/23 07:52 Room Air 08/09/23 07:26 Room Air Laboratory Results Short CBC 08/09/23 Range/Units 06:00 WBC 11.94 H (4.8-10.8) K/ul Hgb 11.0 L (14.0-18.0) g/dl Hct 34.3 L (42.0-52.0) % Plt Count 420 H (130-400) K/uL BMP 08/09/23 06:00 Sodium 135 L Potassium 3.9 Chloride 102 Carbon Dioxide 26 BUN 19 Creatinine 1.12 Glucose 112 H Calcium 8.6 Medications Administered Current Inpatient Medications Acetaminophen (Acetaminophen 325 Mg Tab) 650 mg PO Q4H PRN PRN Reason: Pain or Fever Stop: 09/05/23 19:00 Aspirin (Aspirin 81 Mg Ectab) 81 mg PO DAILY ROXANN Stop: 09/06/23 08:59 Last Admin: 08/09/23 10:15 Dose: 81 mg Cetirizine HCl (Cetirizine Hcl 10 Mg Tablet) 10 mg PO HS ROXANN Stop: 09/07/23 20:59 Last Admin: 08/08/23 21:36 Dose: 10 mg Heparin Sodium (Porcine) (Heparin Sod 5,000 Unit/0.5 Ml Vial) 5,000 units SQ Q8 ROXANN Stop: 09/06/23 08:59 Last Admin: 08/09/23 14:45 Dose: 5,000 units Ceftriaxone Sodium (Rocephin) 2,000 mg in 50 mls @ 100 mls/hr IV Q24H COUNT INCLUDES THE [facility] Stop: 08/21/23 08:59 Last Infusion: 08/09/23 10:04 Dose: Infused Vancomycin HCl 1,500 mg/ (Sodium Chloride) 530 mls @ 200 mls/hr IV Q24H COUNT INCLUDES THE [facility] Stop: 08/21/23 19:59 Levothyroxine Sodium (Levothyroxine Sodium 137 Mcg Tablet) 137 mcg PO DAILYBB COUNT INCLUDES THE [facility] Stop: 09/06/23 06:29 Last Admin: 08/09/23 06:26 Dose: 137 mcg Metoprolol Succinate (Metoprolol Succ 25mg Ext Rel Tab) [facility] [place] Stop: 09/06/23 08:59 Last Admin: 08/09/23 10:14 Dose: 12.5 mg Miscellaneous Information (Vancomycin Consult Active) 1 each N/A UD PRN PRN Reason: Consult Stop: 09/05/23 16:04 Multivitamins (Multivitamin Tab) 1 tab PO [facility] Stop: 09/06/23 08:59 Last Admin: 08/09/23 10:14 Dose: 1 tab Ondansetron HCl (Ondansetron Inj 2 Mg/Ml 2 Ml Vial) 4 mg IV Q6H PRN PRN Reason: Nausea Stop: 09/05/23 19:00 Polyethylene Glycol (Polyethylene (Miralax) 17 Gm Pack) 17 gm PO DAILY PRN PRN Reason: Constipation Stop: 09/05/23 19:00 Tamsulosin HCl (Tamsulosin Hcl 0.4 Mg Cap) 0.4 [facility] [place] Stop: 09/06/23 08:59 Last Admin: 08/09/23 10:14 Dose: 0.4 mg
--- NOTE | 2023-08-09 18:12 | Communication Note ---
Date of Service: August 09, 2023 Discussed results of RENÉ with patient and family Study demonstrated persistent lucency perivalvular possible consistent with infection or abscess. Moderate thickening of valve leaflet consistent with possible vegetation No evidence of fistula or perivalvular insufficient No large mobile vegetations Discussed with cardiology and cardiovascular surgery. Jamarcus Laughlin, Dr Boyer with review of images Remains suspicious for prosthetic valve endocarditis. Currently patient hemodynamically stable, no conduction abnormalities or embolic phenomena Operative morbidity discussed with patient and family and noted to be significant Will continue conservative IV antibiotic therapy but follow for signs or symptoms of complication Consider repeat imaging RENÉ versus CTA
[2023-08-09] MEDS: VANCOMYCIN HCL 1,500 MG in SODIUM CHLORIDE 0.9% 500 ML IV SCH (20:18)
[2023-08-10 09:25] LABS: Creatinine Clr Calc Pharmacy 52.1 ml/min; Est GFR (African American) 70.4 ml/min; Est GFR (Non-African American) 60.7 ml/min
--- NOTE | 2023-08-10 12:41 | Cardiology Progress Note ---
Date of Service August 10, 2023 Assessment & Plan (1) Prosthetic valve endocarditis: (2) Bacteremia: Plan: Resolved (3) S/P TAVR (transcatheter aortic valve replacement): (4) Weight loss: Plan: 88-year-old male with past medical history of transcatheter aortic valve replacement performed in the setting of aortic stenosis, possible bicuspid aortic valve in 2000 presents with 2 to 3 months of generalized easy fatigability, unintentional 40 pound weight loss, and now 6 weeks of night sweats. He has had a persistent mild leukocytosis. Outpatient blood cultures have yielded Streptococcus species, most recent identification consistent with Streptococcus mitis. Repeat cultures performed in the emergency department prior to the administration of antibiotics negative thus far. Patient also had a positive Lyme screen, IgG was positive but not the IgM. A transthoracic echocardiogram was performed 08/07/2023 with a noted echolucent space anterior to the prosthetic valve on the aortic valve short axis images. Although this area is concerning for possible abscess, it does not look too much different than the previous study performed as an outpatient in August, for direct comparison. It is noted that there has been interval increase in the velocities across the prosthetic aortic valve with maximum continuous-wave Doppler velocity of 2.4 m/s and August, and now 3.5 to 3.6 m/s on the present study and therefore the current velocities are felt to be indeterminate for possible prosthetic obstruction. Repeat cultures were performed on arrival to the emergency room on 08/06/2023 and by PCR are growing Streptococcus species, likely the same culprit as noted on his prehospital cultures. A repeat set of cultures was obtained this morning at 915 on 08/08/2023 to reassess response to antibiotics. Continue Rocephin 2 g every 24 hours intravenously. N.p.o. after midnight for planned transesophageal echocardiogram 08/09/[address] Mancera. Johanne White, DO Plan 08/09/2023 Hemodynamically stable 1. 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 Status post TAVR June 2020 Transesophageal echocardiography similar to transthoracic studies earlier with perivalvular lucency possible underexpansion TAVR versus abscess. Lobular thickening of the prosthetic leaflet. Valve function intact without perivalvular insufficiency, or fistula Plan conservative medical therapy antibiotics. Maintain telemetry at least additional 48 hours Will consider repeat imaging Discussed with patient operative intervention with significant morbidity. Recommend ID consultation 08/10/2023 No clinical changes. Remains afebrile. No embolic stigmata. Last set of blood cultures negative. No change in physical examination Plan close clinical follow-up for presumed prosthetic valve endocarditis, await ID input. Will need extended course of antibiotic therapies Increase activities in hospital Admission and Anticipated Discharge Date Admission Date: August 06, 2023 Subjective Patient seen and examined, chart, medications, telemetry reviewed. No complaints overnight No arrhythmias on telemetry Physical Exam Physical Exam: General: no acute distress and stated age Mouth: Patient does have some dentures, and need teeth that are in poor repair Eyes: conjunctiva are pink and non-injected, sclera clear Neck: normal jugular venous pulse, no hepatojugular reflux Chest: normal shape and normal respiratory effort Lungs: clear to auscultation and percussion Cardiac Exam: -Regular rhythm, 1/6 systolic murmur rubs, or gallops, no jugular venous distention Abdomen: abdomen soft, non-tender, no abnormal masses and no hepatosplenomegaly Musculoskeletal: no gait disturbance, no weakness Extremities: no edema and no cyanosis Skin: No rashes, lesions, or skin breakdown Neuro:awake, conversant, follows commands, no focal motor deficits Psych: appropriate affect and insight. Results & Data Vital Signs (Past 12 Hours) Vital Signs Temp Pulse Pulse Resp BP Pulse Ox O2 Del Method 08/10/23 11:38 37.0 C 72 18 113/65 96 Room Air 08/10/23 08:04 36.7 C 70 18 131/67 96 Room Air 08/10/23 07:00 71 08/10/23 03:46 37.1 C 77 18 133/72 95 Room Air
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
--- NOTE | 2023-08-10 18:03 | Hospitalist Progress Note ---
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 Moderate concentric LVH. Left ventricle wall motion is normal. EF 55 to 60%. S/P TAVR. Last 60 years stable in position. There is circumferential lucency surrounding the valve annulus. No flow or evidence of fistula. Findings are concerning for abscess. Prosthetic valve leaflets appear freely mobile. There is low blood thickening of the most posterior leaflet. No aortic stenosis or aortic insufficiency. Prosthetic aortic valve endocarditis suspected. Mild enlargement of aortic root and ascending aorta. Proximal ascending aorta measuring 4.4 cm. -- Blood cultures 08/06/2023: Streptococcus mutans --Blood cultures 08/08/23: No growth to date -- Empirically on vancomycin, Rocephin: Transition to Rocephin 2 g IV daily -- Plan for 8 weeks of IV Rocephin from last negative culture. Needs CBC, CMP weekly while on IV antibiotics. --Appreciate ID, cardiology input --Needs follow-up with cardiology, ID on discharge --Will plan for PICC line placement as able (2) Lightheadedness: Plan: Predominant symptom over the past few months Seen by cardiology for lightheadedness earlier this month -> ZIO patch rule out any concerning cardiac arrhythmias, carotid duplex from 07/05 with <50% stenosis R ICA, normal L ICA Outpatient brain MRI scheduled for 08/24 Currently denies any dizziness (3) Nonrheumatic aortic (valve) stenosis: (4) S/P TAVR (transcatheter aortic valve replacement): Plan[place] [facility] [place]5) Weight loss: Plan: Likely secondary to above Weight loss noted over past few months along with night sweats and poor PO intake Denies any abdominal pain Outpatient CT abd/pelvis scheduled for 08/09 Appetite slowly improving (6) Hypothyroidism: Plan: Continue levothyroxine (7) HTN (hypertension): Plan: Continue Toprol (8) Ascending aortic aneurysm: Plan: Follows with cardiology. Ascending aorta 4.[address] scan and 4.7 by recent echo in August 2021, August 2022. Repeat in 1 year (9) CKD (chronic kidney disease), stage III: Plan: Cr 1.22 (baseline ~1.2-1.3) Monitor with daily BMP DVT Px: SQ heparin Code status: FULL CODE Admission and Anticipated Discharge Date Admission Date: August 06, 2023 Subjective Patient is seen and examined at bedside States feeling better today Offers no specific complaints today Denies any chest pain, dyspnea, nausea, vomiting, abdominal pain Review of Systems Review of Systems: All systems reviewed & are unremarkable except as noted in Subjective Physical Exam Physical Exam: Physical Exam: Vitals signs as noted above General Appearance:Moderately built and nourished, no apparent distress Head: normocephalic, Atraumatic Eyes: normal inspection, EOMI Neck: supple, Trachea midline Respiratory/Chest: Normal breath sounds, CTA, No accessory muscle use Cardiovascular: S1, S2, + murmur Abdomen/GI:Soft, Non tender, Bowel sounds present Extremities/Musculoskeletal:normal inspection, Trace edema Neurologic/Psych:AAOX3, grossly no focal neurological deficits Skin: normal color, warm Results & Data Results & Data Vital Signs (Past 12 Hours) Vital Signs Temp Pulse Pulse Resp BP Pulse Ox O2 Del Method 08/10/23 16:32 37.3 C 76 18 133/68 96 Room Air 08/10/23 15:00 69 08/10/23 11:38 37.0 C 72 18 113/65 96 Room Air 08/10/23 08:04 36.7 C 70 18 131/67 96 Room Air 08/10/23 07:00 71 Laboratory Results BMP 08/10/23 08:48 Creatinine 1.09
[2023-08-11 06:25] LABS: BUN Creatinine Ratio 15.8 (10-20); Calcium 8.7 mg/dl (8.6-10.3); Creatinine Clr Calc Pharmacy 49.6 ml/min; Est GFR (African American) 66.6 ml/min; Est GFR (Non-African American) 57.5 ml/min; Potassium 4.3 mmol/L (3.5-5.1)
[2023-08-11 06:30] LABS: Hematocrit (blood only) 33.3 % (42.0-52.0); Hemoglobin 10.6 g/dl (14.0-18.0); Mean Corpuscular Hemoglobin 26.6 pg (25.0-34.0); Mean Corpuscular Hgb Conc 31.8 g/dL (32.0-36.0); Mean Corpuscular Volume 83.5 fL (80.0-100.0); Mean Platelet Volume 10.2 fL (9.4-12.4); Platelet Count 397 K/uL (130-400); RDW Coefficient of Variation 16.8 % (11.5-14.5); RDW Standard Deviation 50.3 fL (36.4-46.3); Red Blood Count 3.99 M/uL (4.70-6.10); White Blood Count 10.12 K/ul (4.8-10.8)
--- NOTE | 2023-08-11 12:14 | Cardiology Progress Note ---
Date of Service August 11, 2023 Assessment & Plan (1) Prosthetic valve endocarditis: (2) Bacteremia: Plan: Resolved (3) S/P TAVR (transcatheter aortic valve replacement): (4) Weight loss: Plan: 88-year-old male with past medical history of transcatheter aortic valve replacement performed in the setting of aortic stenosis, possible bicuspid aortic valve in 2000 presents with 2 to 3 months of generalized easy fatigability, unintentional 40 pound weight loss, and now 6 weeks of night sweats. He has had a persistent mild leukocytosis. Outpatient blood cultures have yielded Streptococcus species, most recent identification consistent with Streptococcus mitis. Repeat cultures performed in the emergency department prior to the administration of antibiotics negative thus far. Patient also had a positive Lyme screen, IgG was positive but not the IgM. A transthoracic echocardiogram was performed 08/07/2023 with a noted echolucent space anterior to the prosthetic valve on the aortic valve short axis images. Although this area is concerning for possible abscess, it does not look too much different than the previous study performed as an outpatient in August, for direct comparison. It is noted that there has been interval increase in the velocities across the prosthetic aortic valve with maximum continuous-wave Doppler velocity of 2.4 m/s and August, and now 3.5 to 3.6 m/s on the present study and therefore the current velocities are felt to be indeterminate for possible prosthetic obstruction. Repeat cultures were performed on arrival to the emergency room on 08/06/2023 and by PCR are growing Streptococcus species, likely the same culprit as noted on his prehospital cultures. A repeat set of cultures was obtained this morning at 915 on 08/08/2023 to reassess response to antibiotics. Continue Rocephin 2 g every 24 hours intravenously. N.p.o. after midnight for planned transesophageal echocardiogram 08/09/[address] Mancera. Johanne White, DO Plan 08/09/2023 Hemodynamically stable 1. 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 Status post TAVR June 2020 Transesophageal echocardiography similar to transthoracic studies earlier with perivalvular lucency possible underexpansion TAVR versus abscess. Lobular thickening of the prosthetic leaflet. Valve function intact without perivalvular insufficiency, or fistula Plan conservative medical therapy antibiotics. Maintain telemetry at least additional 48 hours Will consider repeat imaging Discussed with patient operative intervention with significant morbidity. Recommend ID consultation 08/10/2023 No clinical changes. Remains afebrile. No embolic stigmata. Last set of blood cultures negative. No change in physical examination Plan close clinical follow-up for presumed prosthetic valve endocarditis, await ID input. Will need extended course of antibiotic therapies Increase activities in hospital 08/11/2023 Remains clinically stable Will repeat EKG, echocardiogram in a.m. Arrangements for long-term antibiotic therapy is being made Admission and Anticipated Discharge Date Admission Date: August 06, 2023 Subjective Patient seen and examined, chart, medications, telemetry reviewed Mildly nauseated overnight but no other acute complaints ambulating in room Review of Systems Review of Systems: All systems reviewed & are unremarkable except as noted in Subjective Physical Exam Constitutional: WD/WN, vitals as above no acute distress Eyes: PERRL, conjunctivae normal, anicteric sclerae Neck: trachea midline, no thyromegaly Respiratory: normal respiratory effort, lungs clear to auscultation Cardiovascular: Rate/Rhythm: regular rate and regular rhythm Heart Sounds: normal S1, normal S2 and + murmur (Grade 2 over 6 systolic murmur no diastolic) Vessels: no JVD Extremities: no edema Gastrointestinal (Abdomen): normal bowel sounds, soft, nontender, no hepatosplenomegaly Musculoskeletal: no cyanosis or clubbing, extremities motor strength 5/5 Skin: no rashes, warm and dry Results & Data Vital Signs (Past 12 Hours) Vital Signs Temp Pulse Pulse Resp BP Pulse Ox O2 Del Method 08/11/23 11:05 37.3 C 74 18 123/64 96 Room Air 08/11/23 07:35 36.8 C 74 18 152/63 H 98 Room Air 08/11/23 07:00 77 08/11/23 02:00 36.9 C 72 18 142/72 H 96 Room Air Laboratory Results Laboratory Results - last 24 hr 08/11/23 05:43 WBC 10.12 RBC 3.99 L Hgb 10.6 L Hct 33.3 L MCV 83.5 MCH 26.6 MCHC 31.8 L RDW Std Deviation 50.3 H RDW Coeff of Suzie 16.8 H Plt Count 397 MPV 10.2 Sodium 133 L Potassium 4.3 Chloride 103 Carbon Dioxide 25 Anion Gap 5 BUN 18 Creatinine 1.14 Est Cr Clr Drug Dosing 49.6 Est GFR ( Amer) 66.6 Est GFR (Non-Af Amer) 57.5 BUN/Creatinine Ratio 15.8 Glucose 98 Calcium 8.7
[2023-08-11] MEDS: ONDANSETRON INJ 2 MG/ML 2 ML VIAL IV PRN (13:29)
[2023-08-11] MEDS: ADVANCED PROBIOTIC 625 MG CAPSULE PO SCH (14:10)
--- NOTE | 2023-08-11 17:35 | Hospitalist Progress Note ---
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 Moderate concentric LVH. Left ventricle wall motion is normal. EF 55 to 60%. S/P TAVR. Last 60 years stable in position. There is circumferential lucency surrounding the valve annulus. No flow or evidence of fistula. Findings are concerning for abscess. Prosthetic valve leaflets appear freely mobile. There is low blood thickening of the most posterior leaflet. No aortic stenosis or aortic insufficiency. Prosthetic aortic valve endocarditis suspected. Mild enlargement of aortic root and ascending aorta. Proximal ascending aorta measuring 4.4 cm. -- Blood cultures 08/06/2023: Streptococcus mutans --Blood cultures 08/08/23: No growth to date -- Empirically on vancomycin, Rocephin: Transition to Rocephin 2 g IV daily till 10/03/23 -- Plan for 8 weeks of IV Rocephin from last negative culture. Needs CBC, CMP weekly while on IV antibiotics. --Appreciate ID, cardiology input --Needs follow-up with cardiology, ID on discharge --If completes IV antibiotic course prior to seeing ID for follow-up, patient would require to be placed on amoxicillin 500 mg 3 times a day. Plan for PICC placement today Leukocytosis resolved Continue current management (2) Lightheadedness: Plan: Predominant symptom over the past few months Seen by cardiology for lightheadedness earlier this month -> ZIO patch rule out any concerning cardiac arrhythmias, carotid duplex from 07/05 with <50% stenosis R ICA, normal L ICA Outpatient brain MRI scheduled for 08/24 Currently denies any dizziness (3) Nonrheumatic aortic (valve) stenosis: (4) S/P TAVR (transcatheter aortic valve replacement): Plan: S/p TAVR 07/10/20 at [facility] [place] (5) Weight loss: Plan: Likely secondary to above Weight loss noted over past few months along with night sweats and poor PO intake Denies any abdominal pain Outpatient CT abd/pelvis scheduled for 08/09 Appetite slowly improving (6) Hypothyroidism: Plan: Continue levothyroxine (7) HTN (hypertension): Plan: Continue Toprol (8) Ascending aortic aneurysm: Plan: Follows with cardiology. Ascending aorta 4.[address] scan and 4.7 by recent echo in August 2021, August 2022. Repeat in 1 year (9) CKD (chronic kidney disease), stage III: Plan: Cr 1.1 (baseline ~1.2-1.3) Monitor with daily BMP DVT Px: SQ heparin Code status: FULL CODE Admission and Anticipated Discharge Date Admission Date: August 06, 2023 Subjective Patient is seen and examined at bedside Reports transient nausea this morning Weakness, appetite much improved No other complaints today Denies any chest pain, dyspnea, nausea, vomiting, abdominal pain Review of Systems Review of Systems: All systems reviewed & are unremarkable except as noted in Subjective Physical Exam Physical Exam: Physical Exam: Vitals signs as noted above General Appearance:Moderately built and nourished, no apparent distress Head: normocephalic, Atraumatic Eyes: normal inspection, EOMI Neck: supple, Trachea midline Respiratory/Chest: Normal breath sounds, CTA, No accessory muscle use Cardiovascular: S1, S2, + murmur Abdomen/GI:Soft, Non tender, Bowel sounds present Extremities/Musculoskeletal:normal inspection, Trace edema Neurologic/Psych:AAOX3, grossly no focal neurological deficits Skin: normal color, warm Results & Data Results & Data Vital Signs (Past 12 Hours) Vital Signs Temp Pulse Pulse Resp BP Pulse Ox O2 Del Method 08/11/23 15:38 37.3 C 67 18 110/55 L 96 Room Air 08/11/23 15:00 79 08/11/23 11:05 37.3 C 74 18 123/64 96 Room Air 08/11/23 07:35 36.8 C 74 18 152/63 H 98 Room Air 08/11/23 07:00 77 Laboratory Results Short CBC 08/11/23 Range/Units 05:43 WBC 10.12 (4.8-10.8) K/ul Hgb 10.6 L (14.0-18.0) g/dl Hct 33.3 L (42.0-52.0) % Plt Count 397 (130-400) K/uL BMP 08/11/23 05:43 Sodium 133 L Potassium 4.3 Chloride 103 Carbon Dioxide 25 BUN 18 Creatinine 1.14 Glucose 98 Calcium 8.7
[2023-08-12 05:06] LABS: Hematocrit (blood only) 31.3 % (42.0-52.0); Hemoglobin 9.8 g/dl (14.0-18.0); Mean Corpuscular Hemoglobin 26.3 pg (25.0-34.0); Mean Corpuscular Hgb Conc 31.3 g/dL (32.0-36.0); Mean Corpuscular Volume 83.9 fL (80.0-100.0); Mean Platelet Volume 10.1 fL (9.4-12.4); Platelet Count 443 K/uL (130-400); RDW Coefficient of Variation 16.3 % (11.5-14.5); RDW Standard Deviation 49.3 fL (36.4-46.3); Red Blood Count 3.73 M/uL (4.70-6.10); White Blood Count 10.57 K/ul (4.8-10.8)
[2023-08-12 05:17] LABS: BUN Creatinine Ratio 16.5 (10-20); Calcium 8.4 mg/dl (8.6-10.3); Creatinine Clr Calc Pharmacy 46.8 ml/min; Est GFR (Non-African American) 53.5 ml/min; Potassium 3.8 mmol/L (3.5-5.1)
--- NOTE | 2023-08-12 08:28 | Electrocardiogram Report ---
Test Reason : Blood Pressure : / mmHG Vent. Rate : 068 BPM Atrial Rate : 068 BPM P-R Int : 196 ms QRS Dur : 104 ms QT Int : 412 ms P-R-T Axes : 069 061 002 degrees QTc Int : 438 ms Normal sinus rhythm Normal ECG When compared with ECG of 06-AUG-2023 15:58, Premature atrial complexes are no longer Present Confirmed by Kian Desouza ([id number]) on 08/12/2023 8:28:43 AM Referred By: REFERRED SELF Confirmed By:Kian Desouza
--- NOTE | 2023-08-12 14:15 | Hospitalist Progress Note ---
Date of Service August 12, 2023 Assessment & Plan (1) Bacteremia: Plan: This is an 88yo M with a PMH of nonrheumatic aortic valve stenosis status post TAVR, HTN, HLD, LBBB, CKD 3, hypothyroidism, prediabetes, history of ascending aortic aneurysm and other medical problems listed below who presents after being called with the preliminary result of positive blood cultures. 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 Moderate concentric LVH. Left ventricle wall motion is normal. EF 55 to 60%. S/P TAVR. Last 60 years stable in position. There is circumferential lucency surrounding the valve annulus. No flow or evidence of fistula. Findings are concerning for abscess. Prosthetic valve leaflets appear freely mobile. There is low blood thickening of the most posterior leaflet. No aortic stenosis or aortic insufficiency. Prosthetic aortic valve endocarditis suspected. Mild enlargement of aortic root and ascending aorta. Proximal ascending aorta measuring 4.4 cm. -- Blood cultures 08/06/2023: Streptococcus mutans --Blood cultures 08/08/23: No growth to date -- Empirically on vancomycin, Rocephin: Transition to Rocephin 2 g IV daily till 10/03/23 -- Plan for 8 weeks of IV Rocephin from last negative culture. Needs CBC, CMP weekly while on IV antibiotics. --Appreciate ID, cardiology input --Needs follow-up with cardiology, ID on discharge --If completes IV antibiotic course prior to seeing ID for follow-up, patient would require to be placed on amoxicillin 500 mg 3 times a day. Had PICC line placement on 08/12/2023 Leukocytosis resolved Plan to be discharged home today. Explained the importance of follow-up with cardiology, CT surgery, ID and continuation of antibiotics as recommended. Patient understands and agrees with the plan. (2) Lightheadedness: Plan: Predominant symptom over the past few months Seen by cardiology for lightheadedness earlier this month -> ZIO patch rule out any concerning cardiac arrhythmias, carotid duplex from 07/05 with <50% stenosis R ICA, normal L ICA Outpatient brain MRI scheduled for 08/24 Currently denies any dizziness (3) Nonrheumatic aortic (valve) stenosis: (4) S/P TAVR (transcatheter aortic valve replacement): Plan[place] [facility] [place] (5) Weight loss: Plan: Likely secondary to above Weight loss noted over past few months along with night sweats and poor PO intake Denies any abdominal pain Outpatient CT abd/pelvis scheduled for 08/09 Appetite slowly improving (6) Hypothyroidism: Plan: Continue levothyroxine (7) HTN (hypertension): Plan: Continue Toprol (8) Ascending aortic aneurysm: Plan: Follows with cardiology. Ascending aorta 4.[address] scan and 4.7 by recent echo in August 2021, August 2022. Repeat in 1 year (9) CKD (chronic kidney disease), stage III: Plan: Cr 1.1 (baseline ~1.2-1.3) Monitor with daily BMP DVT Px: SQ heparin Code status: FULL CODE Disposition Home Admission and Anticipated Discharge Date Admission Date: August 06, 2023 Subjective Patient is seen and examined at bedside Nausea resolved Weakness much improved Discussed with cardiology today No other complaints today Had PICC Placement today Denies any chest pain, dyspnea, nausea, vomiting, abdominal pain Review of Systems Review of Systems: All systems reviewed & are unremarkable except as noted in Subjective Physical Exam Physical Exam: Physical Exam: Vitals signs as noted above General Appearance:Moderately built and nourished, no apparent distress Head: normocephalic, Atraumatic Eyes: normal inspection, EOMI Neck: supple, Trachea midline Respiratory/Chest: Normal breath sounds, CTA, No accessory muscle use Cardiovascular: S1, S2, + murmur Abdomen/GI:Soft, Non tender, Bowel sounds present Extremities/Musculoskeletal:normal inspection, Trace edema Neurologic/Psych:AAOX3, grossly no focal neurological deficits Skin: normal color, warm Results & Data Results & Data Vital Signs (Past 12 Hours) Vital Signs Temp Pulse Pulse Resp BP Pulse Ox O2 Del Method 08/12/23 11:00 36.7 C 77 20 121/73 96 Room Air 08/12/23 08:18 37.0 C 81 20 149/73 H 96 Room Air 08/12/23 07:00 69 08/12/23 02:56 36.8 C 69 18 103/54 L 97 Room Air Laboratory Results Short CBC 08/12/23 Range/Units 04:18 WBC 10.57 (4.8-10.8) K/ul Hgb 9.8 L (14.0-18.0) g/dl Hct 31.3 L (42.0-52.0) % Plt Count 443 H (130-400) K/uL BMP 08/12/23 04:18 Sodium 134 L Potassium 3.8 Chloride 102 Carbon Dioxide 26 BUN 20 Creatinine 1.21 Glucose 111 H Calcium 8.4 L
--- NOTE | 2023-08-12 14:23 | Cardiology Progress Note ---
Date of Service August 12, 2023 Assessment & Plan (1) Prosthetic valve endocarditis: (2) Bacteremia: Plan: Resolved (3) S/P TAVR (transcatheter aortic valve replacement): (4) Weight loss: Plan: 88-year-old male with past medical history of transcatheter aortic valve replacement performed in the setting of aortic stenosis, possible bicuspid aortic valve in 2000 presents with 2 to 3 months of generalized easy fatigability, unintentional 40 pound weight loss, and now 6 weeks of night sweats. He has had a persistent mild leukocytosis. Outpatient blood cultures have yielded Streptococcus species, most recent identification consistent with Streptococcus mitis. Repeat cultures performed in the emergency department prior to the administration of antibiotics negative thus far. Patient also had a positive Lyme screen, IgG was positive but not the IgM. A transthoracic echocardiogram was performed 08/07/2023 with a noted echolucent space anterior to the prosthetic valve on the aortic valve short axis images. Although this area is concerning for possible abscess, it does not look too much different than the previous study performed as an outpatient in August, for direct comparison. It is noted that there has been interval increase in the velocities across the prosthetic aortic valve with maximum continuous-wave Doppler velocity of 2.4 m/s and August, and now 3.5 to 3.6 m/s on the present study and therefore the current velocities are felt to be indeterminate for possible prosthetic obstruction. Repeat cultures were performed on arrival to the emergency room on 08/06/2023 and by PCR are growing Streptococcus species, likely the same culprit as noted on his prehospital cultures. A repeat set of cultures was obtained this morning at 915 on 08/08/2023 to reassess response to antibiotics. Continue Rocephin 2 g every 24 hours intravenously. N.p.o. after midnight for planned transesophageal echocardiogram 08/09/[address] Mancera. Johanne White, DO Plan 08/09/2023 Hemodynamically stable 1. 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 Status post TAVR June 2020 Transesophageal echocardiography similar to transthoracic studies earlier with perivalvular lucency possible underexpansion TAVR versus abscess. Lobular thickening of the prosthetic leaflet. Valve function intact without perivalvular insufficiency, or fistula Plan conservative medical therapy antibiotics. Maintain telemetry at least additional 48 hours Will consider repeat imaging Discussed with patient operative intervention with significant morbidity. Recommend ID consultation 08/10/2023 No clinical changes. Remains afebrile. No embolic stigmata. Last set of blood cultures negative. No change in physical examination Plan close clinical follow-up for presumed prosthetic valve endocarditis, await ID input. Will need extended course of antibiotic therapies Increase activities in hospital 08/11/2023 Remains clinically stable Will repeat EKG, echocardiogram in a.m. Arrangements for long-term antibiotic therapy is being made 08/12/2023 1. 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 Blood cultures however now are negative no arrhythmias or signs of further clinical decline or deterioration. Patient aware of risk of conservative therapy as well as risks of operative intervention. Will plan on antibiotic therapy as per ID instructions close clinical follow-up post hospital discharge cardiology 2 weeks Admission and Anticipated Discharge Date Admission Date: August 06, 2023 Subjective Patient seen and examined, chart, medications, telemetry reviewed No arrhythmias on telemetry EKG normal No cardiac symptoms or complaints no embolic phenomena no fevers or chills with patient ambulating in room. Still waiting venous access for discharge Review of Systems Review of Systems: All systems reviewed & are unremarkable except as noted in Subjective Physical Exam Constitutional: WD/WN, vitals as above no acute distress Eyes: PERRL, conjunctivae normal, anicteric sclerae ENMT: external ear and nose normal, oropharynx normal Neck: trachea midline, no thyromegaly Respiratory: normal respiratory effort, lungs clear to auscultation Cardiovascular: Rate/Rhythm: regular rate and regular rhythm Heart Sounds: normal S1, normal S2 and + murmur (Grade 2 over 6 systolic murmur no diastolic) Vessels: no JVD Extremities: no edema Gastrointestinal (Abdomen): normal bowel sounds, soft, nontender, no hepatosplenomegaly Musculoskeletal: no cyanosis or clubbing, extremities motor strength 5/5 Skin: no rashes, warm and dry Results & Data Vital Signs (Past 12 Hours) Vital Signs Temp Pulse Pulse Resp BP Pulse Ox O2 Del Method 08/12/23 11:00 36.7 C 77 20 121/73 96 Room Air 08/12/23 08:18 37.0 C 81 20 149/73 H 96 Room Air 08/12/23 07:00 69 08/12/23 02:56 36.8 C 69 18 103/54 L 97 Room Air Laboratory Results Laboratory Results - last 24 hr 08/12/23 04:18 WBC 10.57 RBC 3.73 L Hgb 9.8 L Hct 31.3 L MCV 83.9 MCH 26.3 MCHC 31.3 L RDW Std Deviation 49.3 H RDW Coeff of Suzie 16.3 H Plt Count 443 H MPV 10.1 Sodium 134 L Potassium 3.8 Chloride 102 Carbon Dioxide 26 Anion Gap 6 BUN 20 Creatinine 1.21 Est Cr Clr Drug Dosing 46.8 Est GFR ( Amer) 62.0 Est GFR (Non-Af Amer) 53.5 BUN/Creatinine Ratio 16.5 Glucose 111 H Calcium 8.4 L
--- NOTE | 2023-08-12 14:26 | Discharge Summary ---
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 Patient was seen by PCP on 08/01/2023 for ongoing lightheadedness since mid-May. Prior to that was able to walk 3 miles a day. Now endorsing lightheadedness, poor p.o. intake and generalized weakness as well as night sweats over the past 2 weeks. Was evaluated by cardiology for dizziness and underwent a Zio patch that ruled out any concerning cardiac arrhythmias and was continued on Toprol 12.5 mg daily. This evening patient is comfortable, denying any lightheadedness at rest. No F/C, headache, CP, SOB, N/V, abd pain, dysuria, diarrhea or constipation. Outpatient lab work done on 07/31 revealed persistent leukocytosis at 16 K, CRP of 79, ESR of 54. Preliminary positive blood cultures resulted today, growing Streptococcus species DNA by PCR with sensitivities pending. Was called by PCP generation engineering technologist and directed to ED for further infectious workup and concern for infective endocarditis given previous valve replacement. History of extensive cardiac hx to include bicuspid aortic valve and had TAVR in June of 2020. Hx of aortic aneurysm and has repeat echo arranged for next month. Per PCP note, last September he was 245 lbs and today his weight down to 196 lbs. MRI brain and CT abd/pelvis were ordered as an outpatient but not yet obtained. Also noted to have positive Lyme disease antibody screen with positive IgG confirmation, negative IgM. Started on 10 d course of Doxycycline by PCP. Admission Exam Per Admitting Provider General Appearance: WD/WN, vitals as above, NAD, sitting up in bed, pleasant, conversing easily Head: normocephalic, atraumatic Eyes: normal inspection, PERRL, conjunctivae normal, anicteric sclerae ENT: external ear and nose normal, oropharynx normal Neck: normal visual inspection, trachea midline, no thyromegaly Respiratory: normal respiratory effort, lungs clear to auscultation, no wheeze, rales, rhonchi. No accessory muscle use Cardiovascular: regular rate, rhythm, trace BLE edema. 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 Bacteremia H/O TAVR Discharge Data Allergies Allergy/AdvReac Type Severity Reaction Status Date / Time No Known Allergies Allergy Mild Verified 08/06/23 16:15 Consultations 08/06/23 16:07 ED Decision to Admit Stat 08/06/23 17:15 Consult Cardiology Routine 08/07/23 11:59 Consult Anesthesiology Routine 08/09/23 17:53 Consult Infectious Diseases Routine Procedures Performed Operation Date: 08/09/23 07:30 Actual Procedures p Echo Transesophageal - Mata Mancera MD s Echo Color Flow - Mata Mancera MD s Echo Doppler Complete - Mata Mancera MD Ordered Studies Laboratory Results WBC 10.57 K/ul (4.8-10.8) 08/12/23 04:18 RBC 3.73 M/uL (4.70-6.10) L 08/12/23 04:18 Hgb 9.8 g/dl (14.0-18.0) L 08/12/23 04:18 Hct 31.3 % (42.0-52.0) L 08/12/23 04:18 MCV 83.9 fL (80.0-100.0) 08/12/23 04:18 MCH 26.3 pg (25.0-34.0) 08/12/23 04:18 MCHC 31.3 g/dL (32.0-36.0) L 08/12/23 04:18 RDW Std Deviation 49.3 fL (36.4-46.3) H 08/12/23 04:18 RDW Coeff of Suzie 16.3 % (11.5-14.5) H 08/12/23 04:18 Plt Count 443 K/uL (130-400) H 08/12/23 04:18 MPV 10.1 fL (9.4-12.4) 08/12/23 04:18 Immature Gran % (Auto) 0.8 % 08/09/23 06:00 Neut % (Auto) 75.8 % 08/09/23 06:00 Lymph % (Auto) 14.9 % 08/09/23 06:00 Ingham % (Auto) 6.9 % 08/09/23 06:00 Eos % (Auto) 1.2 % 08/09/23 06:00 Baso % (Auto) 0.4 % 08/09/23 06:00 Neut # (Auto) 9.06 K/uL (1.40-6.50) H 08/09/23 06:00 Lymph # (Auto) 1.78 K/uL (1.20-3.40) 08/09/23 06:00 Ingham # (Auto) 0.82 K/uL (0.11-0.59) H 08/09/23 06:00 Eos # (Auto) 0.14 K/uL (0.00-0.50) 08/09/23 06:00 Baso # (Auto) 0.05 K/uL (0.00-0.20) 08/09/23 06:00 Immature Gran # (Auto) 0.09 K/uL (0.01-0.20) 08/09/23 06:00 PT 11.3 Seconds (9.0-12.0) 08/06/23 16:15 INR 1.0 (0.9-1.1) 08/06/23 16:15 APTT 29 Seconds (21-31) 08/06/23 16:15 PTT Ratio 1.1 08/06/23 16:15 VBG pH 7.41 (7.36-7.41) 08/06/23 16:22 VBG pCO2 47 mmHg (38-50) 08/06/23 16:22 VBG pO2 24 mmHg 08/06/23 16:22 VBG HCO3 30 mmol/L 08/06/23 16:22 VBG O2 Saturation < 60.0 % 08/06/23 16:22 VBG Base Excess 4.3 mEq/L 08/06/23 16:22 Sodium 134 mmol/L (136-145) L 08/12/23 04:18 Potassium 3.8 mmol/L (3.5-5.1) 08/12/23 04:18 Chloride 102 mmol/L (98-107) 08/12/23 04:18 Carbon Dioxide 26 mmol/L (21-32) 08/12/23 04:18 Anion Gap 6 (3-11) 08/12/23 04:18 BUN 20 mg/dl (6-23) 08/12/23 04:18 Creatinine 1.21 mg/dl (0.6-1.4) 08/12/23 04:18 Est Cr Clr Drug Dosing 46.8 ml/min 08/12/23 04:18 Est GFR ( Amer) 62.0 ml/min 08/12/23 04:18 Est GFR (Non-Af Amer) 53.5 ml/min 08/12/23 04:18 BUN/Creatinine Ratio 16.5 (10-20) 08/12/23 04:18 Glucose 111 mg/dl (70-99(Fasting)) H 08/12/23 04:18 Lactate 0.9 mmol/L (0.4-2.0) 08/06/23 16:22 Calcium 8.4 mg/dl (8.6-10.3) L 08/12/23 04:18 Phosphorus 3.3 mg/dl (2.5-4.9) 08/08/23 04:36 Magnesium 1.8 mg/dl (1.7-2.4) 08/08/23 04:36 Total Bilirubin 0.5 mg/dl (0.2-1.0) 08/06/23 16:15 Direct Bilirubin 0.1 mg/dl (0-0.2) 08/06/23 16:15 AST 31 U/L (13-39) 08/06/23 16:15 ALT 12 U/L (7-52) 08/06/23 16:15 Alkaline Phosphatase 90 U/L (34-104) 08/06/23 16:15 Troponin I High Sens 11.7 pg/ml (0-20) 08/06/23 16:15 Total Protein 7.3 gm/dl (6.0-8.3) 08/06/23 16:15 Albumin 3.5 gm/dl (3.4-5.0) 08/06/23 16:15 Procalcitonin 0.11 ng/ml (0-0.5) 08/06/23 16:15 Urine Color Yellow 08/06/23 16:33 Urine Appearance Clear (Clear) 08/06/23 16:33 Urine pH 6.0 (4.5-7.5) 08/06/23 16:33 Ur Specific Ehrenberg 1.014 (1.000-1.030) 08/06/23 16:33 Urine Protein 1+ (Negative) H 08/06/23 16:33 Urine Glucose (UA) Negative (Negative) 08/06/23 16:33 Urine Ketones Negative (Negative) 08/06/23 16:33 Urine Blood 1+ (Negative) H 08/06/23 16:33 Urine Nitrite Negative (Negative) 08/06/23 16:33 Urine Bilirubin Negative (Negative) 08/06/23 16:33 Urine Urobilinogen Negative (Negative) 08/06/23 16:33 Ur Leukocyte Esterase Negative (Negative) 08/06/23 16:33 Urine WBC (Auto) 0-5 /hpf (0-5) 08/06/23 16:33 Urine RBC (Auto) 3-5 /hpf (0-2) H 08/06/23 16:33 U Hyaline Cast (Auto) 0-2 /lpf (0-2) 08/06/23 16:33 U Epithel Cells (Auto) 0-2 /hpf (0-2) 08/06/23 16:33 Urine Bacteria (Auto) None Seen (None Seen) 08/06/23 16:33 Random Vancomycin 18.3 mcg/ml (10-20) 08/09/23 12:02 Streptococcus sp PCR DETECTED (NotDetected) A 08/07/23 16:22 Bld Cult ID Panel PCR See PCR Comment (NotDetected) 08/07/23 16:22 Impressions Chest X-Ray 08/06/23 15:48 XR chest 1V portable HISTORY: Sepsis COMPARISON: Chest 03/11/2021. FINDINGS: No pneumothorax. No pleural effusions. No focal lung consolidations to suggest pneumonia. No evidence for pulmonary edema. The cardiac silhouette remains borderline enlarged. Aortic valve prosthesis is noted. No acute fractures. IMPRESSION: No significant change compared to the prior study. No acute process. ACT 112: Negative or not required by law. Electronically signed by: Jae Hurtado M.D. 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 Moderate concentric LVH. Left ventricle wall motion is normal. EF 55 to 60%. S/P TAVR. Last 60 years stable in position. There is circumferential lucency surrounding the valve annulus. No flow or evidence of fistula. Findings are concerning for abscess. Prosthetic valve leaflets appear freely mobile. There is low blood thickening of the most posterior leaflet. No aortic stenosis or aortic insufficiency. Prosthetic aortic valve endocarditis suspected. Mild enlargement of aortic root and ascending aorta. Proximal ascending aorta measuring 4.4 cm. -- Blood cultures 08/06/2023: Streptococcus mutans --Blood cultures 08/08/23: No growth to date -- Empirically on vancomycin, Rocephin: Transition to Rocephin 2 g IV daily till 10/03/23 -- Plan for 8 weeks of IV Rocephin from last negative culture. Needs CBC, CMP weekly while on IV antibiotics. --Appreciate ID, cardiology input --Needs follow-up with cardiology, ID on discharge --If completes IV antibiotic course prior to seeing ID for follow-up, patient would require to be placed on amoxicillin 500 mg 3 times a day. Had PICC line placement on 08/12/2023 Leukocytosis resolved Plan to be discharged home today. Explained the importance of follow-up with cardiology, CT surgery, ID and continuation of antibiotics as recommended. Patient understands and agrees with the plan. (2) Lightheadedness: Predominant symptom over the past few months Seen by cardiology for lightheadedness earlier this month -> ZIO patch rule out any concerning cardiac arrhythmias, carotid duplex from 07/05 with <50% stenosis R ICA, normal L ICA Outpatient brain MRI scheduled for 08/24 Currently denies any dizziness (3) Nonrheumatic aortic (valve) stenosis: (4) S/P TAVR (transcatheter aortic valve replacement): S/p TAVR 07/10/20 at [facility] (5) Weight loss: Likely secondary to above Weight loss noted over past few months along with night sweats and poor PO intake Denies any abdominal pain Outpatient CT abd/pelvis scheduled for 08/09 Appetite slowly improving (6) Hypothyroidism: Continue levothyroxine (7) HTN (hypertension): Continue Toprol (8) Ascending aortic aneurysm: Follows with cardiology. Ascending aorta 4.[address] scan and 4.7 by recent echo in August 2021, August 2022. 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 Bacteremia H/O TAVR Activity: Per Instructions section Exercise/Sports: Wait until after follow-up appointment Non-emergency contact: Primary Care Provider, Surgeon, Specialist and Associate Professor Of Law Call non-emergency contact if: you have any medication questions, your symptoms worsen, your pain is concerning for you and you have a fever Follow-up/Referrals: Elba Macias DO [Primary Care Provider] - (Date & Time 08/18/2023 10:10 AM Provider Elba Macias DO Department [facility] ) Diet: Heart Healthy Addtl Attending Provider Instructions: Follow-up with your primary care physician Dr. Macias on 08/18/2023 10:10 AM Follow-up with your material lister Dr. Mancera as recommended Follow-up with your infectious disease Dr.Reda Murrieta in 4-6 weeks as recommended -- Complete the antibiotic course Rocephin 2 g IV daily till 10/03/23 as recommended by your infectious disease specialist. --If you complete IV antibiotic course prior to seeing infectious disease for follow-up, patient would require to be placed on amoxicillin 500 mg 3 times a day as per your physician. Discuss with your primary care physician for further recommendations -- Get weekly blood work: CBC, CMP while on IV antibiotics and follow-up with your primary care physician with results. --Your final blood cultures are pending at the time of discharge. Follow-up with your physician for results. Seek immediate medical attention if your symptoms reoccur or worsen Please take all medications as instructed on discharge list below. Please call if you have any questions or problems. You can reach a [facility] hospitalist on duty at [facility] 24 hours a day by calling [phone] Pending Studies at Discharge: Yes Studies:: Blood cultures Stand-Alone Forms: My [facility], Smoking Cessation Medications and DC Order Prescriptions: New Advanced Probiotic 625 mg (10 billion cell) Capsule 1 cap PO DAILY Qty: 60 0RF ceftriaxone 2 gram recon soln 2 g IV DAILY 56 Days Continued multivitamin Tablet 1 tab PO QAM Qty: 0 levothyroxine 137 mcg Tablet 137 mcg PO DAILYBB Qty: 0 tamsulosin 0.4 mg capsule 0.4 mg PO QAM metoprolol succinate 25 mg tablet extended release 24 hr 12.5 mg PO QAM amoxicillin 500 mg capsule See Rx Instructions .ROUTE .COMPLEX Rx Instructions: TAKE 4 CAPSULES BY MOUTH ONE HOUR BEFORE APPT aspirin 81 mg Capsule 81 mg PO DAILY Discontinued doxycycline hyclate 100 mg capsule 100 mg PO BID Rx Instructions: STARTED 08/01/23 FOR 10 DAYS Discharge Orders: Discharge Order (Routine); Ordered 08/12/23 Ordered By: Jasmeet Gruber Admission Data Admit Date/Time: 08/06/23 16:55 Attending Provider: Jasmeet Gruber Admit Provider: Jennifer Cohn Primary Care Provider: Elba Macias Other Providers: Luz Bush; Juarez White; Nazario Nolan; Killian Hinson; Jamir Colunga; Scott Langley I.; Joseluis Thomas II; Eva Mendoza; Kt Oliva; Pasha Akers; Musa Murrieta; Chin Souza; [facility]; [facility]
== END 2023-08-12 16:14 | disposition home health service (06) | DRG 314 ==
LOC: ED 15:23 → SUATTDRO 16:55 → 4W 16:55
DX: Z95.2 Presence of prosthetic heart valve; I35.0 Nonrheumatic aortic (valve) stenosis; Y92.009 Unspecified place in unspecified non-institutional (private) residence as the place of occurrence of the external cause; Z86.16 Personal history of COVID-19; I71.21 Aneurysm of the ascending aorta, without rupture; N18.30 Chronic kidney disease, stage 3 unspecified; I12.9 Hypertensive chronic kidney disease with stage 1 through stage 4 chronic kidney disease, or unspecified chronic kidney disease; Z79.82 Long term (current) use of aspirin; Y71.2 Prosthetic and other implants, materials and accessory cardiovascular devices associated with adverse incidents; E03.9 Hypothyroidism, unspecified; R63.4 Abnormal weight loss; I33.0 Acute and subacute infective endocarditis; R78.81 Bacteremia; I44.7 Left bundle-branch block, unspecified; B95.4 Other streptococcus as the cause of diseases classified elsewhere; Z79.890 Hormone replacement therapy; T82.6XXA Infection and inflammatory reaction due to cardiac valve prosthesis, initial encounter

== ENCOUNTER 2023-08-23 11:01 | Inpatient (IN) ==
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
[2023-08-23] MEDS: SODIUM CHLORIDE 0.9% 500 ML IV ONE (12:34)
--- NOTE | 2023-08-23 12:35 | Ultrasound Report ---
ULTRASOUND LEFT UPPER EXTREMITY VENOUS CLINICAL HISTORY: Acute pain and swelling of the left upper extremity. COMPARISON STUDY: None. TECHNIQUE: Real-time, grayscale, and color Doppler sonography of the deep veins of the left upper ext remity is performed. Compression and augmentation were utilized. FINDINGS: There is no sonographic evidence of deep venous thrombosis identified in the left upper ext remity. The left internal jugular, axillary, and brachial veins are patent and normally compressible. Normal venous waveforms and augmentation are seen within the left subclavian vein. The cephalic and basilic veins are clear. The visualized radial and ulnar veins are patent. Incidental note is made of at least partially occlusive thrombus within a several centimeter segment of the brachial and radial arteries. IMPRESSION: 1. At least partially occlusive thrombi incidentally noted within segments of the brachial and radial arteries. 2. No DVT identified. There is no sonographic evidence of deep venous thrombosis identified in the left upper extremity. ACT 112: Negative or not required by law. Electronically signed by: Adams Ro M.D. 08/23/2023 12:33 PM
[2023-08-23 13:03] LABS: Basophils # (auto) 0.06 K/uL (0.00-0.20); Basophils % (auto) 0.4 %; Eosinophils # (auto) 0.02 K/uL (0.00-0.50); Eosinophils % (auto) 0.1 %; Hematocrit (blood only) 35.2 % (42.0-52.0); Hemoglobin 11.2 g/dl (14.0-18.0); Immature Granulocytes % (auto) 0.7 %; Lymphocytes # (auto) 1.47 K/uL (1.20-3.40); Lymphocytes % (auto) 10.4 %; Mean Corpuscular Hgb Conc 31.8 g/dL (32.0-36.0); Mean Corpuscular Volume 84.8 fL (80.0-100.0); Mean Platelet Volume 9.8 fL (9.4-12.4); Monocytes # (auto) 0.93 K/uL (0.11-0.59); Monocytes % (auto) 6.6 %; Neutrophils # (auto) 11.53 K/uL (1.40-6.50); Neutrophils % (auto) 81.8 %; Platelet Count 363 K/uL (130-400); RDW Coefficient of Variation 17.1 % (11.5-14.5); RDW Standard Deviation 52.4 fL (36.4-46.3); Red Blood Count 4.15 M/uL (4.70-6.10); White Blood Count 14.11 K/ul (4.8-10.8)
[2023-08-23 13:17] LABS: Alanine Aminotransferase 12 U/L (7-52); Albumin Globulin Ratio 0.8 (0.9-2); Albumin Level 3.3 gm/dl (3.4-5.0); Alkaline Phosphatase 87 U/L (34-104); Anion Gap 7 (3-11); Aspartate Aminotransferase 17 U/L (13-39); BUN Creatinine Ratio 14.6 (10-20); Bilirubin,Total 0.6 mg/dl (0.2-1.0); Blood Urea Nitrogen 15 mg/dl (6-23); Calcium 9.1 mg/dl (8.6-10.3); Carbon Dioxide 28 mmol/L (21-32); Chloride 99 mmol/L (98-107); Est GFR (African American) 75.3 ml/min; Glucose 113 mg/dl (70-99(Fasting)); Phosphorus 3.4 mg/dl (2.5-4.9); Sodium 134 mmol/L (136-145); Total Protein 7.3 gm/dl (6.0-8.3)
[2023-08-23 13:31] LABS: Thyroid Stimulating Hormone 1.426 uIu/ml (0.300-4.500)
[2023-08-23 14:41] LABS: Partial Thromboplastin Ratio 1.2; Partial Thromboplastin Time 32 Seconds (21-31); Prothrombin Time 11.2 Seconds (9.0-12.0)
[2023-08-23] MEDS: OPTIRAY 320 150ml IV ONE (15:02)
[2023-08-23 15:06] LABS: Troponin I High Sensitivity 52.9 pg/ml (0-20)
--- NOTE | 2023-08-23 15:42 | CT Scan Report ---
CT ANGIOGRAPHY OF THE NECK WITH CONTRAST CLINICAL HISTORY: Vertigo, endocarditis. COMPARISON STUDY: No previous studies for comparison. Technique: CT angiography of the carotid and vertebral arteries was obtained using Optiray and 3D rec onstruction on an independent workstation. NASCET criteria was utilized. Automated exposure control was utilized for the study. A dose lowering technique was utilized adhering to the principles of ALA RA. Findings: No cervical lymphadenopathy is present. There is no cervical spine fracture. Moderate multi level degenerative changes within the cervical spine are incidentally noted. There are multiple peria pical lucencies/abscesses. Multiple teeth are absent. There are multiple dental implants. The bilater al common carotid, cervical internal carotid and vertebral arteries are patent. There is mild plaque within the carotid bifurcations without stenosis. Left vertebral artery is dominant and patent. 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 There is no dissection or aneurysm within the neck. CTA of the head will be reported separately. IMPRESSION: No stenosis or dissection within the bilateral common carotid, cervical internal carotid or vertebral arteries. ACT 112: Negative or not required by law. Electronically signed by: Matthias Wan M.D. 08/23/2023 3:40 PM
--- NOTE | 2023-08-23 15:51 | CT Scan Report ---
CT angio chest dissec wo/w con CLINICAL HISTORY: sob, endocarditis, brachial thrombi TECHNIQUE: Multidetector row helical CT of the chest was performed before and after injection of IV c ontrast. Coronal, sagittal, and MIP reformations were obtained. Automated dose lowering techniques an d/or adjustment according to patient size were utilized for this exam. Comparison: None available at the time of this dictation. FINDINGS: Lungs and pleura: Scattered calcified granulomata are seen. Atelectasis is seen in the lung bases. 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 Vessels: No aortic dissection or intramural hematoma is seen. No pulmonary emboli are seen. Mediastinum and ok: Unremarkable. Chest wall and lower neck: Unremarkable. Abdomen: Unremarkable. Bones: Degenerative changes in the thoracic spine. IMPRESSION: No acute abnormality and in particular no evidence of acute aortic injury. No pulmonary emboli are se en. ACT 112: Negative or not required by law. Electronically signed by: Sekou Hogue M.D. 08/23/2023 3:50 PM
[2023-08-23] MEDS ORDERED: HEPARIN SOD (PORCINE) 1000 UNIT/ML IV ONE (15:59)
--- NOTE | 2023-08-23 16:04 | CT Scan Report ---
CT angio head w con, CT head/brain wo con CLINICAL HISTORY: 88 years-old Male with vertigo, endocarditis. Acute vertigo COMPARISON STUDY: CTA neck of same day TECHNIQUE: Unenhanced axial CT scan of the brain is performed. Subsequently, following the IV adminis tration of 110 cc of Optiray, CT angiogram of the brain was performed from the skull base to the vert ex. Images are reviewed in the axial, sagittal, and coronal planes. 3-D MIPS images are created and a ssessed. IV contrast was administered without complication. All measurements were obtained according to NASCET criteria. A dose lowering technique was utilized adhering to the principles of ALARA. CT DOSE: 4289.5 mGy.cm FINDINGS: CT BRAIN: There is no acute intracranial hemorrhage, midline shift, hydrocephalus, intracranial mass, territori al ischemia or abnormal extra-axial collections. No abnormal intra-axial or extra-axial enhancement. Mild involutional changes. Mastoid air cells and middle ear cavities are clear. No calvarial fracture . Paranasal sinuses are clear. CT ANGIOGRAM OF THE BRAIN: The imaged bilateral internal carotid arteries are patent. The bilateral anterior and middle cerebral arteries are also patent. 3 mm sac aneurysm is noted within the supraclinoid segment left ICA on eleazar ge 156 series 19. The vertebrobasilar system and posterior cerebral arteries are widely patent. Domin ant left vertebral artery. Tortuosity of the basilar artery/ dolichoectasia. There is no high-grade s tenosis, or proximal branch occlusion identified. Dural sinuses appear patent. IMPRESSION: 1. No acute intracranial abnormality. 2. No arterial occlusion, dissection or high-grade stenosis identified. 3. 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 ACT 112: Negative or not required by law. The above report was generated using voice recognition software. It may contain grammatical, syntax o r spelling errors. Electronically signed by: Adams Ro M.D. 08/23/2023 4:02 PM
[2023-08-23] MEDS: HEPARIN SODIUM/DEXTROSE 25,000 UNITS/500 ML BAG IV SCH (16:33)
[2023-08-23] MEDS: Heparin IV Adult Wt-Based Standard w/ INITIAL Bolus Protocol IV STA (16:33)
[2023-08-23] MEDS: HEPARIN SOD (PORCINE) 1000 UNIT/ML IV ONE (16:33)
--- NOTE | 2023-08-23 17:13 | Electrocardiogram Report ---
Test Reason : Blood Pressure : / mmHG Vent. Rate : 077 BPM Atrial Rate : 077 BPM P-R Int : 194 ms QRS Dur : 094 ms QT Int : 376 ms P-R-T Axes : 070 038 031 degrees QTc Int : 425 ms Normal sinus rhythm Normal ECG When compared with ECG of 12-AUG-2023 05:23, No significant change was found Confirmed by Alvaro Foster ([id number]) on 08/23/2023 5:13:00 PM Referred By: REFERRED SELF Confirmed By:Roly Foster
[2023-08-23] MEDS: cefTRIAXone SODIUM 2,000 MG/50 ML BAG IV STA (23:06)
[2023-08-23] MEDS ORDERED: ACETAMINOPHEN 325 MG TAB PO PRN (23:31)
[2023-08-23] MEDS ORDERED: POLYETHYLENE (MIRALAX) 17 GM PACK PO PRN (23:31)
[2023-08-23] MEDS ORDERED: NITROGLYCERIN SL 0.4 MG/TAB TAB SL PRN (23:31)
[2023-08-23 23:51] LABS: ANTI-Xa, UFH(UnfractionatedHep 0.44 IU/ml (0.3-0.7)
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
[2023-08-24] MEDS: LEVOTHYROXINE SODIUM 137 MCG TABLET PO SCH (05:39)
[2023-08-24 06:35] LABS: ANTI-Xa, UFH(UnfractionatedHep 0.41 IU/ml (0.3-0.7)
[2023-08-24] MEDS: ADVANCED PROBIOTIC 625 MG CAPSULE PO SCH (09:43)
[2023-08-24] MEDS: METOPROLOL SUCC 25MG EXT REL TAB PO SCH (09:43)
[2023-08-24] MEDS: ASPIRIN 81 MG ECTAB PO SCH (09:43)
[2023-08-24] MEDS: TAMSULOSIN HCL 0.4 MG CAP PO SCH (09:44)
[2023-08-24] MEDS: MULTIVITAMIN TAB PO SCH (09:44)
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
--- OUTSIDE RECORDS SUMMARY | 2023-08-24 11:51 | External Medical Summary | Summary of Care ---
Author Name Unknown Organization [facility] Address [address] [place] [address] Phone [phone] Care Team Providers Care Ramp Boss Name Role Phone Elba Macias DO Primary Care Provider Encounter Details Date Type Department Care Team (Late st Contact Info) Description 08/18/2023 Orders Only [facility] [address] [place] [address] Elba Macias DO [address] [place] [address] Allergies Active Allergy Reactions Criticality Noted Date Comments Pollen Other (Please comment) 09/03/2019 sneezing documented as of this encounter (statuses as of 08/18/2023) Medications Medication Sig Dispensed Refills Start Date [...] as of this encounter (statuses as of 08/18/2023) Active Problems Problem Noted Date Diagnosed Date [...] as of this encounter (statuses as of 08/18/2023) Resolved Problems Problem Noted Date Diagnosed Date [...] with serious comorbidity 07/29/2011 Overview: bmi= 38.47 5/17/12 ICD-10 update of inactive diagnosis Acute URI [...] as of this encounter (statuses as of 08/18/2023) Immunizations Name Administration Dates Next Due COVID-19 [...] Care Team (Late st Contact Info) Description 08/25/2023 11:15 AM EDT Imaging Radiology [facility] [address]st [facility] [address] [place] [address] 08/29/2023 1:00 PM EDT Cardiac Studies Cardiac Studies, [facility] [address] [place] [address] 08/30/2023 9:45 AM EDT Office Visit Hematology/Oncology [facility] [address] [place] [phone] Arias Sanchez MD [address] [facility] [place] [address] 10/10/2023 1:30 PM EDT Office Visit Cardiology, [facility] [address] [place] [address] Margaret Mcclain PA-C [address] [address] 01/04/2024 11:00 AM EDT [address] [phone] Maria Alejandra Mcginnis PA-C [address] [place] [address] 01/10/2024 11:40 AM EDT Office Visit Dermatology, [place] [address] [place] [address] Toña Parra PA-C [address] [place] [address] [address] [address] [address] Health Maintenance Due Date Last Done Comments Zoster Vaccines (1 of 2) 1986 Pneumococcal Vaccine: 65+ Years (2 of 2 - PCV) 12/14/2008 12/15/2007 COVID-19 Vaccine ( season) 2022 11/13/2020, 06/03/2020, 05/08/2020 Depression Screening 07/01/2023 06/30/2022, 06/10/2016 (Discussed) Albumin/Creatinine Ratio 12/28/2023 023, 01/25/2022, 06/07/2016, Additional history exists CKD PHOS USE SMARTSET 60649 12/28/202312/12, 03/26/2021, 03/25/2021, Additional history exists HbA1c 12/28/2023 12/27/2022, 01/12, 01/16/2020, Additional history exists TSH 06/06/2024 06/07/2023, 12/12, 03/23/2021, Additional history exists CKD HGB USE SMARTSET 99563 08/11/202408/11, 08/01/2023, 08/01/2023, Additional history exists DTaP,Tdap,and Td Vaccines (2 [...] this encounter Medical Devices Implanted Type Area Mess Attendant Device Identifier Shelf Expiration Date Model / Serial / Lot Proglide Perclose 87937-98 X10 - [id number] Implanted:Qty: 1 on 07/10/2020 by Renard Galan, DO at [facility] : VASCULAR DEVICES [id number] 12/11/2021 [id number] / / [id number] Proglide Perclose 69805-64 X10 - [id number] Implanted:Qty: 1 on 07/10/2020 by Renard Galan, DO at [facility] : VASCULAR DEVICES [id number] 12/11/2021 02194-56 / / [id number] Balloon Cath Pacing [id number] - [id number] Implanted:Qty: 1 on 07/10/2020 by Renard Galan, DO at [facility] [employer] : MEDICAL [id number] 05/11/2022 520 007P / / [id number] Valve Aort Evolut Proplus 29mm - [id number] Implanted:Qty: 1 on 07/10/2020 by Renard Galan, DO at [facility] [employer] : CARDIAC SURGERY 11/08/2021 EVPROPLUS- 29US / [id number] / [id number] Balloon Cath Pacing [id number] - [id number] Implanted:Qty: 1 on 07/10/2020 by Renard Galan, DO at [facility] [employer] [employer] : MEDICAL [id number] 05/11/2022 520 007P / / [id number] Coil Fibered 2 10mm [id number] - [id number] Implanted:Qty: 1 on 03/18/2021 at [facility] : NEURO INTR [id number] 06/18/2023 [id number] Coil Fibered 2 10mm [id number] - [id number] Implanted:Qty: 1 on 03/18/2021 at [facility] : NEURO INTR [id number] 06/18/2023 [id number] Coil Emboli Tornado 3x2 - [id number] Implanted:Qty: 1 on 03/18/2021 at [facility] [id number] 09/04/2025 [id number] / / [id number] Coil Emboli Tornado 3x2 - [id number] Implanted:Qty: 1 on 03/18/2021 at [facility] [id number] 12/25/2025 [id number] / / [id number] Sureclip 16mm 235cm - [id number] Implanted:Qty: 1 on 07/31/2021 by Reji Milian MD at [facility] Colon MICRO TECH ENDOSCOPY 09/22/2023 [id number] / / [id number] documented as of this encounter Procedures Procedure Name Priority Date/Time Associated Diagnosis Comments CHEMISTRY-OUTSIDE Routine 08/12/2023 documented in this encounter Results * (ABNORMAL) CHEMISTRY-OUTSIDE (08/12/2023) Not all results display below - see scan for full detail OUTSIDE LAB (SEE SCANNED REPORT) Comment:SCAN INCLUDES: [facility] INPT LABS- 08/06/23-08/12/23 CBCD, COAG, UA, CHEM, PROCALCITOMIN, BLOOD GAS, BLOOD CULTURE CREATININE-OUTSI DE LAB 1.21 0.6 - 1.4 MG/DL OUTSIDE LAB (SEE SCANNED REPORT) EGFR-OUTSIDE LAB 53.5 ML/MIN/1.73M 2 OUTSIDE LAB (SEE SCANNED REPORT) POTASSIUM-OUTSID E LAB 3.8 3.5 - 5.1 MMOL/L OUTSIDE LAB (SEE SCANNED REPORT) GLUCOSE-OUTSIDE LAB 111(A) 70 - 99 MG/DL OUTSIDE LAB (SEE SCANNED REPORT) HOURS FASTING OUTSID E LAB (SEE SCANNED REPORT) TRIGLYCERIDES-OU TSIDE LAB OUTSIDE LAB (SEE SCANNED REPORT) CHOLESTEROL-OUTS CASEY LAB OUTSIDE LAB (SEE SCANNED REPORT) HDL-OUTSIDE LAB OUTS [facility]Y LAB (SEE SCANNED REPORT) CHOL/HDL RATIO-OUTSIDE LAB OUTSIDE LAB (SEE SCANNED REPORT) LDL (CALCULATED)-OUT SIDE LAB OUTSIDE LAB (SEE SCANNED REPORT) LDL (DIRECT MEASURE)-OUTSIDE LAB OUTSIDE LAB (SEE SCANNED REPORT) HEMOGLOBIN, M3P-SPJYATP LAB OUTSIDE LAB (SEE SCANNED REPORT) PHOSPHORUS-OUTSI DE LAB OUTSIDE LAB (SEE SCANNED REPORT) PTH-OUTSIDE LAB OUTS CASEY LAB (SEE SCANNED REPORT) MICROALBUMIN RATIO-OUTSIDE LAB OUTSIDE LAB (SEE SCANNED REPORT) PROTEIN, UA-OUTSIDE LAB 1+(A) NEGATIVE OUTSIDE LAB (SEE SCANNED REPORT) HGB 9.8(A) 14 - 18 G/DL OUTSIDE LAB (SEE SCANNED REPORT) 08/12/2023 Jasmeet Gruber MD LABORATORY OUTSIDE LAB (SEE SCANNED REPORT) documented in this encounter Advance Directives Documents on File Type Date Recorded Patient Fibre [employer]ement [place] Expl anation Advance Directives and Living Will 02/24/2023 ADVANCE DIRECTIVE / LIVING WILL Power of Novelties Sales Representative 02/24/2023 POWER OF A TTORNEY * Full [...] Power of Attor reba? No Care Teams Ramp Boss Relationship Specialty Start Date End Date Elba Macias DO [address] [facility] [place] [address] PCP - General Family Medicine 08/03/23 documented as of this encounter
--- OUTSIDE RECORDS SUMMARY | 2023-08-24 11:51 | External Medical Summary | Summary of Care ---
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 [facility] What condition is the patient being seen for? Hospital Discharge Has this patient been seen on the Infection Disease consult service or had an Ask-A-Doc conversation completed? Yes: Cancel order - patient will be contacted to schedule Reason for Visit * Reason Comments Hospital Follow-Up Patient is here due to being admitted to the hospital on 08/05- 08/11Mikhail Huitron called patient and told him to go to the hospital Patient states he went to the hospital due to having an infection in his blood caused by a artifical valve in his heart [facility] then treated him with ceftriaxone, and still being treated with it at home Patient states he has been dizzy, and the medicine he is getting is causing his bowls to loosen up Encounter Details Date Type Department Care Team (Late st Contact Info) Description 08/18/2023 10:10 AM EDT Office Visit [facility] [address] [place] [facility] [place] [address] Elba Macias, [address] [place] [address] Prosthetic valve endocarditis, subsequent encounter*; S/P TAVR (transcatheter aortic valve replacement); Bacterial infection due to streptococcus, group A; Diarrhea, unspecified type Allergies Active Allergy Reactions Criticality [...] 180 days 1 Each 1 12/27/2022 Active Additional Information Patient not taking.Reported on 08/18/2023 Levothyroxine Sodium 137 MCG Oral TabletIndications:Ac quired [...] 06/21/2023 Active predniSONE 10 MG Oral Tablet (Deltasone)Indicatio ns:Night sweats,Elevated sed rate Take 5 tabs for 2 days, 4 tabs for 2 days, 3 tabs for 2 days, 2 tabs for 2 days 1 tab for 2 days 30 Tablet 07/07/2023 Active Additional Information Patient not taking.Reported on 08/18/2023 documented as of this encounter (statuses as [...] Sign Reading Time Taken Comments Blood Pressure 130/64 08/18/2023 10:10 AM EDT Pulse 80 08/18/2023 10:10 AM EDT Temperature 36.4 C (97.5 F) 08/18/2023 10:10 AM E DT Respiratory Rate 16 08/18/2023 10:10 AM EDT Oxygen Saturation 98% 08/18/2023 10:10 AM EDT Inhaled Oxygen Concentration - - Weight 86.8 kg (191 lb 4.8 oz) 08/18/2023 10:10 AM EDT Height 172.7 cm (5' 8") 08/18/2023 10:10 AM EDT Body Mass Index 29.09 08/18/2023 10:10 AM EDT documented in this encounter Functional [...] encounter Progress Notes * Elba Macias, - 08/18/2023 10:33 AM EDT Subjective: Lamberto Chandler is a 88 year old male. Chief Complaint Patient presents with Hospital Follow-Up Patient is here due to being admitted to the hospital on 08/05- 08/11 Mikhail Huitron called patient and told him to go to the hospital Patient states he went to the hospital due to having an infection in his blood caused by a artifical valve in his heart [facility] then treated him with ceftriaxone, and still being treated with it at home Patient states he has been dizzy, and the medicine he is getting is causing his bowls to loosen up HPI: 88 year old male here today for a follow up from the hospital. He was admitted on 08/05 for + strep bacteremia. He had a persistent elevation in his white cell count, and had blood culture completed and were +. He has TAVR that was completed in 2020. RENÉ showed a + vegetation on the artificial aortic valve. Findings on the RENÉ had concerns of an abscess. 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 He was placed on vancomycin, rocephin. He sent home on Rocephin 2g IV daily until 10/02. He is getting home Medi Twyxt, . On 08/[address] is still elevated slightlyat 10. He has not ID appt set up yet. Today presents alone. Feeling weak at times. Light headed, and gait feels off. At times vision changes. He is to get CT abd, chest and pelvis next week for work up of weight loss. Had a MRI of his brain arranged as well. No more chills and no sweats. Youngest daughter helping him. Eats frozen meals. His weight is still down. + fatigue. + diarrhea. [facility] suggested imodium, has not taken this yet. No blood in his stool. PHM: Patient Active Problem List Diagnosis Dyslipidemia, [...] MULTI-VITAMIN/MINERALS PO TABS ONE EACH DAY 0 Levothyroxine Sodium 137 MCG Oral Tablet TAKE [...] MOUTH IN THE MORNING 45 Tablet 3 Amoxicillin 500 MG Oral Capsule (Amoxil) Take 4 tablets by mouth one hour prior to any dental procedure or cleaning 12 Capsule 03 Zoster Vac Recomb Adjuvanted 50 MCG/0.5ML Intramuscular Suspension Reconstituted (Shingrix) Inject 0.5 mL into a large muscle now and repeat dose in 60 to 180 days (Patient not taking: Reported on 08/18/2023) 1 Each 1 predniSONE 10 MG Oral Tablet (Deltasone) Take 5 tabs for 2 days, 4 tabs for 2 days, 3 tabs for 2 days, 2 tabs for 2 days 1 tab for 2 days (Patient not taking: Reported on 08/18/2023) 30 Tablet 0 No current facility-administered medications for this visit. Review of patient's allergies indicates: Allergen Reactions Pollen Other (Please comment) sneezing Objective: BP 130/64 | Pulse 80 | Temp 36.4 C (97.5 F) (Temporal Artery) | Resp 16 | Ht 1.727 m (5' 8") | Wt 86.8 kg (191 lb 4.8 oz) | SpO2 98% | BMI 29.09 kg/m | BSA 2.04 m Physical Exam: General: alert, healthy, and no distress Heart: regular rate & rhythm, no murmur, and no gallops Lungs: chest symmetric with normal AP diameter, no chest deformities noted, no chest wall tenderness, lungs clear to auscultation Abdomen: abdomen soft, non-tender, normal bowel sounds, and no masses or organomegaly Extremities: no edema ASSESSMENT/PLAN: Prosthetic valve endocarditis, subsequent encounter (Primary) - INFECTIOUS DISEASE REFERRAL OP S/P TAVR (transcatheter aortic valve replacement) - INFECTIOUS DISEASE REFERRAL OP Bacterial infection due to streptococcus, group A Diarrhea, unspecified type - CLOSTRIDIUM DIFFICILE, PCR; Future; Expected date: 08/19/2023 Follow-up: Return in about 2 months (around 10/18/2023). | Check-out note: Can cancel hematology please he does not need this Also echo can be canceled. Also his Appt with gisele can be cancceled. And he needs to see lab for stool studies Okay to put at the end of Elba Macias DO documented in this encounter Nursing Notes * David Benson MED ASSIST - 08/18/2023 10:12 AM EDT The patient has been properly identified by confirmation of name and date of . Chief Complaint Patient presents with Hospital Follow-Up Patient is here due to being admitted to the hospital on 08/05- 08/11 Mikhail Huitron called patient and told him to go to the hospital Patient states he went to the hospital due to having an infection in his blood caused by a artifical valve in his heart [facility] then treated him with ceftriaxone, and still being treated with it at home Patient states he has been dizzy, and the medicine he is getting is causing his bowls to loosen up documented in this encounter Plan of Treatment Upcoming Encounters Date Type Department Care Team (Late st Contact Info) Description 08/25/2023 11:15 AM EDT Imaging Radiology [facility] [address] [facility] [address] [facility] [place] [address] 08/25/2023 1:00 PM EDT Cardiac Studies Cardiac Studies, [facility] [address] [facility] [place] [address] 08/25/2023 2:00 PM EDT Office Visit Cardiology, [facility] [address] [facility] [place] [address] Mata Mancera MD [address] [facility] [place] [address] 10/10/2023 1:30 PM EDT Office Visit Cardiology, [facility] [address] [facility] [place] [address] Margaret Mcclain PA-C [facility] [place] [address] 10/13/2023 9:40 AM EDT Office Visit Infectious Disease [address] [address] Musa Murrieta MD [address] [place] [address] 11/03/2023 12:10 PM EDT Office Visit Family [facility] [place] [address] [facility], [place] [id number] Elba Macias DO [address] [place] [facility] [place] [address] 01/10/2024 11:40 AM EDT Office Visit Dermatology, [place] [address] [place] [facility] [address] Toña Parra, JEREMIE [address] [place] [address] Dr Dav[place], [place] [address] Scheduled Orders Name Type Priority Associated Diagnoses Orde r Schedule CLOSTRIDIUM DIFFICILE, PCR Lab Routine Diarrhea, unspecified type Expected: 08/19/2023 (Approximate), Expires: 01/12/2024 Scheduled Referrals Name Type Priority Associated Diagnoses Orde r Schedule INFECTIOUS DISEASE REFERRAL OP Referral Within 10 days (routine) 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, subsequent encounter Ordered: 08/18/2023 Health Maintenance Due Date Last Done Comments Zoster Vaccines (1 of 2) 1985 Pneumococcal Vaccine: 65+ Years (2 of 2 - PCV) 12/14/2008 12/15/2007 COVID-19 Vaccine ( season) 2023 01/13/2023, 04/01/2022, 08/07/2021, Additional history exists Depression Screening 07/01/2023 06/30/2022, 06/10/2016 (Discussed) Albumin/Creatinine Ratio 12/28/202312/27/2 023, 01/25/2022, 06/07/2016, Additional history exists CKD PHOS USE SMARTSET 54156 12/28/202312/12, 03/26/2021, 03/25/2021, Additional history exists HbA1c 12/28/2023 12/27/2022, 01/12, 01/16/2020, Additional history exists TSH 06/06/2024 06/07/2023, 12/12, 03/23/2021, Additional history exists CKD HGB USE SMARTSET 07914 08/14/202408/14, 08/12/2023, 08/01/2023, Additional history exists DTaP,Tdap,and Td Vaccines [...] this encounter Medical Devices Implanted Type Area Ceo Device Identifier Shelf Expiration Date Model / Serial / Lot Proglide Perclose 43957-07 X10 - [id number] Implanted:Qty: 1 on 07/10/2020 by Renard Galan, DO at [facility] : VASCULAR DEVICES [id number] 12/11/2021 58923-25 / / [id number] Proglide Perclose 77907-19 X10 - [id number] Implanted:Qty: 1 on 07/10/2020 by Renard Galan, DO at [facility] : VASCULAR DEVICES [id number] 12/11/2021 36506-95 / / [id number] Balloon Cath Pacing [id number] - [id number] Implanted:Qty: 1 on 07/10/2020 by Renard Galan, DO at [facility] : MEDICAL [id number] 05/11/2022 520 007P / / [id number] Valve Aort Evolut Proplus 29mm - [id number] Implanted:Qty: 1 on 07/10/2020 by Renard Galan, DO at [facility] [employer] : CARDIAC SURGERY 11/08/2021 EVPROPLUS- 29US / [id number] / [id number] Balloon Cath Pacing [id number] - [id number] Implanted:Qty: 1 on 07/10/2020 by Renard Galan, DO at [facility] : MEDICAL [id number] 05/11/2022 520 007P / / [id number] Coil Fibered 2 10mm [id number] - [id number] Implanted:Qty: 1 on 03/18/2021 at [facility] [employer] : NEURO INTR [id number] 06/18/2023 [id number] Coil Fibered 2 10mm 078175 - [id number] Implanted:Qty: 1 on 03/18/2021 at [facility] [employer] : NEURO INTR [id number] 06/18/2023 [id number] Coil Emboli Tornado 3x2 - [id number] Implanted:Qty: 1 on 03/18/2021 at [facility] [employer] [id number] 09/04/2025 [id number] / / [id number] Coil Emboli Tornado 3x2 - [id number] Implanted:Qty: 1 on 03/18/2021 at [facility] [employer] [id number] 12/25/2025 [id number] / / [id number] Sureclip 16mm 235cm - [id number] Implanted:Qty: 1 on 07/31/2021 by Reji Milian MD at ENDOSCOPY [facility] Colon MICRO TECH ENDOSCOPY 09/22/2023 [id number] / / [id number] documented as of this encounter Visit Diagnoses Diagnosis Prosthetic valve endocarditis, subsequent encounter- Primary S/P TAVR (transcatheter aortic valve replacement) Heart valve replaced by other means Bacterial infection due to streptococcus, group A Streptococcus infection in conditions classified elsewhere and of unspecified site, group A Diarrhea, unspecified type documented in this encounter Advance Directives Documents on File Type Date Recorded Patient Clinical Veterinarian Expl anation Advance Directives and Living Will 02/24/2023 ADVANCE DIRECTIVE / LIVING WILL Power of Rabbler 02/24/2023 POWER OF A TTORNEY * Full [...] Power of Attor reba? No Care Teams Technical Asst Relationship Specialty Start Date End Date Elba Macias DO [address] [place] [address] PCP - General Family Medicine 08/03/23 documented as of this encounter
--- OUTSIDE RECORDS SUMMARY | 2023-08-24 11:51 | External Medical Summary | Summary of Care ---
Author Name Unknown Organization [facility] Address [address] [facility] [place] [address] Phone [phone] Care Team Providers Care Commodity Merchant Name Role Phone Elba Macias DO Primary Care Provider Reason for Visit * Reason Onset Date Comments Appointment 08/18/2023 Return in about 2 months (around 10/18/2023). Encounter Details Date Type Department Care Team (Late st Contact Info) Description 08/18/2023 Telephone [facility] [address] [place] [address] Elba Macias [address] [place] [address] Appointment (Return in about 2 months (christopher... Allergies Active Allergy Reactions Criticality Noted Date [...] Telephone Encounter - Toña Galvan OSA - 08/18/2023 12:38 PM EDT Please disregard as we have him scheduled. 08/18/2023 * Telephone Encounter - Toña Galvan OSA - 08/18/2023 11:09 AM EDT Per 08/18/2023 checkout notes: Return in about 2 months (around 10/18/2023). No available appt for 6 months please advise date and time for patient return. 08/18/2023 documented in this encounter Plan of Treatment Upcoming Encounters Date Type Department Care Team (Late st Contact Info) Description 08/25/2023 11:15 AM EDT Imaging Radiology [address], [address] [place] [address] 08/25/2023 1:00 PM EDT Cardiac Studies Cardiac Studies, [facility] [address] [facility] [place] [address] 08/25/2023 2:00 PM EDT Office Visit Cardiology, [facility] [address] [facility] [place] [address] Mata Mancera MD [address] [facility] [place] [address] 10/10/2023 1:30 PM EDT Office Visit Cardiology, [facility] [address] [facility] [place] [address] Margaret Mcclain PA-C [address] [facility] [place] [address] 10/13/2023 9:40 AM EDT Office Visit Infectious Disease [address] [address] Musa Murrieta MD [address] [place] [address] 11/03/2023 12:10 PM EDT Office Visit [address] [phone] Elba Macias, [address] [place] [address] 01/10/2024 11:40 AM EDT Office Visit Dermatology, [address] [address] Toña Parra PA-C [address] [place] [address] [place] [address] Health Maintenance Due Date Last Done Comments Zoster Vaccines (1 of 2) 1986 Pneumococcal Vaccine: 65+ Years (2 of 2 - PCV) 12/14/2008 12/15/2007 COVID-19 Vaccine ( season) 2023 01/13/2023, 04/01/2022, 08/07/2021, Additional history exists Depression Screening 07/01/2023 06/30/2022, 06/10/2016 (Discussed) Albumin/Creatinine Ratio 12/28/2023 023, 01/25/2022, 06/07/2016, Additional history exists CKD PHOS USE SMARTSET 76692 12/28/202312/12, 03/26/2021, 03/25/2021, Additional history exists HbA1c 12/28/2023 12/27/2022, 01/12, 01/16/2020, Additional history exists TSH 06/06/2024 06/07/2023, 12/12, 03/23/2021, Additional history exists CKD HGB USE SMARTSET 71878 08/14/202408/14, 08/12/2023, 08/01/2023, Additional history exists DTaP,Tdap,and [...] this encounter Medical Devices Implanted Type Area Cleaning Manager Device Identifier Shelf Expiration Date Model / Serial / Lot Proglide Perclose 51830-84 X10 - [id number] Implanted:Qty: 1 on 07/10/2020 by Renard Galan DO at [facility]ASCULAR DEVICES [id number] 12/11/2021 08758-02 / / [id number] Proglide Perclose 36816-88 X10 - [id number] Implanted:Qty: 1 on 07/10/2020 by Renard Galan, DO at [facility] : VASCULAR DEVICES [id number] 12/11/2021 01131-57 / / [id number] Balloon Cath Pacing [id number] - [id number] Implanted:Qty: 1 on 07/10/2020 by Renard Galan, DO at [facility] : MEDICAL [id number] 05/11/2022 520 007P / / [id number] Valve Aort Evolut Proplus 29mm - [id number] Implanted:Qty: 1 on 07/10/2020 by Renard Galan, DO at [facility] [employer] : CARDIAC SURGERY 11/08/2021 EVPROPLUS- 29US / [id number] / [id number] Balloon Cath Pacing [id number] - [id number] Implanted:Qty: 1 on 07/10/2020 by Renard Galan, DO at [facility] : MEDICAL [id number] 05/11/2022 520 007P / / [id number] Coil Fibered 2 10mm [id number] - [id number] Implanted:Qty: 1 on 03/18/2021 at [facility] [employer] : NEURO INTR [id number] 06/18/2023 [id number] Coil Fibered 2 10mm 184918 - [id number] Implanted:Qty: 1 on 03/18/2021 at [facility] [employer] : NEURO INTR [id number] 06/18/2023 [id number] Coil Emboli Tornado 3x2 - [id number] Implanted:Qty: 1 on 03/18/2021 at [facility] [employer] [id number] 09/04/2025 [id number] / / [id number] Coil Emboli Tornado 3x2 - [id number] Implanted:Qty: 1 on 03/18/2021 at [facility] [employer] [id number] 12/25/2025 [id number] / / [id number] Sureclip 16mm 235cm - [id number] Implanted:Qty: 1 on 07/31/2021 by Reji Milian MD at [facility]OSCOPY [facility] Colon MICRO TECH ENDOSCOPY 09/22/2023 [id number] / / [id number] documented as of this encounter Advance Directives Documents on File Type Date Recorded Patient Rn Family Expl anation Advance Directives and Living Will 02/24/2023 ADVANCE DIRECTIVE / LIVING WILL Power of Traffic Supervisor 02/24/2023 POWER OF A TTORNEY * Full [...] Power of Attor reba? No Care Teams Commodity Merchant Relationship Specialty Start Date End Date Elba Macias DO [address] [place] [address] PCP - General Family Medicine 08/03/23 documented as of this encounter
--- OUTSIDE RECORDS SUMMARY | 2023-08-24 11:51 | External Medical Summary | Summary of Care ---
Author Name Unknown Organization [facility] Address [address] [place] [address] Phone [phone] Care Team Providers Care Power Driven Brush Maker Name Role Phone Elba Macias DO Primary Care Provider [phone] Encounter Details Date Type Department Care Team (Late st Contact Info) Description 08/18/2023 Telephone [facility] [address] [place] [address] Elba Macias DO [address] [place] [address] Allergies Active Allergy Reactions Criticality [...] Encounter - Toña Galvan OSA - 08/18/2023 2:40 PM EDT Patient is to be seen within 10 days per referral. Pleae call patient with sooner appt as we scheduled first available. 08/18/2023 documented in this encounter Plan of Treatment Upcoming Encounters Date Type Department Care Team (Late st Contact Info) Description 08/25/2023 11:15 AM EDT Imaging Radiology [facility] 1st Floor, [place] [address] [place] [address] 08/25/2023 1:00 PM EDT Cardiac Studies Cardiac Studies, [facility] [address] [address] 08/25/2023 2:00 PM EDT Office Visit Cardiology, [facility] [address] [place] [address] Mata Mancera MD [address] [place] [address] 10/10/2023 1:30 PM EDT Office Visit Cardiology, [facility] [address] [place] [address] Margaret Mcclain PA-C [address] [place] [address] 10/13/2023 9:40 AM EDT Office Visit Infectious Disease [facility] [address] [place] [address] Musa Murritea MD [address] [place] [address] 11/03/2023 12:10 PM EDT Office Visit Family [facility], [place] [address] [place] [address] Elab Macias, [address] [place] [address] 01/10/2024 11:40 AM EDT Office Visit Dermatology, [address] [address] Toña Parra PA-C [address] [place] [address] [place] [address] Health Maintenance Due Date Last Done Comments Zoster Vaccines (1 of 2) 1986 Pneumococcal Vaccine: 65+ Years (2 of 2 - PCV) 12/14/2008 12/15/2007 COVID-19 Vaccine ( season) 2023 01/13/2023, 04/01/2022, 08/07/2021, Additional history exists Depression Screening 07/01/2023 06/30/2022, 06/10/2016 (Discussed) Albumin/Creatinine Ratio 12/28/202312/27/ 023, 01/25/2022, 06/07/2016, Additional history exists CKD PHOS USE SMARTSET 08366 12/28/202312/12, 03/26/2021, 03/25/2021, Additional history exists HbA1c 12/28/2023 12/27/2022, 01/12, 01/16/2020, Additional history exists TSH 06/06/2024 06/07/2023, 12/12, 03/23/2021, Additional history exists CKD HGB USE SMARTSET 75062 08/14/202408/14, 08/12/2023, 08/01/2023, Additional history exists DTaP,Tdap,and [...] this encounter Medical Devices Implanted Type Area Geoscience Specialist Device Identifier Shelf Expiration Date Model / Serial / Lot Proglide Perclose 85295-28 X10 - [id number] Implanted:Qty: 1 on 07/10/2020 by Renard Galan, DO at [facility] [place] [facility] VASCULAR DEVICES [id number] 12/11/2021 21337-46 / / [id number] Proglide Perclose 62778-88 X10 - [id number] Implanted:Qty: 1 on 07/10/2020 by Renard Galan, DO at [facility] [place] [facility] VASCULAR DEVICES [id number] 12/11/2021 11878-69 / / [id number] Balloon Cath Pacing [id number] - [id number] Implanted:Qty: 1 on 07/10/2020 by Renard Galan, DO at [facility] : MEDICAL [id number] 05/11/2022 520 007P / / [id number] Valve Aort Evolut Proplus 29mm - [id number] Implanted:Qty: 1 on 07/10/2020 by Renard Galan, DO at [facility] [place] [employer] [place] CARDIAC SURGERY 11/08/2021 EVPROPLUS- 29US / [id number] / [id number] Balloon Cath Pacing [id number] - [id number] Implanted:Qty: 1 on 07/10/2020 by Renard Galan, DO at [facility] [place] [facility] : MEDICAL [id number] 05/11/2022 520 007P / / [id number] Coil Fibered 2 10mm [id number] - [id number] Implanted:Qty: 1 on 03/18/[address] [facility] : NEURO INTR [id number] 06/18/2023 [id number] Coil Fibered 2 10mm [id number] - [id number] Implanted:Qty: 1 on 03/18/[address] [facility] [employer] [employer] : NEURO INTR [id number] 06/18/2023 [id number] Coil Emboli Tornado 3x2 - [id number] Implanted:Qty: 1 on 03/18/[address] [facility] [employer] [id number] 09/04/2025 [id number] / / [id number] Coil Emboli Tornado 3x2 - [id number] Implanted:Qty: 1 on 03/18/[address] [facility] [employer] [id number] 12/25/2025 [id number] / / [id number] Sureclip 16mm 235cm - [id number] Implanted:Qty: 1 on 07/31/2021 by Reji Milian MD at ENDOSCOPY [facility] Colon MICRO TECH ENDOSCOPY 09/22/2023 [id number] / / [id number] documented as of this encounter Advance Directives Documents on File Type Date Recorded Patient University Registrar Expl anation Advance Directives and Living Will 02/24/2023 ADVANCE DIRECTIVE / LIVING WILL Power of Director Of Parks And Recreation 02/24/2023 POWER OF A TTORNEY * Full [...] Power of Attor reba? No Care Teams Power Driven Brush Maker Relationship Specialty Start Date End Date Elba Macias DO [address] [place] [facility] [place] [address] PCP - General Family Medicine 08/03/23 documented as of this encounter
--- OUTSIDE RECORDS SUMMARY | 2023-08-24 11:51 | External Medical Summary | Summary of Care ---
Author Name Unknown Organization [facility] Address [address] [place] [facility] [place] [address] Phone [phone] Care Team Providers Care Back Tender Insulation Board Name Role Phone Elba Macias DO Primary Care Provider [phone] Encounter Details Date Type Department Care Team (Late st Contact Info) Description 08/18/2023 Orders Only [facility] [address] [place] [address] Elba Macias DO [address] [place] [address] Allergies Active Allergy Reactions Criticality [...] Description 08/25/2023 11:15 AM EDT Imaging Radiology [facility] [address] [facility] [place] [address] 10/10/2023 1:30 PM EDT Office Visit Cardiology, [facility] [address] [facility] [place] [address] Margaret Mcclain PA-C [address] [facility] [place] [address] 10/13/2023 9:40 AM EDT Office Visit Infectious Disease [address] [address] Musa Murrieta MD [address] [place] [address] 01/10/2024 11:40 AM EDT Office Visit Dermatology, [address] [address] Toña Parra PA-C [address] [place] [address] [place] [address] Health Maintenance Due Date Last Done Comments Zoster Vaccines (1 of 2) 1986 Pneumococcal Vaccine: 65+ Years (2 of 2 - PCV) 12/14/2008 12/15/2007 COVID-19 Vaccine ( season) 2023 01/13/2023, 04/01/2022, 08/07/2021, Additional history exists Depression Screening 07/01/2023 06/30/2022, 06/10/2016 (Discussed) Albumin/Creatinine Ratio 12/28/2023 023, 01/25/2022, 06/07/2016, Additional history exists CKD PHOS USE SMARTSET 76454 12/28/202312/12, 03/26/2021, 03/25/2021, Additional history exists HbA1c 12/28/2023 12/27/2022, 01/12, 01/16/2020, Additional history exists TSH 06/06/2024 06/07/2023, 12/12, 03/23/2021, Additional history exists CKD HGB USE SMARTSET 53946 08/14/202408/14, 08/12/2023, 08/01/2023, Additional history exists DTaP,Tdap,and [...] this encounter Medical Devices Implanted Type Area Poultry Process Worker Device Identifier Shelf Expiration Date Model / Serial / Lot Proglide Perclose 35575-95 X10 - [id number] Implanted:Qty: 1 on 07/10/2020 by Adama, Renard D, DO at [facility] [place] [facility] : VASCULAR DEVICES [id number] 12/11/2021 09976-51 / / [id number] Proglide Perclose 26970-91 X10 - [id number] Implanted:Qty: 1 on 07/10/2020 by Renard Galan, DO at [facility] [place] : VASCULAR DEVICES [id number] 12/11/2021 22486-22 / / [id number] Balloon Cath Pacing [id number] - [id number] Implanted:Qty: 1 on 07/10/2020 by Renard Galan, DO at [facility] : MEDICAL [id number] 05/11/2022 520 007P / / [id number] Valve Aort Evolut Proplus 29mm - [id number] Implanted:Qty: 1 on 07/10/2020 by Renard Galan, DO at [facility] [place] [employer] : CARDIAC SURGERY 11/08/2021 EVPROPLUS- 29US / [id number] / [id number] Balloon Cath Pacing [id number] - [id number] Implanted:Qty: 1 on 07/10/2020 by Renard Galan, DO at [facility] : MEDICAL [id number] 05/11/2022 520 007P / / [id number] Coil Fibered 2 10mm 015365 - [id number] Implanted:Qty: 1 on 03/18/2021 at [facility] [employer] : NEURO INTR [id number] 06/18/2023 [id number] Coil Fibered 2 10mm 902132 - [id number] Implanted:Qty: 1 on 03/18/2021 at [facility] [employer] : NEURO INTR [id number] 06/18/2023 [id number] Coil Emboli Tornado 3x2 - [id number] Implanted:Qty: 1 on 03/18/2021 at [facility] [employer] [id number] 09/04/2025 [id number] / / [id number] Coil Emboli Tornado 3x2 - [id number] Implanted:Qty: 1 on 03/18/2021 at [facility] [employer] [id number] 12/25/2025 [id number] / / [id number] Sureclip 16mm 235cm - [id number] Implanted:Qty: 1 on 07/31/2021 by Reji Milian MD at ENDOSCOPY [facility] Colon MICRO TECH ENDOSCOPY 09/22/2023 [id number] / / [id number] documented as of this encounter Procedures Procedure Name Priority Date/Time Associated Diagnosis Comments CHEMISTRY-OUTSIDE Routine 08/15/2023 documented in this encounter Results * (ABNORMAL) CHEMISTRY-OUTSIDE (08/15/2023) Not all results display below - see scan for full detail OUTSIDE LAB (SEE SCANNED REPORT) Comment:SCAN INCLUDES: CBC, CMP CREATININE-OUTSID E LAB 1.21 0.6 - 1.4 MG/DL OUTSIDE LAB (SEE SCANNED REPORT) EGFR-OUTSIDE LAB 53.5 ML/MIN/1.7 3M2 OUTSIDE LAB (SEE SCANNED REPORT) POTASSIUM-OUTSIDE LAB 5.3(A) 3.5 - 5.1 MMOL/L OUTSIDE LAB (SEE SCANNED REPORT) GLUCOSE-OUTSIDE LAB 92 70 - 99 MG/DL OUTSIDE LAB (SEE SCANNED REPORT) HOURS FASTING OUTSID E LAB (SEE SCANNED REPORT) TRIGLYCERIDES-OUT SIDE LAB OUTSIDE LAB (SEE SCANNED REPORT) CHOLESTEROL-OUTSI DE LAB OUTSIDE LAB (SEE SCANNED REPORT) HDL-OUTSIDE LAB OUTS CASEY LAB (SEE SCANNED REPORT) CHOL/HDL RATIO-OUTSIDE LAB OUTSIDE LA B (SEE SCANNED REPORT) LDL (CALCULATED)-OUTS [facility] LAB OUTSIDE LAB (SEE SCANNED REPORT) LDL (DIRECT MEASURE)-OUTSIDE LAB OUTSIDE LAB (SEE SCANNED REPORT) HEMOGLOBIN, J4L-RFNIJFH LAB OUTSIDE LAB (SEE SCANNED REPORT) PHOSPHORUS-OUTSID E LAB OUTSIDE LAB (SEE SCANNED REPORT) PTH-OUTSIDE LAB OUTS CASEY LAB (SEE SCANNED REPORT) MICROALBUMIN RATIO-OUTSIDE LAB OUTSIDE LA B (SEE SCANNED REPORT) PROTEIN, UA-OUTSIDE LAB OUTSIDE LAB (SEE SCANNED REPORT) HGB 10.9(A) 14 - 18 G/DL OUTSIDE LAB (SEE SCANNED REPORT) 08/15/2023 Jasmeet Gruber MD LABORATORY OUTSIDE LAB (SEE SCANNED REPORT) documented in this encounter Advance Directives Documents on File Type Date Recorded Patient Tandem Operator Expl anation Advance Directives and Living Will 02/24/2023 ADVANCE DIRECTIVE / LIVING WILL Power of Pharmacy Customer Care Specialist 02/24/2023 POWER OF A TTORNEY * Full [...] Power of Attor reba? No Care Teams Back Tender Insulation Board Relationship Specialty Start Date End Date Elba Macias DO [address] [place] [address] PCP - General Family Medicine 08/03/23 documented as of this encounter
--- OUTSIDE RECORDS SUMMARY | 2023-08-24 11:51 | External Medical Summary | Summary of Care ---
Author Name Unknown Organization [facility] Address [address] [place] [address] Phone [phone] Care Team Providers Care Machine Maintenance Servicer Name Role Phone Elba Macias DO Primary Care Provider Encounter Details Date Type Department Care Team (Late st Contact Info) Description 08/17/2023 Telephone [facility] [address] [place] [address] Elba Macias DO [address] [place] [address] Allergies Active Allergy Reactions Criticality [...] encounter Miscellaneous Notes * Telephone Encounter - Divine Neff LPN - 08/18/2023 2:34 PM EDT Pt was seen today. * Telephone Encounter - Elba Macias DO - 08/17/2023 10:36 AM EDT Yes try to get records for tomorrow's appt and will repeat labs * Telephone Encounter - Lynette Holloway LPN - 08/17/2023 6:57 AM EDT Pt has an appointment on thrusday and the daughter called last evening concerned about pt's lab results. Pt white blood cell count was higher when he was discharged than when he was admitted. There was concern about this. Requested lab reports from [facility] to be faxed to us. documented in this encounter Plan of Treatment Upcoming Encounters Date Type Department Care Team (Late st Contact Info) Description 08/25/2023 11:15 AM EDT Imaging Radiology [facility] 1st Floor, [place] [address] [facility] [place] [address] 08/25/2023 1:00 PM EDT Cardiac Studies Cardiac Studies, [facility] [address] [facility] [place] [address] 08/25/2023 2:00 PM EDT Office Visit Cardiology, [facility] [address] [facility] [place] [address] Mata [facility]cera MD [facility] [place] [address] 10/10/2023 1:30 PM EDT Office Visit Cardiology, [facility] [address] [facility] [place] [address] Margaret Mcclain PA-C [address] [facility] [place] [address] 10/13/2023 9:40 AM EDT Office Visit Infectious Disease [address] [address] Musa Murrieta MD [address] [place] [address] 11/03/2023 12:10 PM EDT Office Visit [place] [address] [place] [address] Elba Macias DO [address] [place] [address] 01/10/2024 11:40 AM EDT Office Visit Dermatology, [place] [address] [place], [place] [address] Toña Parra PA-C [address] [place] [address] [place] [address] Health Maintenance Due Date Last Done Comments Zoster Vaccines (1 of 2) 1986 Pneumococcal Vaccine: 65+ Years (2 of 2 - PCV) 12/14/2008 12/15/2007 COVID-19 Vaccine (2022- season) 2023 01/13/2023, 04/01/2022, 08/07/2021, Additional history exists Depression Screening 07/01/2023 06/30/2022, 06/10/2016 (Discussed) Albumin/Creatinine Ratio 12/28/2023 023, 01/25/2022, 06/07/2016, Additional history exists CKD PHOS USE SMARTSET 38229 12/28/202312/12, 03/26/2021, 03/25/2021, Additional history exists HbA1c 12/28/2023 12/27/2022, 01/12, 01/16/2020, Additional history exists TSH 06/06/2024 06/07/2023, 12/12, 03/23/2021, Additional history exists CKD HGB USE SMARTSET 78907 08/14/202408/14, 08/12/2023, 08/01/2023, Additional history exists DTaP,Tdap,and [...] this encounter Medical Devices Implanted Type Area Steamer Operator Device Identifier Shelf Expiration Date Model / Serial / Lot Proglide Chrissylose 28944-62 X10 - [id number] Implanted:Qty: 1 on 07/10/2020 by Adama, Renard D, DO at [facility] [place] [facility] VASCULAR DEVICES [id number] 12/11/2021 27213-56 / / [id number] Proglide Perclose 66475-35 X10 - [id number] Implanted:Qty: 1 on 07/10/2020 by Renard Galan, DO at [facility] [place] : VASCULAR DEVICES [id number] 12/11/2021 93497-85 / / [id number] Balloon Cath Pacing [id number] - [id number] Implanted:Qty: 1 on 07/10/2020 by Renard Galan, DO at [facility]S [facility] : MEDICAL [id number] 05/11/2022 520 007P / / [id number] Valve Aort Evolut Proplus 29mm - [id number] Implanted:Qty: 1 on 07/10/2020 by Renard Galan, DO at [facility] [employer] : CARDIAC SURGERY 11/08/2021 EVPROPLUS- 29US / [id number] / [id number] Balloon Cath Pacing [id number] - [id number] Implanted:Qty: 1 on 07/10/2020 by Renard Galan, DO at [facility] : MEDICAL [id number] 05/11/2022 520 007P / / [id number] Coil Fibered 2 10mm 373541 - [id number] Implanted:Qty: 1 on 03/18/2021 at [facility] [employer] : NEURO INTR [id number] 06/18/2023 [id number] Coil Fibered 2 10mm 941820 - [id number] Implanted:Qty: 1 on 03/18/2021 at [facility] [employer] : NEURO INTR [id number] 06/18/2023 [id number] Coil Emboli Tornado 3x2 - [id number] Implanted:Qty: 1 on 03/18/2021 at [facility] [employer] [id number] 09/04/2025 F36530 / / [id number] Coil Emboli Tornado 3x2 - [id number] Implanted:Qty: 1 on 03/18/2021 at [facility] [employer] [id number] 12/25/2025 K55541 / / [id number] Sureclip 16mm 235cm - [id number] Implanted:Qty: 1 on 07/31/2021 by Reji Milian MD at ENDOSCOPY [facility] Colon MICRO TECH ENDOSCOPY 09/22/2023 [id number] / / [id number] documented as of this encounter Advance Directives Documents on File Type Date Recorded Patient Social Professionals Expl anation Advance Directives and Living Will 02/24/2023 ADVANCE DIRECTIVE / LIVING WILL Power of Framing Mechanic 02/24/2023 POWER OF A TTORNEY * Full [...] Power of Attor reba? No Care Teams Machine Maintenance Servicer Relationship Specialty Start Date End Date Elba Macias DO [address] [place] [address] PCP - General Family Medicine 08/03/23 documented as of this encounter
--- OUTSIDE RECORDS SUMMARY | 2023-08-24 11:51 | External Medical Summary | Summary of Care ---
Author Name Unknown Organization [facility] Address [address] [facility] [address] Phone [phone] Care Team Providers Care Test Specialist Name Role Phone AntoineElba contreras Primary Care Provider Reason for Visit * Reason Onset Date Comments Encounter Created in Error 08/18/2023 Encounter Details Date Type Department Care Team (Late st Contact Info) Description 08/18/2023 Telephone Cardiology, [facility] [address] [place] [address] Mata [facility]cera MD [facility] [place] [address] Encounter Created in Error Allergies Active Allergy [...] Description 08/25/2023 11:15 AM EDT Imaging [facility] [address] [place] [address] 08/25/2023 1:00 PM EDT Cardiac Studies Cardiac Studies, [facility] [address] [place] [address] 08/25/2023 2:00 PM EDT Office Visit Cardiology, [facility] [address] [place] [address] Mata Mancera MD [address] [place] [address] 10/10/2023 1:30 PM EDT Office Visit Cardiology, [facility] [address] [place] [address] Margaret Mcclain PA-C [address] [place] [address] 10/13/2023 9:40 AM EDT Office Visit Infectious Disease [place] [address] [place] [address] Musa Murrieta MD [address] [facility] [place] [address] 11/03/2023 12:10 PM EDT Office Visit Family Practice, [place] [address] [place] [address] Elba Macias DO [address] [place] [address] 01/10/2024 11:40 AM EDT Office Visit Dermatology, [place] [address], [place] [address] Toña Parra PA-C [address] [place] [address] [place] [address] Health Maintenance Due Date Last Done Comments Zoster Vaccines (1 of 2) 1986 Pneumococcal Vaccine: 65+ Years (2 of 2 - PCV) 12/14/2008 12/15/2007 COVID-19 Vaccine ( season) 2023 01/13/2023, 04/01/2022, 08/07/2021, Additional history exists Depression Screening 07/01/2023 06/30/2022, 06/10/2016 (Discussed) Albumin/Creatinine Ratio 12/28/202312/27/2 023, 01/25/2022, 06/07/2016, Additional history exists CKD PHOS USE SMARTSET 67651 12/28/202312/12, 03/26/2021, 03/25/2021, Additional history exists HbA1c 12/28/2023 12/27/2022, 01/12, 01/16/2020, Additional history exists TSH 06/06/2024 06/07/2023, 12/12, 03/23/2021, Additional history exists CKD HGB USE SMARTSET 43489 08/14/202408/14, 08/12/2023, 08/01/2023, Additional history exists DTaP,Tdap,and [...] this encounter Medical Devices Implanted Type Area Hospital Manager Device Identifier Shelf Expiration Date Model / Serial / Lot Proglide Perclose 46315-55 X10 - [id number] Implanted:Qty: 1 on 07/10/2020 by Renard Galan, DO at [facility] : VASCULAR DEVICES [id number] 12/11/2021 64619-09 / / [id number] Proglide Perclose 28678-74 X10 - [id number] Implanted:Qty: 1 on 07/10/2020 by Renard Galan, DO at [facility] : VASCULAR DEVICES [id number] 12/11/2021 48902-92 / / [id number] Balloon Cath Pacing [id number] - [id number] Implanted:Qty: 1 on 07/10/2020 by Renard Galan, DO at [facility] : MEDICAL [id number] 05/11/2022 520 007P / / [id number] Valve Aort Evolut Proplus 29mm - [id number] Implanted:Qty: 1 on 07/10/2020 by Renard Galan, DO at [facility] [employer] : CARDIAC SURGERY 11/08/2021 EVPROPLUS- 29US / [id number] / [id number] Balloon Cath Pacing [id number] - [id number] Implanted:Qty: 1 on 07/10/2020 by Renard Galan, DO at [facility]S [facility] : MEDICAL [id number] 05/11/2022 520 007P / / [id number] Coil Fibered 2 10mm 071659 - [id number] Implanted:Qty: 1 on 03/18/2021 at [facility] [employer] : NEURO INTR [id number] 06/18/2023 [id number] Coil Fibered 2 10mm 137566 - [id number] Implanted:Qty: 1 on 03/18/2021 at [facility] [employer] : NEURO INTR [id number] 06/18/2023 [id number] Coil Emboli Tornado 3x2 - [id number] Implanted:Qty: 1 on 03/18/2021 at [facility] [employer] [id number] 09/04/2025 G03545 / / [id number] Coil Emboli Tornado 3x2 - [id number] Implanted:Qty: 1 on 03/18/2021 at [facility] [employer] [id number] 12/25/2025 [id number] / / [id number] Sureclip 16mm 235cm - [id number] Implanted:Qty: 1 on 07/31/2021 by Reji Milian MD at ENDOSCOPY [facility] Colon MICRO TECH ENDOSCOPY 09/22/2023 [id number] / / [id number] documented as of this encounter Advance Directives Documents on File Type Date Recorded Patient Health Information Administrator Expl anation Advance Directives and Living Will 02/24/2023 ADVANCE DIRECTIVE / LIVING WILL Power of Lead Rider 02/24/2023 POWER OF A TTORNEY * Full [...] Power of Attor reba? No Care Teams Test Specialist Relationship Specialty Start Date End Date Elba Macias DO [address] [place] [address] PCP - General Family Medicine 08/03/23 documented as of this encounter
--- OUTSIDE RECORDS SUMMARY | 2023-08-24 11:51 | External Medical Summary | Summary of Care ---
Author Name Unknown Organization [facility] Address [address] [facility] [place] [address] Phone [phone] Care Team Providers Care Blanking Press Operator Name Role Phone Elba Macias DO Primary Care Provider [phone] Encounter Details Date Type Department Care Team (Late st Contact Info) Description 08/18/2023 Orders Only [facility] [address] [place] [address] Elba Macias DO [address] [place] [address] Allergies Active Allergy Reactions Criticality [...] Description 08/25/2023 11:15 AM EDT Imaging Radiology [facility] 1st [facility] [address] [place] [address] 08/29/2023 1:00 PM EDT Cardiac Studies Cardiac Studies, [facility] [address] [place] [address] 08/30/2023 9:45 AM EDT Office Visit Hematology/Oncology [facility] [address] [place] [phone] Arias Sanchez MD 200 [facility] [place] [address] 10/10/2023 1:30 PM EDT Office Visit Cardiology, [facility] [address] [place] [address] Margaret Mcclain PA-C [address] [place] [address] 01/04/2024 11:00 AM EDT Office [address] [phone] Maria Alejandra Mcginnis PA-C [address] [place] [address] 01/10/2024 11:40 AM EDT Office Visit Dermatology, [place] [address] [place] [address] Toña Parra PA-C [address] [place] [address] [place] [address] Health Maintenance Due Date Last Done Comments Zoster Vaccines (1 of 2) 1986 Pneumococcal Vaccine: 65+ Years (2 of 2 - PCV) 12/14/2008 12/15/2007 COVID-19 Vaccine ( season) 2022 11/13/2020, 06/03/2020, 05/08/2020 Depression Screening 07/01/2023 06/30/2022, 06/10/2016 (Discussed) Albumin/Creatinine Ratio 12/28/2023 023, 01/25/2022, 06/07/2016, Additional history exists CKD PHOS USE SMARTSET 39196 12/28/202312/12, 03/26/2021, 03/25/2021, Additional history exists HbA1c 12/28/2023 12/27/2022, 01/12, 01/16/2020, Additional history exists TSH 06/06/2024 06/07/2023, 12/12, 03/23/2021, Additional history exists CKD HGB USE SMARTSET 42104 08/11/202408/11, 08/01/2023, 08/01/2023, Additional history exists DTaP,Tdap,and [...] this encounter Medical Devices Implanted Type Area Nuclear Plant Instrument Technician Device Identifier Shelf Expiration Date Model / Serial / Lot Proglide Perclose 15742-49 X10 - [id number] Implanted:Qty: 1 on 07/10/2020 by Renard Galan, DO at [facility] : VASCULAR DEVICES [id number] 12/11/2021 18277-23 / / [id number] Proglide Perclose 93848-61 X10 - [id number] Implanted:Qty: 1 on 07/10/2020 by Renard Galan, DO at [facility] : VASCULAR DEVICES [id number] 12/11/2021 08767-30 / / [id number] Balloon Cath Pacing [id number] - [id number] Implanted:Qty: 1 on 07/10/2020 by Renard Galan, DO at [facility] [employer] : MEDICAL [id number] 05/11/2022 520 007P / / [id number] Valve Aort Evolut Proplus 29mm - [id number] Implanted:Qty: 1 on 07/10/2020 by Renard Galan, DO at [facility] [employer] : CARDIAC SURGERY 11/08/2021 EVPROPLUS- 29US / [id number] / [id number] Balloon Cath Pacing [id number] - [id number] Implanted:Qty: 1 on 07/10/2020 by Renard Galan, DO at [facility] [employer] : MEDICAL [id number] 05/11/2022 520 007P / / [id number] Coil Fibered 2 10mm [id number] - [id number] Implanted:Qty: 1 on 03/18/2021 at [facility] [employer] : NEURO INTR [id number] 06/18/2023 [id number] Coil Fibered 2 10mm 135156 - [id number] Implanted:Qty: 1 on 03/18/2021 at [facility] [employer] : NEURO INTR [id number] 06/18/2023 [id number] Coil Emboli Tornado 3x2 - [id number] Implanted:Qty: 1 on 03/18/2021 at [facility] [id number] 09/04/2025 [id number] / / [id number] Coil Emboli Tornado 3x2 - [id number] Implanted:Qty: 1 on 03/18/2021 at [facility] [id number] 12/25/2025 [id number] / / [id number] Sureclip 16mm 235cm - [id number] Implanted:Qty: 1 on 07/31/2021 by Reji Milian MD at [facility]OSCOPY [facility] Colon MICRO TECH ENDOSCOPY 09/22/2023 [id number] / / [id number] documented as of this encounter Procedures Procedure Name Priority Date/Time Associated Diagnosis Comments XR CHEST 1 VIEW Routine 08/06/2023 documented in this encounter Results * XR CHEST 1 VIEW (08/06/2023) Anatomical Region Laterality Modality Chest Other 08/06/2023 Orlando Rebolledo MD RADIOLOGY (RAD GENER AL) documented in this encounter Advance Directives Documents on File Type Date Recorded Patient Roll Edge Stitcher Hand Expl anation Advance Directives and Living Will 02/24/2023 ADVANCE DIRECTIVE / LIVING WILL Power of Poultry Helper 02/24/2023 POWER OF A TTORNEY * Full [...] Power of Attor reba? No Care Teams Blanking Press Operator Relationship Specialty Start Date End Date Elba Macias DO [address] [address] PCP - General Family Medicine 08/03/23 documented as of this encounter
--- OUTSIDE RECORDS SUMMARY | 2023-08-24 11:51 | External Medical Summary | Summary of Care ---
Author Name Unknown Organization [facility] Address [address] [facility] [place] [address] Phone [phone] Care Team Providers Care Real Estate Site Analyst Name Role Phone Elba Macias DO Primary Care Provider Encounter Details Date Type Department Care Team (Late st Contact Info) Description 08/17/2023 Telephone [facility] [address] [place] [address] Elba Macias DO [address] [place] [address] Allergies Active Allergy Reactions Criticality Noted Date Comments Pollen Other (Please comment) 09/03/2019 sneezing documented as of this encounter (statuses as of 08/17/2023) Medications Medication Sig Dispensed Refills Start Date [...] as of this encounter (statuses as of 08/17/2023) Active Problems Problem Noted Date Diagnosed Date [...] as of this encounter (statuses as of 08/17/2023) Resolved Problems Problem Noted Date Diagnosed Date [...] as of this encounter (statuses as of 08/17/2023) Immunizations Name Administration Dates Next Due COVID-19 [...] encounter Miscellaneous Notes * Telephone Encounter - Elba Macias DO [...] concern about this. Requested lab reports from [facility] to be faxed to us. documented in this encounter Plan of Treatment Upcoming Encounters Date Type Department Care Team (Late st Contact Info) Description 08/18/2023 10:10 AM EDT Office Visit [facility] [address] [facility] [phone] Elba Macias DO [address] [facility] [phone] 08/25/2023 11:15 AM EDT Imaging Radiology [facility] 1st [facility] 132 [facility] [place] [address] 08/29/2023 1:00 PM EDT Cardiac Studies Cardiac Studies, [facility] 132 [facility] [place] [address] 08/30/2023 9:45 AM EDT Office Visit Hematology/Oncology [facility] 200 [facility] [address] [place] [phone] Arias Sanchez MD 200 [facility] [place] [address] 10/10/2023 1:30 PM EDT Office Visit Cardiology, [facility] [address] [facility] [place] [address] Margaret Mcclain PA-C 132 [facility] [place] [address] 01/04/2024 11:00 AM EDT Office Visit Family [facility] [place] [address] [address] [facility] [place] [phone] Maria Alejandra Mcginnis PA-C [address] [place] [address] 01/10/2024 11:40 AM EDT Office Visit Dermatology, [place] [address] [place] [address] Toña Parra PA-C [address] [place] [address] [place] [address] Health Maintenance Due Date Last Done Comments Zoster Vaccines (1 of 2) 1986 Pneumococcal Vaccine: 65+ Years (2 of 2 - PCV) 12/14/2008 12/15/2007 COVID-19 Vaccine (2022-24 season) 2022 11/13/2020, 06/03/2020, 05/08/2020 Depression Screening 07/01/2023 06/30/2022, 06/10/2016 (Discussed) Albumin/Creatinine Ratio 12/28/2023 023, 01/25/2022, 06/07/2016, Additional history exists CKD PHOS USE SMARTSET 53593 12/28/202312/12, 03/26/2021, 03/25/2021, Additional history exists HbA1c 12/28/2023 12/27/2022, 01/12, 01/16/2020, Additional history exists TSH 06/06/2024 06/07/2023, 12/12, 03/23/2021, Additional history exists CKD HGB USE SMARTSET 11494 07/31/202407/31, 08/01/2023, 06/29/2023, Additional history exists DTaP,Tdap,and [...] this encounter Medical Devices Implanted Type Area Vessel Slag Worker Device Identifier Shelf Expiration Date Model / Serial / Lot Proglide Perclose 69143-23 X10 - [id number] Implanted:Qty: 1 on 07/10/2020 by Renadr Galan, DO at [facility] : VASCULAR DEVICES [id number] 12/11/2021 78506-64 / / [id number] Proglide Perclose 22282-39 X10 - [id number] Implanted:Qty: 1 on 07/10/2020 by Renard Galan, DO at [facility] : VASCULAR DEVICES [id number] 12/11/2021 97684-91 / / [id number] Balloon Cath Pacing [id number] - [id number] Implanted:Qty: 1 on 07/10/2020 by Renard Galan, DO at [facility] [employer] : MEDICAL [id number] 05/11/2022 520 007P / / [id number] Valve Aort Evolut Proplus 29mm - [id number] Implanted:Qty: 1 on 07/10/2020 by Renard Galan, DO at [facility] [employer] : CARDIAC SURGERY 11/08/2021 EVPROPLUS- 29US / [id number] / [id number] Balloon Cath Pacing [id number] - [id number] Implanted:Qty: 1 on 07/10/2020 by Renard Galan, DO at [facility] : MEDICAL [id number] 05/11/2022 520 007P / / [id number] Coil Fibered 2 10mm 852238 - [id number] Implanted:Qty: 1 on 03/18/2021 at [facility] [employer] : NEURO INTR [id number] 06/18/2023 [id number] Coil Fibered 2 10mm 570233 - [id number] Implanted:Qty: 1 on 03/18/2021 at [facility] [employer] : NEURO INTR [id number] 06/18/2023 [id number] Coil Emboli Tornado 3x2 - [id number] Implanted:Qty: 1 on 03/18/2021 at [facility] [employer] [id number] 09/04/2025 [id number] / / [id number] Coil Emboli Tornado 3x2 - [id number] Implanted:Qty: 1 on 03/18/2021 at [facility] [employer] [id number] 12/25/2025 [id number] / / [id number] Sureclip 16mm 235cm - [id number] Implanted:Qty: 1 on 07/31/2021 by Reji Milian MD at ENDOS[facility] Colon MICRO TECH ENDOSCOPY 09/22/2023 [id number] / / [id number] documented as of this encounter Advance Directives Documents on File Type Date Recorded Patient Freelance Photographer Expl anation Advance Directives and Living Will 02/24/2023 ADVANCE DIRECTIVE / LIVING WILL Power of Assistant Strength Coach 02/24/2023 POWER OF A TTORNEY * Full [...] Power of Attor reba? No Care Teams Real Estate Site Analyst Relationship Specialty Start Date End Date Elba Macias DO [address] [facility] [place] [address] PCP - General Family Medicine 08/03/23 documented as of this encounter
--- OUTSIDE RECORDS SUMMARY | 2023-08-24 11:52 | External Medical Summary | Summary of Care ---
Author Name Unknown Organization [facility] Address [address] [facility] [place] [address] Phone [phone] Care Team Providers Care Anime Artist Name Role Phone Elba Macias DO Primary Care Provider Encounter Details Date Type Department Care Team (Late st Contact Info) Description 08/17/2023 Telephone [facility] [address] [place] [address] Elba Macias DO [address] [place] [address] Allergies Active Allergy Reactions Criticality [...] concern about this. Requested lab reports from [facility] to be faxed to us. documented in this encounter Plan of Treatment Upcoming Encounters Date Type Department Care Team (Late st Contact Info) Description 08/18/2023 10:10 AM EDT Office Visit [facility] [address] [facility] [phone] Elba Macias DO [address] [facility] [phone] 08/25/2023 11:15 AM EDT Imaging Radiology [facility] 1st [facility] 132 [facility] [place] [address] 08/29/2023 1:00 PM EDT Cardiac Studies Cardiac Studies, [facility] 132 [facility] [place] [address] 08/30/2023 9:45 AM EDT Office Visit Hematology/Oncology [facility] 200 [facility] [place] [phone] Arias Sanchez MD 200 [facility] [place] [address] 10/10/2023 1:30 PM EDT Office Visit Cardiology, [facility] 132 [facility] [place] [address] Margaret Mcclain PA-C 132 [facility] [place] [address] 01/04/2024 11:00 AM EDT Office Visit Family [facility] [place] [address] [address] [facility] [place] [phone] Maria Alejandra Mcginnis PA-C [address] [place] [address] 01/10/2024 11:40 AM EDT Office Visit Dermatology, [place] [address] [place] [address] Toña Parra PA-C [address] [place] [address] [place] [address] Health Maintenance Due Date Last Done Comments Zoster Vaccines (1 of 2) 1986 Pneumococcal Vaccine: 65+ Years (2 of 2 - PCV) 12/14/2008 12/15/2007 COVID-19 Vaccine (2022-24 season) 2022 11/13/2020, 06/03/2020, 05/08/2020 Depression Screening 07/01/2023 06/30/2022, 06/10/2016 (Discussed) Albumin/Creatinine Ratio 12/28/2023 023, 01/25/2022, 06/07/2016, Additional history exists CKD PHOS USE SMARTSET 53324 12/28/202312/12, 03/26/2021, 03/25/2021, Additional history exists HbA1c 12/28/2023 12/27/2022, 01/12, 01/16/2020, Additional history exists TSH 06/06/2024 06/07/2023, 12/12, 03/23/2021, Additional history exists CKD HGB USE SMARTSET 45069 07/31/202407/31, 08/01/2023, 06/29/2023, Additional history exists DTaP,Tdap,and [...] this encounter Medical Devices Implanted Type Area Insurance Sales Producer Device Identifier Shelf Expiration Date Model / Serial / Lot Proglide Perclose 56945-92 X10 - [id number] Implanted:Qty: 1 on 07/10/2020 by Renard Galan, DO at [facility] : VASCULAR DEVICES [id number] 12/11/2021 37060-65 / / [id number] Proglide Perclose 22275-80 X10 - [id number] Implanted:Qty: 1 on 07/10/2020 by Renard Galan, DO at [facility] : VASCULAR DEVICES [id number] 12/11/2021 13451-76 / / [id number] Balloon Cath Pacing [id number] - [id number] Implanted:Qty: 1 on 07/10/2020 by Renard Galan, DO at [facility] : MEDICAL [id number] 05/11/2022 520 007P / / [id number] Valve Aort Evolut Proplus 29mm - [id number] Implanted:Qty: 1 on 07/10/2020 by Renard Galan, DO at [facility] [employer] : CARDIAC SURGERY 11/08/2021 EVPROPLUS- 29US / [id number] / [id number] Balloon Cath Pacing [id number] - [id number] Implanted:Qty: 1 on 07/10/2020 by Renard Galan, DO at [facility] : MEDICAL [id number] 05/11/2022 520 007P / / [id number] Coil Fibered 2 10mm 053686 - [id number] Implanted:Qty: 1 on 03/18/2021 at [facility] [employer] : NEURO INTR [id number] 06/18/2023 [id number] Coil Fibered 2 10mm 266023 - [id number] Implanted:Qty: 1 on 03/18/2021 at [facility] [employer] : NEURO INTR [id number] 06/18/2023 [id number] Coil Emboli Tornado 3x2 - [id number] Implanted:Qty: 1 on 03/18/2021 at [facility] [employer] [id number] 09/04/2025 [id number] / / [id number] Coil Emboli Tornado 3x2 - [id number] Implanted:Qty: 1 on 03/18/2021 at [facility] [employer] [id number] 12/25/2025 [id number] / / [id number] Sureclip 16mm 235cm - [id number] Implanted:Qty: 1 on 07/31/2021 by Reji Milian MD at ENDOSCOPY [facility] Colon MICRO TECH ENDOSCOPY 09/22/2023 [id number] / / [id number] documented as of this encounter Advance Directives Documents on File Type Date Recorded Patient Family Service Assistant Expl anation Advance Directives and Living Will 02/24/2023 ADVANCE DIRECTIVE / LIVING WILL Power of Seasoning Mixer 02/24/2023 POWER OF A TTORNEY * Full [...] Power of Attor reba? No Care Teams Anime Artist Relationship Specialty Start Date End Date Elba Macias DO [address] [facility] [place] [address] PCP - General Family Medicine 08/03/23 documented as of this encounter
--- OUTSIDE RECORDS SUMMARY | 2023-08-24 11:52 | External Medical Summary | Summary of Care ---
Author Name Unknown Organization [facility] Address [address] [place] [place] [address] Phone [phone] Care Team Providers Care Pond Supervisor Name Role Phone Elba Macias DO Primary Care Provider Encounter Details Date Type Department Care Team (Late st Contact Info) Description 08/17/2023 Telephone [facility] [address] [place] [address] Elba Macias DO [address] [place] [address] Allergies Active Allergy Reactions Criticality [...] concern about this. Requested lab reports from [facility] to be faxed to us. documented in this encounter Plan of Treatment Upcoming Encounters Date Type Department Care Team (Late st Contact Info) Description 08/18/2023 10:10 AM EDT Office Visit [facility] [address] [facility] [place] [phone] Elba Macias DO [address] [facility] [place] [phone] 08/25/2023 11:15 AM EDT Imaging Radiology [facility] 1st [facility] 132 [facility] [place] [address] 08/29/2023 1:00 PM EDT Cardiac Studies Cardiac Studies, [facility] 132 [facility] [place] [address] 08/30/2023 9:45 AM EDT Office Visit Hematology/Oncology [facility] 200 [facility] [place] [phone] Arias Sanchez MD 200 [facility] [place] [address] 10/10/2023 1:30 PM EDT Office Visit Cardiology, [facility] 132 [facility] [place] [address] Margaret Mcclain PA-C 132 [facility] [place] [address] 01/04/2024 11:00 AM EDT Office Visit Family [facility] [place] [address] [address] [facility] [place] [phone] Maria Alejandra Mcginnis PA-C [address] [place] [address] 01/10/2024 11:40 AM EDT Office Visit Dermatology, [place] [address] [place] [address] Toña Parra PA-C [address] [place] [address] [place] [address] Health Maintenance Due Date Last Done Comments Zoster Vaccines (1 of 2) 1986 Pneumococcal Vaccine: 65+ Years (2 of 2 - PCV) 12/14/2008 12/15/2007 COVID-19 Vaccine (2022-24 season) 2022 11/13/2020, 06/03/2020, 05/08/2020 Depression Screening 07/01/2023 06/30/2022, 06/10/2016 (Discussed) Albumin/Creatinine Ratio 12/28/2023 023, 01/25/2022, 06/07/2016, Additional history exists CKD PHOS USE SMARTSET 95789 12/28/202312/12, 03/26/2021, 03/25/2021, Additional history exists HbA1c 12/28/2023 12/27/2022, 01/12, 01/16/2020, Additional history exists TSH 06/06/2024 06/07/2023, 12/12, 03/23/2021, Additional history exists CKD HGB USE SMARTSET 86685 07/31/202407/31, 08/01/2023, 06/29/2023, Additional history exists DTaP,Tdap,and [...] this encounter Medical Devices Implanted Type Area Guard Dance Hall Device Identifier Shelf Expiration Date Model / Serial / Lot Proglide Perclose 39796-95 X10 - [id number] Implanted:Qty: 1 on 07/10/2020 by Renard Galan, DO at [facility] : VASCULAR DEVICES [id number] 12/11/2021 82005-75 / / [id number] Proglide Perclose 62646-66 X10 - [id number] Implanted:Qty: 1 on 07/10/2020 by Renard Galan, DO at [facility] : VASCULAR DEVICES [id number] 12/11/2021 04116-37 / / [id number] Balloon Cath Pacing [id number] - [id number] Implanted:Qty: 1 on 07/10/2020 by Renard Galan, DO at [facility]AC LABS [facility] [employer] : MEDICAL [id number] 05/11/2022 520 007P / / [id number] Valve Aort Evolut Proplus 29mm - [id number] Implanted:Qty: 1 on 07/10/2020 by Renard Galan, DO at [facility] [employer] : CARDIAC SURGERY 11/08/2021 EVPROPLUS- 29US / [id number] / [id number] Balloon Cath Pacing [id number] - [id number] Implanted:Qty: 1 on 07/10/2020 by Renard Galan, DO at [facility]S [facility] [employer] : MEDICAL [id number] 05/11/2022 520 007P / / [id number] Coil Fibered 2 10mm 386326 - [id number] Implanted:Qty: 1 on 03/18/2021 at [facility] [employer] : NEURO INTR [id number] 06/18/2023 [id number] Coil Fibered 2 10mm 026756 - [id number] Implanted:Qty: 1 on 03/18/2021 at [facility] [employer] : NEURO INTR [id number] 06/18/2023 [id number] Coil Emboli Tornado 3x2 - [id number] Implanted:Qty: 1 on 03/18/2021 at [facility] [employer] [id number] 09/04/2025 [id number] / / [id number] Coil Emboli Tornado 3x2 - [id number] Implanted:Qty: 1 on 03/18/2021 at [facility] [employer] [id number] 12/25/2025 [id number] / / [id number] Sureclip 16mm 235cm - [id number] Implanted:Qty: 1 on 07/31/2021 by Reji Milian MD at ENDOSCOPY [facility] Colon MICRO TECH ENDOSCOPY 09/22/2023 [id number] / / [id number] documented as of this encounter Advance Directives Documents on File Type Date Recorded Patient It Assistant Expl anation Advance Directives and Living Will 02/24/2023 ADVANCE DIRECTIVE / LIVING WILL Power of Emergency Veterinary Technician 02/24/2023 POWER OF A TTORNEY * [...] Power of Attor reba? No Care Teams Pond Supervisor Relationship Specialty Start Date End Date Elba Macias DO [address] [facility] [place] [address] PCP - General Family Medicine 08/03/23 documented as of this encounter
--- OUTSIDE RECORDS SUMMARY | 2023-08-24 11:52 | External Medical Summary | Summary of Care ---
Author Name Unknown Organization [facility] Address [address] [place] [address] Phone [phone] Care Team Providers Care Quality System Manager Name Role Phone Elba Macias DO Primary Care Provider [phone] Encounter Details Date Type Department Care Team (Late st Contact Info) Description 08/12/2023 Result Scan Unspecified Department <No scans attached> Allergies Active Allergy Reactions Criticality Noted Date Comments Pollen Other (Please comment) 09/03/2019 sneezing documented as of this encounter (statuses as of 08/16/2023) Medications Medication Sig Dispensed Refills Start Date [...] as of this encounter (statuses as of 08/16/2023) Active Problems Problem Noted Date Diagnosed Date [...] as of this encounter (statuses as of 08/16/2023) Resolved Problems Problem Noted Date Diagnosed Date [...] as of this encounter (statuses as of 08/16/2023) Immunizations Name Administration Dates Next Due COVID-19 mRNA, LNP-s, No Pre serve, 2-Dose Series ([employer]) 11/13/2020,06/03/2020,05/08/2020 Pneumococcal Polysaccharide PPV23 (Pneumovax) 12/15/2007 Season [...] Description 08/18/2023 10:10 AM EDT [facility] [place] [address] [facility] [phone] Elba Macias[facility] [address] [facility] [address] 08/25/2023 11:15 AM EDT Imaging Radiology [facility] [address] [facility] [address] [facility] [place] [address] 08/29/2023 1:00 PM EDT Cardiac Studies Cardiac Studies, [facility] [address] [facility] [place] [address] 08/30/2023 9:45 AM EDT Office Visit Hematology/Oncology [facility] [address] [facility] [place] [phone] Arias Sanchez MD [address] [facility] [place] [address] 08/31/2023 11:40 AM EDT Office Visit [facility] [address] [facility] [phone] Maria Alejandra Mcginnis PA-C [address] [facility] [address] 10/10/2023 1:30 PM EDT Office Visit Cardiology, [facility] [address] [facility] [place] [address] Margaret Mcclain PA-C [address] [place] [address] 01/04/2024 11:00 AM EDT Office Visit Family Practice, [place] [address] [facility], [place] [phone] Maria Alejandra Mcginnis PA-C [address] [facility], [place] [address] 01/10/2024 11:40 AM EDT Office Visit Dermatology, [place] [address] [facility], [place] [address] Toña Parra PA-C [address] [place] [address] [place] [address] Health Maintenance Due Date Last Done Comments Zoster Vaccines (1 of 2) 1986 Pneumococcal Vaccine: 65+ Years (2 of 2 - PCV) 12/14/2008 12/15/2007 COVID-19 Vaccine ( season) 2022 11/13/2020, 06/03/2020, 05/08/2020 Depression Screening 07/01/2023 06/30/2022, 06/10/2016 (Discussed) Albumin/Creatinine Ratio 12/28/202312/27/2 023, 01/25/2022, 06/07/2016, Additional history exists CKD PHOS USE SMARTSET 75989 12/28/202312/12, 03/26/2021, 03/25/2021, Additional history exists HbA1c 12/28/2023 12/27/2022, 01/12, 01/16/2020, Additional history exists TSH 06/06/2024 06/07/2023, 12/12, 03/23/2021, Additional history exists CKD HGB USE SMARTSET 57024 07/31/202407/31, 08/01/2023, 06/29/2023, Additional history exists DTaP,Tdap,and [...] this encounter Medical Devices Implanted Type Area Vp Construction Device Identifier Shelf Expiration Date Model / Serial / Lot Proglide Perclose 45781-71 X10 - [id number] Implanted:Qty: 1 on 07/10/2020 by Renard Galan, DO at [facility] : VASCULAR DEVICES [id number] 12/11/2021 [id number] / / [id number] Proglide Perclose 08917-43 X10 - [id number] Implanted:Qty: 1 on 07/10/2020 by Renard Galan, DO at [facility] : VASCULAR DEVICES [id number] 12/11/2021 [id number] / / [id number] Balloon Cath Pacing [id number] - [id number] Implanted:Qty: 1 on 07/10/2020 by Renard Galan, DO at [facility] : MEDICAL [id number] 05/11/2022 520 [id number] / / [id number] Valve Aort Evolut Proplus 29mm - [id number] Implanted:Qty: 1 on 07/10/2020 by Renard Galan, DO at [facility] [employer] : CARDIAC SURGERY 11/08/2021 EVPROPLUS- 29US / [id number] / [id number] Balloon Cath Pacing [id number] - [id number] Implanted:Qty: 1 on 07/10/2020 by Renard Galan, DO at [facility] : MEDICAL [id number] 05/11/2022 520 [id number] / / [id number] Coil Fibered 2 10mm [id number] - [id number] Implanted:Qty: 1 on 03/18/2021 at [facility] : NEURO INTR [id number] 06/18/2023 [id number] Coil Fibered 2 10mm [id number] - [id number] Implanted:Qty: 1 on 03/18/2021 at [facility] : NEURO INTR [id number] 06/18/2023 [id number] Coil Emboli Tornado 3x2 - [id number] Implanted:Qty: 1 on 03/18/2021 at [facility] [id number] 09/04/2025 [id number] / / [id number] Coil Emboli Tornado 3x2 - [id number] Implanted:Qty: 1 on 03/18/2021 at [facility] [id number] 12/25/2025 [id number] / / [id number] Sureclip 16mm 235cm - [id number] Implanted:Qty: 1 on 07/31/2021 by Reji Milian MD at [facility] Colon MICRO TECH ENDOSCOPY 09/22/2023 [id number] / / [id number] documented as of this encounter Procedures Procedure Name Priority Date/Time Associated Diagnosis Comments ECHOCARDIOLOGY SCANNED RESULT 08/12/2023 documented in this encounter Results * ECHOCARDIOLOGY SCANNED RESULT (08/12/2023) 08/12/2023 No Physician Data Unknown ECHOCARDIOLOGY documented in this encounter Advance Directives Documents on File Type Date Recorded Patient Blogs Manager Expl anation Advance Directives and Living Will 02/24/2023 ADVANCE DIRECTIVE / LIVING WILL Power of Personnel Security Assistant 02/24/2023 POWER OF A TTORNEY * Full [...] of Attor reba? No Care Teams Quality System Manager Relationship Specialty Start Date End Date Elba Macias DO [address] [place] [address] PCP - General Family Medicine 08/03/23 documented as of this encounter
[2023-08-24 12:58] LABS: ANTI-Xa, UFH(UnfractionatedHep 0.33 IU/ml (0.3-0.7)
[2023-08-24] MEDS: cefTRIAXone SODIUM 2,000 MG/50 ML BAG IV SCH (15:40)
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
--- NOTE | 2023-08-24 16:37 | Ultrasound Report ---
LEFT UPPER EXTREMITY ARTERIAL DOPPLER ULTRASOUND CLINICAL HISTORY: Thrombosis. COMPARISON STUDY: CTA of the chest August 23, 2023. TECHNIQUE: Grayscale, color and duplex Doppler sonography of the arterial system of the left lower ex tremity was performed. FINDINGS: Triphasic flow within the left subclavian and axillary arteries is present. There is normal triphasic waveform within the proximal to mid left brachial artery. Note is made of intraluminal mat erial within the distal left brachial artery consistent with an embolus or thrombus. This appears occ lusive. In addition, there is thrombus/emboli within the proximal left radial artery with monophasic flow. No flow within the distal left renal artery is present. There is monophasic dampened flow withi n the left ulnar artery. IMPRESSION: Intraluminal material consistent with age indeterminate thrombus/emboli within the distal left brachial and radial arteries. Occluded distal left radial artery with dampened, monophasic flow within the left ulnar artery. The thrombus is nearly occlusive and results in significant decreased flow to left hand. ACT 112: Negative or not required by law. Electronically signed by: Matthias Wan M.D. 08/24/2023 4:35 PM
[2023-08-24] MEDS: amLODIPine BESYLATE 5 MG TAB PO ONE (18:22)
--- NOTE | 2023-08-24 18:46 | Hospitalist Progress Note ---
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 If patient completes IV antibiotic course prior to seeing ID for follow-up patient should be on Amoxicillin 500 mg 3 times a day until seen by ID as per previous discharge summary. Prior to the last admission patient was getting lightheaded and poor p.o. intake and generalized weakness ,malaise night sweats about 2 weeks and outpatient lab work done showed bacteremia and elevated inflammatory markers and a concern for infective endocarditis as patient had history of bicuspid aortic valve and had TAVR in June 2020 and was admitted on Aug 06 2023.. Patient seems lost weight since last September. Patient states since he got discharged from last admission doing better.. He still gets on and off dizziness and some night sweats but not in the last few days. Appetite is okay. He lives with his son. Ambulating without support. Denies any chest pain or shortness of breath. No cough. Currently no headache. No runny nose or sore throat. No abdominal pain. Moving his bowels regularly. Bowels movements are somewhat loose from his antibiotics. Micturating okay. Comes with left arm swelling and in the ER Doppler showed possibly occlusive thrombus within the segments of the left brachial and radial arteries.Currently resting comfortably and hemodynamically stable. Left radial artery and brachial artery nonocclusive thrombosis Concern for possible septic emboli from endocarditis --ECHO: Compared to prior study, no significant change. EF 60 to 65%. S/P TAVR with VERENA type prosthetic valve. Trivial paravalvular processes regurgitation. Bioprosthetic leaflets are not well-visualized. Systolic gradients borderline elevated and indeterminant for obstruction. Area of echo lucency surrounding the anterior portion of the valve prosthesis on the short axis views. Unchanged when compared to prior study. --CTA:No acute abnormality and in particular no evidence of acute aortic injury. No pulmonary emboli are seen. --Left UR Venous Doppler:At least partially occlusive thrombi incidentally noted within segments of the brachial and radial arteries. --Arterial Doppler: Intraluminal material consistent with age indeterminate thrombus/emboli within the distal left brachial and radial arteries. Occluded distal left radial artery with dampened, monophasic flow within the left ulnar artery. The thrombus is nearly occlusive and results in significant decreased flow to left hand. -- Continue IV heparin for now Plan for embolectomy of the brachial radial arteries tomorrow Appreciate vascular surgery input N.p.o. after midnight Hypertension Mild troponin elevation likely demand ischemia ? 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 No arterial occlusion, dissection or high-grade stenosis identified. 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 --Neck CTA:No stenosis or dissection within the bilateral common carotid, cervical internal carotid or vertebral arteries. Will need follow-up with neurosurgery on discharge Anemia of chronic disease Hemoglobin at baseline Monitor Nonrheumatic aortic valve stenosis s/p TAVR on June 2020 Weight loss Likely from endocarditis Appetite slowly improving per patient Monitor Hypothyroidism Continue levothyroxine BPH on Flomax Prediabetes Update HbA1c CKD stage III Monitor renal function Avoid nephrotoxic agents as able Ascending aortic aneurysm Ascending aorta 4.[address] scan 4.7 cm by recent echo Needs follow-up as outpatient DVT Px: IV heparin CODE STATUS Full code Admission and Anticipated Discharge Date Admission Date: August 23, 2023 Subjective Patient is seen and examined at bedside States having some discomfort of left upper extremity Offers no other complaints Family at bedside Denies any chest pain, dyspnea, dizziness, nausea, vomiting, abdominal pain Review of Systems Review of Systems: All systems reviewed & are unremarkable except as noted in Subjective Physical Exam Physical Exam: Physical Exam: Vitals signs as noted above General Appearance:Moderately built and nourished, no apparent distress Head: normocephalic, Atraumatic Eyes: normal inspection, EOMI Neck: supple, Trachea midline Respiratory/Chest: Normal breath sounds, CTA, No accessory muscle use Cardiovascular: S1, S2, + murmur Abdomen/GI:Soft, Non tender, Bowel sounds present Extremities/Musculoskeletal:normal inspection, Left UE mild edema Neurologic/Psych:AAOX3, grossly no focal neurological deficits Skin: normal color, warm Results & Data Results & Data Vital Signs (Past 12 Hours) Vital Signs Temp Pulse Pulse Resp BP Pulse Ox O2 Del Method 08/24/23 17:55 148/70 H 08/24/23 16:48 91 H 16 168/94 H 98 Room Air 08/24/23 16:24 83 08/24/23 16:20 37 C 83 20 167/73 H 95 Room Air 08/24/23 11:51 74 08/24/23 09:00 72 18 133/61 95 Room Air 08/24/23 07:09 76
[2023-08-25 06:07] LABS: Hematocrit (blood only) 32.8 % (42.0-52.0); Hemoglobin 10.3 g/dl (14.0-18.0); Mean Corpuscular Hemoglobin 26.5 pg (25.0-34.0); Mean Corpuscular Hgb Conc 31.4 g/dL (32.0-36.0); Mean Corpuscular Volume 84.3 fL (80.0-100.0); Mean Platelet Volume 9.7 fL (9.4-12.4); Platelet Count 355 K/uL (130-400); RDW Coefficient of Variation 17.2 % (11.5-14.5); RDW Standard Deviation 52.8 fL (36.4-46.3); Red Blood Count 3.89 M/uL (4.70-6.10); White Blood Count 10.17 K/ul (4.8-10.8)
[2023-08-25 06:28] LABS: BUN Creatinine Ratio 11.3 (10-20); Calcium 8.8 mg/dl (8.6-10.3); Creatinine Clr Calc Pharmacy 44.7 ml/min; Est GFR (African American) 60.2 ml/min; Est GFR (Non-African American) 51.9 ml/min; Potassium 3.7 mmol/L (3.5-5.1)
[2023-08-25 06:32] LABS: ANTI-Xa, UFH(UnfractionatedHep 0.36 IU/ml (0.3-0.7)
[2023-08-25 07:27] LABS: Estimated Average Glucose 117 mg/dl; Hemoglobin A1C 5.7 % (4.5-5.6)
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
--- NOTE | 2023-08-25 09:10 | History & Physical Bridge Note ---
Date of Service August 25, 2023 History & Physical Bridge Note Patient is to undergo embolectomy of his left upper extremity today. I have discussed the risks options and benefits of the procedure with the patient. The patient understands the risks options and benefits and agrees to the procedure. I have examined the patient, reviewed the History & Physical and in the interval since the performance of the History & Physical I have noted the following changes of clinical significance: no changes noted
--- NOTE | 2023-08-25 11:35 | Cardiology Progress Note ---
Date of Service August 25, 2023 Assessment & Plan (1) Radial artery thrombosis, left: (2) Brachial artery thrombosis: (3) Prosthetic valve endocarditis: (4) S/P TAVR (transcatheter aortic valve replacement): (5) Septic embolism: Plan 88-year-old male presents with left arm discomfort. Duplex findings of brachial and radial artery thrombosis. Likely cardioembolic phenomenon /possible septic emboli given bioprosthetic (TAVR) endocarditis. Continue current treatment with IV Rocephin. Continue treatment with IV heparin. Patient scheduled for embolectomy today with vascular surgery. Await pathology results. I spent a total of 50 minutes on the date of service in preparation, delivery, and documentation of the care provided to this patient, excluding any time spent in the performance of separately billed services. Admission and Anticipated Discharge Date Admission Date: August 23, 2023 Subjective 88-year-old patient seen examined the bedside. Notes left hand discomfort. Diminished left radial pulse on exam. No chest pain or shortness of breath. No visual changes, slurred speech, focal weakness, paresthesias, or facial asymmetry. Telemetry will sinus rhythm in the 60s to 80s. Vascular surgery planning embolectomy this afternoon. Review of Systems Review of Systems: All systems reviewed & are unremarkable except as noted in Subjective Physical Exam Constitutional: well nourished; no acute distress and not ill appearing Respiratory: no respiratory distress, no labored breathing and no retractions Auscultation: no crackles, no rales, no rhonchi and no wheezes Cardiovascular: Rate/Rhythm: regular rate and regular rhythm Heart Sounds: normal S1, normal S2 and + murmur (2/6 systolic ejection murmur heard best at the right second intercostal spa) Vessels: radial pulses present; no JVD and no carotid bruit Extremities: no edema Gastrointestinal (Abdomen): Inspection/Auscultation: abdomen normal to inspection and normal bowel sounds; abdomen not distended Percussion/Palpation: abdomen soft; abdomen nontender, no guarding and abdomen not rigid Neurologic: CN's II-XI intact bilaterally and moves all extremities; no focal motor deficits Results & Data Vital Signs (Past 12 Hours) Vital Signs Temp Pulse Pulse Resp BP Pulse Ox O2 Del Method 08/25/23 11:14 36.6 C 68 20 147/72 H 97 Room Air 06/13/24 07:53 36.7 C 75 20 137/71 97 Room Air 08/25/23 07:00 84 08/25/23 03:00 37 C 93 H 16 174/80 H 95 Room Air Laboratory Results Cardiac Enzymes 08/24/23 Range/Units 15:29 Troponin I High Sens 38.9 H D (0-20) pg/ml CBC 08/25/23 Range/Units 05:33 WBC 10.17 (4.8-10.8) K/ul RBC 3.89 L (4.70-6.10) M/uL Hgb 10.3 L (14.0-18.0) g/dl Hct 32.8 L (42.0-52.0) % Plt Count 355 (130-400) K/uL Comprehensive Metabolic Panel 08/25/23 Range/Units 05:33 Sodium 137 (136-145) mmol/L Potassium 3.7 (3.5-5.1) mmol/L Chloride 100 (98-107) mmol/L Carbon Dioxide 30 (21-32) mmol/L BUN 14 (6-23) mg/dl Creatinine 1.24 (0.6-1.4) mg/dl Glucose 119 H (70-99(Fasting)) mg/dl Calcium 8.8 (8.6-10.3) mg/dl Intake and Output 08/24/23 08/25/23 08/25/23 22:59 06:59 14:59 Intake Total 197.417 / 1093.967 232 / 1093.967 Balance 197.417 / 1093.967 232 / 1093.967 Intake: IV 197.417 / 1043.967 232 / 1043.967 Heparin Sodium/Dextrose 25,000 147.417 / 993.967 232 / 993.967 units In 500 ml @ 1,450 UNITS/ HR 29 mls/hr IV .[id number] ROXANN Rx #:[id number] cefTRIAXone SODIUM 2,000 mg In 50 / 50 50 ml @ 100 mls/hr IV Q24H ROXANN Rx#:[id number] Other: # Unmeasured Voids 1 Weight 87.5 kg Patient Weight 08/26/23 06:59 Weight 87.5 kg (3) Prosthetic valve endocarditis Encounter type: initial encounter Qualified Code(s): T82.6XXA - Infection and inflammatory reaction due to cardiac valve prosthesis, initial encounter; I38 - Endocarditis, valve unspecified
[2023-08-25] MEDS ORDERED: fentaNYL citrate PF 100 MCG/2 ML VIAL IV PRN (15:26)
[2023-08-25] MEDS ORDERED: ATROPINE SULFATE 0.1 MG/ML 10ML SYR IV PRN (15:26)
[2023-08-25] MEDS ORDERED: ONDANSETRON INJ 2 MG/ML 2 ML VIAL IV PRN (15:26)
[2023-08-25] MEDS ORDERED: ePHEDrine sulfate 50 MG/ML AMP IV PRN (15:26)
[2023-08-25] MEDS ORDERED: PROPOFOL IV EMULSION 10 MG/ML 20 ML VIAL IV ONE ×5 (15:52→18:23)
[2023-08-25] MEDS ORDERED: fentaNYL citrate PF 100 MCG/2 ML VIAL ONE (15:52)
[2023-08-25] MEDS ORDERED: LIDOCAINE 2% 2 ML VIAL/AMP(20MG/ML) INFIL ONE (15:52)
--- NOTE | 2023-08-25 16:30 | Hospitalist Progress Note ---
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 If patient completes IV antibiotic course prior to seeing ID for follow-up patient should be on Amoxicillin 500 mg 3 times a day until seen by ID as per previous discharge summary. Prior to the last admission patient was getting lightheaded and poor p.o. intake and generalized weakness ,malaise night sweats about 2 weeks and outpatient lab work done showed bacteremia and elevated inflammatory markers and a concern for infective endocarditis as patient had history of bicuspid aortic valve and had TAVR in June 2020 and was admitted on Aug 06 2023.. Patient seems lost weight since last September. Patient states since he got discharged from last admission doing better.. He still gets on and off dizziness and some night sweats but not in the last few days. Appetite is okay. He lives with his son. Ambulating without support. Denies any chest pain or shortness of breath. No cough. Currently no headache. No runny nose or sore throat. No abdominal pain. Moving his bowels regularly. Bowels movements are somewhat loose from his antibiotics. Micturating okay. Comes with left arm swelling and in the ER Doppler showed possibly occlusive thrombus within the segments of the left brachial and radial arteries.Currently resting comfortably and hemodynamically stable. Left radial artery and brachial artery nonocclusive thrombosis Concern for possible septic emboli from endocarditis --ECHO: Compared to prior study, no significant change. EF 60 to 65%. S/P TAVR with VERENA type prosthetic valve. Trivial paravalvular processes regurgitation. Bioprosthetic leaflets are not well-visualized. Systolic gradients borderline elevated and indeterminant for obstruction. Area of echo lucency surrounding the anterior portion of the valve prosthesis on the short axis views. Unchanged when compared to prior study. --CTA:No acute abnormality and in particular no evidence of acute aortic injury. No pulmonary emboli are seen. --Left UR Venous Doppler:At least partially occlusive thrombi incidentally noted within segments of the brachial and radial arteries. --Arterial Doppler: Intraluminal material consistent with age indeterminate thrombus/emboli within the distal left brachial and radial arteries. Occluded distal left radial artery with dampened, monophasic flow within the left ulnar artery. The thrombus is nearly occlusive and results in significant decreased flow to left hand. -- Continue IV heparin for now Plan for embolectomy of the brachial radial arteries by vascular today Appreciate vascular surgery input Continue current management Hypertension Mild troponin elevation likely demand ischemia ? 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 No arterial occlusion, dissection or high-grade stenosis identified. 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 --Neck CTA:No stenosis or dissection within the bilateral common carotid, cervical internal carotid or vertebral arteries. Will need follow-up with neurosurgery on discharge Anemia of chronic disease Hemoglobin at baseline Monitor Nonrheumatic aortic valve stenosis s/p TAVR on June 2020 Weight loss Likely from endocarditis Appetite slowly improving per patient Monitor Hypothyroidism Continue levothyroxine BPH on Flomax Prediabetes Update HbA1c CKD stage III Monitor renal function Avoid nephrotoxic agents as able Ascending aortic aneurysm Ascending aorta 4.[address] scan 4.7 cm by recent echo Needs follow-up as outpatient DVT Px: IV heparin CODE STATUS Full code Admission and Anticipated Discharge Date Admission Date: August 23, 2023 Subjective Patient is seen and examined at bedside Patient scheduled for embolectomy today Offers no new complaints today Still has left upper extremity pain similar to yesterday No bleeding issues while on IV heparin Denies any chest pain, dyspnea, dizziness, nausea, vomiting, abdominal pain Review of Systems Review of Systems: All systems reviewed & are unremarkable except as noted in Subjective Physical Exam Physical Exam: Physical Exam: Vitals signs as noted above General Appearance:Moderately built and nourished, no apparent distress Head: normocephalic, Atraumatic Eyes: normal inspection, EOMI Neck: supple, Trachea midline Respiratory/Chest: Normal breath sounds, CTA, No accessory muscle use Cardiovascular: S1, S2, + murmur Abdomen/GI:Soft, Non tender, Bowel sounds present Extremities/Musculoskeletal:normal inspection, Left UE mild edema Neurologic/Psych:AAOX3, grossly no focal neurological deficits Skin: normal color, warm Results & Data Results & Data Vital Signs (Past 12 Hours) Vital Signs Temp Pulse Pulse Pulse Resp BP Pulse Ox 08/25/23 13:41 36.8 C 76 20 140/70 96 08/25/23 11:14 36.6 C 68 20 147/72 H 97 08/25/23 07:53 36.7 C 75 20 137/71 97 08/25/23 07:00 84 O2 Del Method 08/25/23 13:41 Room Air 08/25/23 11:14 Room Air 08/25/23 07:53 Room Air 08/25/23 07:00 Laboratory Results Short CBC 08/25/23 Range/Units 05:33 WBC 10.17 (4.8-10.8) K/ul Hgb 10.3 L (14.0-18.0) g/dl Hct 32.8 L (42.0-52.0) % Plt Count 355 (130-400) K/uL BMP 08/25/23 05:33 Sodium 137 Potassium 3.7 Chloride 100 Carbon Dioxide 30 BUN 14 Creatinine 1.24 Glucose 119 H Calcium 8.8
[2023-08-25] MEDS: SURGICEL ABSORB HEMOSTAT 2IN X 14IN TOP ONE (16:53)
[2023-08-25] MEDS ORDERED: ONDANSETRON INJ 2 MG/ML 2 ML VIAL ONE (17:12)
[2023-08-25] MEDS: ceFAZolin 330 MG/ML 1 GM VIAL ONE (18:44)
[2023-08-25] MEDS: HEPARIN (PORCINE) 1000 UNIT/ML 10 ML (CATH LAB USE ONLY) ONE (18:44)
[2023-08-25] MEDS: LIDOCAINE 1% LOCAL 20 ML VIAL ONE (18:45)
[2023-08-25] MEDS: BUPIVACAINE/EPINEPHRINE 0.5% MPF 1:200,000 30 ML VIAL ONE (18:45)
--- NOTE | 2023-08-25 18:48 | Post Operative Brief Note ---
Immediate Post Op Note Date of Surgery August 25, 2023 Pre & Post Diagnosis Operation Date: 08/25/23 07:00 Pre-Op Diagnosis: (1) Embolism and thrombosis of artery of upper extremity: Post-Op Diagnosis: (1) Embolism and thrombosis of artery of upper extremity: I identified the patient and participated in the time-out.: Yes Procedure Operation Date: 08/25/23 07:00 Actual Procedures p Left Arm Thrombectomy , Endarterectomy and patch Angioplasty Distal brachial Artery(Left) - Donavon Parisi MD Surgeon Donavon Parisi MD Matting Press Tender none Estimated Blood Loss 200 Findings Consistent with Post-Op Diagnosis Anesthesia Type General Complications none Disposition Accompanied Patient To Recovery: No Disposition: Recovery Room
--- NOTE | 2023-08-25 19:08 | Anesthesiology Progress Note ---
Date of Service August 25, 2023 Anesthesia Post Procedure Vital Signs Vital Signs: Temp Pulse Pulse Pulse Resp BP Pulse Ox 08/25/23 13:41 98.2 F 76 20 140/70 96 08/25/23 11:14 97.9 F 68 20 147/72 H 97 08/25/23 07:53 98.1 F 75 20 137/71 97 08/25/23 07:00 84 08/25/23 03:00 98.6 F 93 H 16 174/80 H 95 08/24/23 21:20 98.6 F 83 16 140/72 93 O2 Del Method 08/25/23 13:41 Room Air 08/25/23 11:14 Room Air 08/25/23 07:53 Room Air 08/25/23 07:00 08/25/23 03:00 Room Air 08/24/23 21:20 Room Air Pain Intensity Left Arm: Pain Intensity: 4 Transfer of Care Handoff Completed per policy Notes Mental Status: alert / awake / arousable and participated in evaluation Patient Amnestic to Procedure: Yes Nausea / Vomiting: adequately controlled Pain: adequately controlled Airway Patency, RR, SpO2: stable & adequate BP & HR: stable & adequate Hydration State: stable & adequate Anesthetic Complications: no major complications apparent and Pt Satisfied with anesthetic care
[2023-08-25] MEDS ORDERED: oxyCODONE/ACETAMINOPHEN 5mg/325mg TAB PO PRN (19:46)
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
[2023-08-26 05:19] LABS: Hematocrit (blood only) 32.3 % (42.0-52.0); Mean Corpuscular Hemoglobin 26.3 pg (25.0-34.0); Mean Platelet Volume 9.9 fL (9.4-12.4); Platelet Count 399 K/uL (130-400); RDW Coefficient of Variation 17.1 % (11.5-14.5); RDW Standard Deviation 52.7 fL (36.4-46.3); White Blood Count 11.96 K/ul (4.8-10.8)
[2023-08-26 05:30] LABS: BUN Creatinine Ratio 11.2 (10-20); Calcium 8.5 mg/dl (8.6-10.3); Creatinine Clr Calc Pharmacy 44.3 ml/min; Est GFR (African American) 59.6 ml/min; Est GFR (Non-African American) 51.4 ml/min; Phosphorus 3.9 mg/dl (2.5-4.9); Potassium 3.8 mmol/L (3.5-5.1)
[2023-08-26 05:37] LABS: ANTI-Xa, UFH(UnfractionatedHep 0.43 IU/ml (0.3-0.7)
[2023-08-26] MEDS ORDERED: POTASSIUM CHLORIDE / WTR 10 MEQ/100 ML PLCT IV SCH (06:00)
[2023-08-26] MEDS: POTASSIUM CHLORIDE CRTAB 20 MEQ TABCR PO STA ×2 (06:16→10:35)
--- NOTE | 2023-08-26 07:58 | Critical Care Progress Note ---
Date of Service August 26, 2023 Assessment & Plan (1) Embolism and thrombosis of artery of upper extremity: (2) Septic embolism: (3) HTN (hypertension): (4) Prosthetic valve endocarditis: (5) Dyslipidemia: (6) S/P TAVR (transcatheter aortic valve replacement): (7) Hypothyroidism: Plan Impression: 88-year-old male with past medical history of hypothyroid, HLD, HTN, TAVR, and undergoing treatment for presumed endocarditis, presents to the ICU after development of thrombosis of left brachial artery and now postop for thrombectomy and endarterectomy of left distal brachial artery. Neuro - [facility]: Negative Cardiac - Prosthetic valve endocarditisPresumed to be related to previous TAVR. undergoing conservative treatment with Rocephin through 10/02. - RENÉ 08/09 with circumferential lucency surrounding the valve annulus with findings concerning for abscess. No aortic stenosis or aortic insufficiency. LVEF 55 to 60%. -See ID for treatment below Left brachial artery thrombosiss/p thrombectomy 08/25/2023, endarterectomy per vascular surgery Respiratory - No history of pulmonary disease. Currently maintained oxygen saturation on nasal cannula. CTA chest 08/22 with no acute abnormality, negative for PE. Continuous monitoring pulse ox. Wean oxygen as tolerated GI - Heart healthy diet RENAL/LYTES - Creatinine within normal limits. Monitor routine BMPs and replete electrolytes as indicated. - Strict I's and O's ENDO - No history of diabetes. ICU hyperglycemic protocol Hypothyroidismcontinue Synthroid HEME - H&H stable. EBL 200. Monitor routine CBC and transfuse if indicated. ID - Bacteremia On ceftriaxone for Streptococcus mutans 08/05 thought to be secondary to endocarditis from TAVR. Plan to continue antibiotic coverage through 10/02. Repeat cultures 08/07 negative to date --Prophylaxis VTE: Heparin drip GI: None Lines: Right arm PICC Diet: Cardiac Plan: In/out: +1 L, urine output 375 Potassium being replaced. Continue with Rocephin as per ID Hemodynamically stable to be downgraded to medical floor Please note the above document was generated using voice recognition software. It may contain grammatical, syntax or spelling errors.Any formal questions or concerns about the content, text or information contained within the body of this dictation should be directly addressed to the provider for clarification. Admission and Anticipated Discharge Date Admission Date: August 23, 2023 Subjective Patient seen and examined at bedside. No acute distress, notable symptoms overnight He was saturating well on room air. Denied any chest pain, no headache, no nausea, no vomiting He finished his breakfast without any issues. Denies any pain in the left arm. No shortness of breath Review of Systems 2 Review of Systems: All systems reviewed & are unremarkable except as noted in Subjective Physical Exam 2 Physical Exam: Constitutional: No acute distress HEENT: EOMI, PERRLA Respiratory system: Decreased air entry bilaterally, no wheeze, rhonchi, mild crackles bilateral lower lobes CVS: S1-S2 positive, positive 2 out of 6 systolic murmur appreciated best at aorta Abdomen: Soft, nontender, nondistended, positive bowel sounds x4 Extremities: +2 pulses bilaterally radialis/ dorsalis pedis, no cyanosis, +1 pitting edema left forearm and wrist Neuro: Awake alert oriented x3 Psych: Normal mood and affect G/U: No Jacobson Skin: no rashes, warm and dry Lymphatic: no cervical or axillary lymphadenopathy Results & Data Results & Data Vital Signs (Past 12 Hours) Vital Signs Temp Pulse Resp BP BP Pulse Ox O2 Del Method 08/26/23 06:03 73 15 146/66 H 92 08/26/23 05:06 75 16 94 08/26/23 04:31 36.7 C 08/26/23 04:12 71 15 149/70 H 93 08/26/23 03:09 73 15 126/63 92 08/26/23 02:03 73 15 143/68 H 92 08/26/23 01:32 73 08/26/23 01:00 73 17 93 08/26/23 00:30 72 16 94 08/25/23 23:38 37.0 C 08/25/23 23:31 Room Air 08/25/23 23:12 74 18 96 08/25/23 23:02 141/66 H 08/25/23 22:54 74 15 96 08/25/23 22:03 94 H 18 95 08/25/23 22:03 168/78 H 08/25/23 22:00 96 H 25 H 91 08/25/23 21:39 81 15 94 08/25/23 21:00 139/69 08/25/23 20:12 67 17 96 08/25/23 20:00 159/70 H Laboratory Results 08/26/23 04:50 06/14/24 04:50 Coding Level of Care Code 24796 SUB INP/OBS CARE 2/35MIN Diagnoses Embolism and thrombosis of artery of upper extremity I74.2 Septic embolism I76 HTN (hypertension) I10 Prosthetic valve endocarditis T82.6XXA; I38 Encounter type: initial encounter Dyslipidemia E78.5 S/P TAVR (transcatheter aortic valve replacement) Z95.2 Hypothyroidism E03.9 (4) Prosthetic valve endocarditis Encounter type: initial encounter Qualified Code(s): T82.6XXA - Infection and inflammatory reaction due to cardiac valve prosthesis, initial encounter; I38 - Endocarditis, valve unspecified
--- NOTE | 2023-08-26 08:21 | Surgery Progress Note ---
Date of Service August 26, 2023 Assessment & Plan Admission and Anticipated Discharge Date Admission Date: August 23, 2023 Subjective Patient has no complaints of pain in his left hand. He does complain of some slight swelling and tightness of the fingers. Physical Exam Physical Exam: On exam his dressing is intact. It is dry. He has an excellent radial artery pulse to palpation. Fingers have good capillary refill. The hand and fingers do have a small amount of swelling. Results & Data Vital Signs (Past 12 Hours) Vital Signs Temp Pulse Resp BP BP Pulse Ox O2 Del Method 08/26/23 06:03 73 15 146/66 H 92 08/26/23 05:06 75 16 94 08/26/23 04:31 36.7 C 08/26/23 04:12 71 15 149/70 H 93 08/26/23 03:09 73 15 126/63 92 08/26/23 02:03 73 15 143/68 H 92 08/26/23 01:32 73 08/26/23 01:00 73 17 93 08/26/23 00:30 72 16 94 08/25/23 23:38 37.0 C 08/25/23 23:31 Room Air 08/25/23 23:12 74 18 96 08/25/23 23:02 141/66 H 08/25/23 22:54 74 15 96 08/25/23 22:03 94 H 18 95 08/25/23 22:03 168/78 H 08/25/23 22:00 96 H 25 H 91 08/25/23 21:39 81 15 94 08/25/23 21:00 139/69
--- NOTE | 2023-08-26 09:06 | Cardiology Progress Note ---
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 Likely cardioembolic phenomenon /septic emboli in setting of bioprosthetic (TAVR) endocarditis. Continue current treatment with IV Rocephin and IV heparin. Transition to oral warfarin, goal INR 2.0-3.0. First dose today. I spent a total of 40 minutes on the date of service in preparation, delivery, and documentation of the care provided to this patient, excluding any time spent in the performance of separately billed services. Admission and Anticipated Discharge Date Admission Date: August 23, 2023 Subjective Patient seen and examined at the bedside. Reports mild left arm discomfort. Radial pulse improved post embolectomy and patch angioplasty of the distal brachial artery. Case discussed with vascular surgery who reports both new and old clot, as well as thickening/inflammation of the brachial artery. Denies chest pain or shortness of breath. No fevers or chills overnight. Review of Systems Review of Systems: All systems reviewed & are unremarkable except as noted in Subjective Physical Exam Constitutional: well nourished; no acute distress and not ill appearing Respiratory: no respiratory distress, no labored breathing and no retractions Auscultation: no crackles, no rales, no rhonchi and no wheezes Cardiovascular: Rate/Rhythm: regular rate and regular rhythm Heart Sounds: normal S1, normal S2 and + murmur (2/6 systolic ejection murmur heard best at the right second intercostal spa) Vessels: radial pulses present; no JVD and no carotid bruit Extremities: no edema Gastrointestinal (Abdomen): Inspection/Auscultation: abdomen normal to inspection and normal bowel sounds; abdomen not distended Percussion/Palpation: abdomen soft; abdomen nontender, no guarding and abdomen not rigid Neurologic: CN's II-XI intact bilaterally and moves all extremities; no focal motor deficits Results & Data Vital Signs (Past 12 Hours) Vital Signs Temp Pulse Resp BP BP Pulse Ox O2 Del Method 08/26/23 06:03 73 15 146/66 H 92 08/26/23 05:06 75 16 94 08/26/23 04:31 36.7 C 08/26/23 04:12 71 15 149/70 H 93 08/26/23 03:09 73 15 126/63 92 08/26/23 02:03 73 15 143/68 H 92 08/26/23 01:32 73 08/26/23 01:00 73 17 93 08/26/23 00:30 72 16 94 08/25/23 23:38 37.0 C 08/25/23 23:31 Room Air 08/25/23 23:12 74 18 96 08/25/23 23:02 141/66 H 08/25/23 22:54 74 15 96 08/25/23 22:03 94 H 18 95 08/25/23 22:03 168/78 H 08/25/23 22:00 96 H 25 H 91 08/25/23 21:39 81 15 94 08/25/23 21:00 139/69 Laboratory Results CBC 08/26/23 Range/Units 04:50 WBC 11.96 H (4.8-10.8) K/ul RBC 3.80 L (4.70-6.10) M/uL Hgb 10.0 L (14.0-18.0) g/dl Hct 32.3 L (42.0-52.0) % Plt Count 399 (130-400) K/uL Comprehensive Metabolic Panel 08/26/23 Range/Units 04:50 Sodium 136 (136-145) mmol/L Potassium 3.8 (3.5-5.1) mmol/L Chloride 100 (98-107) mmol/L Carbon Dioxide 30 (21-32) mmol/L BUN 14 (6-23) mg/dl Creatinine 1.25 (0.6-1.4) mg/dl Glucose 117 H (70-99(Fasting)) mg/dl Calcium 8.5 L (8.6-10.3) mg/dl Intake and Output 08/25/23 08/26/23 08/26/23 22:59 06:59 14:59 Intake Total 1050 / 1411 361 / 1411 40.117 / 40.117 Output Total 375 / 375 Balance 675 / 1036 361 / 1036 40.117 / 40.117 Intake: IV 550 / 811 261 / 811 40.117 / 40.117 Heparin Sodium/Dextrose 25,000 500 / 761 261 / 761 40.117 / 40.117 units In 500 ml @ 1,450 UNITS/ HR 29 mls/hr IV .[id number] FORMERLY [facility], [facility]–1983 Rx #:[id number] cefTRIAXone SODIUM 2,000 mg In 50 / 50 50 ml @ 100 mls/hr IV Q24H FOR[facility]LY [facility], [facility]1983 Rx#:[id number] IV Perioperative 500 / 500 Oral 100 / 100 Output: Urine 175 / 175 Estimated Blood Loss 200 / 200 Other: # Unmeasured Voids 0 Weight 87.5 kg 83.9 kg Weight Measurement Method Built in [facility] (3) Prosthetic valve endocarditis Encounter type: initial encounter Qualified Code(s): T82.6XXA - Infection and inflammatory reaction due to cardiac valve prosthesis, initial encounter; I38 - Endocarditis, valve unspecified
--- NOTE | 2023-08-26 09:59 | Operative Report ---
Post Operative Report Pre & Post Diagnosis Operation Date: 08/25/23 07:00 Pre-Op Diagnosis: (1) Embolism and thrombosis of artery of upper extremity: Post-Op Diagnosis: (1) Embolism and thrombosis of artery of upper extremity: I identified the patient and participated in the time-out.: Yes Procedure Operation Date: 08/25/23 07:00 Actual Procedures p Left Arm Thrombectomy , Angioplasty Distal Radial Artery(Left) - Donavon Parisi MD Surgeon Donavon Parisi MD Mottler Operator none Estimated Blood Loss 200 Findings Consistent with Post-Op Diagnosis Specimens Clot was sent for aerobic, anaerobic, and fungal cultures Anesthesia Type MAC Complications none Disposition Accompanied Patient To Recovery: No Disposition: Recovery Room Indications This is an 88-year-old gentleman who has a TAVR in place which is infected. He was found to have a thrombus in his left brachial artery. There is a question of being a septic embolism from his TAVR. Embolectomy was recommended. I have discussed the risks options and benefits of the procedure with the patient. The patient understands the risks options and benefits and agrees to the procedure. Description of Procedure The patient was taken the operating room placed supine position. After the left arm was prepped and draped in a sterile manner a timeout was performed the patient was identified. Local anesthetic was administered in the antecubital fossa. A incision was made transversely in the antecubital fossa in an S fashion. This was carried down to the brachial artery. Brachial artery was identified it was pulseless at the distal end. The artery itself was edematous and swollen and had surrounding inflammatory fluid present. A transverse arteriotomy was performed. Using a Padmini catheter distally and proximally clot was removed. The clot was sent for culture. Inflow and backbleeding was noted. The arteriotomy was then closed with interrupted 6-0 Prolene's. Clamps were removed. There was a question as to how good the flow was. I cannot really appreciate a palpable pulse at the wrist. I did hear a very faint Doppler. I did not like the pulse in the distal brachial artery. We therefore opened up the artery further down right before the bifurcation of the radial and ulnar. Again the Padmini catheters were used. Clot was removed distally in the distal radial artery. The artery itself did not appear to be normal. We decided to close the arteriotomy with interrupted 6-0 Prolene's. Once this was done we did a longitudinal arteriotomy which coursed from the upper arteriotomy site down to beyond the lower 1. This showed old thrombus which was adherent to the wall causing a significant amount of narrowing in that artery. As thrombus was endarterectomized from the artery wall. Once this was done we opened up the artery further down on the radial artery beyond its origin. There was some old thrombus present there which was removed. We had good backbleeding at that point. A bovine patch was then placed over the arteriotomy and sewn in place with a 6-0 Prolene suture. Prior to completing the closure backbleeding and forward bleeding was allowed to occur. Final few sutures were then placed and securely tied. Clamps and removed. There was good flow distally now with an easily palpable radial artery pulse. You could hear good palmar arch Doppler signal at that time. The fingers had good capillary refill. At that point adequate hemostasis was obtained. Once adequate hemostasis was noted the wound was closed in usual fashion using running 3-0 Vicryl suture for the subcutaneous layer and marisol for the skin. The heparin continue new during the entire case. All clot removed was sent for culture. Sterile dressings were applied to the wound.The patient left the operation room in satisfactory condition and tolerated the procedure well. All needle and sponge counts were correct at the end of the procedure. I attest to the content of the Intraoperative Record and any orders documented therein. Any exceptions are noted below.
--- NOTE | 2023-08-26 16:48 | Hospitalist Progress Note ---
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 If patient completes IV antibiotic course prior to seeing ID for follow-up patient should be on Amoxicillin 500 mg 3 times a day until seen by ID as per previous discharge summary. Prior to the last admission patient was getting lightheaded and poor p.o. intake and generalized weakness ,malaise night sweats about 2 weeks and outpatient lab work done showed bacteremia and elevated inflammatory markers and a concern for infective endocarditis as patient had history of bicuspid aortic valve and had TAVR in June 2020 and was admitted on Aug 06 2023.. Patient seems lost weight since last September. Patient states since he got discharged from last admission doing better.. He still gets on and off dizziness and some night sweats but not in the last few days. Appetite is okay. He lives with his son. Ambulating without support. Denies any chest pain or shortness of breath. No cough. Currently no headache. No runny nose or sore throat. No abdominal pain. Moving his bowels regularly. Bowels movements are somewhat loose from his antibiotics. Micturating okay. Comes with left arm swelling and in the ER Doppler showed possibly occlusive thrombus within the segments of the left brachial and radial arteries.Currently resting comfortably and hemodynamically stable. Left radial artery and brachial artery nonocclusive thrombosis Concern for possible septic emboli from endocarditis --ECHO: Compared to prior study, no significant change. EF 60 to 65%. S/P TAVR with VERENA type prosthetic valve. Trivial paravalvular processes regurgitation. Bioprosthetic leaflets are not well-visualized. Systolic gradients borderline elevated and indeterminant for obstruction. Area of echo lucency surrounding the anterior portion of the valve prosthesis on the short axis views. Unchanged when compared to prior study. --CTA:No acute abnormality and in particular no evidence of acute aortic injury. No pulmonary emboli are seen. --Left UR Venous Doppler:At least partially occlusive thrombi incidentally noted within segments of the brachial and radial arteries. --Arterial Doppler: Intraluminal material consistent with age indeterminate thrombus/emboli within the distal left brachial and radial arteries. Occluded distal left radial artery with dampened, monophasic flow within the left ulnar artery. The thrombus is nearly occlusive and results in significant decreased flow to left hand. --S/P Left Arm Thrombectomy , Angioplasty Distal Radial Artery by Dr. Parisi on 08/25/2023 --Continue IV heparin Appreciate vascular surgery input Started on Coumadin today Monitor INR Hypertension Mild troponin elevation likely demand ischemia ? 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 No arterial occlusion, dissection or high-grade stenosis identified. 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 --Neck CTA:No stenosis or dissection within the bilateral common carotid, cervical internal carotid or vertebral arteries. Will need follow-up with neurosurgery on discharge Currently denies any dizziness Anemia of chronic disease Hemoglobin at baseline Monitor Nonrheumatic aortic valve stenosis s/p TAVR on June 2020 Weight loss Likely from endocarditis Appetite slowly improving per patient Monitor Hypothyroidism Continue levothyroxine BPH on Flomax Prediabetes HbA1c 5.7 CKD stage III Monitor renal function Avoid nephrotoxic agents as able Ascending aortic aneurysm Ascending aorta 4.[address] scan 4.7 cm by recent echo Needs follow-up as outpatient DVT Px: IV heparin Coumadin CODE STATUS Full code Admission and Anticipated Discharge Date Admission Date: August 23, 2023 Subjective Patient is seen and examined at bedside Left upper extremity pain is controlled Offers no new complaints Discussed with critical care team today Plan to be downgraded to PCU today Denies any chest pain, dyspnea, dizziness, nausea, vomiting, abdominal pain Review of Systems Review of Systems: All systems reviewed & are unremarkable except as noted in Subjective Physical Exam Physical Exam: Physical Exam: Vitals signs as noted above General Appearance:Moderately built and nourished, no apparent distress Head: normocephalic, Atraumatic Eyes: normal inspection, EOMI Neck: supple, Trachea midline Respiratory/Chest: Normal breath sounds, CTA, No accessory muscle use Cardiovascular: S1, S2, + murmur Abdomen/GI:Soft, Non tender, Bowel sounds present Extremities/Musculoskeletal:normal inspection, Left UE mild edema Neurologic/Psych:AAOX3, grossly no focal neurological deficits Skin: normal color, warm Results & Data Results & Data Vital Signs (Past 12 Hours) Vital Signs Pulse Resp BP Pulse Ox 08/26/23 09:24 74 18 94 08/26/23 08:00 87 22 144/99 H 96 08/26/23 07:06 72 15 93 08/26/23 06:03 73 15 146/66 H 92 08/26/23 05:06 75 16 94 Laboratory Results Short CBC 08/26/23 Range/Units 04:50 WBC 11.96 H (4.8-10.8) K/ul Hgb 10.0 L (14.0-18.0) g/dl Hct 32.3 L (42.0-52.0) % Plt Count 399 (130-400) K/uL BMP 08/26/23 04:50 Sodium 136 Potassium 3.8 Chloride 100 Carbon Dioxide 30 BUN 14 Creatinine 1.25 Glucose 117 H Calcium 8.5 L
[2023-08-26] MEDS: WARFARIN SOD 5 MG TAB PO SCH (16:58)
[2023-08-27 05:29] LABS: Hemoglobin 9.6 g/dl (14.0-18.0); Mean Corpuscular Volume 84.3 fL (80.0-100.0); Mean Platelet Volume 9.7 fL (9.4-12.4); Platelet Count 393 K/uL (130-400); RDW Coefficient of Variation 16.9 % (11.5-14.5); RDW Standard Deviation 52.5 fL (36.4-46.3); Red Blood Count 3.56 M/uL (4.70-6.10); White Blood Count 10.06 K/ul (4.8-10.8)
[2023-08-27 05:47] LABS: BUN Creatinine Ratio 12.9 (10-20); Calcium 8.7 mg/dl (8.6-10.3); Creatinine Clr Calc Pharmacy 44.7 ml/min; Est GFR (African American) 60.2 ml/min; Est GFR (Non-African American) 51.9 ml/min; Phosphorus 3.3 mg/dl (2.5-4.9); Potassium 3.9 mmol/L (3.5-5.1)
[2023-08-27 05:54] LABS: ANTI-Xa, UFH(UnfractionatedHep 0.43 IU/ml (0.3-0.7); INR 1.1 (0.9-1.1); Prothrombin Time 11.5 Seconds (9.0-12.0)
--- NOTE | 2023-08-27 09:31 | Cardiology Progress Note ---
Date of Service August 27, 2023 Assessment & Plan (1) Radial artery thrombosis, left: (2) Brachial artery thrombosis: (3) Prosthetic valve endocarditis: (4) S/P TAVR (transcatheter aortic valve replacement): (5) Septic embolism: Plan Left brachial and radial artery thrombosis status post embolectomy and patch angioplasty 08/25/2023. Likely cardioembolic phenomenon /septic emboli in setting of bioprosthetic (TAVR) endocarditis. Continue current treatment with IV Rocephin and IV heparin. Transition to oral warfarin, goal INR 2.0-3.0. First dose today. 08/27/2023 No signs or symptoms of further embolic phenomena plan as outlined transition IV heparin to oral warfarin, continued extended antibiotic therapy Monitor closely for signs or symptoms of further embolic phenomena May transfer from ICU setting, ambulate I spent a total of 40 minutes on the date of service in preparation, delivery, and documentation of the care provided to this patient, excluding any time spent in the performance of separately billed services. Admission and Anticipated Discharge Date Admission Date: August 23, 2023 Subjective Patient seen and examined, chart, medications, telemetry reviewed. No arrhythmias on telemetry Surgical incision/embolectomy site healing well. Excellent pulses distal No fevers or chills. No neurologic complaints no additional phenomenon of embolism. Physical Exam Constitutional: well nourished; no acute distress and not ill appearing Respiratory: no respiratory distress, no labored breathing and no retractions Auscultation: no crackles, no rales, no rhonchi and no wheezes Cardiovascular: Rate/Rhythm: regular rate and regular rhythm Heart Sounds: normal S1, normal S2 and + murmur (2/6 systolic ejection murmur heard best at the right second intercostal spa) Vessels: radial pulses present; no JVD and no carotid bruit Extremities: no edema Gastrointestinal (Abdomen): Inspection/Auscultation: abdomen normal to inspection and normal bowel sounds; abdomen not distended Percussion/ Palpation: abdomen soft; abdomen nontender, no guarding and abdomen not rigid Neurologic: CN's II-XI intact bilaterally and moves all extremities; no focal motor deficits Results & Data Vital Signs (Past 12 Hours) Vital Signs Temp Pulse Pulse Resp BP Pulse Ox Pulse Ox 08/27/23 02:52 79 18 152/69 H 94 08/27/23 02:52 36.9 C 08/27/23 00:00 79 18 93 08/26/23 23:58 75 08/26/23 23:00 92 08/26/23 22:43 37 C 08/26/23 22:43 159/74 H 08/26/23 22:03 74 24 90 O2 Del Method O2 Del Method 08/27/23 02:52 Room Air 08/27/23 02:52 08/27/23 00:00 08/26/23 23:58 08/26/23 23:00 Room Air 08/26/23 22:43 08/26/23 22:43 08/26/23 22:03 Laboratory Results Laboratory Results - last 24 hr 08/27/23 05:14 WBC 10.06 RBC 3.56 L Hgb 9.6 L Hct 30.0 L MCV 84.3 MCH 27.0 MCHC 32.0 RDW Std Deviation 52.5 H RDW Coeff of Suzie 16.9 H Plt Count 393 MPV 9.7 PT 11.5 INR 1.1 Heparin Anti-Xa, Unfract 0.43 Sodium 135 L Potassium 3.9 Chloride 100 Carbon Dioxide 29 Anion Gap 6 BUN 16 Creatinine 1.24 Est Cr Clr Drug Dosing 44.7 Est GFR ( Amer) 60.2 Est GFR (Non-Af Amer) 51.9 BUN/Creatinine Ratio 12.9 Glucose 123 H Calcium 8.7 Phosphorus 3.3 (3) Prosthetic valve endocarditis Encounter type: initial encounter Qualified Code(s): T82.6XXA - Infection and inflammatory reaction due to cardiac valve prosthesis, initial encounter; I38 - Endocarditis, valve unspecified
--- NOTE | 2023-08-27 14:23 | Hospitalist Progress Note ---
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 If patient completes IV antibiotic course prior to seeing ID for follow-up patient should be on Amoxicillin 500 mg 3 times a day until seen by ID as per previous discharge summary. Prior to the last admission patient was getting lightheaded and poor p.o. intake and generalized weakness ,malaise night sweats about 2 weeks and outpatient lab work done showed bacteremia and elevated inflammatory markers and a concern for infective endocarditis as patient had history of bicuspid aortic valve and had TAVR in June 2020 and was admitted on Aug 06 2023.. Patient seems lost weight since last September. Patient states since he got discharged from last admission doing better.. He still gets on and off dizziness and some night sweats but not in the last few days. Appetite is okay. He lives with his son. Ambulating without support. Denies any chest pain or shortness of breath. No cough. Currently no headache. No runny nose or sore throat. No abdominal pain. Moving his bowels regularly. Bowels movements are somewhat loose from his antibiotics. Micturating okay. Comes with left arm swelling and in the ER Doppler showed possibly occlusive thrombus within the segments of the left brachial and radial arteries.Currently resting comfortably and hemodynamically stable. Left radial artery and brachial artery nonocclusive thrombosis Concern for possible septic emboli from endocarditis --ECHO: Compared to prior study, no significant change. EF 60 to 65%. S/P TAVR with VERENA type prosthetic valve. Trivial paravalvular processes regurgitation. Bioprosthetic leaflets are not well-visualized. Systolic gradients borderline elevated and indeterminant for obstruction. Area of echo lucency surrounding the anterior portion of the valve prosthesis on the short axis views. Unchanged when compared to prior study. --CTA:No acute abnormality and in particular no evidence of acute aortic injury. No pulmonary emboli are seen. --Left UR Venous Doppler:At least partially occlusive thrombi incidentally noted within segments of the brachial and radial arteries. --Arterial Doppler: Intraluminal material consistent with age indeterminate thrombus/emboli within the distal left brachial and radial arteries. Occluded distal left radial artery with dampened, monophasic flow within the left ulnar artery. The thrombus is nearly occlusive and results in significant decreased flow to left hand. --S/P Left Arm Thrombectomy , Angioplasty Distal Radial Artery by Dr. 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 No arterial occlusion, dissection or high-grade stenosis identified. 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 --Neck CTA:No stenosis or dissection within the bilateral common carotid, cervical internal carotid or vertebral arteries. Will need follow-up with neurosurgery on discharge Currently denies any dizziness Anemia of chronic disease Hemoglobin at baseline Monitor Nonrheumatic aortic valve stenosis s/p TAVR on June 2020 Weight loss Likely from endocarditis Appetite slowly improving per patient Monitor Hypothyroidism Continue levothyroxine BPH on Flomax Prediabetes HbA1c 5.7 CKD stage III Monitor renal function Avoid nephrotoxic agents as able Ascending aortic aneurysm Ascending aorta 4.[address] scan 4.7 cm by recent echo Needs follow-up as outpatient DVT Px: IV heparin + Coumadin CODE STATUS Full code Admission and Anticipated Discharge Date Admission Date: August 23, 2023 Subjective Patient is seen and examined at bedside Doing well today Left extremity pain is better No bleeding issues while on IV heparin Denies any chest pain, dyspnea, dizziness, nausea, vomiting, abdominal pain Review of Systems Review of Systems: All systems reviewed & are unremarkable except as noted in Subjective Physical Exam Physical Exam: Physical Exam: Vitals signs as noted above General Appearance:Moderately built and nourished, no apparent distress Head: normocephalic, Atraumatic Eyes: normal inspection, EOMI Neck: supple, Trachea midline Respiratory/Chest: Normal breath sounds, CTA, No accessory muscle use Cardiovascular: S1, S2, + murmur Abdomen/GI:Soft, Non tender, Bowel sounds present Extremities/Musculoskeletal:normal inspection, Left UE mild edema Neurologic/Psych:AAOX3, grossly no focal neurological deficits Skin: normal color, warm Results & Data Results & Data Vital Signs (Past 12 Hours) Vital Signs Temp Pulse Resp BP Pulse Ox O2 Del Method 08/27/23 11:00 36.4 C L 72 16 148/71 H 96 Room Air 08/27/23 07:00 37.0 C 82 20 131/53 L 96 Room Air 08/27/23 02:52 79 18 152/69 H 94 Room Air 08/27/23 02:52 36.9 C Laboratory Results Short CBC 08/27/23 Range/Units 05:14 WBC 10.06 (4.8-10.8) K/ul Hgb 9.6 L (14.0-18.0) g/dl Hct 30.0 L (42.0-52.0) % Plt Count 393 (130-400) K/uL BMP 08/27/23 05:14 Sodium 135 L Potassium 3.9 Chloride 100 Carbon Dioxide 29 BUN 16 Creatinine 1.24 Glucose 123 H Calcium 8.7
[2023-08-27] MEDS: WARFARIN SOD 7.5 MG TAB PO SCH (15:30)
[2023-08-28 04:25] LABS: Basophils # (auto) 0.06 K/uL (0.00-0.20); Basophils % (auto) 0.6 %; Eosinophils # (auto) 0.19 K/uL (0.00-0.50); Eosinophils % (auto) 2.1 %; Hematocrit (blood only) 29.8 % (42.0-52.0); Hemoglobin 9.3 g/dl (14.0-18.0); Immature Granulocytes # (auto) 0.07 K/uL (0.01-0.20); Immature Granulocytes % (auto) 0.8 %; Lymphocytes # (auto) 1.44 K/uL (1.20-3.40); Lymphocytes % (auto) 15.6 %; Mean Corpuscular Hemoglobin 26.5 pg (25.0-34.0); Mean Corpuscular Hgb Conc 31.2 g/dL (32.0-36.0); Mean Corpuscular Volume 84.9 fL (80.0-100.0); Mean Platelet Volume 9.9 fL (9.4-12.4); Monocytes % (auto) 7.6 %; Neutrophils # (auto) 6.78 K/uL (1.40-6.50); Neutrophils % (auto) 73.3 %; Platelet Count 430 K/uL (130-400); RDW Coefficient of Variation 17.3 % (11.5-14.5); RDW Standard Deviation 53.4 fL (36.4-46.3); Red Blood Count 3.51 M/uL (4.70-6.10); White Blood Count 9.24 K/ul (4.8-10.8)
[2023-08-28 04:56] LABS: ANTI-Xa, UFH(UnfractionatedHep 0.32 IU/ml (0.3-0.7); INR 1.2 (0.9-1.1); Prothrombin Time 12.5 Seconds (9.0-12.0)
--- NOTE | 2023-08-28 09:05 | Cardiology Progress Note ---
Date of Service August 28, 2023 Assessment & Plan (1) Radial artery thrombosis, left: (2) Brachial artery thrombosis: (3) Prosthetic valve endocarditis: (4) S/P TAVR (transcatheter aortic valve replacement): (5) Septic embolism: Plan Left brachial and radial artery thrombosis status post embolectomy and patch angioplasty 08/25/2023. Likely cardioembolic phenomenon /septic emboli in setting of bioprosthetic (TAVR) endocarditis. Continue current treatment with IV Rocephin and IV heparin. Transition to oral warfarin, goal INR 2.0-3.0. First dose today. 08/27/2023 No signs or symptoms of further embolic phenomena plan as outlined transition IV heparin to oral warfarin, continued extended antibiotic therapy Monitor closely for signs or symptoms of further embolic phenomena May transfer from ICU setting, ambulate 08/28/2023 Remained stable. No arrhythmias on telemetry no further signs of embolism. Physical examination unchanged Transitioning to full anticoagulation with warfarin. Continue IV heparin until therapeutic I spent a total of 30 minutes on the date of service in preparation, delivery, and documentation of the care provided to this patient, excluding any time spent in the performance of separately billed services. Admission and Anticipated Discharge Date Admission Date: August 23, 2023 Subjective Patient was seen and examined, chart, medications, telemetry reviewed. No cardiac complaints overnight. Ambulatory in room as limited by ICU setting. Left arm healing well without pain intact pulse. No arrhythmias on telemetry Physical Exam Constitutional: well nourished; no acute distress and not ill appearing Respiratory: no respiratory distress, no labored breathing and no retractions Auscultation: no crackles, no rales, no rhonchi and no wheezes Cardiovascular: Rate/Rhythm: regular rate and regular rhythm Heart Sounds: normal S1, normal S2 and + murmur (2/6 systolic ejection murmur heard best at the right second intercostal spa) Vessels: radial pulses present; no JVD and no carotid bruit Extremities: no edema Gastrointestinal (Abdomen): Inspection/Auscultation: abdomen normal to inspection and normal bowel sounds; abdomen not distended Percussion/Palpation: abdomen soft; abdomen nontender, no guarding and abdomen not rigid Neurologic: CN's II-XI intact bilaterally and moves all extremities; no focal motor deficits Results & Data Vital Signs (Past 12 Hours) Vital Signs Temp Pulse Pulse Resp BP BP Pulse Ox 08/28/23 08:00 08/28/23 07:00 36.8 C 78 16 126/58 L 96 08/28/23 02:56 36.9 C 08/28/23 02:02 81 14 145/64 H 94 08/28/23 00:34 75 08/27/23 23:10 37.1 C 08/27/23 22:03 79 18 160/68 H 96 O2 Del Method 08/28/23 08:00 Room Air 08/28/23 07:00 Room Air 08/28/23 02:56 08/28/23 02:02 08/28/23 00:34 08/27/23 23:10 08/27/23 22:03 Room Air Laboratory Results Laboratory Results - last 24 hr 08/28/23 08/28/23 03:55 03:56 WBC 9.24 RBC 3.51 L Hgb 9.3 L Hct 29.8 L MCV 84.9 MCH 26.5 MCHC 31.2 L RDW Std Deviation 53.4 H RDW Coeff of Suzie 17.3 H Plt Count 430 H MPV 9.9 Immature Gran % (Auto) 0.8 Neut % (Auto) 73.3 Lymph % (Auto) 15.6 [place] % (Auto) 7.6 Eos % (Auto) 2.1 Baso % (Auto) 0.6 Neut # (Auto) 6.78 H Lymph # (Auto) 1.44 [place] # (Auto) 0.70 H Eos # (Auto) 0.19 Baso # (Auto) 0.06 Immature Gran # (Auto) 0.07 PT 12.5 H INR 1.2 H Heparin Anti-Xa, Unfract 0.32 Phosphorus 3.6 (3) Prosthetic valve endocarditis Encounter type: initial encounter Qualified Code(s): T82.6XXA - Infection and inflammatory reaction due to cardiac valve prosthesis, initial encounter; I38 - Endocarditis, valve unspecified
--- NOTE | 2023-08-28 14:20 | Hospitalist Progress Note ---
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 If patient completes IV antibiotic course prior to seeing ID for follow-up patient should be on Amoxicillin 500 mg 3 times a day until seen by ID as per previous discharge summary. Prior to the last admission patient was getting lightheaded and poor p.o. intake and generalized weakness ,malaise night sweats about 2 weeks and outpatient lab work done showed bacteremia and elevated inflammatory markers and a concern for infective endocarditis as patient had history of bicuspid aortic valve and had TAVR in June 2020 and was admitted on Aug 06 2023.. Patient seems lost weight since last September. Patient states since he got discharged from last admission doing better.. He still gets on and off dizziness and some night sweats but not in the last few days. Appetite is okay. He lives with his son. Ambulating without support. Denies any chest pain or shortness of breath. No cough. Currently no headache. No runny nose or sore throat. No abdominal pain. Moving his bowels regularly. Bowels movements are somewhat loose from his antibiotics. Micturating okay. Comes with left arm swelling and in the ER Doppler showed possibly occlusive thrombus within the segments of the left brachial and radial arteries.Currently resting comfortably and hemodynamically stable. Left radial artery and brachial artery nonocclusive thrombosis Concern for possible septic emboli from endocarditis --ECHO: Compared to prior study, no significant change. EF 60 to 65%. S/P TAVR with VERENA type prosthetic valve. Trivial paravalvular processes regurgitation. Bioprosthetic leaflets are not well-visualized. Systolic gradients borderline elevated and indeterminant for obstruction. Area of echo lucency surrounding the anterior portion of the valve prosthesis on the short axis views. Unchanged when compared to prior study. --CTA:No acute abnormality and in particular no evidence of acute aortic injury. No pulmonary emboli are seen. --Left UR Venous Doppler:At least partially occlusive thrombi incidentally noted within segments of the brachial and radial arteries. --Arterial Doppler: Intraluminal material consistent with age indeterminate thrombus/emboli within the distal left brachial and radial arteries. Occluded distal left radial artery with dampened, monophasic flow within the left ulnar artery. The thrombus is nearly occlusive and results in significant decreased flow to left hand. --S/P Left Arm Thrombectomy , Angioplasty Distal Radial Artery by Dr. 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 No arterial occlusion, dissection or high-grade stenosis identified. 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 --Neck CTA:No stenosis or dissection within the bilateral common carotid, cervical internal carotid or vertebral arteries. Will need follow-up with neurosurgery on discharge Resolved Anemia of chronic disease Hemoglobin at baseline Monitor Nonrheumatic aortic valve stenosis s/p TAVR on June 2020 Weight loss Likely from endocarditis Appetite slowly improving per patient Monitor Hypothyroidism Continue levothyroxine BPH on Flomax Prediabetes HbA1c 5.7 CKD stage III Monitor renal function Avoid nephrotoxic agents as able Ascending aortic aneurysm Ascending aorta 4.[address] scan 4.7 cm by recent echo Needs follow-up as outpatient DVT Px: IV heparin + Coumadin CODE STATUS Full code Admission and Anticipated Discharge Date Admission Date: August 23, 2023 Subjective Patient is seen and examined at bedside States having transient chest discomfort overnight Offers no new complaints today Left upper extremity pain continues to improve Denies any dyspnea, dizziness, nausea, vomiting, abdominal pain Review of Systems Review of Systems: All systems reviewed & are unremarkable except as noted in Subjective Physical Exam Physical Exam: Physical Exam: Vitals signs as noted above General Appearance:Moderately built and nourished, no apparent distress Head: normocephalic, Atraumatic Eyes: normal inspection, EOMI Neck: supple, Trachea midline Respiratory/Chest: Normal breath sounds, CTA, No accessory muscle use Cardiovascular: S1, S2, + murmur Abdomen/GI:Soft, Non tender, Bowel sounds present Extremities/Musculoskeletal:normal inspection, Left UE mild edema Neurologic/Psych:AAOX3, grossly no focal neurological deficits Skin: normal color, warm Results & Data Results & Data Vital Signs (Past 12 Hours) Vital Signs Temp Pulse Pulse Resp BP Pulse Ox O2 Del Method 08/28/23 11:03 78 20 08/28/23 10:06 67 18 08/28/23 09:15 75 20 08/28/23 08:27 88 16 08/28/23 08:00 Room Air 08/28/23 07:00 67 14 08/28/23 07:00 36.8 C 78 16 126/58 L 96 Room Air 08/28/23 06:00 72 16 08/28/23 05:00 71 15 08/28/23 04:09 70 17 08/28/23 03:02 89 19 08/28/23 02:56 36.9 C Laboratory Results Short CBC 08/28/23 Range/Units 03:55 WBC 9.24 (4.8-10.8) K/ul Hgb 9.3 L (14.0-18.0) g/dl Hct 29.8 L (42.0-52.0) % Plt Count 430 H (130-400) K/uL
--- NOTE | 2023-08-28 14:53 | Electrocardiogram Report ---
Test Reason : Blood Pressure : / mmHG Vent. Rate : 077 BPM Atrial Rate : 077 BPM P-R Int : 186 ms QRS Dur : 092 ms QT Int : 380 ms P-R-T Axes : -09 016 032 degrees QTc Int : 430 ms Normal sinus rhythm Normal ECG When compared with ECG of 23-AUG-2023 14:45, No significant change was found Confirmed by Power Rangel [id number] on 08/28/2023 2:53:09 PM Referred By: REFERRED SELF Confirmed By:Power Rangel
[2023-08-29 06:33] LABS: Hematocrit (blood only) 32.3 % (42.0-52.0); Hemoglobin 10.2 g/dl (14.0-18.0); Mean Corpuscular Hemoglobin 26.6 pg (25.0-34.0); Mean Corpuscular Hgb Conc 31.6 g/dL (32.0-36.0); Mean Corpuscular Volume 84.3 fL (80.0-100.0); Mean Platelet Volume 9.6 fL (9.4-12.4); Platelet Count 505 K/uL (130-400); RDW Coefficient of Variation 17.4 % (11.5-14.5); RDW Standard Deviation 53.9 fL (36.4-46.3); Red Blood Count 3.83 M/uL (4.70-6.10); White Blood Count 11.35 K/ul (4.8-10.8)
[2023-08-29 06:56] LABS: BUN Creatinine Ratio 17.4 (10-20); Calcium 9.2 mg/dl (8.6-10.3); Creatinine Clr Calc Pharmacy 45.8 ml/min; Est GFR (Non-African American) 53.5 ml/min; Potassium 4.3 mmol/L (3.5-5.1)
[2023-08-29 07:02] LABS: ANTI-Xa, UFH(UnfractionatedHep 0.37 IU/ml (0.3-0.7); INR 1.4 (0.9-1.1); Prothrombin Time 14.9 Seconds (9.0-12.0)
--- NOTE | 2023-08-29 09:44 | Surgery Progress Note ---
Date of Service August 29, 2023 Assessment & Plan (1) Embolism and thrombosis of artery of upper extremity: Plan: Pt now s/p LUE open thrombectomy and angioplasty of L radial artery, doing well postop. Excellent distal pulses and cap refill. No ischemia. Will see in office in 2 weeks for staple removal. Please call if needed. Admission and Anticipated Discharge Date Admission Date: August 23, 2023 Subjective 88 yo m s/p LUE open thrombectomy and angioplasty of L radial artery, seen in f/u today. Pt admits some local swelling and discomfort at incision. Otherwise, no complaints. Denies any pain or weakness in his hand. Review of Systems Review of Systems: All systems reviewed & are unremarkable except as noted in HPI & below Physical Exam Constitutional: WD/WN, vitals as above cooperative; not in distress Cardiovascular: Vessels: brachial pulses present and radial pulses present (+4 L radial pulse, +3 R radial pulse) Extremities: normal capillary refill (BUE normal) Skin: + incision (L prox forearm incision C/D/ I with marisol. + local swelling, tender,) no erythema or drainage Results & Data Vital Signs (Past 12 Hours) Vital Signs Temp Pulse Pulse Resp BP BP Pulse Ox 08/29/23 08:00 68 08/29/23 07:24 36.7 C 68 19 131/69 98 08/29/23 03:47 36.8 C 72 18 133/75 96 08/29/23 00:01 36.8 C 84 18 156/91 H 96 08/29/23 00:00 75 08/28/23 23:09 36.5 C 70 15 145/63 H 95 08/28/23 22:24 79 17 O2 Del Method 08/29/23 08:00 08/29/23 07:24 Room Air 08/29/23 03:47 Room Air 08/29/23 00:01 Room Air 08/29/23 00:00 08/28/23 23:09 08/28/23 22:24
--- NOTE | 2023-08-29 12:50 | Cardiology Progress Note ---
Date of Service August 29, 2023 Assessment & Plan (1) Radial artery thrombosis, left: (2) Brachial artery thrombosis: (3) Prosthetic valve endocarditis: (4) S/P TAVR (transcatheter aortic valve replacement): (5) Septic embolism: Plan Left brachial and radial artery thrombosis status post embolectomy and patch angioplasty 08/25/2023. Likely cardioembolic phenomenon /septic emboli in setting of bioprosthetic (TAVR) endocarditis. Continue current treatment with IV Rocephin and IV heparin. Transition to oral warfarin, goal INR 2.0-3.0. First dose today. 08/27/2023 No signs or symptoms of further embolic phenomena plan as outlined transition IV heparin to oral warfarin, continued extended antibiotic therapy Monitor closely for signs or symptoms of further embolic phenomena May transfer from ICU setting, ambulate 08/28/2023 Remained stable. No arrhythmias on telemetry no further signs of embolism. Physical examination unchanged Transitioning to full anticoagulation with warfarin. Continue IV heparin until therapeutic 08/29/2023 Remains clinically stable Plan as previously outlined continue with full anticoagulation with warfarin Continue antibiotic therapies for prosthetic valve endocarditis. I spent a total of 30 minutes on the date of service in preparation, delivery, and documentation of the care provided to this patient, excluding any time spent in the performance of separately billed services. Admission and Anticipated Discharge Date Admission Date: August 23, 2023 Subjective Patient seen and personally examined. Feels improved today up in room ambulating. Left arm incision healing No neurologic complaint No fevers or chills Awaiting INR to become therapeutic Physical Exam Constitutional: well nourished; no acute distress and not ill appearing Respiratory: no respiratory distress, no labored breathing and no retractions Auscultation: no crackles, no rales, no rhonchi and no wheezes Cardiovascular: Rate/Rhythm: regular rate and regular rhythm Heart Sounds: normal S1, normal S2 and + murmur (2/6 systolic ejection murmur heard best at the right second intercostal spa) Vessels: radial pulses present; no JVD and no carotid bruit Extremities: no edema Gastrointestinal (Abdomen): Inspection/Auscultation: abdomen normal to inspection and normal bowel sounds; abdomen not distended Percussion/Palpation: abdomen soft; abdomen nontender, no guarding and abdomen not rigid Neurologic: CN's II-XI intact bilaterally and moves all extremities; no focal motor deficits Results & Data Vital Signs (Past 12 Hours) Vital Signs Temp Pulse Pulse Resp BP Pulse Ox O2 Del Method 08/29/23 10:39 36.5 C 85 20 134/63 97 Room Air 08/29/23 08:00 68 08/29/23 07:24 36.7 C 68 19 131/69 98 Room Air 08/29/23 03:47 36.8 C 72 18 133/75 96 Room Air (3) Prosthetic valve endocarditis Encounter type: initial encounter Qualified Code(s): T82.6XXA - Infection and inflammatory reaction due to cardiac valve prosthesis, initial encounter; I38 - Endocarditis, valve unspecified
--- NOTE | 2023-08-29 16:16 | Hospitalist Progress Note ---
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 If patient completes IV antibiotic course prior to seeing ID for follow-up patient should be on Amoxicillin 500 mg 3 times a day until seen by ID as per previous discharge summary. Prior to the last admission patient was getting lightheaded and poor p.o. intake and generalized weakness ,malaise night sweats about 2 weeks and outpatient lab work done showed bacteremia and elevated inflammatory markers and a concern for infective endocarditis as patient had history of bicuspid aortic valve and had TAVR in June 2020 and was admitted on Aug 06 2023.. Patient seems lost weight since last September. Patient states since he got discharged from last admission doing better.. He still gets on and off dizziness and some night sweats but not in the last few days. Appetite is okay. He lives with his son. Ambulating without support. Denies any chest pain or shortness of breath. No cough. Currently no headache. No runny nose or sore throat. No abdominal pain. Moving his bowels regularly. Bowels movements are somewhat loose from his antibiotics. Micturating okay. Comes with left arm swelling and in the ER Doppler showed possibly occlusive thrombus within the segments of the left brachial and radial arteries.Currently resting comfortably and hemodynamically stable. Left radial artery and brachial artery nonocclusive thrombosis Concern for possible septic emboli from endocarditis --ECHO: Compared to prior study, no significant change. EF 60 to 65%. S/P TAVR with VERENA type prosthetic valve. Trivial paravalvular processes regurgitation. Bioprosthetic leaflets are not well-visualized. Systolic gradients borderline elevated and indeterminant for obstruction. Area of echo lucency surrounding the anterior portion of the valve prosthesis on the short axis views. Unchanged when compared to prior study. --CTA:No acute abnormality and in particular no evidence of acute aortic injury. No pulmonary emboli are seen. --Left UR Venous Doppler:At least partially occlusive thrombi incidentally noted within segments of the brachial and radial arteries. --Arterial Doppler: Intraluminal material consistent with age indeterminate thrombus/emboli within the distal left brachial and radial arteries. Occluded distal left radial artery with dampened, monophasic flow within the left ulnar artery. The thrombus is nearly occlusive and results in significant decreased flow to left hand. --S/P Left Arm Thrombectomy , Angioplasty Distal Radial Artery by Dr. 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 No arterial occlusion, dissection or high-grade stenosis identified. 3 mm saccular aneurysm involves t he left supraclinoid ICA without evidence of rupture. --Neck CTA:No stenosis or dissection within the bilateral common carotid, cervical internal carotid or vertebral arteries. Will need follow-up with neurosurgery on discharge Resolved Anemia of chronic disease Hemoglobin at baseline Monitor Nonrheumatic aortic valve stenosis s/p TAVR on June 2020 Weight loss Likely from endocarditis Appetite slowly improving per patient Monitor Hypothyroidism Continue levothyroxine BPH on Flomax Prediabetes HbA1c 5.7 CKD stage III Monitor renal function Avoid nephrotoxic agents as able Ascending aortic aneurysm Ascending aorta 4.[address] scan 4.7 cm by recent echo Needs follow-up as outpatient DVT Px: IV heparin + Coumadin CODE STATUS Full code Admission and Anticipated Discharge Date Admission Date: August 23, 2023 Subjective Patient is seen and examined at bedside Offers no new complaints today INR still subtherapeutic Had left upper extremity dressing removed by vascular today Denies any dyspnea, dizziness, nausea, vomiting, abdominal pain No bleeding issues while on IV heparin Review of Systems Review of Systems: All systems reviewed & are unremarkable except as noted in Subjective Physical Exam Physical Exam: Physical Exam: Vitals signs as noted above General Appearance:Moderately built and nourished, no apparent distress Head: normocephalic, Atraumatic Eyes: normal inspection, EOMI Neck: supple, Trachea midline Respiratory/Chest: Normal breath sounds, CTA, No accessory muscle use Cardiovascular: S1, S2, + murmur Abdomen/GI:Soft, Non tender, Bowel sounds present Extremities/Musculoskeletal:normal inspection, Left UE mild edema Neurologic/Psych:AAOX3, grossly no focal neurological deficits Skin: normal color, warm Results & Data Results & Data Vital Signs (Past 12 Hours) Vital Signs Temp Pulse Pulse Resp BP Pulse Ox O2 Del Method 08/29/23 10:39 36.5 C 85 20 134/63 97 Room Air 08/29/23 08:00 68 08/29/23 07:24 36.7 C 68 19 131/69 98 Room Air Laboratory Results Short CBC 08/29/23 Range/Units 06:11 WBC 11.35 H (4.8-10.8) K/ul Hgb 10.2 L (14.0-18.0) g/dl Hct 32.3 L (42.0-52.0) % Plt Count 505 H (130-400) K/uL BMP 08/29/23 06:11 Sodium 136 Potassium 4.3 Chloride 99 Carbon Dioxide 31 BUN 21 Creatinine 1.21 Glucose 119 H Calcium 9.2
[2023-08-30 06:54] LABS: ANTI-Xa, UFH(UnfractionatedHep 0.44 IU/ml (0.3-0.7); INR 1.9 (0.9-1.1); Prothrombin Time 19.9 Seconds (9.0-12.0)
--- NOTE | 2023-08-30 14:29 | Cardiology Progress Note ---
Date of Service August 30, 2023 Assessment & Plan (1) Radial artery thrombosis, left: (2) Brachial artery thrombosis: (3) Prosthetic valve endocarditis: (4) S/P TAVR (transcatheter aortic valve replacement): (5) Septic embolism: Plan Left brachial and radial artery thrombosis status post embolectomy and patch angioplasty 08/25/2023. Likely cardioembolic phenomenon /septic emboli in setting of bioprosthetic (TAVR) endocarditis. Continue current treatment with IV Rocephin and IV heparin. Transition to oral warfarin, goal INR 2.0-3.0. First dose today. 08/27/2023 No signs or symptoms of further embolic phenomena plan as outlined transition IV heparin to oral warfarin, continued extended antibiotic therapy Monitor closely for signs or symptoms of further embolic phenomena May transfer from ICU setting, ambulate 08/28/2023 Remained stable. No arrhythmias on telemetry no further signs of embolism. Physical examination unchanged Transitioning to full anticoagulation with warfarin. Continue IV heparin until therapeutic 08/29/2023 Remains clinically stable Plan as previously outlined continue with full anticoagulation with warfarin Continue antibiotic therapies for prosthetic valve endocarditis. I spent a total of 30 minutes on the date of service in preparation, delivery, and documentation of the care provided to this patient, excluding any time spent in the performance of separately billed services. Admission and Anticipated Discharge Date Admission Date: August 23, 2023 Subjective Patient seen and examined, chart, medications, telemetry reviewed No cardiac complaints overnight. No neurologic complaint Physical Exam Constitutional: well nourished; no acute distress and not ill appearing Respiratory: no respiratory distress, no labored breathing and no retractions Auscultation: no crackles, no rales, no rhonchi and no wheezes Cardiovascular: Rate/Rhythm: regular rate and regular rhythm Heart Sounds: normal S1, normal S2 and + murmur (2/6 systolic ejection murmur heard best at the right second intercostal spa) Vessels: radial pulses present; no JVD and no carotid bruit Extremities: no edema Gastrointestinal (Abdomen): Inspection/Auscultation: abdomen normal to inspection and normal bowel sounds; abdomen not distended Percussion/Palpation: abdomen soft; abdomen nontender, no guarding and abdomen not rigid Neurologic: CN's II-XI intact bilaterally and moves all extremities; no focal motor deficits Results & Data Vital Signs (Past 12 Hours) Vital Signs Temp Pulse Pulse Resp BP Pulse Ox O2 Del Method 08/30/23 11:04 74 18 144/69 H 96 Room Air 08/30/23 08:16 67 08/30/23 08:01 67 08/30/23 07:53 36.5 C 99 H 18 165/85 H 96 Room Air 08/30/23 02:28 36.8 C 73 18 123/67 96 Room Air (3) Prosthetic valve endocarditis Encounter type: initial encounter Qualified Code(s): T82.6XXA - Infection and inflammatory reaction due to cardiac valve prosthesis, initial encounter; I38 - Endocarditis, valve unspecified
--- NOTE | 2023-08-30 15:37 | Hospitalist Progress Note ---
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 If patient completes IV antibiotic course prior to seeing ID for follow-up patient should be on Amoxicillin 500 mg 3 times a day until seen by ID as per previous discharge summary. Prior to the last admission patient was getting lightheaded and poor p.o. intake and generalized weakness ,malaise night sweats about 2 weeks and outpatient lab work done showed bacteremia and elevated inflammatory markers and a concern for infective endocarditis as patient had history of bicuspid aortic valve and had TAVR in June 2020 and was admitted on Aug 06 2023.. Patient seems lost weight since last September. Patient states since he got discharged from last admission doing better.. He still gets on and off dizziness and some night sweats but not in the last few days. Appetite is okay. He lives with his son. Ambulating without support. Denies any chest pain or shortness of breath. No cough. Currently no headache. No runny nose or sore throat. No abdominal pain. Moving his bowels regularly. Bowels movements are somewhat loose from his antibiotics. Micturating okay. Comes with left arm swelling and in the ER Doppler showed possibly occlusive thrombus within the segments of the left brachial and radial arteries.Currently resting comfortably and hemodynamically stable. Left radial artery and brachial artery nonocclusive thrombosis Concern for possible septic emboli from endocarditis --ECHO: Compared to prior study, no significant change. EF 60 to 65%. S/P TAVR with VERENA type prosthetic valve. Trivial paravalvular processes regurgitation. Bioprosthetic leaflets are not well-visualized. Systolic gradients borderline elevated and indeterminant for obstruction. Area of echo lucency surrounding the anterior portion of the valve prosthesis on the short axis views. Unchanged when compared to prior study. --CTA:No acute abnormality and in particular no evidence of acute aortic injury. No pulmonary emboli are seen. --Left UR Venous Doppler:At least partially occlusive thrombi incidentally noted within segments of the brachial and radial arteries. --Arterial Doppler: Intraluminal material consistent with age indeterminate thrombus/emboli within the distal left brachial and radial arteries. Occluded distal left radial artery with dampened, monophasic flow within the left ulnar artery. The thrombus is nearly occlusive and results in significant decreased flow to left hand. --S/P Left Arm Thrombectomy , Angioplasty Distal Radial Artery by Dr. 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 No arterial occlusion, dissection or high-grade stenosis identified. 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 --Neck CTA:No stenosis or dissection within the bilateral common carotid, cervical internal carotid or vertebral arteries. Will need follow-up with neurosurgery on discharge Resolved Anemia of chronic disease Hemoglobin at baseline Monitor Nonrheumatic aortic valve stenosis s/p TAVR on June 2020 Weight loss Likely from endocarditis Appetite slowly improving per patient Monitor Hypothyroidism Continue levothyroxine BPH on Flomax Prediabetes HbA1c 5.7 CKD stage III Monitor renal function Avoid nephrotoxic agents as able Ascending aortic aneurysm Ascending aorta 4.[address] scan 4.7 cm by recent echo Needs follow-up as outpatient DVT Px: IV heparin + Coumadin CODE STATUS Full code Disposition Home with home health Admission and Anticipated Discharge Date Admission Date: August 23, 2023 Subjective Patient is seen and examined at bedside Left upper extremity pain much improved Discussed with cardiology today Also updated patient's daughter at bedside Denies any dyspnea, dizziness, nausea, vomiting, abdominal pain No new complaints Review of Systems Review of Systems: All systems reviewed & are unremarkable except as noted in Subjective Physical Exam Physical Exam: Physical Exam: Vitals signs as noted above General Appearance:Moderately built and nourished, no apparent distress Head: normocephalic, Atraumatic Eyes: normal inspection, EOMI Neck: supple, Trachea midline Respiratory/Chest: Normal breath sounds, CTA, No accessory muscle use Cardiovascular: S1, S2, + murmur Abdomen/GI:Soft, Non tender, Bowel sounds present Extremities/Musculoskeletal:normal inspection, Left UE mild edema Neurologic/Psych:AAOX3, grossly no focal neurological deficits Skin: normal color, warm Results & Data Results & Data Vital Signs (Past 12 Hours) Vital Signs Temp Pulse Pulse Resp BP Pulse Ox O2 Del Method 08/30/23 15:14 72 08/30/23 11:04 74 18 144/69 H 96 Room Air 08/30/23 08:16 67 08/30/23 08:01 67 08/30/23 07:53 36.5 C 99 H 18 165/85 H 96 Room Air
[2023-08-31 06:15] LABS: Hematocrit (blood only) 29.4 % (42.0-52.0); Hemoglobin 9.2 g/dl (14.0-18.0); Mean Corpuscular Hemoglobin 26.5 pg (25.0-34.0); Mean Corpuscular Hgb Conc 31.3 g/dL (32.0-36.0); Mean Corpuscular Volume 84.7 fL (80.0-100.0); Mean Platelet Volume 9.7 fL (9.4-12.4); Platelet Count 542 K/uL (130-400); RDW Coefficient of Variation 17.6 % (11.5-14.5); RDW Standard Deviation 54.3 fL (36.4-46.3); Red Blood Count 3.47 M/uL (4.70-6.10); White Blood Count 10.91 K/ul (4.8-10.8)
[2023-08-31 06:31] LABS: BUN Creatinine Ratio 16.2 (10-20); Calcium 8.8 mg/dl (8.6-10.3); Creatinine Clr Calc Pharmacy 40.8 ml/min; Est GFR (African American) 53.8 ml/min; Est GFR (Non-African American) 46.5 ml/min; Potassium 3.9 mmol/L (3.5-5.1)
[2023-08-31 07:19] LABS: INR 2.4 (0.9-1.1); Prothrombin Time 24.4 Seconds (9.0-12.0)
--- NOTE | 2023-08-31 09:43 | Discharge Summary ---
Discharge Summary Date of Service August 31, 2023 Principal Dx & Hospital Course #1 = Principal Diagnosis (1) Radial artery thrombosis, left: Mr Chandler is an 88-year-old male with past medical history significant for dyslipidemia, hypothyroidism, prediabetes, ascending aortic aneurysm, hypertension, left ventricular hypertrophy, severe aortic valve stenosis s/p TAVR, left bundle branch block, sinus bradycardia, PVCs, CKD stage III, history of syncope, history of anemia, history of prostate cancer, history of renal calculi who was admitted for evaluation of left arm pain. 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 Prior to the last admission patient was getting lightheaded and poor p.o. intake and generalized weakness ,malaise night sweats about 2 weeks and outpatient lab work done showed bacteremia and elevated inflammatory markers and a concern for infective endocarditis as patient had history of bicuspid aortic valve and had TAVR in June 2020. Patient reported swelling and pain of LUE. On admission, Doppler showed possibly occlusive thrombus within the segments of the left brachial and radial arteries. Vascular evaluated patient and underwent thrombectomy on 08/24. Patient started on heparin bridge to coumadin. INR on discharge 2.4 Patient reports feeling sore on day of discharge, but denies any chest pain, worsening of swelling, palpitations or other acute on concerns. 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 EF 60 to 65%. S/P TAVR with VERENA type prosthetic valve. Trivial paravalvular processes regurgitation. Bioprosthetic leaflets are not well-visualized. Systolic gradients borderline elevated and indeterminant for obstruction. Area of echo lucency surrounding the anterior portion of the valve prosthesis on the short axis views. Unchanged when compared to prior study. --CTA:No acute abnormality and in particular no evidence of acute aortic injury. No pulmonary emboli are seen. --Left UR Venous Doppler:At least partially occlusive thrombi incidentally noted within segments of the brachial and radial arteries. --Arterial Doppler: Intraluminal material consistent with age indeterminate thrombus/emboli within the distal left brachial and radial arteries. Occluded distal left radial artery with dampened, monophasic flow within the left ulnar artery. The thrombus is nearly occlusive and results in significant decreased flow to left hand. --S/P Left Arm Thrombectomy , Angioplasty Distal Radial Artery by Dr. 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 No arterial occlusion, dissection or high-grade stenosis identified. 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 --Neck CTA:No stenosis or dissection within the bilateral common carotid, cervical internal carotid or vertebral arteries. Will need follow-up with neurosurgery on discharge Resolved #Anemia of chronic disease Hemoglobin at baseline Monitor #Weight loss Likely from endocarditis Appetite slowly improving per patient Monitor #Hypothyroidism Continue levothyroxine #BPH on Flomax #Prediabetes HbA1c 5.7 #CKD stage III Monitor renal function Avoid nephrotoxic agents as able #Ascending aortic aneurysm Ascending aorta 4.[address] scan 4.7 cm by recent echo Needs follow-up as outpatient Notes For Next Care Provider ID follow up 10/12, will need PO abx Amoxicillin 500 mg 3 times a day until seen by ID (10/03 onward) Needs Vascular Follow up for suture removal Needs close Cardiology follow up Medication Changes From Visit Magnesium Oxide 400mg po daily Warfarin 5mg daily Admission HPI Per Admitting Provider 88-year-old male with past medical history significant for dyslipidemia, hypothyroidism, prediabetes, ascending aortic aneurysm, hypertension, left ventricular hypertrophy, severe aortic valve stenosis s/p TAVR, left bundle branch block, sinus bradycardia, PVCs, CKD stage III, history of syncope, history of anemia, history of prostate cancer, history of renal calculi was recently in the hospital from August 05 to August 12, 2023 for bacteremia with strep mutans and prosthetic valve endocarditis and s/p PICC line in the right arm and on Rocephin 2 g IV daily till 10/03/2023 and to follow-up with ID and cardiology. If patient completes IV antibiotic course prior to seeing ID for follow-up patient should be on Amoxicillin 500 mg 3 times a day until seen by ID as per previous discharge summary. Prior to the last admission patient was getting lightheaded and poor p.o. intake and generalized weakness ,malaise night sweats about 2 weeks and outpatient lab work done showed bacteremia and elevated inflammatory markers and a concern for infective endocarditis as patient had history of bicuspid aortic valve and had TAVR in June 2020 and was admitted on Aug 06 2023.. Patient seems lost weight since last September. Patient states since he got discharged from last admission doing better.. He still gets on and off dizziness and some night sweats but not in the last few days. Appetite is okay. He lives with his son. Ambulating without support. Denies any chest pain or shortness of breath. No cough. Currently no headache. No runny nose or sore throat. No abdominal pain. Moving his bowels regularly. Bowels movements are somewhat loose from his antibiotics. Micturating okay. Comes today because of left arm swelling and in the ER Doppler showed possibly occlusive thrombus within the segments of the left brachial and radial arteries.Currently resting comfortably and hemodynamically stable. past medical history. As mentioned above. Past surgical history. Colonoscopy with cardiac cath. EGD. IR arterial embolization. Radical prostatectomy. Removal of ruptured appendix. Tonsillectomy. TAVR. Social history. Smoked 1 to 2 years in college as per epic. Alcohol occasional. No drug use. Lives with his son. Family history. Father had cancer. Mother had diabetes. Daughter has celiac disease. Son is celiac disease. Son has juvenile diabetes. Brother has hypertension. Brother had CABG. Updated Medication List Medication Instructions Recorded Confirmed Type levothyroxine 137 mcg tablet 137 mcg PO DAILYBB ##0 08/05/10 08/23/23 History multivitamin 1 tab PO QAM ##0 08/05/10 08/23/23 History amoxicillin 500 mg capsule 1,000 mg PO .1HR BEFORE APPT PRN 08/06/23 08/23/23 History Other aspirin 81 mg capsule 81 mg PO DAILY 08/06/23 08/23/23 History metoprolol succinate 25 mg 12.5 mg PO QAM 08/06/23 08/23/23 History tablet,extended release 24 hr tamsulosin 0.4 mg capsule 0.4 mg PO QAM 08/06/23 08/23/23 History L.acidop,casei,lactis,rham-B.lact,michael 1 cap PO DAILY #60 caps 08/12/23 08/23/23 Rx 625 mg (10 billion cell) capsule (Advanced Probiotic) ceftriaxone 2 gram intravenous 2 g IV DAILY 8 weeks 08/12/23 08/23/23 Rx solution magnesium oxide 400 mg (241.3 mg 400 mg PO QAM #30 tabs 08/31/23 Rx magnesium) tablet warfarin 5 mg tablet 5 mg PO DAILY #30 tabs 08/31/23 Rx Hospital Stay Data Consultations 08/23/23 19:35 ED Decision to Admit Stat 08/23/23 23:31 Consult Vascular Surgery Routine 08/24/23 08:00 Consult Cardiology Routine 08/25/23 19:46 Consult Foster Parent Routine Procedures Performed Operation Date: 08/25/23 07:00 Actual Procedures p Left Arm Thrombectomy , Angioplasty Distal Radial Artery(Left) - Donavon Parisi MD Diagnostic Imagining Performed 08/23/23 11:27 US venous doppler UE LT Stat 08/23/23 14:08 CT angio chest dissec wo/w con Stat 08/23/23 14:13 CT angio head w con Stat CT angio neck with con Stat CT head/brain wo con Stat 08/24/23 13:25 US arterial duplex UE LT Routine Pending Results Patient Have Any Pending Studies at Discharge: No Discharge Instructions Given to Patient (Per Discharging Provider) You were admitted for concerns of left arm discomfort. Imaging revealed thrombus/clot in the left arm. You underwent clot removal on 08/24 of the left arm clot. The clot was thought to be related to endocarditis. For the recent clot, you will need to remain on blood thinner. You were started on Coumadin (Warfarin) and your level (INR) was 2.4. Your goal is an INR between 2-3 Warfarin 5mg tablet was sent to your pharmacy Please take at same time every day (4pm). Information regarding Wafarin is attached. Please review as it list common foods that can interfere with warfarin that you should familiarize yourself with. You will be contacted to set-up your appointment with the Anticoagulation clinic. You have marislo in place, please call to ensure follow up with Dr. Parisi and team for staple removal by 09/08/2023. You are still continuing treatment with Rocephin for the endocarditis/infection of heart valve. Please continue the 2g IV Rocephin daily through your PICC. Continue your PICC line care as directed by Shakila. Please start Magnesium Oxide 400mg daily Please continue all home medications as previously prescribed. Your Infectious Disease appointment ins 10/13/2023 at 9:40am. It is important that you follow up with your PCP to start Amoxicillin 500mg three times a day upon completing your IV antibiotics on 10/03/2023. Total Time Total Time Spent Total Time Spent (In Minutes): 55
[2023-08-31] MEDS: METOPROLOL SUCC 25MG EXT REL TAB PO STA (09:51)
[2023-08-31] MEDS: POTASSIUM CHLORIDE CRTAB 20 MEQ TABCR PO STA (11:16)
--- NOTE | 2023-08-31 11:36 | Cardiology Progress Note ---
Date of Service August 31, 2023 Assessment & Plan (1) Radial artery thrombosis, left: (2) Brachial artery thrombosis: (3) Prosthetic valve endocarditis: (4) S/P TAVR (transcatheter aortic valve replacement): (5) Septic embolism: Plan Left brachial and radial artery thrombosis status post embolectomy and patch angioplasty 08/25/2023. Likely cardioembolic phenomenon /septic emboli in setting of bioprosthetic (TAVR) endocarditis. Continue current treatment with IV Rocephin and IV heparin. Transition to oral warfarin, goal INR 2.0-3.0. First dose today. 08/27/2023 No signs or symptoms of further embolic phenomena plan as outlined transition IV heparin to oral warfarin, continued extended antibiotic therapy Monitor closely for signs or symptoms of further embolic phenomena May transfer from ICU setting, ambulate 08/28/2023 Remained stable. No arrhythmias on telemetry no further signs of embolism. Physical examination unchanged Transitioning to full anticoagulation with warfarin. Continue IV heparin until therapeutic 08/29/2023 Remains clinically stable Plan as previously outlined continue with full anticoagulation with warfarin Continue antibiotic therapies for prosthetic valve endocarditis. 08/31/2023 Nonsustained ventricular tachycardia recorded this a.m. Recommend 20 mEq of additional potassium supplementation and repeat serum magnesium level. Maintain serum magnesium level greater than 2.0. Titrate Toprol-XL to 25 mg daily. Continue telemetry monitoring. Dose warfarin for goal INR 2.0-3.0. Heparin may be discontinued today with INR of 2.4. I spent a total of 30 minutes on the date of service in preparation, delivery, and documentation of the care provided to this patient, excluding any time spent in the performance of separately billed services. Admission and Anticipated Discharge Date Admission Date: August 23, 2023 Subjective 88-year-old male seen and examined at the bedside. 8 beat run of nonsustained ventricular tachycardia recorded on telemetry this morning. Otherwise, occasional PVCs recorded. Denies chest pain or shortness of breath. No recurrent fevers. INR is therapeutic today. Review of Systems Review of Systems: All systems reviewed & are unremarkable except as noted in Subjective Physical Exam Constitutional: well nourished; no acute distress and not ill appearing Respiratory: no respiratory distress, no labored breathing and no retractions Auscultation: no crackles, no rales, no rhonchi and no wheezes Cardiovascular: Rate/Rhythm: regular rate and regular rhythm Heart Sounds: normal S1, normal S2 and + murmur (2/6 systolic ejection murmur heard best at the right second intercostal spa) Vessels: radial pulses present; no JVD and no carotid bruit Extremities: no edema Gastrointestinal (Abdomen): Inspection/Auscultation: abdomen normal to inspection and normal bowel sounds; abdomen not distended Percussion/Palpation: abdomen soft; abdomen nontender, no guarding and abdomen not rigid Neurologic: CN's II-XI intact bilaterally and moves all extremities; no focal motor deficits Results & Data Vital Signs (Past 12 Hours) Vital Signs Temp Pulse Pulse Resp BP Pulse Ox O2 Del Method 08/31/23 11:09 37.2 C 69 18 137/62 95 Room Air 08/31/23 09:50 78 18 126/51 L 94 Room Air 08/31/23 07:19 36.7 C 68 18 129/65 94 Room Air 08/31/23 06:59 66 08/31/23 02:43 36.7 C 72 18 126/79 95 Room Air Laboratory Results Coagulation 08/31/23 Range/Units 05:24 PT 24.4 H (9.0-12.0) Seconds CBC 08/31/23 Range/Units 05:24 WBC 10.91 H (4.8-10.8) K/ul RBC 3.47 L (4.70-6.10) M/uL Hgb 9.2 L (14.0-18.0) g/dl Hct 29.4 L (42.0-52.0) % Plt Count 542 H (130-400) K/uL Comprehensive Metabolic Panel 08/31/23 Range/Units 05:24 Sodium 135 L (136-145) mmol/L Potassium 3.9 (3.5-5.1) mmol/L Chloride 100 (98-107) mmol/L Carbon Dioxide 28 (21-32) mmol/L BUN 22 (6-23) mg/dl Creatinine 1.36 (0.6-1.4) mg/dl Glucose 112 H (70-99(Fasting)) mg/dl Calcium 8.8 (8.6-10.3) mg/dl Intake and Output 08/30/23 08/31/23 08/31/23 22:59 06:59 14:59 Intake Total 494.617 / 2063.517 503.217 / 2063.517 264.866 / 264.866 Balance 494.617 / 2063.517 503.217 / 2063.517 264.866 / 264.866 Intake: IV 394.617 / 1013.517 153.217 / 1013.517 264.866 / 264.866 Heparin Sodium/Dextrose 25,000 344.617 / 963.517 153.217 / 963.517 264.866 / 264.866 units In 500 ml @ 1,450 UNITS/ HR 29 mls/hr IV .[id number] ROXANN Rx #:[id number] cefTRIAXone SODIUM 2,000 mg In 50 / 50 50 ml @ 100 mls/hr IV Q24H ROXANN Rx#:[id number] Oral 100 / 1050 350 / 1050 Other: # Unmeasured Voids 1 2 Weight 84.5 kg Weight Measurement Method Built in [facility] (3) Prosthetic valve endocarditis Encounter type: initial encounter Qualified Code(s): T82.6XXA - Infection and inflammatory reaction due to cardiac valve prosthesis, initial encounter; I38 - Endocarditis, valve unspecified
[2023-08-31 11:41] LABS: Magnesium 1.9 mg/dl (1.7-2.4)
[2023-08-31] MEDS: MAGNESIUM SULFATE / D5W 1 GM/100 ML BAG IV ONE (13:21)
[2023-08-31] MEDS: MAGNESIUM OXIDE 400 MG TAB PO SCH (16:09)
[2023-09-01] MEDS ORDERED: METOPROLOL SUCC 25MG EXT REL TAB PO SCH (09:00)
== END 2023-08-31 16:40 | disposition home health service (06) | DRG 252 ==
LOC: ED 11:01 → SUATTDRO 22:46 → EDINP 22:46 → 1E 23:32 → 2S 08-25 05:58 → 1E 08-25 19:58 → 4W 08-29 00:06